=== PATIENT | male | born 1955 | race Caucasian/White ===

== ENCOUNTER 2017-10-29 05:45 | Inpatient (IN) | payer MEDICARE, SELFPAY ==
[2017-10-29] VITALS (52 sets, daily range): BP systolic 95–213; BP diastolic 75–113; PULSE 81–128; RESP 12–30; TEMP 36.7–38.1; O2SAT 83–100; BMI 29.1; BMI 26.7
--- NOTE | 2017-10-29 05:49 | EKG12_ITS ---
Test Reason : SOB Blood Pressure : / mmHG Vent. Rate : 121 BPM Atrial Rate : 121 BPM P-R Int : 124 ms QRS Dur : 078 ms QT Int : 322 ms P-R-T Axes : 078 060 064 degrees QTc Int : 457 ms Sinus tachycardia Nonspecific ST abnormality Abnormal ECG Confirmed by PAUL PERRY MD ([id number]), subeditor IZABEL WALTERS ([id number]) on 10/31/2017 8:46:02 AM Referred By: MERY Confirmed By:PAUL PERRY MD
--- NOTE | 2017-10-29 05:49 | RAD_ITS ---
STUDY: X-RAY CHEST REASON FOR EXAM: Male, 62 years old. Shortness of breath and chest pain times couple of days. History of emphysema. TECHNIQUE: Single AP portable view of the chest. COMPARISON: 11/10/2014. CT chest 11/16/2012. FINDINGS: There are superimposed monitor leads. There is hyperinflation of the lungs consistent with chronic obstructive lung disease (COPD). There is increased of interstitial opacification since previous examination. There is no demonstrated pleural abnormality. Normal size heart. Normal mediastinum and tiara. Normal visualized pulmonary arteries. There is atherosclerotic calcification of the aortic arch with tortuosity. The spine and upper abdominal soft tissues are obscured. There is demineralization of osseous structures. RAD/Chest 1 View (Portable) IMPRESSION: Emphysema. Increase of interstitial opacification bilateral lung parenchyma. This may represent an acute superimposed inflammatory process. Atypical congestive heart failure distribution less likely. Electronically Signed: Jaye Alvarez MD at 6:59 EST , Service support ,
[2017-10-29] MEDS: Albuterol 2.5 MG/3 ML VIAL.NEB. INHALATION ×6 (06:07→22:52)
[2017-10-29] MEDS: MethylPREDNISolone 125 MG/2 ML Vial IV (06:07)
[2017-10-29] MEDS: Ipratropium/Albuterol Sulfate 3 ML AMPUL.NEB INHALATION ×2 (06:07→07:18)
[2017-10-29 06:34] LABS: Anion Gap 8 (5-15); BUN 25 mg/dL (7-18); BUN/Creat Ratio 36.2 RATIO (10-20); Calcium,Total 9.3 mg/dL (8.5-10.1); Chloride 85 mmol/L (98-107); Creatinine, Serum 0.69 mg/dL (0.70-1.30); EST Glomerular Filtration Rate 123 mL/min (>60); Est Glom Filt Rate - Afr Amer 149 mL/min (>60); Estimated Creatinine Clearance 108.77 ml/min; Glucose 132 mg/dL (74-106); Potassium 4.3 mmol/L (3.5-5.1); Sodium Level 131 mmol/L (136-145)
[2017-10-29 06:35] LABS: Absolute Lymphocyte Count 1.16 X10^3/ul (0.83-4.51); Absolute Neutrophil Count 10.1 X10^3/uL (2.0-7.7); Basophil# 0.02 X10^3/uL; Basophil% 0.2 % (0-1); Eosinophil# 0.04 X10^3/uL; Eosinophils% 0.3 % (0-5); Hemoglobin 12.6 g/dl (13.0-16.5); Lymphocyte # 1.16 X10^3/ul (4.0); Lymphocyte % 8.7 % (19-41); Mean Corp Hgb Conc 30.7 g/gl (32-36); Mean Corpuscular Hgb 28.6 pg (27.0-32.0); Mean Platelet Vol. 9.9 fl (6.2-12.0); Monocyte% 14.3 % (0-10); Neutrophil # 10.08 X10^3/uL (2.7-7.7); Platelet Count 238 K/mm3 (150-450); RBC Distribution Width CV 14.2 % (11.6-14.6); RBC Distribution Width SD 48.2 fl (35.1-43.9); Red Blood Count 4.41 M/mm3 (4.6-6.2); White Blood Count 13.3 K/mm3 (4.4-11.0)
[2017-10-29 06:39] LABS: Differential Indicated SCAN CRITERIA MET; POSITIVE COUNT NO; POSITIVE DIFFERENTIAL YES; POSITIVE MORPHOLOGY NO
--- NOTE | 2017-10-29 06:54 | PCM.HP.STD ---
Problem List (1) COPD exacerbation Status: Acute (2) Chest pain Status: Acute (3) HTN (hypertension) Status: Chronic History of Present Illness Date of Admission: 10/29/17 Chief Complaint: Chest pain The patient is a 62 year old male w/ h/o chronic pain syndrome admitted for COPD exacerbation. Pt has been having worsening SOB for the past few days. He has had intermittent episode of cough. Intensity and frequency of cough have worsened in the last few days. Cough is productive. The quantity of sputum has slightly increased. He also has intermittent chest pain x 2 weeks. Pain is sharp and has increased over the past few days. Pain would last for hours and he would have multiple episodes of pain in a day. Pain would come suddenly. Movement would make it worse. Nothing makes it better. Pain is not associated with any other factors. Past Medical History Past Medical History (Chronic Problems): Chronic Problems HTN (hypertension) (Chronic) Allergies No Known Allergies Allergy (Verified 01/31/17 13:19) Home Medications: Ambulatory Orders Medication Instructions Recorded Benzonatate [Benzonatate] 200 mg PO BID 01/31/17 Hydrocodone Bitart/Apap 5-325 1 tablet PO Q6H PRN PRN #12 tablet 01/31/17 [[place] 5/325] Prednisone [Deltasone] 40 mg PO DAILY #8 tablet 01/31/17 Smoking Status: Former smoker Alcohol: None Drugs: None - *Family History Maternal History Items: No pertinent history Review of Systems Constitutional: Denies: Chills, Fever, Weight Change HEENT: Denies: Head Aches, Sinus Congestion, Sinus Drainage Cardiovascular: Reports: Chest Pain. Denies: Palpitations Respiratory: Reports: Cough, Shortness of Breath. Denies: Shortness of breath at rest, Sputum production Gastrointestinal: Denies: Abdominal Pain, Nausea, Vomiting Genitourinary: Denies: Dysuria Musculoskeletal: Denies: Joint Pain, Joint Tenderness Skin: Denies: Rash, Wounds Neurological: Denies: Numbness, Tingling, Focal weakness Psychiatric: Denies: Anxiety, Depression, Homicidal Ideations, Suicidal Ideations Hematologic/ Lymphatic: Denies: Easy Bruising, Easy Bleeding VTE Information - Inpt Only VTE Present on Admission: No VTE Mechan Device Prophylaxis: SCD's VTE Pharm Prophylaxis ordered?: Yes Patient Problems: Active and Suspected Problems COPD exacerbation (Acute) Chest pain (Acute) - Physical Exam General: Alert, Oriented x3, Cooperative HEENT: Atraumatic, PERRLA, EOMI, Normocephalic Neck: Supple, No JVD, Negative Carotid Bruits Lungs: Rhonchi, Short of Breath, Wheezes Cardiovascular: Regular rate, No murmurs Abdomen: Bowel Sounds Present, Soft, Non Tender Extremities: No edema, Capillary Refill Less than 3 Seconds Skin: No rashes, No breakdown Musculoskeletal: No Tenderness to Palpation of Joints or Extremities Neurological: Cranial nerves II-XII grossly intact Psych/Mental Status: Normal Affect, Appropriate Vital Signs Temp Pulse Resp BP Pulse Ox 98.1 F 127 H 24 H 213/113 H 86 10/29/17 05:46 10/29/17 06:46 10/29/17 06:46 10/29/17 06:46 10/29/17 06:46 Oxygen Flow Rate 5 Oxygen Delivery Method Nasal Cannula Weight: 86.9 kg Body Mass Index (BMI) 29.1 Laboratory Tests Past 24 Hrs 10/29/17 10/29/17 05:50 05:50 WBC 13.3 H RBC 4.41 L Hgb 12.6 L Hct 41.0 MCV 93.0 MCH 28.6 MCHC 30.7 L RDW 14.2 RDW Differential 48.2 H Plt Count 238 MPV 9.9 Immature Gran % (Auto) 0.500 Neut % (Auto) 76.0 H Lymph % (Auto) 8.7 L [place] % (Auto) 14.3 H Eos % (Auto) 0.3 Baso % (Auto) 0.2 Absolute Neuts (auto) 10.1 H Absolute Lymphs (auto) 1.16 Total Counted Pending Sodium 131 L Potassium 4.3 Chloride 85 L Carbon Dioxide 38.0 H Anion Gap 8 BUN 25 H Creatinine 0.69 L Estim Creat Clear Calc 108.77 Est GFR (MDRD) Af Amer 149 Est GFR (MDRD) Non-Af 123 BUN/Creatinine Ratio 36.2 H Glucose 132 H Calcium 9.3 Troponin I 0.33 H Assessment/Plan Active and Suspected Problems COPD exacerbation (Acute) Chest pain (Acute) 62 year old male w/ h/o chronic pain syndrome admitted for COPD exacerbation. 1) COPD exacerbation: Diffuse wheezing noted. Chest xray unremarkable. Will start steroid, bronchodilators and ceftriaxone and azithromycin to cover for atypical organism. Cultures pending. Hydration. 2) Chest pain: Elevated trop noted 0.3. EKG disclosed tachy but no e/o ST elevation. Possible type II secondary to COPD exacerbation. However, concerning for ACS. Will get serial trops. Will start heparin gtt. Will get ECHO. Will consult cards. 3) Hyponatremia: Probably hypovolemia hyponatremia. Hydration. Will consider workup if no improvement. Monitor. 3) Prophylaxis: Heparin.
--- NOTE | 2017-10-29 06:55 | NURSING ---
PCU COPD EXAC AND CP SOLO
[2017-10-29] MEDS: Ondansetron 4 MG/2 ML Vial IV (06:56)
--- NOTE | 2017-10-29 08:09 | ED.VISSUMM ---
- ER Visit Summary Date of Service: 10/29/17 Chief Complaint: Shortness of breath and left chest pain History of Present Illness: The patient is a 62 M history of COPD on 4 L of O2 at home. Patient states that for days he has been increasingly more short of breath. He also has dull aching left-sided chest pain. He denies any cardiac history. He denies any history of DVT or PE. He denies any leg pain or swelling. He has had no recent hospitalizations. He states subjectively he thinks he may have had a fever. He denies any hemoptysis, leg pain or swelling. Physical Examination: Older male in respiratory distress. Heart rate 121 respiratory rates greater than 30 and his O2 sat is 84% on 2-4 L. Consistent with hypoxia. Temperature is pending. H EENT exam unremarkable. Neck nontender no JVD no lymphadenopathy. Lungs he has wheezing throughout both lung p[place]co. No rales. No rhonchi. Increased respiratory rate and labored breathing. His left chest wall has reproducible pain there is no ecchymosis. There is no subcu air. There is no bony deformities. This is where his complaint of the chest pain appears to be chest wall pain. Abdomen soft nontender. Normal bowel sounds no peritoneal signs. Extremities he is moving all 4. Calves are nontender without edema or cords. Neurologically is awake alert without focal deficits. Test Results: Chest x-ray shows chronic changes no acute process. No pneumothorax nor infiltrate. Read by myself pending radiology interpretation. EKG sinus tachycardia rate of 121. Unchanged from prior EKG from 2 years ago. White count 13.3. H&H 12 and 41. No bands. Reportedly the person is currently on prednisone. Electrolytes sodium 131. Creatinine 0.6 gap of 8. Troponin is elevated at 0.33. Arterial blood gas shows a pH of 7.22 PCO2 of 121 and PO2 of 177. Emergency Department Course and Treatment: She was treated with aerosols IV Solu-Medrol. He received this by the squad also. He was given aspirin even though his chest pain seemed to be reproducible. I discussed with the patient intubation and he deferred. He does not want that he states. He has not previously filled out a living will. He will be started on BiPAP which he is allowing us to do. Treatment Plan: I very spoken to Dr. Ware the hospitalist has been down to evaluate the patient is going place him on PCU. Disposition: Admission Impression: Acute respiratory failure Acute exacerbation COPD Acute respiratory acidosis with CO2 retention Abnormal troponin may be secondary to hypoxia versus acute coronary event. Patient stated he did not want intubation. He will be started on positive pressure noninvasive ventilation This note was generated with [employer] dictation software. It may contain incorrect words, spelling, and punctuation that were not noted in review of the chart prior to signing ED Disposition - Plan for ED Patient: Disposition: Acute Care Hospital [facility] Chief Complaint: Chest Pain
--- NOTE | 2017-10-29 08:17 | NURSING ---
attempting to obtain admission information, but the patient is a very poor historian, also he is very drowsy, and on the bipap at this time, so communication is very difficult at this time.
--- NOTE | 2017-10-29 08:18 | NURSING ---
pt refuses nutritional supplements
[2017-10-29 08:33] LABS: Blood Gas Specimen Type ART
[2017-10-29 08:34] LABS: Allen Test POS; FI02 100; O2 Delivery Device NRB Mask; SITE L RADIAL
[2017-10-29 08:35] LABS: Time Given 725; pH 7.22 (7.35-7.45)
[2017-10-29 08:36] LABS: Base Excess 22 mmol/L (-2 to +2); Bicarbonate 49.7 mmol/L (22-26); PO2 177 mmHG (75-100); SO2 99 % (95-99); Total Carbon Dioxide > 50 mmol/L; pCO2 121.3 mmHg (35-45)
--- NOTE | 2017-10-29 09:34 | PCM.PN.HOSP ---
Patient Problems: Active and Suspected Problems COPD exacerbation (Acute) Chest pain (Acute) Vitals/I&O's: Vital Signs Temp Pulse Resp BP Pulse Ox 98.0 F 125 H 22 H 162/98 H 88 10/29/17 09:02 10/29/17 09:02 10/29/17 09:02 10/29/17 09:02 10/29/17 09:02 Oxygen Flow Rate 15 Oxygen Delivery Method Bi-pap Weight: 80 kg Body Mass Index (BMI) 26.7 Laboratory Results 10/29/17 07:20: Specimen Type ART, Sample Site L RADIAL, pH 7.22 L, Bicarbonate Actual 49.7 H, POC Total CO2 > 50, Base Excess 22 H, O2 Saturation 99, O2 % 100, ABG pCO2 121.3 H*, ABG pO2 177 H, Pranav Test POS, Respiration Rate TNP, O2 Delivery Device NRB Mask, Liter Flow 15.0, Minute Volume TNP, Vent Mode TNP, Tidal Volume TNP, POC PEEP TNP, POC Pressure Suppt TNP, Pressure High TNP, Pressure Low TNP, Time High TNP, Time Low TNP, EPAP TNP, IPAP TNP, Blood Gas Notified Whom ED MD, Blood Gas Notified Time 725 Current Medications Aspirin (Ecotrin) 81 mg PO DAILY@0800 [facility] Atorvastatin Calcium (Lipitor) 40 mg PO QHS [facility] Carvedilol (Coreg) 6.25 mg PO BID [facility] Heparin Sodium (Porcine) () 0 units IV UD PRN PRN Reason: Protocol Ceftriaxone Sodium (Rocephin) 1 gm in 50 mls @ 100 mls/hr IV Q24 [facility] Heparin Sodium/Dextrose () 25,000 units in 250 mls @ 11 mls/hr IV .[id number] [facility]; As Directed PRN Reason: Protocol Methylprednisolone (Solu-Medrol) 40 mg IV Q8 [facility] Stop: 10/30/17 14:01 Morphine Sulfate (Morphine) 2 - 4 mg IV Q3H PRN PRN PRN Reason: Severe Pain (pain scale 6-10) Morphine Sulfate (Morphine) 2 - 4 mg IV Q3H PRN PRN PRN Reason: Severe Pain (pain scale 6-10) Nitroglycerin (Nitrostat) 0.4 mg SUBLINGUAL Q5M PRN PRN Reason: CHEST PAIN Assessment/Plan Active and Suspected Problems COPD exacerbation (Acute) Chest pain (Acute) Patient is a 62 year old gentleman with past medical history significant on for COPD who was admitted with worsening shortness of breath, productive cough over couple of days prior to patient being admitted. And had also complained of intermittent epigastric chest pain over the past 2 weeks. An assessment of acute hypoxic respiratory failure was made patient placed on noninvasive ventilation and admitted to the progressive care unit. Patient was seen momentarily after patient arrived on the floor he was found to be in significant respiratory distress unable to speak in full sentences using accessory muscles in breathing. ABGs obtained after patient's admission demonstrated significant hypercarbia with PCO2 of 121. Did discuss with the patient regarding his CODE STATUS patient did express the desire to have everything done (conversation was held with a nurse in the room). Call was placed to the intensive care physician electronics system mechanic Dr. Ayon decision was made to transfer patient to the intensive care unit for management. Clinical Impression(s) from Imaging Studies Chest X-Ray 10/29/17 05:49 IMPRESSION: Emphysema. Increase of interstitial opacification bilateral lung parenchyma. This may represent an acute superimposed inflammatory process. Atypical congestive heart failure distribution less likely. Electronically Signed: Jaye Alvarez MD at 6:59 EST , Service support , Laboratory Results - last 24 hr 10/29/17 10/29/17 10/29/17 05:50 05:50 07:20 WBC 13.3 H RBC 4.41 L Hgb 12.6 L Hct 41.0 MCV 93.0 MCH 28.6 MCHC 30.7 L RDW 14.2 RDW Differential 48.2 H Plt Count 238 MPV 9.9 Immature Gran % (Auto) 0.500 Neut % (Auto) 76.0 H Lymph % (Auto) 8.7 L [place] % (Auto) 14.3 H Eos % (Auto) 0.3 Baso % (Auto) 0.2 Absolute Neuts (auto) 10.1 H Absolute Lymphs (auto) 1.16 Total Counted Not Reportable Differential Comment Diff Path Review May foll Specimen Type ART Sample Site L RADIAL pH 7.22 L Bicarbonate Actual 49.7 H POC Total CO2 > 50 Base Excess 22 H O2 Saturation 99 O2 % 100 ABG pCO2 121.3 H* ABG pO2 177 H Pranav Test POS Respiration Rate TNP O2 Delivery Device NRB Mask Liter Flow 15.0 Minute Volume TNP Vent Mode TNP Tidal Volume TNP POC PEEP TNP POC Pressure Suppt TNP Pressure High TNP Pressure Low TNP Time High TNP Time Low TNP EPAP TNP IPAP TNP Blood Gas Notified Whom ED MD Blood Gas Notified Time 725 Sodium 131 L Potassium 4.3 Chloride 85 L Carbon Dioxide 38.0 H Anion Gap 8 BUN 25 H Creatinine 0.69 L Estim Creat Clear Calc 108.77 Est GFR (MDRD) Af Amer 149 Est GFR (MDRD) Non-Af 123 BUN/Creatinine Ratio 36.2 H Glucose 132 H Calcium 9.3 Troponin I 0.33 H Assessment 1. Acute hypoxic and hypercapnic respiratory failure 2. Elevated troponin suspected to be secondary to #1 3. COPD with acute exacerbation 4. Suspected atypical pneumonia 5. Chronic pain syndrome 6. DVT prophylaxis Plan : 1. Continue with treatment as initiated by admitting physician 2. Transfer patient to the intensive care unit with consultation to Dr. John Ayon with intensive care Time spent attending to patient and coordinating care 65 minutes Advanced planning: CODE STATUS discussed with patient regarding his prognosis and various modalities involving the CODE STATUS discussion patient elected to remain full code at this point including intubation if warranted; Time spent on discussion 18 minutes Code Visit Procedures: 29909 Prolonged InPt Service; first hour
--- NOTE | 2017-10-29 09:37 | CON.PCM_ITS ---
Reason for Consult Date of Consultation: 10/29/17 Reason for Consultation: Respiratory failure History of Present Illness: The patient is a 62-year-old male, with a history as outlined below, who presented to the emergency department on October 29 with complaints of shortness of breath and chest pain. The patient reports a history of COPD of unknown severity, as his care was previously being delivered by Dr. Lyman at [facility]. He does endorse a [id number] smoking history, having quit previously. The patient's home inhaler regimen is not known. He denies ever having been evaluated for sleep disordered breathing, and does not currently utilize any form of noninvasive positive pressure ventilation in his home environment. He does report an overall generalized decline in the quality of his life recently. On presentation to the emergency department, the patient was noted to be afebrile, tachycardic and hemodynamically stable. He was tachypneic and initially requiring 5 L/min via nasal cannula to maintain oxygen saturations. His oxygen requirement steadily increased in the emergency department and he was eventually transitioned to BiPAP therapy. Laboratory evaluation revealed elevated white blood cell count to 13,000. Initial arterial blood gas on a nonrebreather, obtain in the emergency department, revealed both hypercarbia and hypoxemia with a pH of 7.22, PCO2 of 121 and PO2 of 177. Chemistry profile revealed a chronically elevated serum bicarbonate at 38. Initial troponin was elevated to 0.33. Initial plain film chest x-ray revealed interstitial airspace disease concerning for atypical infectious process versus edema. The patient was started on breathing treatments, steroids and antibiotics. He was initially transferred to the PCU. However, the patient continued to decompensate clinically and required transfer to the medical intensive care unit for ongoing management. Upon repeating the patient's arterial blood gas on BiPAP, there appeared to be slight interval worsening in the patient's hypercarbia. He did report that he would in fact want to be intubated. Therefore, the decision was made to proceed with intubation due to failure to respond to BiPAP therapy. The patient was placed into appropriate position. He was medicated with 4 mg of Versed and 20 mg of etomidate, after which time he was oxygenated via bag valve mask ventilation. Direct laryngoscopy was performed with a grade 1 view obtained. A #8 endotracheal tube was placed at 22 cm at the lips. Post intubation plain film chest x-ray is currently pending. Past Medical History Past Medical History (Chronic Problems): Chronic Problems HTN (hypertension) (Chronic) Allergies No Known Allergies Allergy (Verified 01/31/17 13:19) Home Medications: Ambulatory Orders Medication Instructions Recorded Benzonatate [Benzonatate] 200 mg PO BID 01/31/17 Hydrocodone Bitart/Apap 5-325 1 tablet PO Q6H PRN PRN #12 tablet 01/31/17 [[place] 5/325] Prednisone [Deltasone] 40 mg PO DAILY #8 tablet 01/31/17 Smoking Status: Former smoker Alcohol: None Drugs: None - *Family History Maternal History Items: No pertinent history Review of Systems Constitutional: Denies: Chills, Fever Eyes: Denies: Blurred vision, Double vision HEENT: Reports: Nasal Congestion, Sinus Congestion Cardiovascular: Reports: Chest Pain, Chest Tightness Respiratory: Reports: Cough, Shortness of Breath Gastrointestinal: Denies: Abdominal Pain, Nausea, Vomiting Genitourinary: Denies: Dysuria Musculoskeletal: Denies: Joint Pain, Joint Tenderness Skin: Denies: Rash, Wounds Neurological: Denies: Numbness, Tingling, Focal weakness Psychiatric: Denies: Anxiety, Depression, Homicidal Ideations, Suicidal Ideations Hematologic/ Lymphatic: Denies: Easy Bruising, Easy Bleeding Patient Problems: Active and Suspected Problems COPD exacerbation (Acute) Chest pain (Acute) Objective: The patient's most recent lab work, culture data and imaging studies have all been personally reviewed. Respiratory viral panel and sputum culture have been ordered. Repeat echocardiogram is pending. Prior surface echocardiogram from April 2013 revealed normal LV size with an ejection fraction of 50%. - Physical Exam General: - - Currently intubated and sedated. HEENT: Atraumatic, PERRLA, Normocephalic Oral: No Gingival or Mucosal Lesions/ Ulcerations, Dry Mucosa Neck: Supple, No Nodes, Trachea Midline Lungs: Short of Breath, Tachypneic, - - Globally diminished air movement bilaterally without appreciable wheezes, rales or rhonchi. Cardiovascular: Normal S1, Normal S2, No murmurs, No rub noted, No Gallop, Tachycardic Abdomen: Bowel Sounds Present, Soft, Non Tender, Obese Extremities: No clubbing, No cyanosis, No edema Skin: No rashes, No breakdown Musculoskeletal: No Muscle Wasting Lymphatic: No Cervical, Supraclavicular, or Inguinal Adenopathy Neurological: - - No focal neurological deficits. Moves all extremities spontaneously. Currently sedated. Vital Signs Temp Pulse Resp BP Pulse Ox 98.0 F 125 H 22 H 162/98 H 88 10/29/17 09:02 10/29/17 09:02 10/29/17 09:02 10/29/17 09:02 10/29/17 09:02 Oxygen Flow Rate 15 Oxygen Delivery Method Bi-pap Weight: 176 lb 5.917 oz Body Mass Index (BMI) 26.7 Laboratory Tests Past 24 Hrs 10/29/17 07:20 Specimen Type ART Sample Site L RADIAL pH 7.22 L Bicarbonate Actual 49.7 H POC Total CO2 > 50 Base Excess 22 H O2 Saturation 99 O2 % 100 ABG pCO2 121.3 H* ABG pO2 177 H Pranav Test POS Respiration Rate TNP O2 Delivery Device NRB Mask Liter Flow 15.0 Minute Volume TNP Vent Mode TNP Tidal Volume TNP POC PEEP TNP POC Pressure Suppt TNP Pressure High TNP Pressure Low TNP Time High TNP Time Low TNP EPAP TNP IPAP TNP Blood Gas Notified Whom ED Blood Gas Notified Time 725 Labs (Last 48 Hours) 10/29/17 10/29/17 10/29/17 05:50 05:50 07:20 WBC 13.3 H RBC 4.41 L Hgb 12.6 L Hct 41.0 MCV 93.0 MCH 28.6 MCHC 30.7 L RDW 14.2 RDW Differential 48.2 H Plt Count 238 MPV 9.9 Immature Gran % (Auto) 0.500 Neut % (Auto) 76.0 H Lymph % (Auto) 8.7 L [place] % (Auto) 14.3 H Eos % (Auto) 0.3 Baso % (Auto) 0.2 Absolute Neuts (auto) 10.1 H Absolute Lymphs (auto) 1.16 Total Counted Not Reportable Differential Comment Diff Path Review May foll Specimen Type ART Sample Site L RADIAL pH 7.22 L Bicarbonate Actual 49.7 H POC Total CO2 > 50 Base Excess 22 H O2 Saturation 99 O2 % 100 ABG pCO2 121.3 H* ABG pO2 177 H Pranav Test POS Respiration Rate TNP O2 Delivery Device NRB Mask Liter Flow 15.0 Minute Volume TNP Vent Mode TNP Tidal Volume TNP POC PEEP TNP POC Pressure Suppt TNP Pressure High TNP Pressure Low TNP Time High TNP Time Low TNP EPAP TNP IPAP TNP Blood Gas Notified Whom ED Blood Gas Notified Time 725 Sodium 131 L Potassium 4.3 Chloride 85 L Carbon Dioxide 38.0 H Anion Gap 8 BUN 25 H Creatinine 0.69 L Estim Creat Clear Calc 108.77 Est GFR (MDRD) Af Amer 149 Est GFR (MDRD) Non-Af 123 BUN/Creatinine Ratio 36.2 H Glucose 132 H Calcium 9.3 Troponin I 0.33 H Clinical Impression(s) from Imaging Studies Chest X-Ray 10/29/17 05:49 IMPRESSION: Emphysema. Increase of interstitial opacification bilateral lung parenchyma. This may represent an acute superimposed inflammatory process. Atypical congestive heart failure distribution less likely. Electronically Signed: Jaye Alvarez MD at 6:59 EST , Service support , Assessment/Plan Active and Suspected Problems COPD exacerbation (Acute) Chest pain (Acute) RECOMMENDATIONS: 1. Obtain plain film chest x-ray to confirm appropriate endotracheal tube placement 2. Broaden antibiotics to include Zosyn. Check MRSA screen and if positive start vancomycin. 3. Check full respiratory viral panel and obtain sputum culture 4. Maintain oxygen saturations 88-92%, to prevent paradoxical CO2 retention 5. Obtain repeat arterial blood gas in 1 hour 6. Continue to trend troponins. Repeat surface echocardiogram is pending. Cardiology consultation is pending. 7. Start Pepcid and Lovenox for prophylaxis IMPRESSIONS: 1. Acute on chronic hypoxemic and hypercarbic respiratory failure Potential etiologies include acute COPD exacerbation due to atypical infectious process versus that of decompensated heart failure and subsequent pulmonary vascular congestion. The patient failed to respond to BiPAP therapy and was subsequently intubated. A full respiratory viral panel and sputum cultures will be obtained. Scheduled aerosol treatments and steroids will be continued. Antibiotics will be transitioned to Zosyn. MRSA screen will be obtained and if positive vancomycin will be added. Will obtain BNP and repeat surface echocardiogram. Maintain oxygen saturations 88-92%. Plan to repeat arterial blood gas 1 hour following intubation. 2. Elevated troponin Likely demand ischemia in the setting of increased metabolic demands. Cardiology has been consulted. Plan to continue to trend troponins. Repeat echocardiogram is pending. 3. Chronic pain syndrome/obesity/tobacco dependence, in remission Complicates care, management, recovery and prognosis. The patient will be sedated with propofol and fentanyl. Tube feeds can be initiated per nutrition recommendations. TIME: 80 minutes of critical care time, inclusive of procedures, was spent addressing the patient's acute on chronic respiratory failure, COPD exacerbation, troponin elevation, review of all data and collaboration with the care team. ([id number]) Code Visit Procedures: 90224 Critial Care Addl 30 Min 9xxxx: [id number] Critical care first hour
--- NOTE | 2017-10-29 10:15 | NURSING ---
Dr Ayon spoke w/pt regarding intubation. Pt at first stated he did not want intubated because he wants to have a good quality of life. When intubation was further explained to pt re: may just need a few days to get over current illness, pt agreed to intubation. Pt states he would not want trach or prolonged intubation. States he is in the process of getting his cousin, Peter Armenta, cousin, to be his POA. States this is his main contact and provided phone number. No children, no .
--- NOTE | 2017-10-29 10:23 | NURSING ---
1027- 4mg versed IV given. Dr zhu at head of bed to intubate 1028- 20mg etomidate IV given. 1030- Dr Zhu intubating. #8 ETT, 22cm lip, (+) color change, B/L breath sounds.
[2017-10-29] MEDS: Propofol 10MG/Ml 1,000 MG/100 ML Bottle 2.4 MG CONT INF ×3 (10:30→20:28)
--- NOTE | 2017-10-29 10:41 | RAD_ITS ---
STUDY: X-RAY CHEST REASON FOR EXAM: Male, 62 years old. ET tube placement TECHNIQUE: Single AP portable view of the chest. COMPARISON: None. FINDINGS: ET tube is noted terminating roughly 4.7 cm from the yoanna. Enteric tube in the stomach. Lungs are adequately inflated with interstitial prominence suggesting vascular congestion throughout. There is no demonstrated pleural abnormality. There is mild cardiac enlargement. Normal mediastinum and tiara. Normal visualized pulmonary arteries. Normal visualized aortic arch and descending thoracic aorta. There are diffuse degenerative changes of the visualized thoracic spine. There is degenerative osteoarthritis of the bilateral shoulders. There is no demonstrated abnormality of the visualized soft tissue structures of the upper abdomen. RAD/Chest 1 View (Portable) IMPRESSION: Interstitial edema throughout the lungs. ET tube and enteric tube Electronically Signed: Alton Randle DO at 11:34 EST Tel , Service support ,
--- NOTE | 2017-10-29 10:45 | RAD_ITS ---
STUDY: X-RAY - ABDOMEN/PELVIS REASON FOR EXAM: Male, 62 years old. NG tube placement TECHNIQUE: Single AP view of the abdomen / pelvis. COMPARISON: 10/29/2017 FINDINGS: NG tube is in place with tip in side port both in the stomach. Would recommend at least advanced in by 8 cm. Nonobstructive bowel gas pattern. There is no demonstrated free abdominal air. The visualized liver, spleen and kidneys are grossly normal in size and morphology. Normal soft tissue structures. There are diffuse degenerative changes of the visualized lumbar spine. RAD/Abdomen Single View (Portable) IMPRESSION: NG tube as above Electronically Signed: Alton Randle DO at 11:33 EST Tel , Service support ,
--- NOTE | 2017-10-29 10:55 | CON.PCM_ITS ---
Reason for Consult Date of Consultation: 10/29/17 Reason for Consultation: AbNormal cardiac enzymes History of Present Illness: The patient is a 62-year-old male, who presented to the emergency department on October 29 with complaints of shortness of breath and chest pain. The patient reports a history of COPD of unknown severity, as his care was previously being delivered by Dr. Lyman at [facility]. He does endorse a 30-pack- year smoking history, having quit previously. He says that the shortness of breath had been coming on for a while. On presentation to the emergency department, the patient was noted to be afebrile, tachycardic and hemodynamically stable. He was tachypneic and initially requiring 5 L/min via nasal cannula to maintain oxygen saturations. His oxygen requirement steadily increased in the emergency department and he was eventually transitioned to BiPAP therapy. Laboratory evaluation revealed elevated white blood cell count to 13,000. Initial arterial blood gas on a nonrebreather, obtain in the emergency department, revealed both hypercarbia and hypoxemia with a pH of 7.22, PCO2 of 121 and PO2 of 177. Chemistry profile revealed a chronically elevated serum bicarbonate at 38. Initial troponin was elevated to 0.33. Initial plain film chest x-ray revealed interstitial airspace disease concerning for atypical infectious process versus edema. The patient was started on breathing treatments, steroids and antibiotics. He was initially admitted to the PCU reasons that are not entirely clear but it appears there was a suggestion that he did not want to be intubated though he says he did not quite understand the implications. However, the patient continued to decompensate clinically shortly afterwards and required transfer to the medical intensive care unit for ongoing management and intubation. Past Medical History Allergies/Adverse Reactions: Allergies No Known Allergies Allergy (Verified 01/31/17 13:19) Home Medications: Ambulatory Orders Medication Instructions Recorded Benzonatate [Benzonatate] 200 mg PO BID 01/31/17 Hydrocodone Bitart/Apap 5-325 1 tablet PO Q6H PRN PRN #12 tablet 01/31/17 [[place] 5/325] Prednisone [Deltasone] 40 mg PO DAILY #8 tablet 01/31/17 Past Medical History (Chronic Problems): Chronic Problems HTN (hypertension) (Chronic) - *Family History Maternal History Items: No pertinent history Smoking Status: Former smoker Alcohol: None Drugs: None Review of Systems - Review of Systems General: Denies: Fever, Night Sweats, Fatigue Cardiovascular: Reports: Shortness of Breath, Shortness of Breath with Exertion. Denies: Chest Discomfort, Orthopnea, PND, Peripheral Edema, Palpitations, Lightheadedness, Dizziness, Near Syncope, Syncope Respiratory: Denies: Cough, Sputum Production, Hemoptysis Gastrointestinal: Denies: Hematemesis, Hematochezia, Melena Genitourinary: Denies: Dysuria, Hematuria Skin: Denies: Rash Subjectve: Middle-aged gentleman in respiratory distress currently being intubated Objective: Vital Signs Temp Pulse Resp BP Pulse Ox 98.0 F 125 H 22 H 162/98 H 88 10/29/17 09:02 10/29/17 09:02 10/29/17 09:02 10/29/17 09:02 10/29/17 09:02 Oxygen Flow Rate 15 Oxygen Delivery Method Bi-pap Weight: 176 lb 5.917 oz Body Mass Index (BMI) 26.7 HEENT: PERRL, EOMI, Sclera Non Icteric Neck: Supple, Good ROM, No Lymph Node Enlargement Lungs: Clear to auscultation Cardiovascular: Regular Rhythm, Normal S1, Normal S2, No Murmurs, No Rubs, No Gallops Vascular: No Carotid Bruits, Normal Femoral Pulses, Normal Radial Pulses, Normal Dorsalis Pedal Pulse, Normal Posterior Tibial Pulses Abdomen: Bowel Sounds Present, Soft, Non Tender, No HSM, No Organomegaly Extremities: No Cyanosis, No Clubbing, No edema Neurological: No Focal Motor or Sensory Deficit 10/29/17 07:20: pH 7.22 L, Bicarbonate Actual 49.7 H, POC Total CO2 > 50, Base Excess 22 H, O2 Saturation 99, ABG pCO2 121.3 H*, ABG pO2 177 H, Pranav Test POS Rhythm: EKG: Sinus tachycardia with a rate of 121 bpm and no acute changes Assessment/Plan 1. Abnormal cardiac enzymes He presents with acute respiratory failure and is noted to have abnormal cardiac enzymes. At this particular time I suspect the diagnosis is secondary to demand ischemia. We will continue to obtain cardiac enzymes and then further recommendations will be made. In the meantime I would suggest anticoagulating him with Lovenox 1 mg/kg twice daily for the first 24 hours and for him to obtain clopidogrel loading. He is on a beta-kathie which will be continued as well as aspirin. An echocardiogram will be performed in a.m. to assess his left ventricular function and then further recommendations will be made. 2. Acute respiratory failure As have a history of obstructive lung disease but with his current acute respiratory failure we will evaluate him and will abide by the recommendations of the pulmonary/critical care team. An echocardiogram is being performed to assess his left ventricular function as well as his pulmonary pressures. 3. Hypertension He likely has a diagnosis of hypertension and will continue his current antihypertensive therapy. Thank you for allowing me to participate in the care of your patient. Please don't hesitate to call if any issues arise
[2017-10-29 11:01] LABS: Lactic Acid 0.7 mmol/L (0.4-2.0)
[2017-10-29 11:06] LABS: BNP,B-Type NATRIURETIC PEPTIDE 217.5 pg/mL (0-100)
[2017-10-29 11:24] LABS: CPK Total, Creatine Kinase 216 U/L (39-308); Triglycerides 218 mg/dL
[2017-10-29 11:46] LABS: Color, Urine Yellow (Yellow); Glucose, Dipstick Normal (Normal); Ketone-Dipstick 50 mg/dl (Negative); Leukocyte Esterase-Dipstick 25 /ul (Negative); Nitrite-Dipstick Negative (Negative); Occult Blood-Urine 50 /ul (Negative); Protein-Dipstick 100 mg/dl (Negative); Specific Gravity, Urine 1.025 (1.002-1.030); Urine Bilirubin Dipstick Negative (Negative); Urine Clarity Sl. Cloudy (Clear); Urine Urobilinogen 1 mg/dl (Normal)
[2017-10-29] MEDS: Enoxaparin 80 MG/0.8 ML Syringe SC ×2 (12:15→20:28)
[2017-10-29] MEDS: Clopidogrel Bisulfate 300 MG Tablet PO (12:15)
[2017-10-29] MEDS: Aspirin E.C. 81 MG Tablet PO (12:15)
[2017-10-29] MEDS: Carvedilol 6.25 MG Tablet PO (12:15)
[2017-10-29] MEDS: 0.9% NaCl Peripheral Flush Adult/Peds IV ×4 (12:16→23:21)
[2017-10-29] MEDS: Piperacil/Tazobactam 3.375 GM/50 ML ML IV ×2 (12:16→21:59)
[2017-10-29 12:36] LABS: Base Excess 24 mmol/L (-2 to +2); Bicarbonate 47.7 mmol/L (22-26); Blood Gas Specimen Type ART; FI02 50; Mode A-C; O2 Delivery Device Vent; PEEP 5; PO2 130 mmHG (75-100); RR 16; SITE L Radial; SO2 99 % (95-99); Time Given 1224; Total Carbon Dioxide 50 mmol/L; Vt 500; pCO2 69.9 mmHg (35-45); pH 7.44 (7.35-7.45)
[2017-10-29 13:07] LABS: M R Staph aureus DNA By PCR Negative (Negative); Probe Check PASS; Specimen Processing Control PASS
[2017-10-29 13:14] LABS: Allen Test POS; Blood Gas Specimen Type ART; SITE L RADIAL
[2017-10-29 13:15] LABS: EPAP 10; FI02 50; IPAP 16; O2 Delivery Device Bi Pap; Time Given 959
[2017-10-29 13:16] LABS: pH 7.19 (7.35-7.45)
[2017-10-29 13:17] LABS: Base Excess 19 mmol/L (-2 to +2); Bicarbonate 47.5 mmol/L (22-26); PO2 93 mmHG (75-100); SO2 93 % (95-99); Total Carbon Dioxide > 50 mmol/L; pCO2 124.7 mmHg (35-45)
[2017-10-29 14:28] LABS: Amphetamine Urine VISTA NEGATIVE (<1000 ng/mL); Barbiturate Urine VISTA NEGATIVE (< 200 ng/mL); Benzodiazepine Urine VISTA POSITIVE (< 200 ng/mL); Cocaine Urine VISTA NEGATIVE (< 300 ng/mL); Ecstacy Urine VISTA NEGATIVE (< 500 ng/mL); Methadone Urine VISTA NEGATIVE (< 300 ng/mL); PCP Urine VISTA NEGATIVE (< 25 ng/mL); THC Urine VISTA NEGATIVE (< 50 ng/mL); Vista UDS pH Range 6
[2017-10-29] MEDS: Vital AF 1.2 Cal Liquid 1,000 ML 60 ML GT (17:42)
[2017-10-29 17:56] LABS: Bedside Glucose 145 mg/dL (70-110)
--- NOTE | 2017-10-29 20:05 | NURSING ---
Pt begins coughing excessively after suctioning ETT, copious amounts being suctioned. Pulse ox decreasing to 77% and maintaining. Ventilator is not alarming and pt is sedated. Pulse ox continues to maintain in 70s after more suctioning. RT is called and asked to come to room.
--- NOTE | 2017-10-29 20:15 | NURSING ---
Pulse ox now decreasing to 68%, Ventilator is disconnected and begin bagging pt. Nidia RT arrives to room and pulse ox now 97% with no resistance in bagging. Ventilator is reconnected and pulse ox remains 95%
[2017-10-29] MEDS: Chlorhexidine 15 ML PO (21:58)
[2017-10-29] MEDS: Carvedilol 6.25 MG Tablet GT (21:59)
[2017-10-29] MEDS: Famotidine 20 MG Tablet GT (21:59)
[2017-10-29] MEDS: Atorvastatin Calcium 40 MG Tablet GT (21:59)
[2017-10-29 23:41] LABS: Bedside Glucose 170 mg/dL (70-110)
[2017-10-30] VITALS (38 sets, daily range): BP systolic 94–152; BP diastolic 61–88; PULSE 68–96; RESP 16–20; TEMP 37.4–37.8; O2SAT 90–99
[2017-10-30] MEDS: Propofol 10MG/Ml 1,000 MG/100 ML Bottle 2.4 MG CONT INF ×4 (00:55→23:26)
[2017-10-30] MEDS: Albuterol 2.5 MG/3 ML VIAL.NEB. INHALATION ×7 (01:10→22:37)
--- NOTE | 2017-10-30 02:30 | NURSING ---
Pt pulse ox decreasing to 78% after ET suctioning. Scant amount of creamy yellow secretions being suctioned from ETT. Pt continues to decrease saturation to 72% and maintaining. Lavaging x2 with no improvement. Ventilator removed and now bagging pt x1 minute, pulse ox increasing to 100% and ventilator reapplied. Pulse ox maintaining 95%. Nidia RT notified and coming to room with breathing tx. Will continue to monitor.
[2017-10-30 04:20] LABS: Hematocrit 34.8 % (40-54); Mean Corp Hgb Conc 31.6 g/gl (32-36); Mean Corpuscular Hgb 28.8 pg (27.0-32.0); Mean Corpuscular Volume 91.1 fL (80-94); Mean Platelet Vol. 9.9 fl (6.2-12.0); Platelet Count 226 K/mm3 (150-450); RBC Distribution Width CV 14.7 % (11.6-14.6); RBC Distribution Width SD 47.8 fl (35.1-43.9); Red Blood Count 3.82 M/mm3 (4.6-6.2); White Blood Count 10.2 K/mm3 (4.4-11.0)
[2017-10-30 04:23] LABS: Scan Indicated on CBC? Y/N NO
[2017-10-30 04:37] LABS: Phosphorus 2.6 mg/dL (2.5-4.9)
--- NOTE | 2017-10-30 04:50 | NURSING ---
Ventilator alarming peak pressure 48 and pulse ox decreasing to 74% ETT suctioned x2 and lavage x1 with scant yellow secretions and no improvement in pulse ox. Pt is bagged x1 with mild resistance to start. Pulse ox increasing to 100% and ventilator reconnected. Pt with eyes open and cooperative pt shaking head to yes and no questions.
[2017-10-30 04:54] LABS: ALB/GLOB Ratio 0.7 RATIO (0.9-2.4); AST(SGOT) 19 U/L (15-37); Alanine Aminotransfer ALT/SGPT 35 U/L (16-61); Albumin, Serum 2.8 g/dL (3.2-5.0); Alkaline Phosphatase 64 U/L (45-117); Anion Gap 8 (5-15); BUN 35 mg/dL (7-18); BUN/Creat Ratio 41.6 RATIO (10-20); Calcium,Total 8.3 mg/dL (8.5-10.1); Chloride 88 mmol/L (98-107); Cholesterol 165 mg/dL (200); Creatinine, Serum 0.84 mg/dL (0.70-1.30); EST Glomerular Filtration Rate 98 mL/min (>60); Est Glom Filt Rate - Afr Amer 119 mL/min (>60); Estimated Creatinine Clearance 92.35 ml/min; Globulin 4.1 g/dL (2.2-4.2); Glucose 186 mg/dL (74-106); High Density Lipoprotein 18 mg/dL; Magnesium 2.7 mg/dL (1.6-2.6); Potassium 4.1 mmol/L (3.5-5.1); Protein, Total 6.9 g/dL (6.4-8.2); Sodium Level 134 mmol/L (136-145); Thyroid Stim Hormone (TSH) 0.41 uIU/mL (0.358-3.74); Triglycerides 322 mg/dL; Very Low Density Lipoprotein 64 mg/dL (5-40)
--- NOTE | 2017-10-30 05:10 | RAD_ITS ---
STUDY: X-RAY CHEST REASON FOR EXAM: Male, 62 years old. Shortness of breath. TECHNIQUE: Single AP portable view of the chest. COMPARISON: Comparison is made with prior examination dated October 29, 2017. FINDINGS: An endotracheal tube is in situ. The tip is at 4.7 cm proximal to the yoanna. A nasogastric tube is seen with the tip below the left hemidiaphragm. EKG electrodes are seen. The vascular congestion has improved. Residual patchy infiltrate seen in the right upper lobe as well as in both lower lobes. Follow-up is recommended. There is no demonstrated pleural abnormality. There is borderline cardiomegaly. Normal mediastinum and tiara. Normal visualized pulmonary arteries. There is atherosclerotic tortuosity of the aortic arch and descending thoracic aorta. There are diffuse degenerative changes of the visualized thoracic spine. Normal visualized ribs, clavicles, and shoulders. There is no demonstrated abnormality of the visualized soft tissue structures of the upper abdomen. RAD/Chest 1 View (Portable) IMPRESSION: There has been improvement of the vascular congestion. Residual patchy infiltrates in the right upper lobe and both lower lobes. Electronically Signed: Kevin Owusu MD at 8:28 EST Tel [phone], Service support ,
--- NOTE | 2017-10-30 05:55 | ECHOD_ITS ---
Version 2 Reason For Study: chest pain Procedure This was a 2D Doppler, Color Flow transthoracic echocardiogram. The study was technically difficult. PT in supine position and on vent. Contrast injection was performed. Exam performed portable in ICU/CCU. Left Ventricle Normal LV size. The estimated ejection fraction is 50 %. Left ventricular systolic function is lower limits of normal. Right Ventricle Normal RV size. Normal systolic function. Atria Normal left atrium. Normal right atrium. Mitral Valve Normal mitral valve. Tricuspid Valve Normal tricuspid valve. Mild (1+) tricuspid valve insufficiency. Pulmonary artery systolic pressure is 25 mmHg. Aortic Valve The aortic valve is not well visualized. Pulmonic Valve The pulmonic valve is not well visualized. Great Vessels Normal aortic root. The pulmonary artery is normal size. Normal inferior vena cava. Pericardium/Pleural No pericardial effusion. Medication Diluted definity 2ml given slow IV push to enhance endocardial definition. MMode/2D Measurements & Calculations LVIDd: 5.0 cm IVSd: 0.94 cm Ao root diam: 2.8 cm LVIDs: 4.0 cm LVPWd: 1.0 cm LA dimension: 2.6 cm RVDd: 2.8 cm FS: 19.8 % LAV(MOD-bp): 43.7 ml LAV(MOD-bp) Indexed: 22.4 ml/m2 LA A4 area: 12.7 cm2 RA A4 area: 12.2 cm2 LAV(MOD-sp2): 44.2 ml LAV(MOD-sp4): 30.6 ml Doppler Measurements & Calculations MV E max bobo: 42.2 cm/sec Lat Peak E' Bobo: 6.0 cm/sec Med Peak E' Bobo: 7.3 cm/sec MV A max bobo: 68.8 cm/sec E/E' lat: 7.0 E/E' med: 5.8 MV E/A: 0.61 Ao V2 max: 126.4 cm/sec LV V1 max: 89.0 cm/sec PA V2 max: 97.3 cm/sec Ao max P.4 mmHg LV V1 max P.2 mmHg TR max bobo: 219.4 cm/sec TR max P.3 mmHg Interpretation Summary Normal LV size. The estimated ejection fraction is 50 %. Left ventricular systolic function is lower limits of normal. Pulmonary artery systolic pressure is 25 mmHg. Contrast injection was performed. Ordering Physician: Jarvis Ware Referring Physician: Chang Kumari Performed By: Alysia Abad RDCS, RVT
[2017-10-30] MEDS: Piperacil/Tazobactam 3.375 GM/50 ML ML IV ×3 (05:58→21:43)
[2017-10-30] MEDS: Enoxaparin 80 MG/0.8 ML Syringe SC ×2 (05:59→17:19)
[2017-10-30] MEDS: 0.9% NaCl Peripheral Flush Adult/Peds IV ×3 (06:00→23:32)
--- NOTE | 2017-10-30 07:25 | PN_ITS ---
Subjective: Patient did okay overnight. Nursing did report for separate episodes of acute hypoxemia and increased airway pressures. Patient did receive some bag mask ventilation with improvement. 2 episodes were noted with copious secretions, but the other 2 with very little output. Patient denies any pain at this time. Patient is tolerating tube feeds. No bleeding complications have been noted. Objective: Chest x-ray shows improved bilateral infiltrates. Endotracheal tube is in good position. General: Alert, Cooperative, No apparent distress, - - Good ventilator synchrony. Appears stated age. RASS 0 HEENT: Atraumatic, PERRLA, EOMI, Normocephalic, - - No scleral icterus or injection noted. Oral: Moist Mucosa, No Gingival or Mucosal Lesions/ Ulcerations Neck: Supple, No JVD, No Nodes, Trachea Midline Lungs: No rhonchi, No rales, Diminished, Wheezes, - - Symmetric expansion. No dullness to percussion. Cardiovascular: Regular rate, Regular Rhythm, Normal S1, Normal S2, No murmurs, No rub noted, No Gallop Abdomen: Bowel Sounds Present, Soft, Non Tender, Non-Distended Extremities: No clubbing, No cyanosis, No edema, Capillary Refill Less than 3 Seconds Skin: No rashes, No breakdown Musculoskeletal: No Tenderness to Palpation of Joints or Extremities Lymphatic: No Cervical, Supraclavicular, or Inguinal Adenopathy Neurological: Cranial nerves II-XII grossly intact, Neuro grossly intact, Motor Exam 5/5 strength throughout Psych/Mental Status: Normal Affect, Appropriate Vital Signs Temp Pulse Resp BP Pulse Ox 37.7 C H 77 16 114/69 95 10/30/17 06:00 10/30/17 07:00 10/30/17 07:00 10/30/17 07:00 10/30/17 07:00 Oxygen Flow Rate 30 Oxygen Delivery Method Mechanical Ventilator Weight: 80.9 kg Body Mass Index (BMI) 26.7 Intake and Output for Last 24 Hours 10/28/17 10/29/17 10/30/17 23:59 23:59 23:59 Intake Total 886.3 / 886.3 775.4 / 775.4 Output Total 550 / 550 300 / 300 Balance 336.3 / 336.3 475.4 / 475.4 Labs (Last 48 Hours) 10/29/17 10/29/17 10/29/17 07:20 09:59 10:20 WBC RBC Hgb Hct MCV MCH MCHC RDW RDW Differential Plt Count MPV Specimen Type ART ART Sample Site L RADIAL L RADIAL pH 7.22 L 7.19 L* Bicarbonate Actual 49.7 H 47.5 H POC Total CO2 > 50 > 50 Base Excess 22 H 19 H O2 Saturation 99 93 L O2 % 100 50 ABG pCO2 121.3 H* 124.7 H* ABG pO2 177 H 93 Pranav Test POS POS Respiration Rate TNP TNP O2 Delivery Device NRB Mask Bi Pap Liter Flow 15.0 TNP Minute Volume TNP TNP Vent Mode TNP TNP Tidal Volume TNP TNP POC PEEP TNP TNP POC Pressure Suppt TNP TNP Pressure High TNP TNP Pressure Low TNP TNP Time High TNP TNP Time Low TNP TNP EPAP TNP 10 IPAP TNP 16 Blood Gas Notified Whom ED MD ICU MD Blood Gas Notified Time [id number] Sodium Potassium Chloride Carbon Dioxide Anion Gap BUN Creatinine Estim Creat Clear Calc Est GFR (MDRD) Af Amer Est GFR (MDRD) Non-Af BUN/Creatinine Ratio Glucose Lactic Acid Calcium Phosphorus Magnesium Total Bilirubin AST ALT Alkaline Phosphatase Total Creatine Kinase Troponin I 0.24 H B-Natriuretic Peptide Total Protein Albumin Globulin Albumin/Globulin Ratio Triglycerides Cholesterol LDL Cholesterol VLDL Cholesterol HDL Cholesterol TSH Urine Color Urine Clarity Urine pH Ur Specific [place] Urine Protein Urine Glucose (UA) Urine Ketones Urine Occult Blood Urine Nitrite Urine Bilirubin Urine Urobilinogen Ur Leukocyte Esterase Urine Opiates Screen Urine Methadone Screen Ur Barbiturates Screen Ur Phencyclidine Scrn Ur Amphetamines Screen U Methamphetamin-MDMA U Benzodiazepines Scrn Urine Cocaine Screen U Cannabinoids Screen Ur Drug Screen Comment MRSA (PCR) POC Glucose 10/29/17 10/29/17 10/29/17 10:20 10:20 10:20 WBC RBC Hgb Hct MCV MCH MCHC RDW RDW Differential Plt Count MPV Specimen Type Sample Site pH Bicarbonate Actual POC Total CO2 Base Excess O2 Saturation O2 % ABG pCO2 ABG pO2 Pranav Test Respiration Rate O2 Delivery Device Liter Flow Minute Volume Vent Mode Tidal Volume POC PEEP POC Pressure Suppt Pressure High Pressure Low Time High Time Low EPAP IPAP Blood Gas Notified Whom Blood Gas Notified Time Sodium Potassium Chloride Carbon Dioxide Anion Gap BUN Creatinine Estim Creat Clear Calc Est GFR (MDRD) Af Amer Est GFR (MDRD) Non-Af BUN/Creatinine Ratio Glucose Lactic Acid 0.7 Calcium Phosphorus Magnesium Total Bilirubin AST ALT Alkaline Phosphatase Total Creatine Kinase 216 Troponin I B-Natriuretic Peptide 217.5 H Total Protein Albumin Globulin Albumin/Globulin Ratio Triglycerides 218 H Cholesterol LDL Cholesterol VLDL Cholesterol HDL Cholesterol TSH Urine Color Urine Clarity Urine pH Ur Specific [place] Urine Protein Urine Glucose (UA) Urine Ketones Urine Occult Blood Urine Nitrite Urine Bilirubin Urine Urobilinogen Ur Leukocyte Esterase Urine Opiates Screen Urine Methadone Screen Ur Barbiturates Screen Ur Phencyclidine Scrn Ur Amphetamines Screen U Methamphetamin-MDMA U Benzodiazepines Scrn Urine Cocaine Screen U Cannabinoids Screen Ur Drug Screen Comment MRSA (PCR) POC Glucose 10/29/17 10/29/17 10/29/17 11:00 11:25 11:25 WBC RBC Hgb Hct MCV MCH MCHC RDW RDW Differential Plt Count MPV Specimen Type Sample Site pH Bicarbonate Actual POC Total CO2 Base Excess O2 Saturation O2 % ABG pCO2 ABG pO2 Pranav Test Respiration Rate O2 Delivery Device Liter Flow Minute Volume Vent Mode Tidal Volume POC PEEP POC Pressure Suppt Pressure High Pressure Low Time High Time Low EPAP IPAP Blood Gas Notified Whom Blood Gas Notified Time Sodium Potassium Chloride Carbon Dioxide Anion Gap BUN Creatinine Estim Creat Clear Calc Est GFR (MDRD) Af Amer Est GFR (MDRD) Non-Af BUN/Creatinine Ratio Glucose Lactic Acid Calcium Phosphorus Magnesium Total Bilirubin AST ALT Alkaline Phosphatase Total Creatine Kinase Troponin I B-Natriuretic Peptide Total Protein Albumin Globulin Albumin/Globulin Ratio Triglycerides Cholesterol LDL Cholesterol VLDL Cholesterol HDL Cholesterol TSH Urine Color Yellow Urine Clarity Sl. Cloudy Urine pH 6.0 Ur Specific [place] 1.025 Urine Protein 100 H Urine Glucose (UA) Normal Urine Ketones 50 H Urine Occult Blood 50 H Urine Nitrite Negative Urine Bilirubin Negative Urine Urobilinogen 1 H Ur Leukocyte Esterase 25 H Urine Opiates Screen POSITIVE H Urine Methadone Screen NEGATIVE Ur Barbiturates Screen NEGATIVE Ur Phencyclidine Scrn NEGATIVE Ur Amphetamines Screen NEGATIVE U Methamphetamin-MDMA NEGATIVE U Benzodiazepines Scrn POSITIVE H Urine Cocaine Screen NEGATIVE U Cannabinoids Screen NEGATIVE Ur Drug Screen Comment MRSA (PCR) Negative POC Glucose 10/29/17 10/29/17 10/29/17 12:25 15:10 17:37 WBC RBC Hgb Hct MCV MCH MCHC RDW RDW Differential Plt Count MPV Specimen Type ART Sample Site L Radial pH 7.44 Bicarbonate Actual 47.7 H POC Total CO2 50 Base Excess 24 H O2 Saturation 99 O2 % 50 ABG pCO2 69.9 H* ABG pO2 130 H Pranav Test Respiration Rate 16 O2 Delivery Device Vent Liter Flow Minute Volume Vent Mode A-C Tidal Volume 500 POC PEEP 5 POC Pressure Suppt Pressure High Pressure Low Time High Time Low EPAP IPAP Blood Gas Notified Whom ICU MD Blood Gas Notified Time 1224 Sodium Potassium Chloride Carbon Dioxide Anion Gap BUN Creatinine Estim Creat Clear Calc Est GFR (MDRD) Af Amer Est GFR (MDRD) Non-Af BUN/Creatinine Ratio Glucose Lactic Acid Calcium Phosphorus Magnesium Total Bilirubin AST ALT Alkaline Phosphatase Total Creatine Kinase Troponin I 0.22 H B-Natriuretic Peptide Total Protein Albumin Globulin Albumin/Globulin Ratio Triglycerides Cholesterol LDL Cholesterol VLDL Cholesterol HDL Cholesterol TSH Urine Color Urine Clarity Urine pH Ur Specific [place] Urine Protein Urine Glucose (UA) Urine Ketones Urine Occult Blood Urine Nitrite Urine Bilirubin Urine Urobilinogen Ur Leukocyte Esterase Urine Opiates Screen Urine Methadone Screen Ur Barbiturates Screen Ur Phencyclidine Scrn Ur Amphetamines Screen U Methamphetamin-MDMA U Benzodiazepines Scrn Urine Cocaine Screen U Cannabinoids Screen Ur Drug Screen Comment MRSA (PCR) POC Glucose 145 H 10/29/17 10/29/17 10/30/17 19:55 23:15 04:00 WBC RBC Hgb Hct MCV MCH MCHC RDW RDW Differential Plt Count MPV Specimen Type Sample Site pH Bicarbonate Actual POC Total CO2 Base Excess O2 Saturation O2 % ABG pCO2 ABG pO2 Pranav Test Respiration Rate O2 Delivery Device Liter Flow Minute Volume Vent Mode Tidal Volume POC PEEP POC Pressure Suppt Pressure High Pressure Low Time High Time Low EPAP IPAP Blood Gas Notified Whom Blood Gas Notified Time Sodium 134 L Potassium 4.1 Chloride 88 L Carbon Dioxide 38.0 H Anion Gap 8 BUN 35 H Creatinine 0.84 Estim Creat Clear Calc 92.35 Est GFR (MDRD) Af Amer 119 Est GFR (MDRD) Non-Af 98 BUN/Creatinine Ratio 41.6 H Glucose 186 H Lactic Acid Calcium 8.3 L Phosphorus Magnesium 2.7 H Total Bilirubin 0.60 AST 19 ALT 35 Alkaline Phosphatase 64 Total Creatine Kinase Troponin I 0.19 H B-Natriuretic Peptide Total Protein 6.9 Albumin 2.8 L Globulin 4.1 Albumin/Globulin Ratio 0.7 L Triglycerides 322 H Cholesterol 165 LDL Cholesterol 83 VLDL Cholesterol 64 H HDL Cholesterol 18 L TSH 0.41 Urine Color Urine Clarity Urine pH Ur Specific [place] Urine Protein Urine Glucose (UA) Urine Ketones Urine Occult Blood Urine Nitrite Urine Bilirubin Urine Urobilinogen Ur Leukocyte Esterase Urine Opiates Screen Urine Methadone Screen Ur Barbiturates Screen Ur Phencyclidine Scrn Ur Amphetamines Screen U Methamphetamin-MDMA U Benzodiazepines Scrn Urine Cocaine Screen U Cannabinoids Screen Ur Drug Screen Comment MRSA (PCR) POC Glucose 170 H 10/30/17 10/30/17 04:00 04:00 WBC 10.2 RBC 3.82 L Hgb 11.0 L Hct 34.8 L MCV 91.1 MCH 28.8 MCHC 31.6 L RDW 14.7 H RDW Differential 47.8 H Plt Count 226 MPV 9.9 Specimen Type Sample Site pH Bicarbonate Actual POC Total CO2 Base Excess O2 Saturation O2 % ABG pCO2 ABG pO2 Pranav Test Respiration Rate O2 Delivery Device Liter Flow Minute Volume Vent Mode Tidal Volume POC PEEP POC Pressure Suppt Pressure High Pressure Low Time High Time Low EPAP IPAP Blood Gas Notified Whom Blood Gas Notified Time Sodium Potassium Chloride Carbon Dioxide Anion Gap BUN Creatinine Estim Creat Clear Calc Est GFR (MDRD) Af Amer Est GFR (MDRD) Non-Af BUN/Creatinine Ratio Glucose Lactic Acid Calcium Phosphorus 2.6 Magnesium Total Bilirubin AST ALT Alkaline Phosphatase Total Creatine Kinase Troponin I B-Natriuretic Peptide Total Protein Albumin Globulin Albumin/Globulin Ratio Triglycerides Cholesterol LDL Cholesterol VLDL Cholesterol HDL Cholesterol TSH Urine Color Urine Clarity Urine pH Ur Specific [place] Urine Protein Urine Glucose (UA) Urine Ketones Urine Occult Blood Urine Nitrite Urine Bilirubin Urine Urobilinogen Ur Leukocyte Esterase Urine Opiates Screen Urine Methadone Screen Ur Barbiturates Screen Ur Phencyclidine Scrn Ur Amphetamines Screen U Methamphetamin-MDMA U Benzodiazepines Scrn Urine Cocaine Screen U Cannabinoids Screen Ur Drug Screen Comment MRSA (PCR) POC Glucose Microbiology 10/29/17 10:48 Mucosa - Nasopharyngeal Respiratory Panel (PCR) - Final 10/29/17 11:25 Urine Catheter - Smith Legionella Antigen - Final 10/29/17 11:25 Urine Catheter - Smith Streptococcus pneumoniae Antigen (M - Final Clinical Impression(s) from Imaging Studies Chest X-Ray 10/29/17 10:41 IMPRESSION: Interstitial edema throughout the lungs. ET tube and enteric tube Electronically Signed: Alton Randle DO at 11:34 EST Tel , Service support , KUB X-Ray 10/29/17 10:45 IMPRESSION: NG tube as above Electronically Signed: Alton Randle DO at 11:33 EST Tel , Service support , Assessment/Plan Active and Suspected Problems COPD exacerbation (Acute) Chest pain (Acute) RECOMMENDATIONS: 1. Continuous awakening and breathing trials per protocol 2. Continue Zosyn therapy 3. Await full respiratory viral panel and sputum culture 4. Maintain oxygen saturations 88-92%, to prevent paradoxical CO2 retention 5. Repeat surface echocardiogram is pending. Cardiology consultation is pending. 6. Start Pepcid and Lovenox for prophylaxis IMPRESSIONS: 1. Acute on chronic hypoxemic and hypercarbic respiratory failure Potential etiologies include acute COPD exacerbation due to atypical infectious process versus that of decompensated heart failure and subsequent pulmonary vascular congestion. The patient failed to respond to BiPAP therapy and was subsequently intubated. She did spike a fever overnight. Patient is on empiric Zosyn therapy. No vancomycin has been initiated secondary to negative MRSA swab. Patient does have an echocardiogram currently pending. Patient has remained hemodynamically stable. No spontaneous breathing trial this morning secondary to mucus plugging with resultant desaturations. Continue aggressive pulmonary toileting. 2. Probable type II non-ST elevation [place] Likely demand ischemia in the setting of increased metabolic demands. Cardiology has been consulted. Troponins are improving. Repeat echocardiogram is pending. 3. Chronic pain syndrome/obesity/tobacco dependence, in remission Complicates care, management, recovery and prognosis. The patient will be sedated with propofol and fentanyl. Tube feeds can be continued per nutrition recommendations. TIME: 35 minutes of critical care time was spent addressing the patient's acute on chronic respiratory failure, COPD exacerbation, troponin elevation, review of all data and collaboration with the care team. (6 AM to 7:20 AM) Code Visit 9xxxx: [id number] Critical care first hour
[2017-10-30] MEDS: Famotidine 20 MG Tablet GT ×2 (08:52→21:43)
[2017-10-30] MEDS: Chlorhexidine 15 ML PO ×2 (08:53→21:42)
[2017-10-30] MEDS: Carvedilol 6.25 MG Tablet GT ×2 (08:54→21:43)
[2017-10-30] MEDS: Aspirin 81 MG TAB.CHEW GT (08:55)
[2017-10-30 11:25] LABS: Bedside Glucose 233 mg/dL (70-110)
[2017-10-30 15:12] LABS: Pathologist Review Reviewed
--- NOTE | 2017-10-30 16:49 | PCM.PN.HOSP ---
Patient Problems: Active and Suspected Problems COPD exacerbation (Acute) Chest pain (Acute) Subjective: CC: Acute respiratory failure Vitals/I&O's: Vital Signs Temp Pulse Resp BP Pulse Ox 99.6 F H 71 16 108/68 96 10/30/17 16:00 10/30/17 16:00 10/30/17 16:00 10/30/17 16:00 10/30/17 15:09 Oxygen Flow Rate 30 Oxygen Delivery Method Mechanical Ventilator Weight: 80.9 kg Body Mass Index (BMI) 26.7 Intake and Output for Last 24 Hours 10/28/17 10/29/17 10/30/17 23:59 23:59 23:59 Intake Total 886.3 / 886.3 1697.4 / 1697.4 Output Total 550 / 550 530 / 530 Balance 336.3 / 336.3 1167.4 / 1167.4 Microbiology Past 72 Hours 10/29/17 12:03 Sputum, Induced/Lukens Gram Stain - Final 10/29/17 12:03 Sputum, Induced/Lukens Respiratory Culture - Preliminary 10/29/17 10:48 Mucosa - Nasopharyngeal Respiratory Panel (PCR) - Final 10/29/17 11:25 Urine Catheter - Smith Legionella Antigen - Final 10/29/17 11:25 Urine Catheter - Smith Streptococcus pneumoniae Antigen (M - Final Laboratory Results 10/29/17 17:37: POC Glucose 145 H 10/29/17 19:55: Troponin I 0.19 H 10/29/17 23:15: POC Glucose 170 H 10/30/17 04:00: Sodium 134 L, Potassium 4.1, Chloride 88 L, Carbon Dioxide 38.0 H, Anion Gap 8, BUN 35 H, Creatinine 0.84, Estim Creat Clear Calc 92.35, Est GFR (MDRD) Af Amer 119, Est GFR (MDRD) Non-Af 98, BUN/Creatinine Ratio 41.6 H, Glucose 186 H, Calcium 8.3 L, Magnesium 2.7 H, Total Bilirubin 0.60, AST 19, ALT 35, Alkaline Phosphatase 64, Total Protein 6.9, Albumin 2.8 L, Globulin 4.1, Albumin/Globulin Ratio 0.7 L, Triglycerides 322 H, Cholesterol 165, LDL Cholesterol 83, VLDL Cholesterol 64 H, HDL Cholesterol 18 L, TSH 0.41 10/30/17 04:00: WBC 10.2, RBC 3.82 L, Hgb 11.0 L, Hct 34.8 L, MCV 91.1, MCH 28.8, MCHC 31.6 L, RDW 14.7 H, RDW Differential 47.8 H, Plt Count 226, MPV 9.9 10/30/17 04:00: Phosphorus 2.6 10/30/17 11:13: POC Glucose 233 H Current Medications Albuterol Sulfate (Ventolin Aerosols) 2.5 mg INHALATION Q2H PRN PRN PRN Reason: SOB &/OR WHEEZING Last Admin: 10/30/17 01:10 Dose: 2.5 mg Albuterol Sulfate (Ventolin Aerosols) 2.5 mg INHALATION Q4H.RT [facility] Last Admin: 10/30/17 15:09 Dose: 2.5 mg Aspirin (Aspirin, Baby) 81 mg GT DAILY@0800 [facility] Last Admin: 10/30/17 08:55 Dose: 81 mg Atorvastatin Calcium (Lipitor) 40 mg GT QHS [facility] Last Admin: 10/29/17 21:59 Dose: 40 mg Carvedilol (Coreg) 6.25 mg GT BID [facility] Last Admin: 10/30/17 08:54 Dose: 6.25 mg Chlorhexidine Gluconate () 15 ml PO BID [facility] Last Admin: 10/30/17 08:53 Dose: 15 ml Dextrose (D50w Syringe) 0 gm IV X1 PRN; Protocol PRN Reason: Hypoglycemia Enoxaparin Sodium (Lovenox) 80 mg 1 mg/kg (80 mg) SC Q12@0600,1800 [facility] Last Admin: 10/30/17 05:59 Dose: 80 mg Famotidine (Pepcid) 20 mg GT BID [facility] Last Admin: 10/30/17 08:52 Dose: 20 mg Glucagon () 1 mg IM .X1 PRN PRN Reason: Hypoglycemia Piperacillin Sod/Tazobactam Sod (Zosyn) 3.375 gm in 50 mls @ 12.5 mls/hr IV Q8 [facility] Last Admin: 10/30/17 13:41 Dose: 12.5 mls/hr Sodium Chloride () 250 mls @ 15 mls/hr IV .[id number] PRN PRN Reason: SALINE FLUSH Sodium Chloride () 250 mls @ 15 mls/hr IV .[id number] PRN PRN Reason: SALINE FLUSH Fentanyl () 100 mls @ 2.5 mls/hr IV .Q40H TOBY PRN Reason: Protocol Last Admin: 10/29/17 23:20 Dose: 2.5 mls/hr Propofol (Diprivan) 1,000 mg in 100 mls @ 2.4 mls/hr CONT INF .Q12H TOBY; 5 MCG/KG/MIN PRN Reason: Protocol Last Admin: 10/30/17 11:06 Dose: Not Given Enteral Nutritional Formula (Vital Af 1.2 Joseph Liquid) 1,000 mls @ 60 mls/hr GT .[id number] TOBY Last Admin: 10/30/17 08:53 Dose: Not Given Insulin Aspart (Novolog Flexpen (Bkc)) 0 units SC Q6 TOBY PRN Reason: Protocol Last Admin: 10/30/17 11:14 Dose: 2 u Methylprednisolone (Solu-Medrol) 40 mg IV Q6 TOBY Last Admin: 10/30/17 11:15 Dose: 40 mg Sodium Chloride () 5 - 30 ml IV UD PRN PRN Reason: SALINE FLUSH Last Admin: 10/30/17 06:00 Dose: 20 ml Assessment/Plan Active and Suspected Problems COPD exacerbation (Acute) Chest pain (Acute) 1. Acute hypoxic and hypercapnic respiratory failure; vent management PCCM. 2. Troponin elevation; likely due type II NSTEMI, cardiology consulted and input noted. 3. COPD with acute exacerbation; IV steroids, dilators and antibiotics. 4. presumptive pneumonia; continue on IV ZOSYN 5. Chronic pain syndrome; he is on Fentanyl and this should prevent withdrawal. 6. DVT prophylaxis with Lovenox and SCDs. Code Visit Inpatient E&M: 28670 Subs Hosp L3
--- NOTE | 2017-10-30 16:54 | PN_ITS ---
Patient Problems: Active and Suspected Problems COPD exacerbation (Acute) Chest pain (Acute) Subjective: CC: Acute respiratory failure Vitals/I&O's: Vital Signs Temp Pulse Resp BP Pulse Ox 99.6 F H 71 16 108/68 96 10/30/17 16:00 10/30/17 16:00 10/30/17 16:00 10/30/17 16:00 10/30/17 15:09 Oxygen Flow Rate 30 Oxygen Delivery Method Mechanical Ventilator Weight: 80.9 kg Body Mass Index (BMI) 26.7 Intake and Output for Last 24 Hours 10/28/17 10/29/17 10/30/17 23:59 23:59 23:59 Intake Total 886.3 / 886.3 1697.4 / 1697.4 Output Total 550 / 550 530 / 530 Balance 336.3 / 336.3 1167.4 / 1167.4 Microbiology Past 72 Hours 10/29/17 12:03 Sputum, Induced/Lukens Gram Stain - Final 10/29/17 12:03 Sputum, Induced/Lukens Respiratory Culture - Preliminary 10/29/17 10:48 Mucosa - Nasopharyngeal Respiratory Panel (PCR) - Final 10/29/17 11:25 Urine Catheter - Smith Legionella Antigen - Final 10/29/17 11:25 Urine Catheter - Smith Streptococcus pneumoniae Antigen (M - Final Laboratory Results 10/29/17 17:37: POC Glucose 145 H 10/29/17 19:55: Troponin I 0.19 H 10/29/17 23:15: POC Glucose 170 H 10/30/17 04:00: Sodium 134 L, Potassium 4.1, Chloride 88 L, Carbon Dioxide 38.0 H, Anion Gap 8, BUN 35 H, Creatinine 0.84, Estim Creat Clear Calc 92.35, Est GFR (MDRD) Af Amer 119, Est GFR (MDRD) Non-Af 98, BUN/Creatinine Ratio 41.6 H, Glucose 186 H, Calcium 8.3 L, Magnesium 2.7 H, Total Bilirubin 0.60, AST 19, ALT 35, Alkaline Phosphatase 64, Total Protein 6.9, Albumin 2.8 L, Globulin 4.1 , Albumin/Globulin Ratio 0.7 L, Triglycerides 322 H, Cholesterol 165, LDL Cholesterol 83, VLDL Cholesterol 64 H, HDL Cholesterol 18 L, TSH 0.41 10/30/17 04:00: WBC 10.2, RBC 3.82 L, Hgb 11.0 L, Hct 34.8 L, MCV 91.1, MCH 28.8 , MCHC 31.6 L, RDW 14.7 H, RDW Differential 47.8 H, Plt Count 226, MPV 9.9 10/30/17 04:00: Phosphorus 2.6 10/30/17 11:13: POC Glucose 233 H Current Medications Albuterol Sulfate (Ventolin Aerosols) 2.5 mg INHALATION Q2H PRN PRN PRN Reason: SOB &/OR WHEEZING Last Admin: 10/30/17 01:10 Dose: 2.5 mg Albuterol Sulfate (Ventolin Aerosols) 2.5 mg INHALATION Q4H.RT [facility] Last Admin: 10/30/17 15:09 Dose: 2.5 mg Aspirin (Aspirin, Baby) 81 mg GT DAILY@0800 [facility] Last Admin: 10/30/17 08:55 Dose: 81 mg Atorvastatin Calcium (Lipitor) 40 mg GT QHS [facility] Last Admin: 10/29/17 21:59 Dose: 40 mg Carvedilol (Coreg) 6.25 mg GT BID [facility] Last Admin: 10/30/17 08:54 Dose: 6.25 mg Chlorhexidine Gluconate () 15 ml PO BID [facility] Last Admin: 10/30/17 08:53 Dose: 15 ml Dextrose (D50w Syringe) 0 gm IV X1 PRN; Protocol PRN Reason: Hypoglycemia Enoxaparin Sodium (Lovenox) 80 mg 1 mg/kg (80 mg) SC Q12@0600,1800 [facility] Last Admin: 10/30/17 05:59 Dose: 80 mg Famotidine (Pepcid) 20 mg GT BID [facility] Last Admin: 10/30/17 08:52 Dose: 20 mg Glucagon () 1 mg IM .X1 PRN PRN Reason: Hypoglycemia Piperacillin Sod/Tazobactam Sod (Zosyn) 3.375 gm in 50 mls @ 12.5 mls/hr IV Q8 [facility] Last Admin: 10/30/17 13:41 Dose: 12.5 mls/hr Sodium Chloride () 250 mls @ 15 mls/hr IV .[id number] PRN PRN Reason: SALINE FLUSH Sodium Chloride () 250 mls @ 15 mls/hr IV .[id number] PRN PRN Reason: SALINE FLUSH Fentanyl () 100 mls @ 2.5 mls/hr IV .Q40H TOBY PRN Reason: Protocol Last Admin: 10/29/17 23:20 Dose: 2.5 mls/hr Propofol (Diprivan) 1,000 mg in 100 mls @ 2.4 mls/hr CONT INF .Q12H TOBY; 5 MCG/ KG/MIN PRN Reason: Protocol Last Admin: 10/30/17 11:06 Dose: Not Given Enteral Nutritional Formula (Vital Af 1.2 Joseph Liquid) 1,000 mls @ 60 mls/hr GT .[id number] TOBY Last Admin: 10/30/17 08:53 Dose: Not Given Insulin Aspart (Novolog Flexpen (Bkc)) 0 units SC Q6 TOBY PRN Reason: Protocol Last Admin: 10/30/17 11:14 Dose: 2 u Methylprednisolone (Solu-Medrol) 40 mg IV Q6 TOBY Last Admin: 10/30/17 11:15 Dose: 40 mg Sodium Chloride () 5 - 30 ml IV UD PRN PRN Reason: SALINE FLUSH Last Admin: 10/30/17 06:00 Dose: 20 ml Assessment/Plan Active and Suspected Problems COPD exacerbation (Acute) Chest pain (Acute) 1. Acute hypoxic and hypercapnic respiratory failure; vent management PCCM. 2. Troponin elevation; likely due type II NSTEMI, cardiology consulted and input noted. 3. COPD with acute exacerbation; IV steroids, dilators and antibiotics. 4. presumptive pneumonia; continue on IV ZOSYN 5. Chronic pain syndrome; he is on Fentanyl and this should prevent withdrawal. 6. DVT prophylaxis with Lovenox and SCDs. Code Visit Inpatient E&M: 10396 Subs Hosp L3
[2017-10-30 17:31] LABS: Bedside Glucose 196 mg/dL (70-110)
[2017-10-30 17:36] LABS: Bedside Glucose 219 mg/dL (70-110)
--- NOTE | 2017-10-30 17:39 | PN.CARD_ITS ---
Subjectve: Patient seen and evaluated and appears to be doing well but was not able to be extubated due to copious secretions Objective: Vital Signs Temp Pulse Resp BP Pulse Ox 99.6 F H 71 16 108/68 96 10/30/17 16:00 10/30/17 16:00 10/30/17 16:00 10/30/17 16:00 10/30/17 15:09 Oxygen Flow Rate 30 Oxygen Delivery Method Mechanical Ventilator Weight: 178 lb 5.663 oz Body Mass Index (BMI) 26.7 Intake and Output for Last 24 Hours 10/28/17 10/29/17 10/30/17 23:59 23:59 23:59 Intake Total 886.3 / 886.3 1697.4 / 1697.4 Output Total 550 / 550 530 / 530 Balance 336.3 / 336.3 1167.4 / 1167.4 General: - - sedated HEENT: PERRL, EOMI, Sclera Non Icteric Neck: Supple, Good ROM, No Lymph Node Enlargement Lungs: Diminished Kristopher Bases Cardiovascular: Regular Rhythm, Normal S1, Normal S2, No Murmurs, No Rubs, No Gallops Vascular: No Carotid Bruits, Normal Femoral Pulses, Normal Radial Pulses, Normal Dorsalis Pedal Pulse, Normal Posterior Tibial Pulses Abdomen: Bowel Sounds Present, Soft, Non Tender, No HSM, No Organomegaly Extremities: No Cyanosis, No Clubbing, No edema Neurological: No Focal Motor or Sensory Deficit 10/29/17 19:55: Troponin I 0.19 H 10/30/17 04:00: Sodium 134 L, Potassium 4.1, Chloride 88 L, Carbon Dioxide 38.0 H, Anion Gap 8, BUN 35 H, Creatinine 0.84, Est GFR (MDRD) Af Amer 119, Est GFR ( MDRD) Non-Af 98, BUN/Creatinine Ratio 41.6 H, Glucose 186 H, Calcium 8.3 L, Magnesium 2.7 H, Total Bilirubin 0.60, Triglycerides 322 H, Cholesterol 165, LDL Cholesterol 83, VLDL Cholesterol 64 H, HDL Cholesterol 18 L 10/30/17 04:00: WBC 10.2, RBC 3.82 L, Hgb 11.0 L, Hct 34.8 L, MCV 91.1, MCH 28.8 , MCHC 31.6 L, RDW 14.7 H, RDW Differential 47.8 H, Plt Count 226, MPV 9.9 10/30/17 04:00: Phosphorus 2.6 Rhythm: EKG: ECHO: Normal left ventricular ejection fraction Assessment/Plan 1. Abnormal cardiac enzymes He presents with acute respiratory failure and is noted to have abnormal cardiac enzymes. At this particular time I suspect the diagnosis is secondary to demand ischemia. His echocardiogram demonstrated ejection fraction of 50% with no wall motion abnormalities noted and minimal elevation in pulmonary pressures. My recommendation at this time will be to continue to treat the underlying respiratory failure and after he is extubated further decisions will be made as to whether we will proceed with stress testing or direct cardiac catheterization. I suspect that the former may be a better approach. 2. Acute respiratory failure As have a history of obstructive lung disease but with his current acute respiratory failure we will evaluate him and will abide by the recommendations of the pulmonary/critical care team. Echocardiogram did not demonstrate significantly elevated right-sided pressures. 3. Hypertension He likely has a diagnosis of hypertension and will continue his current antihypertensive therapy. Thank you for allowing me to participate in the care of your patient. Please don't hesitate to call if any issues arise
[2017-10-30] MEDS: Vital AF 1.2 Cal Liquid 1,000 ML 60 ML GT (18:30)
[2017-10-30] MEDS: Atorvastatin Calcium 40 MG Tablet GT (21:43)
[2017-10-30 23:46] LABS: Bedside Glucose 193 mg/dL (70-110)
[2017-10-31] VITALS (42 sets, daily range): BP systolic 101–175; BP diastolic 60–90; PULSE 63–105; RESP 16–26; TEMP 37.3–37.6; O2SAT 91–99
[2017-10-31] MEDS: Albuterol 2.5 MG/3 ML VIAL.NEB. INHALATION ×6 (03:40→23:13)
[2017-10-31] MEDS: Enoxaparin 80 MG/0.8 ML Syringe SC ×2 (05:00→18:23)
[2017-10-31] MEDS: 0.9% NaCl Peripheral Flush Adult/Peds IV ×3 (05:00→23:38)
[2017-10-31] MEDS: Piperacil/Tazobactam 3.375 GM/50 ML ML IV ×3 (05:00→21:42)
[2017-10-31 05:16] LABS: Hematocrit 36.1 % (40-54); Hemoglobin 11.2 g/dl (13.0-16.5); Mean Corpuscular Hgb 28.1 pg (27.0-32.0); Mean Corpuscular Volume 90.5 fL (80-94); Mean Platelet Vol. 9.8 fl (6.2-12.0); Platelet Count 219 K/mm3 (150-450); RBC Distribution Width CV 14.8 % (11.6-14.6); RBC Distribution Width SD 49.3 fl (35.1-43.9); Red Blood Count 3.99 M/mm3 (4.6-6.2); White Blood Count 12.5 K/mm3 (4.4-11.0)
[2017-10-31 05:25] LABS: Anion Gap 6 (5-15); BUN 44 mg/dL (7-18); BUN/Creat Ratio 51.6 RATIO (10-20); Calcium,Total 8.6 mg/dL (8.5-10.1); Chloride 90 mmol/L (98-107); Creatinine, Serum 0.85 mg/dL (0.70-1.30); EST Glomerular Filtration Rate 97 mL/min (>60); Est Glom Filt Rate - Afr Amer 117 mL/min (>60); Estimated Creatinine Clearance 91.26 ml/min; Glucose 212 mg/dL (74-106); Potassium 4.2 mmol/L (3.5-5.1); Scan Indicated on CBC? Y/N NO; Sodium Level 138 mmol/L (136-145)
[2017-10-31 07:11] LABS: Bedside Glucose 133 mg/dL (70-110)
--- NOTE | 2017-10-31 07:31 | PN.CARD_ITS ---
Subjectve: Seen and evaluated and appears to be stable. He is much more conscious at this time. Objective: Vital Signs Temp Pulse Resp BP Pulse Ox 99.4 F H 84 17 151/80 H 99 10/31/17 07:00 10/31/17 07:00 10/31/17 07:00 10/31/17 07:00 10/31/17 07:00 Oxygen Flow Rate 30 Oxygen Delivery Method Mechanical Ventilator Weight: 177 lb 7.554 oz Body Mass Index (BMI) 26.7 Intake and Output for Last 24 Hours 10/29/17 10/30/17 10/31/17 23:59 23:59 23:59 Intake Total 886.3 / 886.3 3839.4 / 3839.4 627 / 627 Output Total 550 / 550 1080 / 1080 350 / 350 Balance 336.3 / 336.3 2759.4 / 2759.4 277 / 277 General: Awake, Alert, Oriented x 3 HEENT: PERRL, EOMI, Sclera Non Icteric Neck: Supple, Good ROM, No Lymph Node Enlargement Lungs: Clear to auscultation Cardiovascular: Regular Rhythm, Normal S1, Normal S2, No Murmurs, No Rubs, No Gallops Vascular: No Carotid Bruits, Normal Femoral Pulses, Normal Radial Pulses, Normal Dorsalis Pedal Pulse, Normal Posterior Tibial Pulses Abdomen: Bowel Sounds Present, Soft, Non Tender, No HSM, No Organomegaly Extremities: No Cyanosis, No Clubbing, No edema Neurological: No Focal Motor or Sensory Deficit 10/31/17 04:45: WBC 12.5 H, RBC 3.99 L, Hgb 11.2 L, Hct 36.1 L, MCV 90.5, MCH 28.1, MCHC 31.0 L, RDW 14.8 H, RDW Differential 49.3 H, Plt Count 219, MPV 9.8 10/31/17 04:45: PT 13.0, INR 1.0 10/31/17 04:45: Sodium 138, Potassium 4.2, Chloride 90 L, Carbon Dioxide 42.0 H , Anion Gap 6, BUN 44 H, Creatinine 0.85, Est GFR (MDRD) Af Amer 117, Est GFR ( MDRD) Non-Af 97, BUN/Creatinine Ratio 51.6 H, Glucose 212 H, Calcium 8.6 Rhythm normal sinus rhythm: EKG: ECHO: Estimated ejection fraction of 50% Assessment/Plan 1. Abnormal cardiac enzymes He presents with acute respiratory failure and is noted to have abnormal cardiac enzymes. At this particular time I suspect the diagnosis is secondary to demand ischemia. His echocardiogram demonstrated ejection fraction of 50% with no wall motion abnormalities noted and minimal elevation in pulmonary pressures. My recommendation at this time will be to continue to treat the underlying respiratory failure and after he is extubated further decisions will be made as to whether we will proceed with stress testing or direct cardiac catheterization. I suspect that the former may be a better approach. 2. Acute respiratory failure As have a history of obstructive lung disease but with his current acute respiratory failure we will evaluate him and will abide by the recommendations of the pulmonary/critical care team. Echocardiogram did not demonstrate significantly elevated right-sided pressures. 3. Hypertension He likely has a diagnosis of hypertension and will continue his current antihypertensive therapy. Thank you for allowing me to participate in the care of your patient. Please don't hesitate to call if any issues arise Discussed with nurses
--- NOTE | 2017-10-31 07:44 | PN_ITS ---
Subjective: Patient did okay overnight. No acute issues were reported. Nursing did report improved secretions overnight. Patient did have a spontaneous breathing trial this morning was able to tolerate 1 hour. Unfortunately, patient then developed desaturation into the mid 80s that was sustained. Patient was placed back on mechanical ventilation following suctioning, but FiO2 did have to be increased to 40%. Patient did have a bowel movement overnight. Objective: Echocardiogram shows an EF of 50% with slightly elevated pulmonary artery pressures at 25 mmHg. No significant valvular abnormalities were appreciated. General: Alert, Cooperative, No apparent distress, - - Fair vent synchrony. RASS 0 HEENT: Atraumatic, PERRLA, EOMI, Normocephalic, - - Scleral injection without icterus Oral: Moist Mucosa, No Gingival or Mucosal Lesions/ Ulcerations Neck: Supple, No JVD, No Nodes, Trachea Midline Lungs: No wheeze, No rales, Diminished, Rhonchi, - - Symmetric expansion. No dullness to percussion. Cardiovascular: Regular rate, Regular Rhythm, Normal S1, Normal S2, No murmurs, No rub noted, No Gallop Abdomen: Bowel Sounds Present, Soft, Non Tender, Non-Distended Extremities: No clubbing, No cyanosis, No edema, Capillary Refill Less than 3 Seconds Skin: No rashes, No breakdown Musculoskeletal: No Tenderness to Palpation of Joints or Extremities Lymphatic: No Cervical, Supraclavicular, or Inguinal Adenopathy Neurological: Cranial nerves II-XII grossly intact, Neuro grossly intact, Motor Exam 5/5 strength throughout Psych/Mental Status: Appropriate, Anxious Vital Signs Temp Pulse Resp BP Pulse Ox 37.4 C H 84 17 151/80 H 99 10/31/17 07:00 10/31/17 07:00 10/31/17 07:00 10/31/17 07:00 10/31/17 07:00 Oxygen Flow Rate 30 Oxygen Delivery Method Mechanical Ventilator Weight: 80.5 kg Body Mass Index (BMI) 26.7 Intake and Output for Last 24 Hours 10/29/17 10/30/17 10/31/17 23:59 23:59 23:59 Intake Total 886.3 / 886.3 3839.4 / 3839.4 627 / 627 Output Total 550 / 550 1080 / 1080 350 / 350 Balance 336.3 / 336.3 2759.4 / 2759.4 277 / 277 Labs (Last 48 Hours) 10/29/17 10/29/17 10/29/17 07:20 09:59 10:20 WBC RBC Hgb Hct MCV MCH MCHC RDW RDW Differential Plt Count MPV PT INR Specimen Type ART ART Sample Site L RADIAL L RADIAL pH 7.22 L 7.19 L* Bicarbonate Actual 49.7 H 47.5 H POC Total CO2 > 50 > 50 Base Excess 22 H 19 H O2 Saturation 99 93 L O2 % 100 50 ABG pCO2 121.3 H* 124.7 H* ABG pO2 177 H 93 Pranav Test POS POS Respiration Rate TNP TNP O2 Delivery Device NRB Mask Bi Pap Liter Flow 15.0 TNP Minute Volume TNP TNP Vent Mode TNP TNP Tidal Volume TNP TNP POC PEEP TNP TNP POC Pressure Suppt TNP TNP Pressure High TNP TNP Pressure Low TNP TNP Time High TNP TNP Time Low TNP TNP EPAP TNP 10 IPAP TNP 16 Blood Gas Notified Whom ED MD ICU MD Blood Gas Notified Time [id number] Sodium Potassium Chloride Carbon Dioxide Anion Gap BUN Creatinine Estim Creat Clear Calc Est GFR (MDRD) Af Amer Est GFR (MDRD) Non-Af BUN/Creatinine Ratio Glucose Lactic Acid Calcium Phosphorus Magnesium Total Bilirubin AST ALT Alkaline Phosphatase Total Creatine Kinase Troponin I 0.24 H B-Natriuretic Peptide Total Protein Albumin Globulin Albumin/Globulin Ratio Triglycerides Cholesterol LDL Cholesterol VLDL Cholesterol HDL Cholesterol TSH Urine Color Urine Clarity Urine pH Ur Specific [place] Urine Protein Urine Glucose (UA) Urine Ketones Urine Occult Blood Urine Nitrite Urine Bilirubin Urine Urobilinogen Ur Leukocyte Esterase Urine Opiates Screen Urine Methadone Screen Ur Barbiturates Screen Ur Phencyclidine Scrn Ur Amphetamines Screen U Methamphetamin-MDMA U Benzodiazepines Scrn Urine Cocaine Screen U Cannabinoids Screen Ur Drug Screen Comment MRSA (PCR) POC Glucose 10/29/17 10/29/17 10/29/17 10:20 10:20 10:20 WBC RBC Hgb Hct MCV MCH MCHC RDW RDW Differential Plt Count MPV PT INR Specimen Type Sample Site pH Bicarbonate Actual POC Total CO2 Base Excess O2 Saturation O2 % ABG pCO2 ABG pO2 Pranav Test Respiration Rate O2 Delivery Device Liter Flow Minute Volume Vent Mode Tidal Volume POC PEEP POC Pressure Suppt Pressure High Pressure Low Time High Time Low EPAP IPAP Blood Gas Notified Whom Blood Gas Notified Time Sodium Potassium Chloride Carbon Dioxide Anion Gap BUN Creatinine Estim Creat Clear Calc Est GFR (MDRD) Af Amer Est GFR (MDRD) Non-Af BUN/Creatinine Ratio Glucose Lactic Acid 0.7 Calcium Phosphorus Magnesium Total Bilirubin AST ALT Alkaline Phosphatase Total Creatine Kinase 216 Troponin I B-Natriuretic Peptide 217.5 H Total Protein Albumin Globulin Albumin/Globulin Ratio Triglycerides 218 H Cholesterol LDL Cholesterol VLDL Cholesterol HDL Cholesterol TSH Urine Color Urine Clarity Urine pH Ur Specific [place] Urine Protein Urine Glucose (UA) Urine Ketones Urine Occult Blood Urine Nitrite Urine Bilirubin Urine Urobilinogen Ur Leukocyte Esterase Urine Opiates Screen Urine Methadone Screen Ur Barbiturates Screen Ur Phencyclidine Scrn Ur Amphetamines Screen U Methamphetamin-MDMA U Benzodiazepines Scrn Urine Cocaine Screen U Cannabinoids Screen Ur Drug Screen Comment MRSA (PCR) POC Glucose 10/29/17 10/29/17 10/29/17 11:00 11:25 11:25 WBC RBC Hgb Hct MCV MCH MCHC RDW RDW Differential Plt Count MPV PT INR Specimen Type Sample Site pH Bicarbonate Actual POC Total CO2 Base Excess O2 Saturation O2 % ABG pCO2 ABG pO2 Pranav Test Respiration Rate O2 Delivery Device Liter Flow Minute Volume Vent Mode Tidal Volume POC PEEP POC Pressure Suppt Pressure High Pressure Low Time High Time Low EPAP IPAP Blood Gas Notified Whom Blood Gas Notified Time Sodium Potassium Chloride Carbon Dioxide Anion Gap BUN Creatinine Estim Creat Clear Calc Est GFR (MDRD) Af Amer Est GFR (MDRD) Non-Af BUN/Creatinine Ratio Glucose Lactic Acid Calcium Phosphorus Magnesium Total Bilirubin AST ALT Alkaline Phosphatase Total Creatine Kinase Troponin I B-Natriuretic Peptide Total Protein Albumin Globulin Albumin/Globulin Ratio Triglycerides Cholesterol LDL Cholesterol VLDL Cholesterol HDL Cholesterol TSH Urine Color Yellow Urine Clarity Sl. Cloudy Urine pH 6.0 Ur Specific [place] 1.025 Urine Protein 100 H Urine Glucose (UA) Normal Urine Ketones 50 H Urine Occult Blood 50 H Urine Nitrite Negative Urine Bilirubin Negative Urine Urobilinogen 1 H Ur Leukocyte Esterase 25 H Urine Opiates Screen POSITIVE H Urine Methadone Screen NEGATIVE Ur Barbiturates Screen NEGATIVE Ur Phencyclidine Scrn NEGATIVE Ur Amphetamines Screen NEGATIVE U Methamphetamin-MDMA NEGATIVE U Benzodiazepines Scrn POSITIVE H Urine Cocaine Screen NEGATIVE U Cannabinoids Screen NEGATIVE Ur Drug Screen Comment MRSA (PCR) Negative POC Glucose 10/29/17 10/29/17 10/29/17 12:25 15:10 17:37 WBC RBC Hgb Hct MCV MCH MCHC RDW RDW Differential Plt Count MPV PT INR Specimen Type ART Sample Site L Radial pH 7.44 Bicarbonate Actual 47.7 H POC Total CO2 50 Base Excess 24 H O2 Saturation 99 O2 % 50 ABG pCO2 69.9 H* ABG pO2 130 H Pranav Test Respiration Rate 16 O2 Delivery Device Vent Liter Flow Minute Volume Vent Mode A-C Tidal Volume 500 POC PEEP 5 POC Pressure Suppt Pressure High Pressure Low Time High Time Low EPAP IPAP Blood Gas Notified Whom ICU MD Blood Gas Notified Time 1224 Sodium Potassium Chloride Carbon Dioxide Anion Gap BUN Creatinine Estim Creat Clear Calc Est GFR (MDRD) Af Amer Est GFR (MDRD) Non-Af BUN/Creatinine Ratio Glucose Lactic Acid Calcium Phosphorus Magnesium Total Bilirubin AST ALT Alkaline Phosphatase Total Creatine Kinase Troponin I 0.22 H B-Natriuretic Peptide Total Protein Albumin Globulin Albumin/Globulin Ratio Triglycerides Cholesterol LDL Cholesterol VLDL Cholesterol HDL Cholesterol TSH Urine Color Urine Clarity Urine pH Ur Specific [place] Urine Protein Urine Glucose (UA) Urine Ketones Urine Occult Blood Urine Nitrite Urine Bilirubin Urine Urobilinogen Ur Leukocyte Esterase Urine Opiates Screen Urine Methadone Screen Ur Barbiturates Screen Ur Phencyclidine Scrn Ur Amphetamines Screen U Methamphetamin-MDMA U Benzodiazepines Scrn Urine Cocaine Screen U Cannabinoids Screen Ur Drug Screen Comment MRSA (PCR) POC Glucose 145 H 10/29/17 10/29/17 10/30/17 19:55 23:15 04:00 WBC RBC Hgb Hct MCV MCH MCHC RDW RDW Differential Plt Count MPV PT INR Specimen Type Sample Site pH Bicarbonate Actual POC Total CO2 Base Excess O2 Saturation O2 % ABG pCO2 ABG pO2 Pranav Test Respiration Rate O2 Delivery Device Liter Flow Minute Volume Vent Mode Tidal Volume POC PEEP POC Pressure Suppt Pressure High Pressure Low Time High Time Low EPAP IPAP Blood Gas Notified Whom Blood Gas Notified Time Sodium 134 L Potassium 4.1 Chloride 88 L Carbon Dioxide 38.0 H Anion Gap 8 BUN 35 H Creatinine 0.84 Estim Creat Clear Calc 92.35 Est GFR (MDRD) Af Amer 119 Est GFR (MDRD) Non-Af 98 BUN/Creatinine Ratio 41.6 H Glucose 186 H Lactic Acid Calcium 8.3 L Phosphorus Magnesium 2.7 H Total Bilirubin 0.60 AST 19 ALT 35 Alkaline Phosphatase 64 Total Creatine Kinase Troponin I 0.19 H B-Natriuretic Peptide Total Protein 6.9 Albumin 2.8 L Globulin 4.1 Albumin/Globulin Ratio 0.7 L Triglycerides 322 H Cholesterol 165 LDL Cholesterol 83 VLDL Cholesterol 64 H HDL Cholesterol 18 L TSH 0.41 Urine Color Urine Clarity Urine pH Ur Specific [place] Urine Protein Urine Glucose (UA) Urine Ketones Urine Occult Blood Urine Nitrite Urine Bilirubin Urine Urobilinogen Ur Leukocyte Esterase Urine Opiates Screen Urine Methadone Screen Ur Barbiturates Screen Ur Phencyclidine Scrn Ur Amphetamines Screen U Methamphetamin-MDMA U Benzodiazepines Scrn Urine Cocaine Screen U Cannabinoids Screen Ur Drug Screen Comment MRSA (PCR) POC Glucose 170 H 10/30/17 10/30/17 10/30/17 04:00 04:00 05:55 WBC 10.2 RBC 3.82 L Hgb 11.0 L Hct 34.8 L MCV 91.1 MCH 28.8 MCHC 31.6 L RDW 14.7 H RDW Differential 47.8 H Plt Count 226 MPV 9.9 PT INR Specimen Type Sample Site pH Bicarbonate Actual POC Total CO2 Base Excess O2 Saturation O2 % ABG pCO2 ABG pO2 Pranav Test Respiration Rate O2 Delivery Device Liter Flow Minute Volume Vent Mode Tidal Volume POC PEEP POC Pressure Suppt Pressure High Pressure Low Time High Time Low EPAP IPAP Blood Gas Notified Whom Blood Gas Notified Time Sodium Potassium Chloride Carbon Dioxide Anion Gap BUN Creatinine Estim Creat Clear Calc Est GFR (MDRD) Af Amer Est GFR (MDRD) Non-Af BUN/Creatinine Ratio Glucose Lactic Acid Calcium Phosphorus 2.6 Magnesium Total Bilirubin AST ALT Alkaline Phosphatase Total Creatine Kinase Troponin I B-Natriuretic Peptide Total Protein Albumin Globulin Albumin/Globulin Ratio Triglycerides Cholesterol LDL Cholesterol VLDL Cholesterol HDL Cholesterol TSH Urine Color Urine Clarity Urine pH Ur Specific [place] Urine Protein Urine Glucose (UA) Urine Ketones Urine Occult Blood Urine Nitrite Urine Bilirubin Urine Urobilinogen Ur Leukocyte Esterase Urine Opiates Screen Urine Methadone Screen Ur Barbiturates Screen Ur Phencyclidine Scrn Ur Amphetamines Screen U Methamphetamin-MDMA U Benzodiazepines Scrn Urine Cocaine Screen U Cannabinoids Screen Ur Drug Screen Comment MRSA (PCR) POC Glucose 196 H 10/30/17 10/30/17 10/30/17 11:13 17:28 23:27 WBC RBC Hgb Hct MCV MCH MCHC RDW RDW Differential Plt Count MPV PT INR Specimen Type Sample Site pH Bicarbonate Actual POC Total CO2 Base Excess O2 Saturation O2 % ABG pCO2 ABG pO2 Pranav Test Respiration Rate O2 Delivery Device Liter Flow Minute Volume Vent Mode Tidal Volume POC PEEP POC Pressure Suppt Pressure High Pressure Low Time High Time Low EPAP IPAP Blood Gas Notified Whom Blood Gas Notified Time Sodium Potassium Chloride Carbon Dioxide Anion Gap BUN Creatinine Estim Creat Clear Calc Est GFR (MDRD) Af Amer Est GFR (MDRD) Non-Af BUN/Creatinine Ratio Glucose Lactic Acid Calcium Phosphorus Magnesium Total Bilirubin AST ALT Alkaline Phosphatase Total Creatine Kinase Troponin I B-Natriuretic Peptide Total Protein Albumin Globulin Albumin/Globulin Ratio Triglycerides Cholesterol LDL Cholesterol VLDL Cholesterol HDL Cholesterol TSH Urine Color Urine Clarity Urine pH Ur Specific [place] Urine Protein Urine Glucose (UA) Urine Ketones Urine Occult Blood Urine Nitrite Urine Bilirubin Urine Urobilinogen Ur Leukocyte Esterase Urine Opiates Screen Urine Methadone Screen Ur Barbiturates Screen Ur Phencyclidine Scrn Ur Amphetamines Screen U Methamphetamin-MDMA U Benzodiazepines Scrn Urine Cocaine Screen U Cannabinoids Screen Ur Drug Screen Comment MRSA (PCR) POC Glucose 233 H 219 H 193 H 10/31/17 10/31/17 10/31/17 04:45 04:45 04:45 WBC 12.5 H RBC 3.99 L Hgb 11.2 L Hct 36.1 L MCV 90.5 MCH 28.1 MCHC 31.0 L RDW 14.8 H RDW Differential 49.3 H Plt Count 219 MPV 9.8 PT 13.0 INR 1.0 Specimen Type Sample Site pH Bicarbonate Actual POC Total CO2 Base Excess O2 Saturation O2 % ABG pCO2 ABG pO2 Pranav Test Respiration Rate O2 Delivery Device Liter Flow Minute Volume Vent Mode Tidal Volume POC PEEP POC Pressure Suppt Pressure High Pressure Low Time High Time Low EPAP IPAP Blood Gas Notified Whom Blood Gas Notified Time Sodium 138 Potassium 4.2 Chloride 90 L Carbon Dioxide 42.0 H Anion Gap 6 BUN 44 H Creatinine 0.85 Estim Creat Clear Calc 91.26 Est GFR (MDRD) Af Amer 117 Est GFR (MDRD) Non-Af 97 BUN/Creatinine Ratio 51.6 H Glucose 212 H Lactic Acid Calcium 8.6 Phosphorus Magnesium Total Bilirubin AST ALT Alkaline Phosphatase Total Creatine Kinase Troponin I B-Natriuretic Peptide Total Protein Albumin Globulin Albumin/Globulin Ratio Triglycerides Cholesterol LDL Cholesterol VLDL Cholesterol HDL Cholesterol TSH Urine Color Urine Clarity Urine pH Ur Specific [place] Urine Protein Urine Glucose (UA) Urine Ketones Urine Occult Blood Urine Nitrite Urine Bilirubin Urine Urobilinogen Ur Leukocyte Esterase Urine Opiates Screen Urine Methadone Screen Ur Barbiturates Screen Ur Phencyclidine Scrn Ur Amphetamines Screen U Methamphetamin-MDMA U Benzodiazepines Scrn Urine Cocaine Screen U Cannabinoids Screen Ur Drug Screen Comment MRSA (PCR) POC Glucose 10/31/17 07:03 WBC RBC Hgb Hct MCV MCH MCHC RDW RDW Differential Plt Count MPV PT INR Specimen Type Sample Site pH Bicarbonate Actual POC Total CO2 Base Excess O2 Saturation O2 % ABG pCO2 ABG pO2 Pranav Test Respiration Rate O2 Delivery Device Liter Flow Minute Volume Vent Mode Tidal Volume POC PEEP POC Pressure Suppt Pressure High Pressure Low Time High Time Low EPAP IPAP Blood Gas Notified Whom Blood Gas Notified Time Sodium Potassium Chloride Carbon Dioxide Anion Gap BUN Creatinine Estim Creat Clear Calc Est GFR (MDRD) Af Amer Est GFR (MDRD) Non-Af BUN/Creatinine Ratio Glucose Lactic Acid Calcium Phosphorus Magnesium Total Bilirubin AST ALT Alkaline Phosphatase Total Creatine Kinase Troponin I B-Natriuretic Peptide Total Protein Albumin Globulin Albumin/Globulin Ratio Triglycerides Cholesterol LDL Cholesterol VLDL Cholesterol HDL Cholesterol TSH Urine Color Urine Clarity Urine pH Ur Specific [place] Urine Protein Urine Glucose (UA) Urine Ketones Urine Occult Blood Urine Nitrite Urine Bilirubin Urine Urobilinogen Ur Leukocyte Esterase Urine Opiates Screen Urine Methadone Screen Ur Barbiturates Screen Ur Phencyclidine Scrn Ur Amphetamines Screen U Methamphetamin-MDMA U Benzodiazepines Scrn Urine Cocaine Screen U Cannabinoids Screen Ur Drug Screen Comment MRSA (PCR) POC Glucose 133 H Microbiology 10/29/17 11:15 Blood Culture (Wb) #2 - Arm Left Blood Culture - Preliminary No growth in 48 hours. 10/29/17 11:00 Blood Culture (Wb) - Central Line Blood Culture - Preliminary No growth in 48 hours. 10/29/17 12:03 Sputum, Induced/Lukens Gram Stain - Final 10/29/17 12:03 Sputum, Induced/Lukens Respiratory Culture - Preliminary 10/29/17 10:48 Mucosa - Nasopharyngeal Respiratory Panel (PCR) - Final 10/29/17 11:25 Urine Catheter - Smith Legionella Antigen - Final 10/29/17 11:25 Urine Catheter - Smith Streptococcus pneumoniae Antigen (M - Final Clinical Impression(s) from Imaging Studies Chest X-Ray 10/30/17 05:10 IMPRESSION: There has been improvement of the vascular congestion. Residual patchy infiltrates in the right upper lobe and both lower lobes. Electronically Signed: Kevin Owusu MD at 8:28 EST Tel [phone], Service support , Assessment/Plan Active and Suspected Problems COPD exacerbation (Acute) Chest pain (Acute) RECOMMENDATIONS: 1. Continuous awakening and breathing trials per protocol 2. Continue Zosyn therapy until culture data is available 3. Wean oxygen as tolerated 4. Maintain oxygen saturations 88-92%, to prevent paradoxical CO2 retention 5. Possible cardiac workup following extubation. Cardiology consultation is pending. 6. Continue Pepcid and Lovenox for prophylaxis IMPRESSIONS: 1. Acute on chronic hypoxemic and hypercarbic respiratory failure Potential etiologies include acute COPD exacerbation due to atypical infectious process versus that of decompensated heart failure and subsequent pulmonary vascular congestion. The patient failed to respond to BiPAP therapy and was subsequently intubated. Since blood pressure has been stable and fever curve is improving. Cultures are still pending, so we will continue with Zosyn therapy for now. Unfortunately, patient with desaturation at the end of spontaneous breathing trial. Anticipate possible extubation tomorrow if continues to improve 2. Probable type II non-ST elevation TN Likely demand ischemia in the setting of increased metabolic demands. Cardiology has been consulted. Troponins are improving. Repeat echocardiogram shows EF at the lower limit of normal. No recent echocardiogram results for review. Patient did have a normal stress test in 2013 noted an EF of 55% at rest and 65% with stress. 3. Chronic pain syndrome/obesity/tobacco dependence, in remission Complicates care, management, recovery and prognosis. The patient will be sedated with propofol and fentanyl. Tube feeds can be continued per nutrition recommendations. TIME: 40 minutes of critical care time was spent addressing the patient's acute on chronic respiratory failure, COPD exacerbation, troponin elevation, review of all data and collaboration with the care team. (5:30 AM to 6:30 AM) Code Visit [id number]: [id number] Critical care first hour
[2017-10-31] MEDS: Famotidine 20 MG Tablet GT ×2 (10:33→21:38)
[2017-10-31] MEDS: Chlorhexidine 15 ML PO ×2 (10:34→21:38)
[2017-10-31] MEDS: Aspirin 81 MG TAB.CHEW GT (10:34)
[2017-10-31] MEDS: Carvedilol 6.25 MG Tablet GT ×2 (10:34→21:38)
--- NOTE | 2017-10-31 10:52 | CASEMGMT ---
See RN CM Assessment form. DC PLAN: undetermined. Pt is awake and alert, remains on ventilator so limited ability to discuss. Is able to nod yes and no. Anticipate pt will be extubated tomorrow. -PT/OT working with pt. will review evaluations. -pt does not have PCP listed. Will review PCP with pt when extubated. Soniya RANKINN RN AC
[2017-10-31] MEDS: Propofol 10MG/Ml 1,000 MG/100 ML Bottle 2.4 MG CONT INF ×2 (11:37→20:30)
[2017-10-31] MEDS: 0.9% NaCl IVPB Med Flush (250 mL) 15 ML IV (11:37)
[2017-10-31 11:55] LABS: Bedside Glucose 165 mg/dL (70-110)
[2017-10-31] MEDS: Vital AF 1.2 Cal Liquid 1,000 ML 60 ML GT (16:25)
--- NOTE | 2017-10-31 17:10 | NURSING ---
education re chronic illness deferred till pt off sedation.
--- NOTE | 2017-10-31 18:17 | PCM.PN.HOSP ---
Patient Problems: Active and Suspected Problems Chest pain (Acute) COPD exacerbation (Acute) Subjective: CC: Acute respiratory failure He is taken off sedation and obeys commands, he weaned off the ventilator, remains hemodynamically stable and appears comfortable. Vitals/I&O's: Vital Signs Temp Pulse Resp BP Pulse Ox 99.3 F H 66 16 107/73 97 10/31/17 17:00 10/31/17 17:00 10/31/17 17:00 10/31/17 17:00 10/31/17 17:00 Oxygen Flow Rate 30 Oxygen Delivery Method Mechanical Ventilator Weight: 80.5 kg Body Mass Index (BMI) 26.7 Intake and Output for Last 24 Hours 10/29/17 10/30/17 10/31/17 23:59 23:59 23:59 Intake Total 886.3 / 886.3 3839.4 / 3839.4 1880 / 1880 Output Total 550 / 550 1080 / 1080 950 / 950 Balance 336.3 / 336.3 2759.4 / 2759.4 930 / 930 General: Alert, Oriented x3 HEENT: - - ET/NG tubes in place Cardiovascular: Regular rate, Normal S1, Normal S2 Abdomen: Bowel Sounds Present, Soft, Non Tender Extremities: No edema Skin: No rashes Neurological: Cranial nerves II-XII grossly intact, Deep Tendon Reflexes 2+/4 and Symmetrical, Motor Exam 5/5 strength throughout Microbiology Past 72 Hours 10/29/17 12:03 Sputum, Induced/Lukens Gram Stain - Final 10/29/17 12:03 Sputum, Induced/Lukens Respiratory Culture - Final Haemophilus influenzae 10/29/17 11:15 Blood Culture (Wb) #2 - Arm Left Blood Culture - Preliminary No growth in 48 hours. 10/29/17 11:00 Blood Culture (Wb) - Central Line Blood Culture - Preliminary No growth in 48 hours. 10/29/17 10:48 Mucosa - Nasopharyngeal Respiratory Panel (PCR) - Final 10/29/17 11:25 Urine Catheter - Smith Legionella Antigen - Final 10/29/17 11:25 Urine Catheter - Smith Streptococcus pneumoniae Antigen (M - Final Laboratory Results 10/30/17 23:27: POC Glucose 193 H 10/31/17 04:45: WBC 12.5 H, RBC 3.99 L, Hgb 11.2 L, Hct 36.1 L, MCV 90.5, MCH 28.1, MCHC 31.0 L, RDW 14.8 H, RDW Differential 49.3 H, Plt Count 219, MPV 9.8 10/31/17 04:45: PT 13.0, INR 1.0 10/31/17 04:45: Sodium 138, Potassium 4.2, Chloride 90 L, Carbon Dioxide 42.0 H, Anion Gap 6, BUN 44 H, Creatinine 0.85, Estim Creat Clear Calc 91.26, Est GFR (MDRD) Af Amer 117, Est GFR (MDRD) Non-Af 97, BUN/Creatinine Ratio 51.6 H, Glucose 212 H, Calcium 8.6 10/31/17 07:03: POC Glucose 133 H 10/31/17 11:33: POC Glucose 165 H Current Medications Albuterol Sulfate (Ventolin Aerosols) 2.5 mg INHALATION Q2H PRN PRN PRN Reason: SOB &/OR WHEEZING Last Admin: 10/30/17 01:10 Dose: 2.5 mg Albuterol Sulfate (Ventolin Aerosols) 2.5 mg INHALATION Q4H.RT [facility] Last Admin: 10/31/17 14:28 Dose: 2.5 mg Aspirin (Aspirin, Baby) 81 mg GT DAILY@0800 [facility] Last Admin: 10/31/17 10:34 Dose: 81 mg Atorvastatin Calcium (Lipitor) 40 mg GT QHS [facility] Last Admin: 10/30/17 21:43 Dose: 40 mg Carvedilol (Coreg) 6.25 mg GT BID [facility] Last Admin: 10/31/17 10:34 Dose: 6.25 mg Chlorhexidine Gluconate () 15 ml PO BID [facility] Last Admin: 10/31/17 10:34 Dose: 15 ml Dextrose (D50w Syringe) 0 gm IV X1 PRN; Protocol PRN Reason: Hypoglycemia Enoxaparin Sodium (Lovenox) 80 mg 1 mg/kg (80 mg) SC Q12@0600,1800 [facility] Last Admin: 10/31/17 05:00 Dose: 80 mg Famotidine (Pepcid) 20 mg GT BID [facility] Last Admin: 10/31/17 10:33 Dose: 20 mg Glucagon () 1 mg IM .X1 PRN PRN Reason: Hypoglycemia Piperacillin Sod/Tazobactam Sod (Zosyn) 3.375 gm in 50 mls @ 12.5 mls/hr IV Q8 TOBY Last Admin: 10/31/17 14:39 Dose: 12.5 mls/hr Sodium Chloride () 250 mls @ 15 mls/hr IV .[id number] PRN PRN Reason: SALINE FLUSH Last Admin: 10/31/17 11:37 Dose: 15 mls/hr Sodium Chloride () 250 mls @ 15 mls/hr IV .[id number] PRN PRN Reason: SALINE FLUSH Fentanyl () 100 mls @ 2.5 mls/hr IV .Q40H TOBY PRN Reason: Protocol Last Admin: 10/31/17 16:24 Dose: 2.5 mls/hr Propofol (Diprivan) 1,000 mg in 100 mls @ 2.4 mls/hr CONT INF .Q12H TOBY; 5 MCG/KG/MIN PRN Reason: Protocol Last Admin: 10/31/17 11:37 Dose: 2.4 mls/hr Enteral Nutritional Formula (Vital Af 1.2 Joseph Liquid) 1,000 mls @ 60 mls/hr GT .[id number] TOBY Last Admin: 10/31/17 16:25 Dose: 60 mls/hr Insulin Aspart (Novolog Flexpen (Bkc)) 0 units SC Q6 TOBY PRN Reason: Protocol Last Admin: 10/31/17 11:36 Dose: 1 u Methylprednisolone (Solu-Medrol) 40 mg IV Q6 TOBY Last Admin: 10/31/17 11:37 Dose: 40 mg Sodium Chloride () 5 - 30 ml IV UD PRN PRN Reason: SALINE FLUSH Last Admin: 10/31/17 05:02 Dose: 10 ml Assessment/Plan Active and Suspected Problems Chest pain (Acute) COPD exacerbation (Acute) 1. Acute hypoxic and hypercapnic respiratory failure; weaning protocol today. 2. Troponin elevation; likely due type II NSTEMI, cardiology consulted and input noted. 3. COPD with acute exacerbation; IV steroids, bronchodilators and antibiotics. 4. presumptive pneumonia; continue on IV ZOSYN, will change to oral antibiotic after extubation. 5. Chronic pain syndrome; he is on Fentanyl and this should prevent withdrawal. 6. DVT prophylaxis with Lovenox and SCDs. Code Visit Inpatient E&M: 40269 Subs Hosp L3
--- NOTE | 2017-10-31 18:20 | PN_ITS ---
Patient Problems: Active and Suspected Problems Chest pain (Acute) COPD exacerbation (Acute) Subjective: CC: Acute respiratory failure He is taken off sedation and obeys commands, he weaned off the ventilator, remains hemodynamically stable and appears comfortable. Vitals/I&O's: Vital Signs Temp Pulse Resp BP Pulse Ox 99.3 F H 66 16 107/73 97 10/31/17 17:00 10/31/17 17:00 10/31/17 17:00 10/31/17 17:00 10/31/17 17:00 Oxygen Flow Rate 30 Oxygen Delivery Method Mechanical Ventilator Weight: 80.5 kg Body Mass Index (BMI) 26.7 Intake and Output for Last 24 Hours 10/29/17 10/30/17 10/31/17 23:59 23:59 23:59 Intake Total 886.3 / 886.3 3839.4 / 3839.4 1880 / 1880 Output Total 550 / 550 1080 / 1080 950 / 950 Balance 336.3 / 336.3 2759.4 / 2759.4 930 / 930 General: Alert, Oriented x3 HEENT: - - ET/NG tubes in place Cardiovascular: Regular rate, Normal S1, Normal S2 Abdomen: Bowel Sounds Present, Soft, Non Tender Extremities: No edema Skin: No rashes Neurological: Cranial nerves II-XII grossly intact, Deep Tendon Reflexes 2+/4 and Symmetrical, Motor Exam 5/5 strength throughout Microbiology Past 72 Hours 10/29/17 12:03 Sputum, Induced/Lukens Gram Stain - Final 10/29/17 12:03 Sputum, Induced/Lukens Respiratory Culture - Final Haemophilus influenzae 10/29/17 11:15 Blood Culture (Wb) #2 - Arm Left Blood Culture - Preliminary No growth in 48 hours. 10/29/17 11:00 Blood Culture (Wb) - Central Line Blood Culture - Preliminary No growth in 48 hours. 10/29/17 10:48 Mucosa - Nasopharyngeal Respiratory Panel (PCR) - Final 10/29/17 11:25 Urine Catheter - Smith Legionella Antigen - Final 10/29/17 11:25 Urine Catheter - Smith Streptococcus pneumoniae Antigen (M - Final Laboratory Results 10/30/17 23:27: POC Glucose 193 H 10/31/17 04:45: WBC 12.5 H, RBC 3.99 L, Hgb 11.2 L, Hct 36.1 L, MCV 90.5, MCH 28.1, MCHC 31.0 L, RDW 14.8 H, RDW Differential 49.3 H, Plt Count 219, MPV 9.8 10/31/17 04:45: PT 13.0, INR 1.0 10/31/17 04:45: Sodium 138, Potassium 4.2, Chloride 90 L, Carbon Dioxide 42.0 H , Anion Gap 6, BUN 44 H, Creatinine 0.85, Estim Creat Clear Calc 91.26, Est GFR (MDRD) Af Amer 117, Est GFR (MDRD) Non-Af 97, BUN/Creatinine Ratio 51.6 H, Glucose 212 H, Calcium 8.6 10/31/17 07:03: POC Glucose 133 H 10/31/17 11:33: POC Glucose 165 H Current Medications Albuterol Sulfate (Ventolin Aerosols) 2.5 mg INHALATION Q2H PRN PRN PRN Reason: SOB &/OR WHEEZING Last Admin: 10/30/17 01:10 Dose: 2.5 mg Albuterol Sulfate (Ventolin Aerosols) 2.5 mg INHALATION Q4H.RT [facility] Last Admin: 10/31/17 14:28 Dose: 2.5 mg Aspirin (Aspirin, Baby) 81 mg GT DAILY@0800 [facility] Last Admin: 10/31/17 10:34 Dose: 81 mg Atorvastatin Calcium (Lipitor) 40 mg GT QHS [facility] Last Admin: 10/30/17 21:43 Dose: 40 mg Carvedilol (Coreg) 6.25 mg GT BID [facility] Last Admin: 10/31/17 10:34 Dose: 6.25 mg Chlorhexidine Gluconate () 15 ml PO BID [facility] Last Admin: 10/31/17 10:34 Dose: 15 ml Dextrose (D50w Syringe) 0 gm IV X1 PRN; Protocol PRN Reason: Hypoglycemia Enoxaparin Sodium (Lovenox) 80 mg 1 mg/kg (80 mg) SC Q12@0600,1800 [facility] Last Admin: 10/31/17 05:00 Dose: 80 mg Famotidine (Pepcid) 20 mg GT BID [facility] Last Admin: 10/31/17 10:33 Dose: 20 mg Glucagon () 1 mg IM .X1 PRN PRN Reason: Hypoglycemia Piperacillin Sod/Tazobactam Sod (Zosyn) 3.375 gm in 50 mls @ 12.5 mls/hr IV Q8 TOBY Last Admin: 10/31/17 14:39 Dose: 12.5 mls/hr Sodium Chloride () 250 mls @ 15 mls/hr IV .[id number] PRN PRN Reason: SALINE FLUSH Last Admin: 10/31/17 11:37 Dose: 15 mls/hr Sodium Chloride () 250 mls @ 15 mls/hr IV .[id number] PRN PRN Reason: SALINE FLUSH Fentanyl () 100 mls @ 2.5 mls/hr IV .Q40H TOBY PRN Reason: Protocol Last Admin: 10/31/17 16:24 Dose: 2.5 mls/hr Propofol (Diprivan) 1,000 mg in 100 mls @ 2.4 mls/hr CONT INF .Q12H TOBY; 5 MCG/ KG/MIN PRN Reason: Protocol Last Admin: 10/31/17 11:37 Dose: 2.4 mls/hr Enteral Nutritional Formula (Vital Af 1.2 Joseph Liquid) 1,000 mls @ 60 mls/hr GT .[id number] TOBY Last Admin: 10/31/17 16:25 Dose: 60 mls/hr Insulin Aspart (Novolog Flexpen (Bkc)) 0 units SC Q6 TOBY PRN Reason: Protocol Last Admin: 10/31/17 11:36 Dose: 1 u Methylprednisolone (Solu-Medrol) 40 mg IV Q6 TOBY Last Admin: 10/31/17 11:37 Dose: 40 mg Sodium Chloride () 5 - 30 ml IV UD PRN PRN Reason: SALINE FLUSH Last Admin: 10/31/17 05:02 Dose: 10 ml Assessment/Plan Active and Suspected Problems Chest pain (Acute) COPD exacerbation (Acute) 1. Acute hypoxic and hypercapnic respiratory failure; weaning protocol today. 2. Troponin elevation; likely due type II NSTEMI, cardiology consulted and input noted. 3. COPD with acute exacerbation; IV steroids, bronchodilators and antibiotics. 4. presumptive pneumonia; continue on IV ZOSYN, will change to oral antibiotic after extubation. 5. Chronic pain syndrome; he is on Fentanyl and this should prevent withdrawal. 6. DVT prophylaxis with Lovenox and SCDs. Code Visit Inpatient E&M: 66366 Subs Hosp L3
[2017-10-31 18:36] LABS: Bedside Glucose 198 mg/dL (70-110)
[2017-10-31] MEDS: Atorvastatin Calcium 40 MG Tablet GT (21:38)
[2017-10-31 23:45] LABS: Bedside Glucose 182 mg/dL (70-110)
[2017-11-01] VITALS (33 sets, daily range): BP systolic 107–176; BP diastolic 59–106; PULSE 64–92; RESP 14–32; TEMP 36.7–37.6; O2SAT 92–100
[2017-11-01] MEDS: Albuterol 2.5 MG/3 ML VIAL.NEB. INHALATION ×6 (03:42→23:19)
[2017-11-01 04:11] LABS: Hematocrit 36.3 % (40-54); Hemoglobin 11.2 g/dl (13.0-16.5); Mean Corp Hgb Conc 30.9 g/gl (32-36); Mean Corpuscular Hgb 28.2 pg (27.0-32.0); Mean Corpuscular Volume 91.4 fL (80-94); Mean Platelet Vol. 9.7 fl (6.2-12.0); Platelet Count 232 K/mm3 (150-450); RBC Distribution Width CV 14.9 % (11.6-14.6); RBC Distribution Width SD 49.9 fl (35.1-43.9); Red Blood Count 3.97 M/mm3 (4.6-6.2); White Blood Count 12.7 K/mm3 (4.4-11.0)
[2017-11-01 04:12] LABS: Absolute Nucleated RBC Count 0.05 10^3/uL (0-5); Differential Indicated MANUAL DIFF; NRBC Flagged by Analyzer 0.4 % (0-5); POSITIVE COUNT YES; POSITIVE DIFFERENTIAL NO; POSITIVE MORPHOLOGY YES
[2017-11-01 05:10] LABS: Anion Gap 6 (5-15); BUN 38 mg/dL (7-18); BUN/Creat Ratio 47.3 RATIO (10-20); Calcium,Total 8.6 mg/dL (8.5-10.1); Chloride 91 mmol/L (98-107); EST Glomerular Filtration Rate 104 mL/min (>60); Est Glom Filt Rate - Afr Amer 126 mL/min (>60); Estimated Creatinine Clearance 96.97 ml/min; Glucose 201 mg/dL (74-106); Potassium 4.4 mmol/L (3.5-5.1); Sodium Level 135 mmol/L (136-145)
[2017-11-01] MEDS: Enoxaparin 80 MG/0.8 ML Syringe SC ×2 (05:48→17:47)
[2017-11-01] MEDS: Piperacil/Tazobactam 3.375 GM/50 ML ML IV (05:48)
[2017-11-01] MEDS: 0.9% NaCl Peripheral Flush Adult/Peds IV ×2 (05:48→21:35)
[2017-11-01 06:05] LABS: Lymphocyte 20 % (19-41); Monocyte 5 % (0-10); Neutrophil-Band 3 % (0-5); Neutrophil-Segmented 72 % (47-70); Total Cells Counted 100 (MANUAL DIFF)
[2017-11-01 06:06] LABS: Bedside Glucose 143 mg/dL (70-110)
[2017-11-01 06:06] LABS: Nucleated Red Bld Cells,Manual 1 % (0-5); Platelet Estimate ADEQUATE (ADEQ); Red Cell Morphology NORM C+C NORMAL (NORM C&C)
[2017-11-01 06:07] LABS: Absolute Lymphocyte Count 2.54 X10^3/ul (0.83-4.51); Absolute Neutrophil Count 9.5 X10^3/uL (2.0-7.7); Atypical Lymphocyte RARE %; Lymphocyte # 2.54 X10^3/ul (4.0); Neutrophil # 9.52 X10^3/uL (2.7-7.7)
[2017-11-01 06:57] LABS: Allen Test POS; Blood Gas Specimen Type ART; Mode CPAP; SITE R RADIAL
[2017-11-01 06:58] LABS: FI02 30; O2 Delivery Device Vent; PEEP 5; PS 5; Time Given 552; pH 7.46 (7.35-7.45)
[2017-11-01 06:59] LABS: Base Excess 29 mmol/L (-2 to +2); Bicarbonate 53.3 mmol/L (22-26); PO2 51 mmHG (75-100); Total Carbon Dioxide > 50 mmol/L; pCO2 75.6 mmHg (35-45)
[2017-11-01 07:00] LABS: SO2 85 % (95-99)
--- NOTE | 2017-11-01 07:03 | NURSING ---
Pt extubated with this RN and RT at bedside. ETT and OG discontinued and intact. Large amount of oral secretions suctioned at time of extubation. Pt able to clear secretions without difficulty. Gag and vocal chords intact. Placed on 5L NC and tolerating well.
--- NOTE | 2017-11-01 07:03 | PCM.PN.INT ---
Subjective: Patient did well overnight. No acute issues were reported. Patient did not have any plugging episodes requiring bag mask ventilation. Patient was able to pass a spontaneous breathing trial this morning and was successfully extubated under my direct supervision. Patient did have hoarseness after extubation, but overall was doing well. General: Alert, Cooperative, No apparent distress, - - Appears stated age. Speaking in full sentences. HEENT: Atraumatic, PERRLA, EOMI, Normocephalic, - - No scleral icterus or injection noted. Oral: Moist Mucosa, No Gingival or Mucosal Lesions/ Ulcerations Neck: Supple, No JVD, No Nodes, Trachea Midline Lungs: No rhonchi, No rales, Diminished, Wheezes - At end exhalation, - - Symmetric expansion. No dullness to percussion. Cardiovascular: Regular rate, Regular Rhythm, Normal S1, Normal S2, No murmurs, No rub noted, No Gallop Abdomen: Bowel Sounds Present, Soft, Non Tender, Non-Distended Extremities: No clubbing, No cyanosis, No edema, Capillary Refill Less than 3 Seconds Skin: No rashes, No breakdown Musculoskeletal: No Tenderness to Palpation of Joints or Extremities Lymphatic: No Cervical, Supraclavicular, or Inguinal Adenopathy Neurological: Cranial nerves II-XII grossly intact, Neuro grossly intact, Motor Exam 5/5 strength throughout Psych/Mental Status: Alert and oriented to time, place, person, mood and affect Vital Signs Temp Pulse Resp BP Pulse Ox 37.4 C H 75 19 H 165/73 H 98 11/01/17 06:00 11/01/17 07:00 11/01/17 07:00 11/01/17 07:00 11/01/17 07:00 Oxygen Flow Rate 5 Oxygen Delivery Method Nasal Cannula Weight: 80.4 kg Body Mass Index (BMI) 26.7 Intake and Output for Last 24 Hours 10/30/17 10/31/17 11/01/17 23:59 23:59 23:59 Intake Total 3839.4 / 3839.4 2717 / 2717 630 / 630 Output Total 1080 / 1080 1350 / 1350 400 / 400 Balance 2759.4 / 2759.4 1367 / 1367 230 / 230 Labs (Last 48 Hours) 10/30/17 10/30/17 10/30/17 05:55 11:13 17:28 WBC RBC Hgb Hct MCV MCH MCHC RDW RDW Differential Plt Count MPV Neut % (Auto) Absolute Neuts (auto) Absolute Lymphs (auto) Total Counted Neutrophils % (Manual) Band Neutrophils % Lymphocytes % (Manual) Monocytes % (Manual) Nucleated RBC % Nucleated RBCs/100 WBC Diff Path Review Atypical Lymphocytes Platelet Estimate RBC Morphology Absolute Retic PT INR Specimen Type Sample Site pH Bicarbonate Actual POC Total CO2 Base Excess O2 Saturation O2 % ABG pCO2 ABG pO2 Pranav Test Respiration Rate O2 Delivery Device Liter Flow Minute Volume Vent Mode Tidal Volume POC PEEP POC Pressure Suppt Pressure High Pressure Low Time High Time Low EPAP IPAP Blood Gas Notified Whom Blood Gas Notified Time Sodium Potassium Chloride Carbon Dioxide Anion Gap BUN Creatinine Estim Creat Clear Calc Est GFR (MDRD) Af Amer Est GFR (MDRD) Non-Af BUN/Creatinine Ratio Glucose Calcium POC Glucose 196 H 233 H 219 H 10/30/17 10/31/17 10/31/17 23:27 04:45 04:45 WBC 12.5 H RBC 3.99 L Hgb 11.2 L Hct 36.1 L MCV 90.5 MCH 28.1 MCHC 31.0 L RDW 14.8 H RDW Differential 49.3 H Plt Count 219 MPV 9.8 Neut % (Auto) Absolute Neuts (auto) Absolute Lymphs (auto) Total Counted Neutrophils % (Manual) Band Neutrophils % Lymphocytes % (Manual) Monocytes % (Manual) Nucleated RBC % Nucleated RBCs/100 WBC Diff Path Review Atypical Lymphocytes Platelet Estimate RBC Morphology Absolute Retic PT 13.0 INR 1.0 Specimen Type Sample Site pH Bicarbonate Actual POC Total CO2 Base Excess O2 Saturation O2 % ABG pCO2 ABG pO2 Pranav Test Respiration Rate O2 Delivery Device Liter Flow Minute Volume Vent Mode Tidal Volume POC PEEP POC Pressure Suppt Pressure High Pressure Low Time High Time Low EPAP IPAP Blood Gas Notified Whom Blood Gas Notified Time Sodium Potassium Chloride Carbon Dioxide Anion Gap BUN Creatinine Estim Creat Clear Calc Est GFR (MDRD) Af Amer Est GFR (MDRD) Non-Af BUN/Creatinine Ratio Glucose Calcium POC Glucose 193 H 10/31/17 10/31/17 10/31/17 04:45 05:52 07:03 WBC RBC Hgb Hct MCV MCH MCHC RDW RDW Differential Plt Count MPV Neut % (Auto) Absolute Neuts (auto) Absolute Lymphs (auto) Total Counted Neutrophils % (Manual) Band Neutrophils % Lymphocytes % (Manual) Monocytes % (Manual) Nucleated RBC % Nucleated RBCs/100 WBC Diff Path Review Atypical Lymphocytes Platelet Estimate RBC Morphology Absolute Retic PT INR Specimen Type ART Sample Site R RADIAL pH 7.46 H Bicarbonate Actual 53.3 H POC Total CO2 > 50 Base Excess 29 H O2 Saturation 85 L O2 % 30 ABG pCO2 75.6 H* ABG pO2 51 L Pranav Test POS Respiration Rate TNP O2 Delivery Device Vent Liter Flow TNP Minute Volume TNP Vent Mode CPAP Tidal Volume TNP POC PEEP 5 POC Pressure Suppt 5 Pressure High TNP Pressure Low TNP Time High TNP Time Low TNP EPAP TNP IPAP TNP Blood Gas Notified Whom ICU MD Blood Gas Notified Time 552 Sodium 138 Potassium 4.2 Chloride 90 L Carbon Dioxide 42.0 H Anion Gap 6 BUN 44 H Creatinine 0.85 Estim Creat Clear Calc 91.26 Est GFR (MDRD) Af Amer 117 Est GFR (MDRD) Non-Af 97 BUN/Creatinine Ratio 51.6 H Glucose 212 H Calcium 8.6 POC Glucose 133 H 10/31/17 10/31/17 10/31/17 11:33 18:21 23:34 WBC RBC Hgb Hct MCV MCH MCHC RDW RDW Differential Plt Count MPV Neut % (Auto) Absolute Neuts (auto) Absolute Lymphs (auto) Total Counted Neutrophils % (Manual) Band Neutrophils % Lymphocytes % (Manual) Monocytes % (Manual) Nucleated RBC % Nucleated RBCs/100 WBC Diff Path Review Atypical Lymphocytes Platelet Estimate RBC Morphology Absolute Retic PT INR Specimen Type Sample Site pH Bicarbonate Actual POC Total CO2 Base Excess O2 Saturation O2 % ABG pCO2 ABG pO2 Pranav Test Respiration Rate O2 Delivery Device Liter Flow Minute Volume Vent Mode Tidal Volume POC PEEP POC Pressure Suppt Pressure High Pressure Low Time High Time Low EPAP IPAP Blood Gas Notified Whom Blood Gas Notified Time Sodium Potassium Chloride Carbon Dioxide Anion Gap BUN Creatinine Estim Creat Clear Calc Est GFR (MDRD) Af Amer Est GFR (MDRD) Non-Af BUN/Creatinine Ratio Glucose Calcium POC Glucose 165 H 198 H 182 H 11/01/17 11/01/17 11/01/17 04:00 04:00 05:46 WBC 12.7 H RBC 3.97 L Hgb 11.2 L Hct 36.3 L MCV 91.4 MCH 28.2 MCHC 30.9 L RDW 14.9 H RDW Differential 49.9 H Plt Count 232 MPV 9.7 Neut % (Auto) Not Reportable Absolute Neuts (auto) 9.5 H Absolute Lymphs (auto) 2.54 Total Counted 100 Neutrophils % (Manual) 72 H Band Neutrophils % 3 Lymphocytes % (Manual) 20 Monocytes % (Manual) 5 Nucleated RBC % 0.4 Nucleated RBCs/100 WBC 1 Diff Path Review May foll Atypical Lymphocytes RARE Platelet Estimate ADEQUATE RBC Morphology NORM C+C Absolute Retic 0.05 PT INR Specimen Type Sample Site pH Bicarbonate Actual POC Total CO2 Base Excess O2 Saturation O2 % ABG pCO2 ABG pO2 Pranav Test Respiration Rate O2 Delivery Device Liter Flow Minute Volume Vent Mode Tidal Volume POC PEEP POC Pressure Suppt Pressure High Pressure Low Time High Time Low EPAP IPAP Blood Gas Notified Whom Blood Gas Notified Time Sodium 135 L Potassium 4.4 Chloride 91 L Carbon Dioxide 38.0 H Anion Gap 6 BUN 38 H Creatinine 0.80 Estim Creat Clear Calc 96.97 Est GFR (MDRD) Af Amer 126 Est GFR (MDRD) Non-Af 104 BUN/Creatinine Ratio 47.3 H Glucose 201 H Calcium 8.6 POC Glucose 143 H Microbiology 10/29/17 12:03 Sputum, Induced/Lukens Gram Stain - Final 10/29/17 12:03 Sputum, Induced/Lukens Respiratory Culture - Final Haemophilus influenzae 10/29/17 11:15 Blood Culture (Wb) #2 - Arm Left Blood Culture - Preliminary No growth in 48 hours. 10/29/17 11:00 Blood Culture (Wb) - Central Line Blood Culture - Preliminary No growth in 48 hours. Clinical Impression(s) from Imaging Studies Chest X-Ray 10/29/17 05:49 IMPRESSION: Emphysema. Increase of interstitial opacification bilateral lung parenchyma. This may represent an acute superimposed inflammatory process. Atypical congestive heart failure distribution less likely. Electronically Signed: Jaye Alvarez MD at 6:59 EST , Service support , Chest X-Ray 10/29/17 10:41 IMPRESSION: Interstitial edema throughout the lungs. ET tube and enteric tube Electronically Signed: Alton Randle DO at 11:34 EST Tel , Service support , KUB X-Ray 10/29/17 10:45 IMPRESSION: NG tube as above Electronically Signed: Alton Randle DO at 11:33 EST Tel , Service support , Chest X-Ray 10/30/17 05:10 IMPRESSION: There has been improvement of the vascular congestion. Residual patchy infiltrates in the right upper lobe and both lower lobes. Electronically Signed: Kevin Owusu MD at 8:28 EST Tel [phone], Service support , Assessment/Plan Active and Suspected Problems Chest pain (Acute) COPD exacerbation (Acute) RECOMMENDATIONS: 1. Aggressive pulmonary toileting 2. Transition to Levaquin therapy and complete 7 days 3. Wean oxygen as tolerated 4. Maintain oxygen saturations 88-92%, to prevent paradoxical CO2 retention 5. Swallow evaluation with initiation of p.o. diet if appropriate 6. Await cardiology recommendations IMPRESSIONS: 1. Acute on chronic hypoxemic and hypercarbic respiratory failure secondary to H influenza pneumonia Patient is now growing H influenza pneumonia. Antibiotics will be changed. Patient successfully extubated. Wean oxygen as tolerated. Aggressive pulmonary toileting. Likely okay to initiate p.o. diet if patient is able to tolerate bedside swallow evaluation. 2. Elevated cardiac enzymes/demand ischemia Likely demand ischemia in the setting of increased metabolic demands. Cardiology has been consulted. Troponins were improving. Repeat echocardiogram shows EF at the lower limit of normal. No recent echocardiogram results for review. Patient did have a normal stress test in 2013 noted an EF of 55% at rest and 65% with stress. 3. Chronic pain syndrome/obesity/tobacco dependence, in remission Complicates care, management, recovery and prognosis. The patient will be sedated with propofol and fentanyl. Tube feeds can be continued per nutrition recommendations. TIME: 45 minutes of critical care time was spent addressing the patient's acute on chronic respiratory failure, COPD exacerbation, troponin elevation, review of all data and collaboration with the care team. (5:30 AM to 6:45 AM) Code Visit 9xxxx: [id number] Critical care first hour
--- NOTE | 2017-11-01 07:19 | PN_ITS ---
Subjective: Patient did well overnight. No acute issues were reported. Patient did not have any plugging episodes requiring bag mask ventilation. Patient was able to pass a spontaneous breathing trial this morning and was successfully extubated under my direct supervision. Patient did have hoarseness after extubation, but overall was doing well. General: Alert, Cooperative, No apparent distress, - - Appears stated age. Speaking in full sentences. HEENT: Atraumatic, PERRLA, EOMI, Normocephalic, - - No scleral icterus or injection noted. Oral: Moist Mucosa, No Gingival or Mucosal Lesions/ Ulcerations Neck: Supple, No JVD, No Nodes, Trachea Midline Lungs: No rhonchi, No rales, Diminished, Wheezes - At end exhalation, - - Symmetric expansion. No dullness to percussion. Cardiovascular: Regular rate, Regular Rhythm, Normal S1, Normal S2, No murmurs, No rub noted, No Gallop Abdomen: Bowel Sounds Present, Soft, Non Tender, Non-Distended Extremities: No clubbing, No cyanosis, No edema, Capillary Refill Less than 3 Seconds Skin: No rashes, No breakdown Musculoskeletal: No Tenderness to Palpation of Joints or Extremities Lymphatic: No Cervical, Supraclavicular, or Inguinal Adenopathy Neurological: Cranial nerves II-XII grossly intact, Neuro grossly intact, Motor Exam 5/5 strength throughout Psych/Mental Status: Alert and oriented to time, place, person, mood and affect Vital Signs Temp Pulse Resp BP Pulse Ox 37.4 C H 75 19 H 165/73 H 98 11/01/17 06:00 11/01/17 07:00 11/01/17 07:00 11/01/17 07:00 11/01/17 07:00 Oxygen Flow Rate 5 Oxygen Delivery Method Nasal Cannula Weight: 80.4 kg Body Mass Index (BMI) 26.7 Intake and Output for Last 24 Hours 10/30/17 10/31/17 11/01/17 23:59 23:59 23:59 Intake Total 3839.4 / 3839.4 2717 / 2717 630 / 630 Output Total 1080 / 1080 1350 / 1350 400 / 400 Balance 2759.4 / 2759.4 1367 / 1367 230 / 230 Labs (Last 48 Hours) 10/30/17 10/30/17 10/30/17 05:55 11:13 17:28 WBC RBC Hgb Hct MCV MCH MCHC RDW RDW Differential Plt Count MPV Neut % (Auto) Absolute Neuts (auto) Absolute Lymphs (auto) Total Counted Neutrophils % (Manual) Band Neutrophils % Lymphocytes % (Manual) Monocytes % (Manual) Nucleated RBC % Nucleated RBCs/100 WBC Diff Path Review Atypical Lymphocytes Platelet Estimate RBC Morphology Absolute Retic PT INR Specimen Type Sample Site pH Bicarbonate Actual POC Total CO2 Base Excess O2 Saturation O2 % ABG pCO2 ABG pO2 Pranav Test Respiration Rate O2 Delivery Device Liter Flow Minute Volume Vent Mode Tidal Volume POC PEEP POC Pressure Suppt Pressure High Pressure Low Time High Time Low EPAP IPAP Blood Gas Notified Whom Blood Gas Notified Time Sodium Potassium Chloride Carbon Dioxide Anion Gap BUN Creatinine Estim Creat Clear Calc Est GFR (MDRD) Af Amer Est GFR (MDRD) Non-Af BUN/Creatinine Ratio Glucose Calcium POC Glucose 196 H 233 H 219 H 10/30/17 10/31/17 10/31/17 23:27 04:45 04:45 WBC 12.5 H RBC 3.99 L Hgb 11.2 L Hct 36.1 L MCV 90.5 MCH 28.1 MCHC 31.0 L RDW 14.8 H RDW Differential 49.3 H Plt Count 219 MPV 9.8 Neut % (Auto) Absolute Neuts (auto) Absolute Lymphs (auto) Total Counted Neutrophils % (Manual) Band Neutrophils % Lymphocytes % (Manual) Monocytes % (Manual) Nucleated RBC % Nucleated RBCs/100 WBC Diff Path Review Atypical Lymphocytes Platelet Estimate RBC Morphology Absolute Retic PT 13.0 INR 1.0 Specimen Type Sample Site pH Bicarbonate Actual POC Total CO2 Base Excess O2 Saturation O2 % ABG pCO2 ABG pO2 Pranav Test Respiration Rate O2 Delivery Device Liter Flow Minute Volume Vent Mode Tidal Volume POC PEEP POC Pressure Suppt Pressure High Pressure Low Time High Time Low EPAP IPAP Blood Gas Notified Whom Blood Gas Notified Time Sodium Potassium Chloride Carbon Dioxide Anion Gap BUN Creatinine Estim Creat Clear Calc Est GFR (MDRD) Af Amer Est GFR (MDRD) Non-Af BUN/Creatinine Ratio Glucose Calcium POC Glucose 193 H 10/31/17 10/31/17 10/31/17 04:45 05:52 07:03 WBC RBC Hgb Hct MCV MCH MCHC RDW RDW Differential Plt Count MPV Neut % (Auto) Absolute Neuts (auto) Absolute Lymphs (auto) Total Counted Neutrophils % (Manual) Band Neutrophils % Lymphocytes % (Manual) Monocytes % (Manual) Nucleated RBC % Nucleated RBCs/100 WBC Diff Path Review Atypical Lymphocytes Platelet Estimate RBC Morphology Absolute Retic PT INR Specimen Type ART Sample Site R RADIAL pH 7.46 H Bicarbonate Actual 53.3 H POC Total CO2 > 50 Base Excess 29 H O2 Saturation 85 L O2 % 30 ABG pCO2 75.6 H* ABG pO2 51 L Pranav Test POS Respiration Rate TNP O2 Delivery Device Vent Liter Flow TNP Minute Volume TNP Vent Mode CPAP Tidal Volume TNP POC PEEP 5 POC Pressure Suppt 5 Pressure High TNP Pressure Low TNP Time High TNP Time Low TNP EPAP TNP IPAP TNP Blood Gas Notified Whom ICU MD Blood Gas Notified Time 552 Sodium 138 Potassium 4.2 Chloride 90 L Carbon Dioxide 42.0 H Anion Gap 6 BUN 44 H Creatinine 0.85 Estim Creat Clear Calc 91.26 Est GFR (MDRD) Af Amer 117 Est GFR (MDRD) Non-Af 97 BUN/Creatinine Ratio 51.6 H Glucose 212 H Calcium 8.6 POC Glucose 133 H 10/31/17 10/31/17 10/31/17 11:33 18:21 23:34 WBC RBC Hgb Hct MCV MCH MCHC RDW RDW Differential Plt Count MPV Neut % (Auto) Absolute Neuts (auto) Absolute Lymphs (auto) Total Counted Neutrophils % (Manual) Band Neutrophils % Lymphocytes % (Manual) Monocytes % (Manual) Nucleated RBC % Nucleated RBCs/100 WBC Diff Path Review Atypical Lymphocytes Platelet Estimate RBC Morphology Absolute Retic PT INR Specimen Type Sample Site pH Bicarbonate Actual POC Total CO2 Base Excess O2 Saturation O2 % ABG pCO2 ABG pO2 Pranav Test Respiration Rate O2 Delivery Device Liter Flow Minute Volume Vent Mode Tidal Volume POC PEEP POC Pressure Suppt Pressure High Pressure Low Time High Time Low EPAP IPAP Blood Gas Notified Whom Blood Gas Notified Time Sodium Potassium Chloride Carbon Dioxide Anion Gap BUN Creatinine Estim Creat Clear Calc Est GFR (MDRD) Af Amer Est GFR (MDRD) Non-Af BUN/Creatinine Ratio Glucose Calcium POC Glucose 165 H 198 H 182 H 11/01/17 11/01/17 11/01/17 04:00 04:00 05:46 WBC 12.7 H RBC 3.97 L Hgb 11.2 L Hct 36.3 L MCV 91.4 MCH 28.2 MCHC 30.9 L RDW 14.9 H RDW Differential 49.9 H Plt Count 232 MPV 9.7 Neut % (Auto) Not Reportable Absolute Neuts (auto) 9.5 H Absolute Lymphs (auto) 2.54 Total Counted 100 Neutrophils % (Manual) 72 H Band Neutrophils % 3 Lymphocytes % (Manual) 20 Monocytes % (Manual) 5 Nucleated RBC % 0.4 Nucleated RBCs/100 WBC 1 Diff Path Review May foll Atypical Lymphocytes RARE Platelet Estimate ADEQUATE RBC Morphology NORM C+C Absolute Retic 0.05 PT INR Specimen Type Sample Site pH Bicarbonate Actual POC Total CO2 Base Excess O2 Saturation O2 % ABG pCO2 ABG pO2 Pranav Test Respiration Rate O2 Delivery Device Liter Flow Minute Volume Vent Mode Tidal Volume POC PEEP POC Pressure Suppt Pressure High Pressure Low Time High Time Low EPAP IPAP Blood Gas Notified Whom Blood Gas Notified Time Sodium 135 L Potassium 4.4 Chloride 91 L Carbon Dioxide 38.0 H Anion Gap 6 BUN 38 H Creatinine 0.80 Estim Creat Clear Calc 96.97 Est GFR (MDRD) Af Amer 126 Est GFR (MDRD) Non-Af 104 BUN/Creatinine Ratio 47.3 H Glucose 201 H Calcium 8.6 POC Glucose 143 H Microbiology 10/29/17 12:03 Sputum, Induced/Lukens Gram Stain - Final 10/29/17 12:03 Sputum, Induced/Lukens Respiratory Culture - Final Haemophilus influenzae 10/29/17 11:15 Blood Culture (Wb) #2 - Arm Left Blood Culture - Preliminary No growth in 48 hours. 10/29/17 11:00 Blood Culture (Wb) - Central Line Blood Culture - Preliminary No growth in 48 hours. Clinical Impression(s) from Imaging Studies Chest X-Ray 10/29/17 05:49 IMPRESSION: Emphysema. Increase of interstitial opacification bilateral lung parenchyma. This may represent an acute superimposed inflammatory process. Atypical congestive heart failure distribution less likely. Electronically Signed: Jaye Alvarez MD at 6:59 EST , Service support , Chest X-Ray 10/29/17 10:41 IMPRESSION: Interstitial edema throughout the lungs. ET tube and enteric tube Electronically Signed: Alton Randle DO at 11:34 EST Tel , Service support , KUB X-Ray 10/29/17 10:45 IMPRESSION: NG tube as above Electronically Signed: Alton Randle DO at 11:33 EST Tel , Service support , Chest X-Ray 10/30/17 05:10 IMPRESSION: There has been improvement of the vascular congestion. Residual patchy infiltrates in the right upper lobe and both lower lobes. Electronically Signed: Kevin Owusu MD at 8:28 EST Tel [phone], Service support , Assessment/Plan Active and Suspected Problems Chest pain (Acute) COPD exacerbation (Acute) RECOMMENDATIONS: 1. Aggressive pulmonary toileting 2. Transition to Levaquin therapy and complete 7 days 3. Wean oxygen as tolerated 4. Maintain oxygen saturations 88-92%, to prevent paradoxical CO2 retention 5. Swallow evaluation with initiation of p.o. diet if appropriate 6. Await cardiology recommendations IMPRESSIONS: 1. Acute on chronic hypoxemic and hypercarbic respiratory failure secondary to H influenza pneumonia Patient is now growing H influenza pneumonia. Antibiotics will be changed. Patient successfully extubated. Wean oxygen as tolerated. Aggressive pulmonary toileting. Likely okay to initiate p.o. diet if patient is able to tolerate bedside swallow evaluation. 2. Elevated cardiac enzymes/demand ischemia Likely demand ischemia in the setting of increased metabolic demands. Cardiology has been consulted. Troponins were improving. Repeat echocardiogram shows EF at the lower limit of normal. No recent echocardiogram results for review. Patient did have a normal stress test in 2013 noted an EF of 55% at rest and 65% with stress. 3. Chronic pain syndrome/obesity/tobacco dependence, in remission Complicates care, management, recovery and prognosis. The patient will be sedated with propofol and fentanyl. Tube feeds can be continued per nutrition recommendations. TIME: 45 minutes of critical care time was spent addressing the patient's acute on chronic respiratory failure, COPD exacerbation, troponin elevation, review of all data and collaboration with the care team. (5:30 AM to 6:45 AM) Code Visit 9xxxx: [id number] Critical care first hour
[2017-11-01] MEDS: Aspirin 81 MG TAB.CHEW PO (10:45)
[2017-11-01] MEDS: Carvedilol 6.25 MG Tablet PO ×2 (10:45→21:34)
--- NOTE | 2017-11-01 11:06 | CASEMGMT ---
SW participated in interdisciplinary rounds, spoke w/pt after rounds to inquire about POA. Pt agreeable to complete POA forms, put his cousin Isauro Armenta as POA. SW gave pt original and copies, and copy placed on the chart. Pt declined to fill out living will. ALPESH Prabhakar, [employer] DEVELOPER
[2017-11-01] MEDS: levoFLOXacin 750 MG Tablet PO (12:02)
[2017-11-01 12:06] LABS: Pathologist Review Reviewed
--- NOTE | 2017-11-01 14:30 | NURSING ---
amb in [place] on 3lnc w/no change in VS. However, pt indicated significant increase in work of breathing and developed some spastic mvts of all joints and c/o nausea and lightheadedness. all s/s resolved w/in 15min of rest.
--- NOTE | 2017-11-01 16:03 | PCM.PN.HOSP ---
Patient Problems: Active and Suspected Problems Chest pain (Acute) COPD exacerbation (Acute) Subjective: CC: Follow-up on respiratory failure The patient has now been extubated, he is doing well, he is alert and oriented to time place and person. Vitals/I&O's: Vital Signs Temp Pulse Resp BP Pulse Ox 99.2 F H 77 16 175/106 H 98 11/01/17 11:00 11/01/17 15:00 11/01/17 13:08 11/01/17 11:00 11/01/17 13:08 Oxygen Flow Rate 3 Oxygen Delivery Method Nasal Cannula Weight: 80.4 kg Body Mass Index (BMI) 26.7 Intake and Output for Last 24 Hours 10/30/17 10/31/17 11/01/17 23:59 23:59 23:59 Intake Total 3839.4 / 3839.4 2717 / 2717 814 / 814 Output Total 1080 / 1080 1350 / 1350 1100 / 1100 Balance 2759.4 / 2759.4 1367 / 1367 -286 / -286 General: Alert, Oriented x3 Neck: Supple, No JVD Lungs: Wheezes Cardiovascular: Regular rate, Regular Rhythm, Normal S1, Normal S2 Abdomen: Bowel Sounds Present, Soft, Non Tender Extremities: No cyanosis Skin: No rashes Neurological: Cranial nerves II-XII grossly intact, Motor Exam 5/5 strength throughout Microbiology Past 72 Hours 10/29/17 12:03 Sputum, Induced/Lukens Gram Stain - Final 10/29/17 12:03 Sputum, Induced/Lukens Respiratory Culture - Final Haemophilus influenzae 10/29/17 11:15 Blood Culture (Wb) #2 - Arm Left Blood Culture - Preliminary No growth in 48 hours. 10/29/17 11:00 Blood Culture (Wb) - Central Line Blood Culture - Preliminary No growth in 48 hours. 10/29/17 10:48 Mucosa - Nasopharyngeal Respiratory Panel (PCR) - Final 10/29/17 11:25 Urine Catheter - Smith Legionella Antigen - Final 10/29/17 11:25 Urine Catheter - Smith Streptococcus pneumoniae Antigen (M - Final Laboratory Results 10/31/17 05:52: Specimen Type ART, Sample Site R RADIAL, pH 7.46 H, Bicarbonate Actual 53.3 H, POC Total CO2 > 50, Base Excess 29 H, O2 Saturation 85 L, O2 % 30, ABG pCO2 75.6 H*, ABG pO2 51 L, Pranav Test POS, Respiration Rate TNP, O2 Delivery Device Vent, Liter Flow TNP, Minute Volume TNP, Vent Mode CPAP, Tidal Volume TNP, POC PEEP 5, POC Pressure Suppt 5, Pressure High TNP, Pressure Low TNP, Time High TNP, Time Low TNP, EPAP TNP, IPAP TNP, Blood Gas Notified Whom ICU MD, Blood Gas Notified Time 552 10/31/17 18:21: POC Glucose 198 H 10/31/17 23:34: POC Glucose 182 H 11/01/17 04:00: WBC 12.7 H, RBC 3.97 L, Hgb 11.2 L, Hct 36.3 L, MCV 91.4, MCH 28.2, MCHC 30.9 L, RDW 14.9 H, RDW Differential 49.9 H, Plt Count 232, MPV 9.7, Neut % (Auto) Not Reportable, Absolute Neuts (auto) 9.5 H, Absolute Lymphs (auto) 2.54, Total Counted 100, Neutrophils % (Manual) 72 H, Band Neutrophils % 3, Lymphocytes % (Manual) 20, Monocytes % (Manual) 5, Nucleated RBC % 0.4, Nucleated RBCs/100 WBC 1, Diff Path Review Reviewed, Atypical Lymphocytes RARE, Platelet Estimate ADEQUATE, RBC Morphology NORM C+C, Absolute Retic 0.05 11/01/17 04:00: Sodium 135 L, Potassium 4.4, Chloride 91 L, Carbon Dioxide 38.0 H, Anion Gap 6, BUN 38 H, Creatinine 0.80, Estim Creat Clear Calc 96.97, Est GFR (MDRD) Af Amer 126, Est GFR (MDRD) Non-Af 104, BUN/Creatinine Ratio 47.3 H, Glucose 201 H, Calcium 8.6 11/01/17 05:46: POC Glucose 143 H Current Medications Albuterol Sulfate (Ventolin Aerosols) 2.5 mg INHALATION Q2H PRN PRN PRN Reason: SOB &/OR WHEEZING Last Admin: 10/30/17 01:10 Dose: 2.5 mg Albuterol Sulfate (Ventolin Aerosols) 2.5 mg INHALATION Q6HWA.RT TOBY Last Admin: 11/01/17 13:07 Dose: 2.5 mg Aspirin (Aspirin, Baby) 81 mg PO DAILY@0800 [facility] Last Admin: 11/01/17 10:45 Dose: 81 mg Atorvastatin Calcium (Lipitor) 40 mg PO QHS [facility] Carvedilol (Coreg) 6.25 mg PO BID [facility] Last Admin: 11/01/17 10:45 Dose: 6.25 mg Enoxaparin Sodium (Lovenox) 80 mg 1 mg/kg (80 mg) SC Q12@0600,1800 [facility] Last Admin: 11/01/17 05:48 Dose: 80 mg Sodium Chloride () 250 mls @ 15 mls/hr IV .[id number] PRN PRN Reason: SALINE FLUSH Last Admin: 10/31/17 11:37 Dose: 15 mls/hr Sodium Chloride () 250 mls @ 15 mls/hr IV .[id number] PRN PRN Reason: SALINE FLUSH Levofloxacin (Levaquin) 750 mg PO DAILY@0600 [facility] Stop: 11/04/17 06:01 Last Admin: 11/01/17 12:02 Dose: 750 mg Methylprednisolone (Solu-Medrol) 40 mg IV Q12 [facility] Sodium Chloride () 5 - 30 ml IV UD PRN PRN Reason: SALINE FLUSH Last Admin: 11/01/17 05:48 Dose: 10 ml Assessment/Plan Active and Suspected Problems Chest pain (Acute) COPD exacerbation (Acute) 1. Acute hypoxic and hypercapnic respiratory failure; he is now extubated , he is on oxygen per nasal cannula, would wean as tolerated. 2. Troponin elevation; likely due type II NSTEMI, cardiology consulted and input noted. 3. COPD with acute exacerbation; IV steroids, bronchodilators and antibiotics. 4. Pneumonia; changed to Levaquin for H Flu. 5. 6. DVT prophylaxis with Lovenox and SCDs. Code Visit Inpatient E&M: 89356 Subs Hosp L2
--- NOTE | 2017-11-01 16:08 | PN_ITS ---
Patient Problems: Active and Suspected Problems Chest pain (Acute) COPD exacerbation (Acute) Subjective: CC: Follow-up on respiratory failure The patient has now been extubated, he is doing well, he is alert and oriented to time place and person. Vitals/I&O's: Vital Signs Temp Pulse Resp BP Pulse Ox 99.2 F H 77 16 175/106 H 98 11/01/17 11:00 11/01/17 15:00 11/01/17 13:08 11/01/17 11:00 11/01/17 13:08 Oxygen Flow Rate 3 Oxygen Delivery Method Nasal Cannula Weight: 80.4 kg Body Mass Index (BMI) 26.7 Intake and Output for Last 24 Hours 10/30/17 10/31/17 11/01/17 23:59 23:59 23:59 Intake Total 3839.4 / 3839.4 2717 / 2717 814 / 814 Output Total 1080 / 1080 1350 / 1350 1100 / 1100 Balance 2759.4 / 2759.4 1367 / 1367 -286 / -286 General: Alert, Oriented x3 Neck: Supple, No JVD Lungs: Wheezes Cardiovascular: Regular rate, Regular Rhythm, Normal S1, Normal S2 Abdomen: Bowel Sounds Present, Soft, Non Tender Extremities: No cyanosis Skin: No rashes Neurological: Cranial nerves II-XII grossly intact, Motor Exam 5/5 strength throughout Microbiology Past 72 Hours 10/29/17 12:03 Sputum, Induced/Lukens Gram Stain - Final 10/29/17 12:03 Sputum, Induced/Lukens Respiratory Culture - Final Haemophilus influenzae 10/29/17 11:15 Blood Culture (Wb) #2 - Arm Left Blood Culture - Preliminary No growth in 48 hours. 10/29/17 11:00 Blood Culture (Wb) - Central Line Blood Culture - Preliminary No growth in 48 hours. 10/29/17 10:48 Mucosa - Nasopharyngeal Respiratory Panel (PCR) - Final 10/29/17 11:25 Urine Catheter - Smith Legionella Antigen - Final 10/29/17 11:25 Urine Catheter - Smith Streptococcus pneumoniae Antigen (M - Final Laboratory Results 10/31/17 05:52: Specimen Type ART, Sample Site R RADIAL, pH 7.46 H, Bicarbonate Actual 53.3 H, POC Total CO2 > 50, Base Excess 29 H, O2 Saturation 85 L, O2 % 30 , ABG pCO2 75.6 H*, ABG pO2 51 L, Pranav Test POS, Respiration Rate TNP, O2 Delivery Device Vent, Liter Flow TNP, Minute Volume TNP, Vent Mode CPAP, Tidal Volume TNP, POC PEEP 5, POC Pressure Suppt 5, Pressure High TNP, Pressure Low TNP, Time High TNP, Time Low TNP, EPAP TNP, IPAP TNP, Blood Gas Notified Whom ICU MD, Blood Gas Notified Time 552 10/31/17 18:21: POC Glucose 198 H 10/31/17 23:34: POC Glucose 182 H 11/01/17 04:00: WBC 12.7 H, RBC 3.97 L, Hgb 11.2 L, Hct 36.3 L, MCV 91.4, MCH 28.2, MCHC 30.9 L, RDW 14.9 H, RDW Differential 49.9 H, Plt Count 232, MPV 9.7, Neut % (Auto) Not Reportable, Absolute Neuts (auto) 9.5 H, Absolute Lymphs (auto ) 2.54, Total Counted 100, Neutrophils % (Manual) 72 H, Band Neutrophils % 3, Lymphocytes % (Manual) 20, Monocytes % (Manual) 5, Nucleated RBC % 0.4, Nucleated RBCs/100 WBC 1, Diff Path Review Reviewed, Atypical Lymphocytes RARE, Platelet Estimate ADEQUATE, RBC Morphology NORM C+C, Absolute Retic 0.05 11/01/17 04:00: Sodium 135 L, Potassium 4.4, Chloride 91 L, Carbon Dioxide 38.0 H, Anion Gap 6, BUN 38 H, Creatinine 0.80, Estim Creat Clear Calc 96.97, Est GFR (MDRD) Af Amer 126, Est GFR (MDRD) Non-Af 104, BUN/Creatinine Ratio 47.3 H, Glucose 201 H, Calcium 8.6 11/01/17 05:46: POC Glucose 143 H Current Medications Albuterol Sulfate (Ventolin Aerosols) 2.5 mg INHALATION Q2H PRN PRN PRN Reason: SOB &/OR WHEEZING Last Admin: 10/30/17 01:10 Dose: 2.5 mg Albuterol Sulfate (Ventolin Aerosols) 2.5 mg INHALATION Q6HWA.RT TOBY Last Admin: 11/01/17 13:07 Dose: 2.5 mg Aspirin (Aspirin, Baby) 81 mg PO DAILY@0800 [facility] Last Admin: 11/01/17 10:45 Dose: 81 mg Atorvastatin Calcium (Lipitor) 40 mg PO QHS [facility] Carvedilol (Coreg) 6.25 mg PO BID [facility] Last Admin: 11/01/17 10:45 Dose: 6.25 mg Enoxaparin Sodium (Lovenox) 80 mg 1 mg/kg (80 mg) SC Q12@0600,1800 [facility] Last Admin: 11/01/17 05:48 Dose: 80 mg Sodium Chloride () 250 mls @ 15 mls/hr IV .[id number] PRN PRN Reason: SALINE FLUSH Last Admin: 10/31/17 11:37 Dose: 15 mls/hr Sodium Chloride () 250 mls @ 15 mls/hr IV .[id number] PRN PRN Reason: SALINE FLUSH Levofloxacin (Levaquin) 750 mg PO DAILY@0600 [facility] Stop: 11/04/17 06:01 Last Admin: 11/01/17 12:02 Dose: 750 mg Methylprednisolone (Solu-Medrol) 40 mg IV Q12 [facility] Sodium Chloride () 5 - 30 ml IV UD PRN PRN Reason: SALINE FLUSH Last Admin: 11/01/17 05:48 Dose: 10 ml Assessment/Plan Active and Suspected Problems Chest pain (Acute) COPD exacerbation (Acute) 1. Acute hypoxic and hypercapnic respiratory failure; he is now extubated , he is on oxygen per nasal cannula, would wean as tolerated. 2. Troponin elevation; likely due type II NSTEMI, cardiology consulted and input noted. 3. COPD with acute exacerbation; IV steroids, bronchodilators and antibiotics. 4. Pneumonia; changed to Levaquin for H Flu. 5. 6. DVT prophylaxis with Lovenox and SCDs. Code Visit Inpatient E&M: 89846 Subs Hosp L2
[2017-11-01] MEDS: Atorvastatin Calcium 40 MG Tablet PO (21:34)
[2017-11-02] VITALS (25 sets, daily range): BP systolic 112–171; BP diastolic 67–90; PULSE 70–99; RESP 17–23; TEMP 36.7–37.2; O2SAT 91–98
[2017-11-02] MEDS: Albuterol 2.5 MG/3 ML VIAL.NEB. INHALATION ×7 (02:52→23:35)
--- NOTE | 2017-11-02 03:24 | EKG12_ITS ---
Test Reason : AM EKG Blood Pressure : / mmHG Vent. Rate : 075 BPM Atrial Rate : 075 BPM P-R Int : 132 ms QRS Dur : 084 ms QT Int : 398 ms P-R-T Axes : 076 059 079 degrees QTc Int : 444 ms Normal sinus rhythm Normal ECG When compared with ECG of 29-OCT-2017 05:52, Vent. rate has decreased BY [address] no longer depressed in Lateral leads Confirmed by VICKY ALEJANDRO, PAUL ([id number]), fan mail editor IZABEL WALTERS ([id number]) on 11/09/2017 1:09:58 PM Referred By: CHRISTIANO Confirmed By:PAUL PERRY MD
[2017-11-02] MEDS: Aspirin 81 MG TAB.CHEW PO (05:02)
[2017-11-02] MEDS: levoFLOXacin 750 MG Tablet PO (05:02)
[2017-11-02] MEDS: 0.9% NaCl Peripheral Flush Adult/Peds IV (05:06)
[2017-11-02 05:46] LABS: International Normalized Ratio 1.1; Prothrombin Time (Protime)PT. 13.8 SECONDS (11.7-14.9)
[2017-11-02 05:47] LABS: Partial Thromboplast Time 24.7 Seconds (24.1-36.2)
[2017-11-02 05:48] LABS: Differential Indicated MANUAL DIFF; Hematocrit 40.2 % (40-54); Hemoglobin 12.5 g/dl (13.0-16.5); Mean Corp Hgb Conc 31.1 g/gl (32-36); Mean Corpuscular Hgb 28.2 pg (27.0-32.0); Mean Corpuscular Volume 90.5 fL (80-94); Mean Platelet Vol. 9.4 fl (6.2-12.0); POSITIVE COUNT YES; POSITIVE DIFFERENTIAL NO; POSITIVE MORPHOLOGY YES; Platelet Count 279 K/mm3 (150-450); RBC Distribution Width CV 14.5 % (11.6-14.6); RBC Distribution Width SD 47.5 fl (35.1-43.9); Red Blood Count 4.44 M/mm3 (4.6-6.2); White Blood Count 14.9 K/mm3 (4.4-11.0)
[2017-11-02 05:54] LABS: Anion Gap 4 (5-15); BUN 25 mg/dL (7-18); BUN/Creat Ratio 42.9 RATIO (10-20); Calcium,Total 8.8 mg/dL (8.5-10.1); Chloride 93 mmol/L (98-107); Creatinine, Serum 0.58 mg/dL (0.70-1.30); EST Glomerular Filtration Rate 150 mL/min (>60); Est Glom Filt Rate - Afr Amer 182 mL/min (>60); Estimated Creatinine Clearance 133.75 ml/min; Glucose 122 mg/dL (74-106); Magnesium 2.7 mg/dL (1.6-2.6); Phosphorus 4.4 mg/dL (2.5-4.9); Potassium 4.1 mmol/L (3.5-5.1); Sodium Level 136 mmol/L (136-145)
[2017-11-02 06:10] LABS: Atypical Lymphocyte RARE %; Eosinophil 1 % (0-5); Lymphocyte 19 % (19-41); Metamyelocyte 3 % (0-1); Monocyte 3 % (0-10); Neutrophil-Segmented 74 % (47-70); Total Cells Counted 100 (MANUAL DIFF)
[2017-11-02 06:11] LABS: Absolute Lymphocyte Count 2.83 X10^3/ul (0.83-4.51); Absolute Nucleated RBC Count 0.04 10^3/uL (0-5); Lymphocyte # 2.83 X10^3/ul (4.0); NRBC Flagged by Analyzer 0.3 % (0-5); Neutrophil # 11.02 X10^3/uL (2.7-7.7); Platelet Estimate ADEQUATE (ADEQ); Red Cell Morphology NORM C+C NORMAL (NORM C&C)
--- NOTE | 2017-11-02 06:45 | PN_ITS ---
Subjective: Patient did well overnight. No hemodynamic instability was reported. Patient did have some mild hypoxemia with sleep overnight. Patient has been complaining of significant abdominal gas, which he believes is limiting his breathing. Patient continues to have a productive cough, but feels this is improved compared to previous. Patient does get tachypneic with minimal exertion. Objective: Patient to have a stress test this morning General: Alert, Oriented x3, Cooperative, No apparent distress, - - Appears stated age. Speaking in full sentences. HEENT: Atraumatic, PERRLA, EOMI, Normocephalic, - - No scleral icterus or injection noted. Oral: Moist Mucosa, No Gingival or Mucosal Lesions/ Ulcerations Neck: Supple, No JVD, No Nodes, Trachea Midline Lungs: No rhonchi, No rales, Diminished, Wheezes, - - Symmetric expansion. No dullness to percussion. Cardiovascular: Regular rate, Regular Rhythm, Normal S1, Normal S2, No murmurs, No rub noted, No Gallop Abdomen: Bowel Sounds Present, Soft, Non Tender, Non-Distended Extremities: No clubbing, No cyanosis, No edema, Capillary Refill Less than 3 Seconds Skin: No rashes, No breakdown Musculoskeletal: No Tenderness to Palpation of Joints or Extremities Lymphatic: No Cervical, Supraclavicular, or Inguinal Adenopathy Neurological: Cranial nerves II-XII grossly intact, Neuro grossly intact, Motor Exam 5/5 strength throughout, Sensory exam intact to light touch and pain Psych/Mental Status: Alert and oriented to time, place, person, mood and affect Vital Signs Temp Pulse Resp BP Pulse Ox 37.2 C 80 22 H 169/90 H 98 11/02/17 04:00 11/02/17 05:00 11/02/17 05:00 11/02/17 05:00 11/02/17 05:00 Oxygen Flow Rate 2 Oxygen Delivery Method Nasal Cannula Weight: 76 kg Body Mass Index (BMI) 26.7 Intake and Output for Last 24 Hours 10/31/17 11/01/17 11/02/17 23:59 23:59 23:59 Intake Total 2717 / 2717 1164 / 1164 450 / 450 Output Total 1350 / 1350 1500 / 1500 1335 / 1335 Balance 1367 / 1367 -336 / -336 -885 / -885 Labs (Last 48 Hours) 10/31/17 10/31/17 10/31/17 05:52 07:03 11:33 WBC RBC Hgb Hct MCV MCH MCHC RDW RDW Differential Plt Count MPV Neut % (Auto) Absolute Neuts (auto) Absolute Lymphs (auto) Total Counted Neutrophils % (Manual) Band Neutrophils % Lymphocytes % (Manual) Monocytes % (Manual) Eosinophils % (Manual) Metamyelocytes % Nucleated RBC % Nucleated RBCs/100 WBC Diff Path Review Atypical Lymphocytes Platelet Estimate RBC Morphology Absolute Retic PT INR APTT Specimen Type ART Sample Site R RADIAL pH 7.46 H Bicarbonate Actual 53.3 H POC Total CO2 > 50 Base Excess 29 H O2 Saturation 85 L O2 % 30 ABG pCO2 75.6 H* ABG pO2 51 L Pranav Test POS Respiration Rate TNP O2 Delivery Device Vent Liter Flow TNP Minute Volume TNP Vent Mode CPAP Tidal Volume TNP POC PEEP 5 POC Pressure Suppt 5 Pressure High TNP Pressure Low TNP Time High TNP Time Low TNP EPAP TNP IPAP TNP Blood Gas Notified Whom ICU Blood Gas Notified Time 552 Sodium Potassium Chloride Carbon Dioxide Anion Gap BUN Creatinine Estim Creat Clear Calc Est GFR (MDRD) Af Amer Est GFR (MDRD) Non-Af BUN/Creatinine Ratio Glucose Calcium Phosphorus Magnesium Vitamin B12 POC Glucose 133 H 165 H 10/31/17 10/31/17 11/01/17 18:21 23:34 04:00 WBC 12.7 H RBC 3.97 L Hgb 11.2 L Hct 36.3 L MCV 91.4 MCH 28.2 MCHC 30.9 L RDW 14.9 H RDW Differential 49.9 H Plt Count 232 MPV 9.7 Neut % (Auto) Not Reportable Absolute Neuts (auto) 9.5 H Absolute Lymphs (auto) 2.54 Total Counted 100 Neutrophils % (Manual) 72 H Band Neutrophils % 3 Lymphocytes % (Manual) 20 Monocytes % (Manual) 5 Eosinophils % (Manual) Metamyelocytes % Nucleated RBC % 0.4 Nucleated RBCs/100 WBC 1 Diff Path Review Reviewed Atypical Lymphocytes RARE Platelet Estimate ADEQUATE RBC Morphology NORM C+C Absolute Retic 0.05 PT INR APTT Specimen Type Sample Site pH Bicarbonate Actual POC Total CO2 Base Excess O2 Saturation O2 % ABG pCO2 ABG pO2 Pranav Test Respiration Rate O2 Delivery Device Liter Flow Minute Volume Vent Mode Tidal Volume POC PEEP POC Pressure Suppt Pressure High Pressure Low Time High Time Low EPAP IPAP Blood Gas Notified Whom Blood Gas Notified Time Sodium Potassium Chloride Carbon Dioxide Anion Gap BUN Creatinine Estim Creat Clear Calc Est GFR (MDRD) Af Amer Est GFR (MDRD) Non-Af BUN/Creatinine Ratio Glucose Calcium Phosphorus Magnesium Vitamin B12 POC Glucose 198 H 182 H 11/01/17 11/01/17 11/02/17 04:00 05:46 05:20 WBC RBC Hgb Hct MCV MCH MCHC RDW RDW Differential Plt Count MPV Neut % (Auto) Absolute Neuts (auto) Absolute Lymphs (auto) Total Counted Neutrophils % (Manual) Band Neutrophils % Lymphocytes % (Manual) Monocytes % (Manual) Eosinophils % (Manual) Metamyelocytes % Nucleated RBC % Nucleated RBCs/100 WBC Diff Path Review Atypical Lymphocytes Platelet Estimate RBC Morphology Absolute Retic PT INR APTT Specimen Type Sample Site pH Bicarbonate Actual POC Total CO2 Base Excess O2 Saturation O2 % ABG pCO2 ABG pO2 Pranav Test Respiration Rate O2 Delivery Device Liter Flow Minute Volume Vent Mode Tidal Volume POC PEEP POC Pressure Suppt Pressure High Pressure Low Time High Time Low EPAP IPAP Blood Gas Notified Whom Blood Gas Notified Time Sodium 135 L Potassium 4.4 Chloride 91 L Carbon Dioxide 38.0 H Anion Gap 6 BUN 38 H Creatinine 0.80 Estim Creat Clear Calc 96.97 Est GFR (MDRD) Af Amer 126 Est GFR (MDRD) Non-Af 104 BUN/Creatinine Ratio 47.3 H Glucose 201 H Calcium 8.6 Phosphorus Magnesium Vitamin B12 Pending POC Glucose 143 H 11/02/17 11/02/17 11/02/17 05:20 05:20 05:20 WBC 14.9 H RBC 4.44 L Hgb 12.5 L Hct 40.2 MCV 90.5 MCH 28.2 MCHC 31.1 L RDW 14.5 RDW Differential 47.5 H Plt Count 279 MPV 9.4 Neut % (Auto) Not Reportable Absolute Neuts (auto) 11.0 H Absolute Lymphs (auto) 2.83 Total Counted 100 Neutrophils % (Manual) 74 H Band Neutrophils % Lymphocytes % (Manual) 19 Monocytes % (Manual) 3 Eosinophils % (Manual) 1 Metamyelocytes % 3 H Nucleated RBC % 0.3 Nucleated RBCs/100 WBC Diff Path Review May foll Atypical Lymphocytes RARE Platelet Estimate ADEQUATE RBC Morphology NORM C+C Absolute Retic 0.04 PT 13.8 INR 1.1 APTT 24.7 Specimen Type Sample Site pH Bicarbonate Actual POC Total CO2 Base Excess O2 Saturation O2 % ABG pCO2 ABG pO2 Pranav Test Respiration Rate O2 Delivery Device Liter Flow Minute Volume Vent Mode Tidal Volume POC PEEP POC Pressure Suppt Pressure High Pressure Low Time High Time Low EPAP IPAP Blood Gas Notified Whom Blood Gas Notified Time Sodium 136 Potassium 4.1 Chloride 93 L Carbon Dioxide 39.0 H Anion Gap 4 L BUN 25 H Creatinine 0.58 L Estim Creat Clear Calc 133.75 Est GFR (MDRD) Af Amer 182 Est GFR (MDRD) Non-Af 150 BUN/Creatinine Ratio 42.9 H Glucose 122 H Calcium 8.8 Phosphorus 4.4 Magnesium 2.7 H Vitamin B12 POC Glucose Microbiology 10/29/17 12:03 Sputum, Induced/Lukens Gram Stain - Final 10/29/17 12:03 Sputum, Induced/Lukens Respiratory Culture - Final Haemophilus influenzae 10/29/17 11:15 Blood Culture (Wb) #2 - Arm Left Blood Culture - Preliminary No growth in 48 hours. 10/29/17 11:00 Blood Culture (Wb) - Central Line Blood Culture - Preliminary No growth in 48 hours. Assessment/Plan Active and Suspected Problems Chest pain (Acute) COPD exacerbation (Acute) RECOMMENDATIONS: 1. Aggressive pulmonary toileting 2. Continue Levaquin therapy to complete 7 days of antibiotics 3. Wean oxygen as tolerated 4. Maintain oxygen saturations 88-92%, to prevent paradoxical CO2 retention 5. Walking oximetry prior to discharge 6. Await results of stress test 7. Okay to leave the intensive care unit from my perspective IMPRESSIONS: 1. Acute on chronic hypoxemic and hypercarbic respiratory failure secondary to H influenza pneumonia Patient is now growing H influenza pneumonia. Antibiotics have been changed. Patient successfully extubated. Patient actually on lower than reported baseline need for oxygen. Aggressive pulmonary toileting. Anticipate relatively advanced COPD. Patient should have outpatient pulmonary function test for quantification and clarification. Patient likely can be transferred from the intensive care unit later today. 2. Elevated cardiac enzymes/demand ischemia Likely demand ischemia in the setting of increased metabolic demands. Cardiology has been consulted. Repeat echocardiogram shows EF at the lower limit of normal. No recent echocardiogram results for review. Patient did have a normal stress test in 2012 noted an EF of 55% at rest and 65% with stress. Patient is to have a stress test today. 3. Chronic pain syndrome/obesity/tobacco dependence, in remission/ hypertension Complicates care, management, recovery and prognosis. Tolerating p.o. diet. Patient has had increasing blood pressures noted while in the intensive care unit. Patient does not give a history of hypertension in the past. Patient is on steroid therapy. Code Visit Inpatient E&M: 46039 Subs Hosp L3
--- NOTE | 2017-11-02 07:24 | STEWCON_ITS ---
Reason For Study: CAD Stress Results Protocol: Dobutamine Stress Echo Maximum Predicted HR: 159 bpm Target HR: 135 bpm% Maximum Pre dicted HR: 91 % DurationHeart Rate Stage (mm:ss) (bpm) BPCom ment Baseline 88 152/78 Definity 6 ML Diluted In NS DSE 10 MCG 3:59 76 198/93 DSE 20 MCG 3:00 96 189/86 DSE 30 MCG 3:00 11 4 172/85 DSE 40 MCG 2:46 14 4 147/86Atropine 0.25 MG IVP Recovery 100 140/8 3 Stress Duration: 12:45 mm:ss Maximum Stress HR: 144 bpmME TS: 1 Baseline Echocardiogram Findings Stress Echo Wall motion Data Resting WMIntermediate WMStress WM Resting Wall Motion Wall Motion Stress No regional wall motion No regional wall motion abnormalities noted. abnormalities noted. Ejection Fraction 45 %. Ejection Fraction 50 %. EKG Data Baseline ECG demonstrates normal sinus rhythm with a rate of 95 beats per minute. Normal intervals are noted. The resting blood pressure was 152/78. The patient was titrated from 10 mcg to a maximum of 40 mcg of dobutamine during the stress. The maximum heart rate attained was 146 beats per minute. This was 91% of maximum predicted heart rate. During dobutamine infusion, there were no ST or T wave changes noted to suggest ischemia. At peak infusion, upsloping ST changes only were noted, which did not meet the criteria for ischemia. The peak blood pressure was 198/93. No arrhythmias noted. No clinical angina was noted. Interpretation Summary Normal resting LV systolic function. Nonstenotic valves. With stress, the LV size decreased and all segments augmented normally. The LVEF increased from 45% to 50%. Negative for ischemia at 91% of MPHR and at 1 METS. Terminated due attainment of target HR Required Atropine 0.25mg Normal dobutamine stress echo Ordering Physician: Shantanu Hoskins Referring Physician: Shantanu Hoskins MD Performed By: Janelle Ferraro, RDCS, RVT
--- NOTE | 2017-11-02 07:57 | NURSING ---
pt off floor at this time to stress test
[2017-11-02] MEDS: Carvedilol 12.5 MG Tablet PO ×2 (09:24→20:57)
[2017-11-02 09:48] LABS: Pathologist Review Reviewed
--- NOTE | 2017-11-02 10:10 | CASEMGMT ---
Addendum entered by Fausto Baker 11/02/17 12:26: PCP referral made to [facility] physicians. Information faxed for physician review. If they are able to accept, they will make f/u appt and call CM. Original Note: DC PLANNING REVIEW. Plan is for home on dc. Intro role of CM to patient again. Pt states he is independent at home, but used cane prior past two weeks due to illness. Pt lives with his cousin who can drive to appointments, get prescriptions, groceries if needed. Pt has home O2 through [facility] with portability. Soniya BSN RN ACM
--- NOTE | 2017-11-02 10:19 | PN.CARD_ITS ---
Subjectve: patient seen and underwent stress echocardiogram this morning Objective: Vital Signs Temp Pulse Resp BP Pulse Ox 98.6 F 97 22 H 147/68 H 92 11/02/17 09:00 11/02/17 09:00 11/02/17 09:00 11/02/17 09:00 11/02/17 09:00 Oxygen Flow Rate 2 Oxygen Delivery Method Nasal Cannula Weight: 167 lb 8.821 oz Body Mass Index (BMI) 26.7 Intake and Output for Last 24 Hours 10/31/17 11/01/17 11/02/17 23:59 23:59 23:59 Intake Total 2717 / 2717 1164 / 1164 450 / 450 Output Total 1350 / 1350 1500 / 1500 1335 / 1335 Balance 1367 / 1367 -336 / -336 -885 / -885 General: Awake, Alert, Oriented x 3 HEENT: PERRL, EOMI, Sclera Non Icteric Neck: Supple, Good ROM, No Lymph Node Enlargement Lungs: Diminished Kristopher Bases Cardiovascular: Regular Rhythm, Normal S1, Normal S2, No Murmurs, No Rubs, No Gallops Vascular: No Carotid Bruits, Normal Femoral Pulses, Normal Radial Pulses, Normal Dorsalis Pedal Pulse, Normal Posterior Tibial Pulses Abdomen: Bowel Sounds Present, Soft, Non Tender, No HSM, No Organomegaly Extremities: No Cyanosis, No Clubbing, No edema Neurological: No Focal Motor or Sensory Deficit 11/02/17 05:20: WBC 14.9 H, RBC 4.44 L, Hgb 12.5 L, Hct 40.2, MCV 90.5, MCH 28.2 , MCHC 31.1 L, RDW 14.5, RDW Differential 47.5 H, Plt Count 279, MPV 9.4, Neut % (Auto) Not Reportable, Absolute Neuts (auto) 11.0 H, Total Counted 100, Neutrophils % (Manual) 74 H, Lymphocytes % (Manual) 19, Monocytes % (Manual) 3, Eosinophils % (Manual) 1, Metamyelocytes % 3 H, Nucleated RBC % 0.3 11/02/17 05:20: Sodium 136, Potassium 4.1, Chloride 93 L, Carbon Dioxide 39.0 H , Anion Gap 4 L, BUN 25 H, Creatinine 0.58 L, Est GFR (MDRD) Af Amer 182, Est GFR (MDRD) Non-Af 150, BUN/Creatinine Ratio 42.9 H, Glucose 122 H, Calcium 8.8, Phosphorus 4.4, Magnesium 2.7 H 11/02/17 05:20: PT 13.8, INR 1.1, APTT 24.7 Rhythm: EKG: ECHO: Stress Test: Cardiac Cath: PCI: CT Surgery: Holter monitor: EPS: PPM: CXR: Chest CT Scan: Assessment/Plan 1. Abnormal cardiac enzymes He presents with acute respiratory failure and is noted to have abnormal cardiac enzymes. At this particular time I suspect the diagnosis is secondary to demand ischemia. His echocardiogram demonstrated ejection fraction of 50% with no wall motion abnormalities noted and minimal elevation in pulmonary pressures. Ketamine echocardiogram today demonstrated adequate augmentation of baseline ejection fraction with no new wall motion abnormalities developing. The above is suggestive of a mild underlying cardiomyopathy. No significant ischemia is noted. Patient will be to start low-dose beta-kathie and/or an CAN inhibitor. No invasive approach would be pursued at this particular time. 2. Acute respiratory failure As have a history of obstructive lung disease but with his current acute respiratory failure we will evaluate him and will abide by the recommendations of the pulmonary/critical care team. Echocardiogram did not demonstrate significantly elevated right-sided pressures. 3. Hypertension He likely has a diagnosis of hypertension and will continue his current antihypertensive therapy. Thank you for allowing me to participate in the care of your patient. From my standpoint for discharge from the intensive care unit
[2017-11-02] MEDS: Enoxaparin 40 MG/0.4 ML Syringe SC (13:10)
--- NOTE | 2017-11-02 16:45 | PN_ITS ---
Patient Problems: Active and Suspected Problems Chest pain (Acute) COPD exacerbation (Acute) Subjective: CC: Acute respiratory failure He is doing well now that he is extubated, he denies any chest pain shortness of breath or palpitations No acute events reported overnight. Vitals/I&O's: Vital Signs Temp Pulse Resp BP Pulse Ox 98.3 F 88 20 H 145/72 H 91 11/02/17 14:52 11/02/17 15:37 11/02/17 15:37 11/02/17 14:52 11/02/17 14:52 Oxygen Flow Rate 2 Oxygen Delivery Method Nasal Cannula Weight: 76 kg Body Mass Index (BMI) 26.7 Intake and Output for Last 24 Hours 10/31/17 11/01/17 11/02/17 23:59 23:59 23:59 Intake Total 2717 / 2717 1164 / 1164 770 / 770 Output Total 1350 / 1350 1500 / 1500 1935 / 1935 Balance 1367 / 1367 -336 / -336 -1165 / -1165 Microbiology Past 72 Hours 10/29/17 12:03 Sputum, Induced/Lukens Gram Stain - Final 10/29/17 12:03 Sputum, Induced/Lukens Respiratory Culture - Final Haemophilus influenzae 10/29/17 11:15 Blood Culture (Wb) #2 - Arm Left Blood Culture - Preliminary No growth in 48 hours. 10/29/17 11:00 Blood Culture (Wb) - Central Line Blood Culture - Preliminary No growth in 48 hours. Laboratory Results 11/02/17 05:00: Serum Copper Pending, Zinc Pending 11/02/17 05:20: Vitamin B12 Pending 11/02/17 05:20: WBC 14.9 H, RBC 4.44 L, Hgb 12.5 L, Hct 40.2, MCV 90.5, MCH 28.2 , MCHC 31.1 L, RDW 14.5, RDW Differential 47.5 H, Plt Count 279, MPV 9.4, Neut % (Auto) Not Reportable, Absolute Neuts (auto) 11.0 H, Absolute Lymphs (auto) 2.83, Total Counted 100, Neutrophils % (Manual) 74 H, Lymphocytes % (Manual) 19 , Monocytes % (Manual) 3, Eosinophils % (Manual) 1, Metamyelocytes % 3 H, Nucleated RBC % 0.3, Diff Path Review Reviewed, Atypical Lymphocytes RARE, Platelet Estimate ADEQUATE, RBC Morphology NORM C+C, Absolute Retic 0.04 11/02/17 05:20: Sodium 136, Potassium 4.1, Chloride 93 L, Carbon Dioxide 39.0 H , Anion Gap 4 L, BUN 25 H, Creatinine 0.58 L, Estim Creat Clear Calc 133.75, Est GFR (MDRD) Af Amer 182, Est GFR (MDRD) Non-Af 150, BUN/Creatinine Ratio 42.9 H, Glucose 122 H, Calcium 8.8, Phosphorus 4.4, Magnesium 2.7 H 11/02/17 05:20: PT 13.8, INR 1.1, APTT 24.7 Current Medications Albuterol Sulfate (Ventolin Aerosols) 2.5 mg INHALATION Q2H PRN PRN PRN Reason: SOB &/OR WHEEZING Last Admin: 11/01/17 16:49 Dose: 2.5 mg Albuterol Sulfate (Ventolin Aerosols) 2.5 mg INHALATION Q4HWA.RT [facility] Last Admin: 11/02/17 15:36 Dose: 2.5 mg Aspirin (Aspirin, Baby) 81 mg PO DAILY@0800 [facility] Last Admin: 11/02/17 05:02 Dose: 81 mg Atorvastatin Calcium (Lipitor) 40 mg PO QHS [facility] Last Admin: 11/01/17 21:34 Dose: 40 mg Carvedilol (Coreg) 12.5 mg PO BID [facility] Last Admin: 11/02/17 09:24 Dose: 12.5 mg Enoxaparin Sodium (Lovenox) 40 mg SC DAILY@0600 [facility] Last Admin: 11/02/17 13:10 Dose: 40 mg Sodium Chloride () 250 mls @ 15 mls/hr IV .[id number] PRN PRN Reason: SALINE FLUSH Last Admin: 10/31/17 11:37 Dose: 15 mls/hr Sodium Chloride () 250 mls @ 15 mls/hr IV .[id number] PRN PRN Reason: SALINE FLUSH Levofloxacin (Levaquin) 750 mg PO DAILY@0600 [facility] Stop: 11/04/17 06:01 Last Admin: 11/02/17 05:02 Dose: 750 mg Nutritional Formula (Lactose Free) (Ensure Enlive) 120 ml PO 4X/DAY [facility] Last Admin: 11/02/17 16:37 Dose: Not Given Polyethylene Glycol (Miralax) 17 gm PO DAILY [facility] Prednisone (Prednisone) 40 mg PO DAILY@0800 [facility] Last Admin: 11/02/17 09:22 Dose: 40 mg Sodium Chloride () 5 - 30 ml IV UD PRN PRN Reason: SALINE FLUSH Last Admin: 11/02/17 05:06 Dose: 10 ml Assessment/Plan Active and Suspected Problems Chest pain (Acute) COPD exacerbation (Acute) 1. Acute hypoxic and hypercapnic respiratory failure; he is now extubated , he is on oxygen per nasal cannula, would wean as tolerated. 2. Troponin elevation; likely due type II NSTEMI, cardiology consulted and input noted. 3. COPD with acute exacerbation; IV steroids, bronchodilators and antibiotics. 4. Pneumonia; he is on Levaquin for H Flu. 5. DVT prophylaxis with Lovenox and SCDs. 6. We will transfer to [facility], he will likely be discharged from the hospital in the next 24-48 hours. Code Visit Inpatient E&M: 15608 Subs Hosp L2
[2017-11-02] MEDS: Atorvastatin Calcium 40 MG Tablet PO (20:58)
[2017-11-03 02:00] VITALS: BP 154/76; PULSE 80; RESP 20; TEMP 37; O2SAT 95
[2017-11-03 03:13] VITALS: PULSE 79; RESP 18
[2017-11-03] MEDS: Albuterol 2.5 MG/3 ML VIAL.NEB. INHALATION ×3 (03:13→11:02)
[2017-11-03] MEDS: levoFLOXacin 750 MG Tablet PO (05:51)
[2017-11-03] MEDS: Enoxaparin 40 MG/0.4 ML Syringe SC (05:52)
[2017-11-03 07:13] VITALS: PULSE 81; RESP 16; O2SAT 93
[2017-11-03 07:45] VITALS: BP 125/89; PULSE 80; RESP 20; TEMP 37; O2SAT 94
--- NOTE | 2017-11-03 07:52 | PCM.PN.CARD ---
Subjectve: patient seen and evaluated Objective: Vital Signs Temp Pulse Resp BP Pulse Ox 98.6 F 80 20 H 125/89 H 94 11/03/17 07:45 11/03/17 07:45 11/03/17 07:45 11/03/17 07:45 11/03/17 07:45 Oxygen Flow Rate 2 Oxygen Delivery Method Nasal Cannula Weight: 165 lb 4.8 oz Body Mass Index (BMI) 26.7 Intake and Output for Last 24 Hours 11/01/17 11/02/17 11/03/17 23:59 23:59 23:59 Intake Total 1164 / 1164 770 / 770 350 / 350 Output Total 1500 / 1500 1935 / 1935 Balance -336 / -336 -1165 / -1165 350 / 350 General: Awake, Alert, Oriented x 3 HEENT: PERRL, EOMI, Sclera Non Icteric Neck: Supple, Good ROM, No Lymph Node Enlargement Lungs: Clear to auscultation Cardiovascular: Regular Rhythm, Normal S1, Normal S2, No Murmurs, No Rubs, No Gallops Vascular: No Carotid Bruits, Normal Femoral Pulses, Normal Radial Pulses, Normal Dorsalis Pedal Pulse, Normal Posterior Tibial Pulses Abdomen: Bowel Sounds Present, Soft, Non Tender, No HSM, No Organomegaly Extremities: No Cyanosis, No Clubbing, No edema Neurological: No Focal Motor or Sensory Deficit Rhythm: EKG: ECHO: Stress Test: Cardiac Cath: PCI: CT Surgery: Holter monitor: EPS: PPM: CXR: Chest CT Scan: Assessment/Plan 1. Abnormal cardiac enzymes He presents with acute respiratory failure and is noted to have abnormal cardiac enzymes. At this particular time I suspect the diagnosis is secondary to demand ischemia. His echocardiogram demonstrated ejection fraction of 50% with no wall motion abnormalities noted and minimal elevation in pulmonary pressures. Dobutamine echocardiogram demonstrated adequate augmentation of baseline ejection fraction with no new wall motion abnormalities developing. The above is suggestive of a mild underlying cardiomyopathy. No significant ischemia is noted. Patient will be to start low-dose beta-kathie and/or an CAN inhibitor. No invasive approach would be pursued at this particular time. 2. Acute respiratory failure As have a history of obstructive lung disease but with his current acute respiratory failure we will evaluate him and will abide by the recommendations of the pulmonary/critical care team. Echocardiogram did not demonstrate significantly elevated right-sided pressures. 3. Hypertension He likely has a diagnosis of hypertension and will continue his current antihypertensive therapy. Thank you for allowing me to participate in the care of your patient. From my standpoint for discharge
[2017-11-03] MEDS: Polyethylene Glycol 3350 17 GM PACKET PO (08:04)
[2017-11-03] MEDS: Aspirin 81 MG TAB.CHEW PO (08:06)
[2017-11-03] MEDS: Carvedilol 12.5 MG Tablet PO (08:06)
[2017-11-03 11:02] VITALS: PULSE 67; RESP 16
--- NOTE | 2017-11-03 11:26 | PCM.DC.SUM ---
Discharge Date and Diagnosis Date of Admission: 10/29/17 Date of Discharge: 11/03/17 - Primary Discharge Diagnosis Active and Suspected Problems Chest pain (Acute) COPD exacerbation (Acute) - Secondary Discharge Diagnosis Chronic Problems HTN (hypertension) (Chronic) Hospital Course and Treatment Summary of Care Provided: This is a 62 year old gentleman with past medical history significant on for COPD who was admitted with worsening shortness of breath, productive cough over couple of days prior to patient being admitted. He was found to have acute hypoxic respiratory failure was made patient placed on noninvasive ventilation and admitted to the progressive care unit.He was later noted to have significant respiratory distress unable to speak in full sentences using accessory muscles in breathing. He was then transferred to the ICU where he was intubated and submitted to mechanical ventilation. He did well and was ultimately extubated and transferred back to the regular medical floor. He continued to improve and was then discharged home in a stable condition. 1. Acute hypoxic and hypercapnic respiratory failure; he is now extubated , he is on oxygen per nasal cannula. 2. Troponin elevation; likely due type II NSTEMI, cardiology consulted and input noted. The patient recommended at this time but the patient was placed on beta-blockers aspirin and a statin. 3. COPD with acute exacerbation; will continue on bronchodilators, prednisone and Levaquin to complete 8 days of antibiotic therapy. 4. Pneumonia; he is on Levaquin for H Flu. Discharge Diet: No Restrictions Home Medications: Medications to take at Discharge Prednisone 10 mg PO DAILY 10/29/17 Albuterol Aerosols [Ventolin Aerosols] 2.5 mg INHALATION Q4H PRN PRN #30 vial 11/03/17 Aspirin [Aspirin, Baby] 81 mg PO DAILY@0800 tab.chew 11/03/17 Atorvastatin Calcium [Lipitor] 40 mg PO QHS #30 tab 11/03/17 Carvedilol [Coreg (Beta Sonja)] 12.5 mg PO BID #60 tab 11/03/17 Levofloxacin [Levaquin] 750 mg PO DAILY@0600 #3 tab 11/03/17 Following Prescrptions Were Given to Patient: Albuterol Aerosols [Ventolin Aerosols] 2.5 mg INHALATION Q4H PRN PRN #30 vial PRN Reason: Sob &/Or Wheezing Atorvastatin Calcium [Lipitor] 40 mg PO QHS #30 tab Levofloxacin [Levaquin] 750 mg PO DAILY@0600 #3 tab Carvedilol [Coreg (Beta Sonja)] 12.5 mg PO BID #60 tab Primary Care Physician: Care Physician,No Primary [NON-STAFF] - In 1 Week Please Follow Up With: Dr. Chinmay [facility] When: Patient Instructions: ED Chest Pain NonCardiac Disposition: Home Patient Condition:: Good Meaningful Use Info Meaningful Use Diagnoses (Choose all that apply): None applicable Code Visit Inpatient E&M: 69835 Disch Hosp
--- NOTE | 2017-11-03 11:27 | PCM.DC ---
- Discharge Diagnoses Current Active Problems: Current Active and Chronic Problems HTN (hypertension) (Chronic) Chest pain (Acute) COPD exacerbation (Acute) You will use the following diet at home:: Regular Instructions: ED Chest Pain NonCardiac Allergies/Adverse Reactions: Allergies No Known Allergies Allergy (Verified 01/31/17 13:19) Medications to take at Discharge Prednisone 10 mg PO DAILY 10/29/17 Aspirin [Aspirin, Baby] 81 mg PO DAILY@0800 tab.chew 11/03/17 Atorvastatin Calcium [Lipitor] 40 mg PO QHS #30 tab 11/03/17 Carvedilol [Coreg (Beta Sonja)] 12.5 mg PO BID #60 tab 11/03/17 Levofloxacin [Levaquin] 750 mg PO DAILY@0600 #3 tab 11/03/17 The following prescriptions were given: Atorvastatin Calcium [Lipitor] 40 mg PO QHS #30 tab Levofloxacin [Levaquin] 750 mg PO DAILY@0600 #3 tab Carvedilol [Coreg (Beta Sonja)] 12.5 mg PO BID #60 tab Primary Care Physician: Care Physician,No Primary [NON-STAFF] - In 1 Week Please Follow Up With: Dr. Chin[facility] When:
[2017-11-03 11:39] LABS: Vitamin B12 > 2000 pg/mL (211-911)
[2017-11-03 11:54] VITALS: BP 129/63; PULSE 72; RESP 20; TEMP 36.8; O2SAT 92
--- NOTE | 2017-11-03 13:01 | PCM.PROGNOTE ---
Subjective: Patient was seen and examined, sitting up in chair getting ready for discharge. Reports significant improvement and is anxious to go home. Objective: Recent lab work reviewed. Leukocytosis remains, however is mild and patient has been on steroids. Sputum culture from 10/29 remarkable for H influenza. Blood cultures showed no growth. - Physical Exam General: Alert, Oriented x3, Cooperative, No apparent distress, Well developed, Well nourished, - - No conversational dyspnea HEENT: Atraumatic, Normocephalic Oral: Moist Mucosa, No Gingival or Mucosal Lesions/ Ulcerations Neck: Supple, No Nodes, Trachea Midline Lungs: No rhonchi, No rales, Diminished, - - Faint expiratory wheeze scattered. no dullness to percussion Cardiovascular: Regular rate, Regular Rhythm, Normal S1, Normal S2, No murmurs, No rub noted, No Gallop Abdomen: Bowel Sounds Present, Soft, Non Tender, Non-Distended Extremities: No clubbing, No cyanosis, No edema Skin: No rashes, No breakdown Musculoskeletal: No Tenderness to Palpation of Joints or Extremities Lymphatic: No Cervical, Supraclavicular, or Inguinal Adenopathy Neurological: Neuro grossly intact, Motor Exam 5/5 strength throughout Psych/Mental Status: Alert and oriented to time, place, person, mood and affect Vital Signs Temp Pulse Resp BP Pulse Ox 98.2 F 72 20 H 129/63 H 92 11/03/17 11:54 11/03/17 11:54 11/03/17 11:54 11/03/17 11:54 11/03/17 11:54 Oxygen Flow Rate 2 Oxygen Delivery Method Nasal Cannula Weight: 165 lb 4.8 oz Body Mass Index (BMI) 26.7 Intake and Output for Last 24 Hours 11/01/17 11/02/17 11/03/17 23:59 23:59 23:59 Intake Total 1164 / 1164 770 / 770 350 / 350 Output Total 1500 / 1500 1935 / 1935 Balance -336 / -336 -1165 / -1165 350 / 350 Microbiology Past 72 Hours 10/29/17 11:00 Blood Culture - Final Blood Culture (Wb) - Central Line No growth in 5 days. 10/29/17 12:03 Gram Stain - Final Sputum, Induced/Lukens Respiratory Culture - Final Haemophilus influenzae Laboratory Tests Past 24 Hrs 11/02/17 11/02/17 05:00 05:20 Vitamin B12 > 2000 H Serum Copper Pending Zinc Pending Assessment/Plan RECOMMENDATIONS: 1. Aggressive pulmonary toileting 2. Continue Levaquin therapy to complete 7 days of antibiotics 3. Wean oxygen as tolerated 4. Maintain oxygen saturations 88-92%, to prevent paradoxical CO2 retention 5. Walking oximetry prior to discharge 6. Patient can be offered an appointment in the pulmonary clinic if he wishes to follow-up with us. Recommend at minimum obtaining baseline pulmonary function tests for quantification and clarification of his lung disease. 7. Okay to discharge from pulmonary perspective IMPRESSIONS: 1. Acute on chronic hypoxemic and hypercarbic respiratory failure secondary to H influenza pneumonia Patient is now growing H influenza pneumonia. Antibiotics have been changed. Patient successfully extubated. Patient actually on lower than reported baseline need for oxygen. Aggressive pulmonary toileting. Anticipate relatively advanced COPD. Patient should have outpatient pulmonary function test for quantification and clarification. Patient should have a walking oximetry prior to discharge. Okay to discharge today from a pulmonary standpoint. Offered patient a follow-up appointment with us in the pulmonary clinic, however he declines at this time and wishes to follow-up with his primary care physician. He should be followed closely. He was given a prescription for albuterol nebulizers, he is almost out at home. He should have a steroid taper at discharge. He will require 3 more days of Levaquin to complete 7 day course. 2. Elevated cardiac enzymes/demand ischemia Likely demand ischemia in the setting of increased metabolic demands. Cardiology has been consulted. Repeat echocardiogram shows EF at the lower limit of normal. No recent echocardiogram results for review. Patient did have a normal stress test in 2012 noted an EF of 55% at rest and 65% with stress. Repeat stress echo yesterday was normal. 3. Chronic pain syndrome/obesity/tobacco dependence, in remission/hypertension Complicates care, management, recovery and prognosis. Tolerating p.o. diet. Patient has had increasing blood pressures noted while in the intensive care unit. Patient does not give a history of hypertension in the past. Patient is on steroid therapy. This note was generated with [employer] software. It may contain incorrect words, spelling, and punctuation that were not noted in checking the note before signing.
[2017-11-07 14:47] LABS: Copper, Serum or Plasma 119 ug/dL (72-166); Zinc, Plasma or Serum 74 ug/dL (56-134)
== END 2017-11-03 12:14 | disposition home or self-care (01) | DRG 208 ==
LOC: ED 06:51 → PCU 07:34 → ICU 09:43 → PCU 10-31 10:38 → ICU 11-03 10:48 → MS3 11-03 10:48
PROVIDERS: Internal Medicine; Internal Medicine Cardiovascular Disease; Internal Medicine Critical Care Medicine; Admitting Provider Internal Medicine; Emergency Provider Emergency Medicine; Family Provider Family Medicine; PCP Family Medicine; Visit Provider Internal Medicine
DX: J96.21 Acute and chronic respiratory failure with hypoxia (principal); I21.A1 Myocardial infarction type 2; J14 Pneumonia due to Hemophilus influenzae; J44.1 Chronic obstructive pulmonary disease with (acute) exacerbation; E87.1 Hypo-osmolality and hyponatremia; J44.0 Chronic obstructive pulmonary disease with (acute) lower respiratory infection; Z99.81 Dependence on supplemental oxygen; J96.22 Acute and chronic respiratory failure with hypercapnia; I10 Essential (primary) hypertension; G89.4 Chronic pain syndrome; F17.211 Nicotine dependence, cigarettes, in remission
CPT/HCPCS: 31500; 31720; 36600; 71045; 74018; 80048; 80053; 80061; 80307; 81002; 82525; 82550; 82607; 82803; 82962; 83605; 83735; 83880; 84100; 84443; 84478; 84484; 84630; 85025; 85027; 85610; 85730; 87040; 87070; 87077; 87205; 87449; 87633; 87641; 93005; 93017; 93306; 93350; 94002; 94003; 94640; 94660; 94667; 94668; 94799; 95831; 97116; 97162; 97166; 97530; 97802; 97803; 99251; 99285; J7030; J7050; Q9957; A4216; C8928; C8929; G0463; J2405; J2785

== ENCOUNTER 2018-01-05 14:46 | Inpatient (IN) | payer MEDICARE, SELFPAY ==
[2018-01-05] VITALS (22 sets, daily range): BP systolic 114–165; BP diastolic 58–101; PULSE 90–107; RESP 12–28; TEMP 36.3–37.1; O2SAT 87–99; BMI 27.2; BMI 27.3; BMI 26.5
--- NOTE | 2018-01-05 15:10 | RAD_ITS ---
STUDY: X-RAY CHEST REASON FOR EXAM: Male, 62 years old. Hypoxia and shortness of breath. History of COPD. TECHNIQUE: Single AP portable view of the chest. COMPARISON: Comparison is made with prior study dated October 30, 2017. FINDINGS: EKG electrodes are seen. Improved aeration of both lungs. Residual increased interstitial markings in both lungs worse in the lower lobe suggestive of scarring. There is no demonstrated pleural abnormality. There is borderline cardiomegaly. Normal mediastinum and tiara. Normal visualized pulmonary arteries. Normal visualized aortic arch and descending thoracic aorta. There are degenerative changes of the visualized thoracic spine. Normal visualized ribs, clavicles, and shoulders. There is no demonstrated abnormality of the visualized soft tissue structures of the upper abdomen. RAD/Chest 1 View (Portable) IMPRESSION: Improved aeration of both lungs. Residual changes seen in both lungs suggestive of scarring. Electronically Signed: Kevin Owusu MD at 15:31 EDT Tel [phone], Service support ,
--- NOTE | 2018-01-05 15:10 | EKG12_ITS ---
Test Reason : CP Blood Pressure : / mmHG Vent. Rate : 095 BPM Atrial Rate : 095 BPM P-R Int : 134 ms QRS Dur : 070 ms QT Int : 356 ms P-R-T Axes : 073 046 068 degrees QTc Int : 447 ms Normal sinus rhythm Normal ECG Confirmed by VICKY ALEJANDRO, PAUL ([id number]), editor publications IZABEL WALTERS ([id number]) on 01/09/2018 1:55:59 PM Referred By: TAMICA Confirmed By:PAUL PERRY MD
--- NOTE | 2018-01-05 15:16 | ED.VISSUMM ---
- ER Visit Summary Date of Service: 01/05/18 Chief Complaint: Shortness of breath History of Present Illness: The patient is a 62 M presenting with shortness of breath. Patient states this has been worsening over the last several days. He states he has been short of breath since leaving the hospital in early October. He was admitted in October for COPD, pneumonia. Patient was in the ICU and intubated during that hospital stay. He was sent home on antibiotics and steroids. He has finished his medications and continues to be short of breath. He states it has worsened over the last couple days. He went to [facility] today and they sent him to the ED for low O2 sat. he states his symptoms are worsened with ambulation. He has continuous chest pain. He has productive cough. Denies fever. Physical Examination: Vitals are stable. Patient is afebrile. Alert no acute distress. HEENT exam is unremarkable. Neck is supple. Lungs are diminished bilaterally. Heart is regular rate and rhythm. Abdomen is soft nontender nondistended. Extremities are unremarkable. Skin is warm and dry. No focal neurologic deficit. Remainder of exam is unremarkable. Emergency Department Course and Treatment: Patient is given Solu-Medrol, albuterol, Atrovent. Chest x-ray shows scarring. EKG is sinus rate of 95. CBC is normal except for hemoglobin 10.5. Chemistry normal except for CO2 42, glucose 124. Troponin is negative. Lactic acid is normal. D-dimer is elevated. Due to elevated d-dimer, CTA chest was obtained shows no evidence of PE. ABG shows pH 7.433, PCO2 72.3, PO2 44. Patient was started on BiPAP. Discussed with the hospitalist for admission. Disposition: Admission Impression: Acute hypoxic hypercapnic respiratory failure; COPD exacerbation This note was generated with [employer] dictation software. It may contain incorrect words, spelling, and punctuation that were not noted in review of the chart prior to signing ED Disposition - Plan for ED Patient: Chief Complaint: Shortness of Breath Referrals: Chang Kumari MD [Primary Care Provider] -
[2018-01-05] MEDS: Ipratropium/Albuterol Sulfate 3 ML AMPUL.NEB INHALATION ×2 (15:24→23:05)
[2018-01-05] MEDS: Albuterol 2.5 MG/3 ML VIAL.NEB. INHALATION ×3 (15:25→21:50)
[2018-01-05] MEDS: MethylPREDNISolone 125 MG/2 ML Vial IV (15:29)
[2018-01-05 15:46] LABS: Absolute Lymphocyte Count 1.09 X10^3/ul (0.83-4.51); Absolute Neutrophil Count 8.3 X10^3/uL (2.0-7.7); Basophil# 0.04 X10^3/uL; Basophil% 0.4 % (0-1); Eosinophil# 0.27 X10^3/uL; Eosinophils% 2.6 % (0-5); Hematocrit 35.4 % (40-54); Hemoglobin 10.5 g/dl (13.0-16.5); Lymphocyte # 1.09 X10^3/ul (4.0); Lymphocyte % 10.5 % (19-41); Mean Corp Hgb Conc 29.7 g/gl (32-36); Mean Corpuscular Volume 94.4 fL (80-94); Mean Platelet Vol. 8.8 fl (6.2-12.0); Monocyte# 0.66 X10^3/uL; Monocyte% 6.4 % (0-10); Neutrophil # 8.26 X10^3/uL (2.7-7.7); Neutrophil % 79.5 % (47-70); Platelet Count 317 K/mm3 (150-450); RBC Distribution Width CV 14.6 % (11.6-14.6); Red Blood Count 3.75 M/mm3 (4.6-6.2); White Blood Count 10.4 K/mm3 (4.4-11.0)
[2018-01-05 15:49] LABS: POSITIVE COUNT NO; POSITIVE DIFFERENTIAL NO; POSITIVE MORPHOLOGY NO
[2018-01-05 16:07] LABS: ALB/GLOB Ratio 0.7 RATIO (0.9-2.4); AST(SGOT) 19 U/L (15-37); Alanine Aminotransfer ALT/SGPT 26 U/L (16-61); Alkaline Phosphatase 68 U/L (45-117); Anion Gap 4 (5-15); BUN 9 mg/dL (7-18); BUN/Creat Ratio 13.1 RATIO (10-20); Calcium,Total 8.6 mg/dL (8.5-10.1); Chloride 94 mmol/L (98-107); Creatinine, Serum 0.69 mg/dL (0.70-1.30); EST Glomerular Filtration Rate 124 mL/min (>60); Est Glom Filt Rate - Afr Amer 150 mL/min (>60); Estimated Creatinine Clearance 108.77 ml/min; Globulin 4.3 g/dL (2.2-4.2); Glucose 124 mg/dL (74-106); Lactic Acid 0.8 mmol/L (0.4-2.0); Potassium 3.7 mmol/L (3.5-5.1); Protein, Total 7.3 g/dL (6.4-8.2); Sodium Level 140 mmol/L (136-145)
[2018-01-05 16:44] LABS: D-Dimer Quantitative (DVT/PE) 1.03 FEU/ug/m (0.27-0.49)
--- NOTE | 2018-01-05 16:51 | CT_ITS ---
STUDY: CTA CHEST REASON FOR EXAM: Male, 62 years old. Hypoxia. Elevated d-dimer. RADIATION DOSAGE (If Supplied By Facility): CTDIvol = ( 15.93 ) mGy, DLP = ( 709.48 ) mGycm TECHNIQUE: The examination was performed with the intravenous administration of 100 ml of Isovue 370 contrast material. Post-processing of the angiographic images was performed, with multiplanar reformation and 3D reconstruction. Individualized dose optimization techniques were used for this CT. COMPARISON: None. FINDINGS: Normal enhancement of the main pulmonary artery and right and left pulmonary arteries. Normal enhancement of the bilateral peripheral pulmonary arteries. There is no demonstrated pulmonary embolism. Normal thoracic aorta and visualized great vessels. There is no demonstrated aortic dissection. Normal heart and pericardium. Normal mediastinum. Normal hilar regions. There is peribronchial thickening. The lungs are hyper expanded, with flattening of the hemidiaphragms. There is COPD with interstitial fibrosis. There is a 1.4 cm poorly defined nodular density in the medial right lower lobe on image 144. There are other scattered areas of opacity in both lung bases which could be areas of scarring or mild inflammatory disease. No effusions. Normal chest wall structures. Normal osseous structures. Normal visualized upper abdomen. CT/CTA Chest W/WO Contrast IMPRESSION: No definite pulmonary embolus. Severe fibrotic COPD. Cannot exclude scattered areas of active inflammatory disease in the lung bases. Focal 1.4 cm nodular density of the right lower lobe, recommend follow-up in 3-4 months. Electronically Signed: Hunter Doan MD at 18:18 EDT , Service support ,
[2018-01-05 17:21] LABS: Base Excess 23 mmol/L (-2 to +2); Bicarbonate 47.5 mmol/L (22-26); Blood Gas Specimen Type ART; O2 Delivery Device Nasal Can; PO2 44 mmHG (75-100); SITE R Radial; SO2 77 % (95-99); Time Given 1715; Total Carbon Dioxide 50 mmol/L; pCO2 73.1 mmHg (35-45); pH 7.42 (7.35-7.45)
[2018-01-05 17:49] LABS: Bacteria 0 SEEN /hpf (None Seen); Mucous, Urine 0 SEEN /hpf (<or=2+); Red Blood Cells-Urine 0 SEEN /hpf (0-5)
[2018-01-05 17:53] LABS: Color, Urine Yellow (Yellow); Glucose, Dipstick Normal (Normal); Ketone-Dipstick 15 mg/dl (Negative); Leukocyte Esterase-Dipstick Negative /ul (Negative); Nitrite-Dipstick Negative (Negative); Occult Blood-Urine Negative /ul (Negative); Protein-Dipstick Negative (Negative); Specific Gravity, Urine 1.005 (1.002-1.030); Urine Bilirubin Dipstick Negative (Negative); Urine Clarity Clear (Clear); Urine Urobilinogen Normal (Normal)
[2018-01-05 18:20] LABS: White Blood Cells 0-5 SEEN /hpf (0-5)
[2018-01-05 18:21] LABS: Squamous Epithelial Cells - UA 0-5 SEEN /hpf (0-5)
--- NOTE | 2018-01-05 19:22 | PCM.HP.STD ---
Problem List (1) Former tobacco use Status: Chronic (2) HTN (hypertension) Status: Chronic Qualifiers: Hypertension type: essential hypertension Qualified Code(s): I10 - Essential (primary) hypertension (3) COPD exacerbation Status: Acute (4) chronic anemia Status: Acute (5) Chronic anemia Status: Chronic History of Present Illness Date of Admission: 01/05/18 Chief Complaint: Dyspnea, wheezing, cough The patient is a 62 y/o M w/ PMHx: Chronic normocytic anemia (Baseline 11-12), Chronic COPD w/ Chronic Hypoxic Respiratory Failure (2-4L NC), Former Tobacco use, HTN who presents to the [facility] on 01/05/18 with history of recent evaluation per PCP at with history of 1-2 weeks progressively worsening dyspnea, productive cough, congestion, wheezing w/ oxygenation testing 81% on RA-->90% on 2L, prompting immediate referral to the ED. He notes since discharge 11/03/17 he has not felt as though he returned to his pre-hospitalization baseline. During prior admission he was intubated secondary to the severity of his COPD exacerbation w/ H. influenzae on respiratory culture. In the ED work-up included T 97.4, HR 96, BP 160/80, RR 23, 97% on 4L, CBC w/ WBC 10.4, Hgb 10.5, Plts 317 with L shift, D-dimer 1.03, ABG pH 7.42, O2 saturation 77%, pCO2 73.1, pO2 44, CMP Chl 94, CO2 42, BUN/Cr 9/0.69, glucose 124, UA unremarkable, CTPA without evidence of PE, severe fibrotic COPD changes, focal 1.4 cm nodular density RLL. In the ED patient was placed on BIPAP secondary to notable ABG findings and fatigued appearance with increased RR, accessory muscle usage and conversational dyspnea with improvement. In the ED patient administered solumedrol, ativan, duoneb, albuterol. Past Medical History Past Medical History (Chronic Problems): Chronic Problems Former tobacco use (Chronic) Chronic anemia (Chronic) HTN (hypertension) (Chronic) Allergies No Known Allergies Allergy (Verified 01/31/17 13:19) Home Medications: Ambulatory Orders Medication Instructions Recorded Albuterol Aerosols [Ventolin 2.5 mg INHALATION Q4H PRN PRN #30 11/03/17 Aerosols] vial Carvedilol [Coreg (Beta Sonja)] 12.5 mg PO BID #60 tab 11/03/17 Aspirin [Aspirin, Baby] 81 mg PO DAILY 01/05/18 Surgical History: no surgical history Psychiatric History: No pertinent psych hx Lives: Alone Smoking Status: Former smoker - 30 pack year history. Tobacco Use: Non-smoker Alcohol: None Drugs: None - *Family History Maternal History Items: No pertinent history Paternal History Items: No pertinent history Review of Systems Constitutional: Reports: Anorexia, Malaise, Weakness, Fatigue. Denies: Chills, Fever, Weight Change HEENT: Denies: Head Aches, Sinus Congestion, Sinus Drainage Cardiovascular: Denies: Chest Pain, Palpitations Respiratory: Reports: Cough, Pleuritic Pain, Shortness of Breath, Shortness of breath at rest, Shortness of breath upon exertion, Sputum production, Wheezing Gastrointestinal: Denies: Abdominal Pain, Nausea, Vomiting Genitourinary: Denies: Dysuria Musculoskeletal: Denies: Joint Pain, Joint Tenderness Skin: Denies: Rash, Wounds Neurological: Denies: Numbness, Tingling, Focal weakness Psychiatric: Denies: Anxiety, Depression, Homicidal Ideations, Suicidal Ideations Hematologic/ Lymphatic: Reports: Anemia. Denies: Easy Bruising, Easy Bleeding VTE Information - Inpt Only VTE Present on Admission: No VTE Mechan Device Prophylaxis: SCD's VTE Pharm Prophylaxis ordered?: Yes Patient Problems: Active and Suspected Problems chronic anemia (Acute) Subjective: Seated upright in the ED bed, improved, less SOB, BIPAP in place, decreased accessory muscle usage, decreased RR, able to speak in more full sentences now. Objective: Physical Examination: General: awake, alert, oriented x 3 and cooperative, seated upright in bed, improved, less SOB, BIPAP in place, decreased accessory muscle usage, decreased RR, able to speak in more full sentences now. Skin: normal color, turgor, no icterus, cyanosis. HEENT: AT/NC, EOMI, PERRLA, dry MM, no carotid bruits or JVD noted. Lungs: Diminished diffusely, > bases, BIPAP in place, decreased accessory muscle usage, decreased RR, able to speak in more full sentences now, mild end expiratory wheeze bases primarily. Heart: Mildly tachycardic with regular rhythm; no gallop, rub audible. Abdomen: soft, overweight, NTTP, ND, normal BS, no HSM. Extremities: no cyanosis, clubbing, or edema. Neurological: patient awake, alert, oriented x 3; cognitive function intact; pupils equally reactive to light and accomodation; cranial nerves II-XII grossly normal, moving all 4 extremities, no focal deficits, strength severely globally decreased secondary to acute presentation. Psychiatric: affect appears fatigued, no acute evidence of depressive or anxiety feelings. - Physical Exam Vital Signs Temp Pulse Resp BP Pulse Ox 97.4 F L 93 23 H 145/101 H 99 01/05/18 14:48 01/05/18 19:10 01/05/18 19:10 01/05/18 19:10 01/05/18 19:10 Oxygen Flow Rate (L/min) 2 Oxygen Delivery Method Bi-pap Weight: 179 lb 3.773 oz Body Mass Index (BMI) 27.2 Laboratory Tests Past 24 Hrs 01/05/18 01/05/18 01/05/18 15:29 15:29 15:29 WBC 10.4 RBC 3.75 L Hgb 10.5 L Hct 35.4 L MCV 94.4 H MCH 28.0 MCHC 29.7 L RDW 14.6 RDW Differential 48.0 H Plt Count 317 MPV 8.8 Immature Gran % (Auto) 0.600 Neut % (Auto) 79.5 H Lymph % (Auto) 10.5 L Mckinley % (Auto) 6.4 Eos % (Auto) 2.6 Baso % (Auto) 0.4 Absolute Neuts (auto) 8.3 H Absolute Lymphs (auto) 1.09 Total Counted Not Reportable D-Dimer Quant (PE/DVT) 1.03 H* Specimen Type Sample Site pH Bicarbonate Actual POC Total CO2 Base Excess O2 Saturation ABG pCO2 ABG pO2 O2 Delivery Device Liter Flow Blood Gas Notified Whom Blood Gas Notified Time Sodium 140 Potassium 3.7 Chloride 94 L Carbon Dioxide 42.0 H Anion Gap 4 L BUN 9 Creatinine 0.69 L Estim Creat Clear Calc 108.77 Est GFR (MDRD) Af Amer 150 Est GFR (MDRD) Non-Af 124 BUN/Creatinine Ratio 13.1 Glucose 124 H Lactic Acid Calcium 8.6 Total Bilirubin 0.30 AST 19 ALT 26 Alkaline Phosphatase 68 Troponin I 0.03 Total Protein 7.3 Albumin 3.0 L Globulin 4.3 H Albumin/Globulin Ratio 0.7 L Urine Color Urine Clarity Urine pH Ur Specific [place] Urine Protein Urine Glucose (UA) Urine Ketones Urine Occult Blood Urine Nitrite Urine Bilirubin Urine Urobilinogen Ur Leukocyte Esterase Urine RBC Urine WBC Ur Squamous Epith Cells Urine Bacteria Urine Mucus 01/05/18 01/05/18 01/05/18 15:29 17:15 17:39 WBC RBC Hgb Hct MCV MCH MCHC RDW RDW Differential Plt Count MPV Immature Gran % (Auto) Neut % (Auto) Lymph % (Auto) Mckinley % (Auto) Eos % (Auto) Baso % (Auto) Absolute Neuts (auto) Absolute Lymphs (auto) Total Counted D-Dimer Quant (PE/DVT) Specimen Type ART Sample Site R Radial pH 7.42 Bicarbonate Actual 47.5 H POC Total CO2 50 Base Excess 23 H O2 Saturation 77 L ABG pCO2 73.1 H* ABG pO2 44 L O2 Delivery Device Nasal Can Liter Flow 4.0 Blood Gas Notified Whom ED MD Blood Gas Notified Time 1715 Sodium Potassium Chloride Carbon Dioxide Anion Gap BUN Creatinine Estim Creat Clear Calc Est GFR (MDRD) Af Amer Est GFR (MDRD) Non-Af BUN/Creatinine Ratio Glucose Lactic Acid 0.8 Calcium Total Bilirubin AST ALT Alkaline Phosphatase Troponin I Total Protein Albumin Globulin Albumin/Globulin Ratio Urine Color Yellow Urine Clarity Clear Urine pH 7.0 Ur Specific [place] 1.005 Urine Protein Negative Urine Glucose (UA) Normal Urine Ketones 15 H Urine Occult Blood Negative Urine Nitrite Negative Urine Bilirubin Negative Urine Urobilinogen Normal Ur Leukocyte Esterase Negative Urine RBC 0 SEEN Urine WBC 0-5 SEEN Ur Squamous Epith Cells 0-5 SEEN Urine Bacteria 0 SEEN Urine Mucus 0 SEEN Assessment/Plan Active and Suspected Problems chronic anemia (Acute) The patient is a 62 y/o M w/ PMHx: Chronic normocytic anemia (Baseline 11-12), Chronic COPD w/ Chronic Hypoxic Respiratory Failure (2-4L NC), Former Tobacco use, HTN who presents to the [facility] on 01/05/18 with history of recent evaluation per PCP at with history of 1-2 weeks progressively worsening dyspnea, productive cough, congestion, wheezing w/ oxygenation testing 81% on RA-->90% on 2L, prompting immediate referral to the ED. (1) Acute Hypoxic and Hypercarbic Respiratory Failure on Chronic Hypoxic Respiratory Failure secondary to Acute on chronic COPD exacerbation : CTPA without evidence of PE, severe fibrotic COPD changes, focal 1.4 cm nodular density RLL, CBC on admission w/ WBC 10.4 without marked shift, afebrile. Will admit to ICU given respiratory failure, transition to NC once appropriate from BIPAP and maintain on oxygen with wean as tolerated to home oxygen supplementation, continue ATC duonebs, PRN albuterol, IV methylprednisolone, HOB, IS parameters, defer abx given no WBC elevation, afebrile, no shift pending sputum Cx and respiratory viral panel, procal. (2) Hypertension: Continue home regimen including coreg although odd choice given severity of COPD, consider transitioning to ACEI instead, PRN hydralazine. (3) Chronic normocytic anemia: Admission Hgb 10.5, baseline hgb 10-12, stable, pending Fe panel, folic acid, vitamin B12. (4) Former Tobacco use: Encouraged continued tobacco cessation. (5) Incidental RLL Nodule: CTPA without evidence of PE, severe fibrotic COPD changes, focal 1.4 cm nodular density RLL, will need follow-up with [facility] to trend. (6) DVT Prophylaxis: SCDs, lovenox. Critical Care Time: 62 minutes, time from 6:40-7:42, were spent addressing patients acute respiratory failure, COPD exacerbation w/ usage of BIPAP and admission to the ICU, review of all data in collaboration with care team in addition to discussion with patient. Code Visit Procedures: [id number] [facility] Care 1st Hr - Billing CODE: [id number] and [id number]
[2018-01-05] MEDS: LORazepam 0.5 MG Tablet PO (20:18)
[2018-01-05 21:04] LABS: Magnesium 2.6 mg/dL (1.6-2.6)
[2018-01-05] MEDS: 0.9% Normal Saline 1,000 ML 125 ML IV (21:09)
[2018-01-05 21:14] LABS: Hemoglobin A1c 5.6 % (4.2-6.3)
--- NOTE | 2018-01-05 21:20 | NURSING ---
Patient's black watch and wedding ring in denture cup in patient belonging bags, along with wallet. This RN offered to lock in medication drawer or in hospital safe and patient declined.
[2018-01-05] MEDS: 0.9% NaCl Peripheral Flush Adult/Peds IV (21:37)
[2018-01-05] MEDS: Famotidine 20 MG Tablet PO (21:37)
[2018-01-05] MEDS: guaiFENesin 1,200 MG Tablet 1200 MG PO (21:37)
[2018-01-05] MEDS: Carvedilol 12.5 MG Tablet PO (21:37)
[2018-01-05 22:30] LABS: M R Staph aureus DNA By PCR Negative (Negative); Probe Check PASS; Specimen Processing Control PASS
--- NOTE | 2018-01-05 23:00 | CPS ---
changed EPAP to 6 to give pt more Pressure support
[2018-01-06] VITALS (36 sets, daily range): BP systolic 108–158; BP diastolic 56–96; PULSE 75–108; RESP 12–28; TEMP 36.6–37.1; O2SAT 88–99
[2018-01-06 02:38] LABS: Ferritin 362 ng/mL (26-388); Iron 39 ug/dL (65-175); Iron Binding Capacity,Total 254 ug/dL (250-450); PERCENT IRON SATURATION 15.4 % (15.0-55.0)
[2018-01-06] MEDS: Ipratropium/Albuterol Sulfate 3 ML AMPUL.NEB INHALATION ×6 (03:25→23:05)
[2018-01-06 04:35] LABS: Anion Gap 2 (5-15); BUN 11 mg/dL (7-18); BUN/Creat Ratio 21.5 RATIO (10-20); Calcium,Total 8.4 mg/dL (8.5-10.1); Chloride 96 mmol/L (98-107); Creatinine, Serum 0.51 mg/dL (0.70-1.30); EST Glomerular Filtration Rate 174 mL/min (>60); Est Glom Filt Rate - Afr Amer 211 mL/min (>60); Estimated Creatinine Clearance 147.16 ml/min; Glucose 136 mg/dL (74-106); Potassium 4.5 mmol/L (3.5-5.1); Sodium Level 142 mmol/L (136-145)
[2018-01-06 04:44] LABS: Hematocrit 34.5 % (40-54); Hemoglobin 10.2 g/dl (13.0-16.5); Mean Corp Hgb Conc 29.6 g/gl (32-36); Mean Corpuscular Volume 94.8 fL (80-94); Mean Platelet Vol. 8.9 fl (6.2-12.0); Platelet Count 334 K/mm3 (150-450); RBC Distribution Width CV 14.6 % (11.6-14.6); RBC Distribution Width SD 48.1 fl (35.1-43.9); Red Blood Count 3.64 M/mm3 (4.6-6.2); White Blood Count 9.6 K/mm3 (4.4-11.0)
[2018-01-06 04:51] LABS: Scan Indicated on CBC? Y/N NO
--- NOTE | 2018-01-06 04:58 | CPS ---
DECREASED FIO2 TO 35%
[2018-01-06] MEDS: 0.9% NaCl Peripheral Flush Adult/Peds IV (05:22)
--- NOTE | 2018-01-06 07:05 | CON.PCM_ITS ---
Reason for Consult Date of Consultation: 01/06/18 Reason for Consultation: Acute on chronic respiratory failure History of Present Illness: The patient is a 62-year-old male, with a history as outlined below, who presented to the emergency department on January 05 with complaints of shortness of breath, cough and chest congestion. He states that he has had a difficult time with his breathing quality since being discharged from the hospital in October. He does report having recently established with a new primary care provider. The patient was started on some form of an inhaler from his PCP, but stated that he was unable to afford the medication. He also states that he was given an antibiotic, but never filled the prescription. The patient states that he was scheduled follow-up with Dr. Lyman's nurse practitioner through [facility] yesterday. However, he claims that the office nursing staff directed him directly to the emergency department for evaluation of his shortness of breath. The patient does have a 30+ pack year smoking history, having quit completely 8 years ago. He has never been evaluated for sleep disordered breathing, and does not currently utilize any form of a noninvasive positive pressure ventilation in his home environment. He states that he utilizes between 2 and 4 L/min of supplemental oxygen in his home environment. At the present time, the patient is not prescribed any inhalers in his home environment. The patient was recently admitted to the intensive care unit in October with shortness of breath and presumptive COPD of unknown severity. The patient went on to develop respiratory failure, which was refractory to the use of noninvasive positive pressure ventilation. He was subsequently intubated and treated for a COPD exacerbation due to Haemophilus influenza pneumonia. Upon discharge, the patient was instructed to follow-up in the pulmonary medicine clinic. However, he failed to do so. On presentation to the emergency department, the patient was noted to be afebrile, hypertensive and tachypneic. He was maintaining appropriate oxygen saturations on 4 L/min by nasal cannula. Laboratory evaluation revealed no evidence of a leukocytosis. D-dimer was mildly elevated to 1.03. Arterial blood gas revealed a compensated respiratory acidosis with a PCO2 of 73 and a pH of 7.42. Chemistry profile revealed a chronically elevated serum bicarbonate. Serum lactate was within normal limits. Troponin was negative. CTA chest revealed no evidence for pulmonary embolism. There is evidence of a mild degree of interstitial fibrosis along with a airspace density in the right lower lobe along with scattered areas of opacity in both lung bases. For reasons that are not entirely clear to me, the patient was placed on BiPAP therapy. The patient was started on IV steroids and aerosol treatments. He was subsequently admitted to the medical intensive care unit for ongoing management. Past Medical History Past Medical History (Chronic Problems): Chronic Problems Former tobacco use (Chronic) Chronic anemia (Chronic) HTN (hypertension) (Chronic) Allergies No Known Allergies Allergy (Verified 01/31/17 13:19) Home Medications: Ambulatory Orders Medication Instructions Recorded Albuterol Aerosols [Ventolin 2.5 mg INHALATION Q4H PRN PRN #30 11/03/17 Aerosols] vial Aspirin [Aspirin, Baby] 81 mg PO DAILY 01/05/18 Carvedilol [Coreg (Beta Sonja)] 12.5 mg PO DAILY 01/05/18 Surgical History: no surgical history Psychiatric History: No pertinent psych hx Lives: Alone Smoking Status: Former smoker Tobacco Use: Non-smoker Alcohol: None Drugs: None - *Family History Maternal History Items: No pertinent history Paternal History Items: No pertinent history Review of Systems Constitutional: Denies: Chills, Fever, Night Sweats Eyes: Denies: Blurred vision, Double vision HEENT: Denies: Head Aches, Sinus Congestion, Sinus Drainage Cardiovascular: Denies: Chest Pain, Palpitations Respiratory: Reports: Cough, Shortness of Breath, Sputum production, Wheezing Gastrointestinal: Denies: Abdominal Pain, Nausea, Vomiting Genitourinary: Denies: Dysuria Musculoskeletal: Denies: Joint Pain, Joint Tenderness Skin: Denies: Rash, Wounds Neurological: Denies: Numbness, Tingling, Focal weakness Psychiatric: Denies: Anxiety, Depression, Homicidal Ideations, Suicidal Ideations Hematologic/ Lymphatic: Reports: Anemia Patient Problems: Active and Suspected Problems chronic anemia (Acute) Objective: The patient's most recent lab work, culture data and imaging studies have all been personally reviewed. Surface echocardiogram from October 2017 revealed normal LV size and function with an ejection fraction of 50%. Pulmonary artery systolic pressure was estimated to be 25 mmHg. Sputum culture and respiratory viral panel are pending. - Physical Exam General: Alert, Oriented x3, Cooperative, No apparent distress HEENT: Atraumatic, PERRLA, Normocephalic Oral: Dry Mucosa Neck: Supple, No Nodes, Trachea Midline Lungs: - - Globally diminished air movement bilaterally without appreciable wheezes, rales or rhonchi. Cardiovascular: Normal S1, Normal S2, No murmurs, Tachycardic Abdomen: Bowel Sounds Present, Soft, Non Tender, Non-Distended Extremities: No clubbing, No cyanosis, No edema Skin: No rashes, No breakdown Musculoskeletal: No Muscle Wasting Lymphatic: No Cervical, Supraclavicular, or Inguinal Adenopathy Neurological: Neuro grossly intact Psych/Mental Status: Normal Affect, Appropriate Vital Signs Temp Pulse Resp BP Pulse Ox 98.3 F 100 15 118/66 96 01/06/18 00:00 01/06/18 06:00 01/06/18 06:00 01/06/18 06:00 01/06/18 06:00 Oxygen Flow Rate (L/min) 6 Oxygen Delivery Method Bi-pap Weight: 174 lb 2.643 oz Body Mass Index (BMI) 26.5 Intake and Output for Last 24 Hours 01/04/18 01/05/18 01/06/18 23:59 23:59 23:59 Intake Total 433 / 433 691 / 691 Output Total 750 / 750 200 / 200 Balance -317 / -317 491 / 491 Laboratory Tests Past 24 Hrs 01/05/18 01/05/18 01/05/18 20:30 20:30 20:30 WBC RBC Hgb Hct MCV MCH MCHC RDW RDW Differential Plt Count MPV Sodium Potassium Chloride Carbon Dioxide Anion Gap BUN Creatinine Estim Creat Clear Calc Est GFR (MDRD) Af Amer Est GFR (MDRD) Non-Af BUN/Creatinine Ratio Glucose Hemoglobin A1c 5.6 Calcium Magnesium 2.6 Iron TIBC Iron Saturation Ferritin Vitamin B12 Folate MRSA (PCR) Negative 01/05/18 01/05/18 01/06/18 20:30 20:30 04:15 WBC 9.6 RBC 3.64 L Hgb 10.2 L Hct 34.5 L MCV 94.8 H MCH 28.0 MCHC 29.6 L RDW 14.6 RDW Differential 48.1 H Plt Count 334 MPV 8.9 Sodium Potassium Chloride Carbon Dioxide Anion Gap BUN Creatinine Estim Creat Clear Calc Est GFR (MDRD) Af Amer Est GFR (MDRD) Non-Af BUN/Creatinine Ratio Glucose Hemoglobin A1c Calcium Magnesium Iron 39 L TIBC 254 Iron Saturation 15.4 Ferritin 362 Vitamin B12 Pending Folate 42.20 MRSA (PCR) 01/06/18 04:15 WBC RBC Hgb Hct MCV MCH MCHC RDW RDW Differential Plt Count MPV Sodium 142 Potassium 4.5 Chloride 96 L Carbon Dioxide 44.0 H Anion Gap 2 L BUN 11 Creatinine 0.51 L Estim Creat Clear Calc 147.16 Est GFR (MDRD) Af Amer 211 Est GFR (MDRD) Non-Af 174 BUN/Creatinine Ratio 21.5 H Glucose 136 H Hemoglobin A1c Calcium 8.4 L Magnesium Iron TIBC Iron Saturation Ferritin Vitamin B12 Folate MRSA (PCR) Clinical Impression(s) from Imaging Studies Chest X-Ray 01/05/18 15:10 IMPRESSION: Improved aeration of both lungs. Residual changes seen in both lungs suggestive of scarring. Electronically Signed: Kevin Owusu MD at 15:31 EDT Tel [phone], Service support , Chest CTA 01/05/18 16:51 IMPRESSION: No definite pulmonary embolus. Severe fibrotic COPD. Cannot exclude scattered areas of active inflammatory disease in the lung bases. Focal 1.4 cm nodular density of the right lower lobe, recommend follow-up in 3-4 months. Electronically Signed: Hunter Doan MD at 18:18 EDT , Service support , Assessment/Plan Active and Suspected Problems chronic anemia (Acute) RECOMMENDATIONS: 1. Start patient on p.o. Levaquin to complete a 7 day treatment course for possible community-acquired pneumonia 2. Transition from IV steroids to prednisone 40 mg daily by mouth. 3. Continue scheduled aerosol treatments as ordered. 4. Sputum culture is currently pending. Obtain full respiratory viral panel. 5. The patient can be discontinued on BiPAP. Continue supplemental oxygen with a goal to maintain saturations 88-92%, to prevent paradoxical CO2 retention. 6. Encourage incentive spirometer use and PEP therapy. 7. Recommend outpatient follow-up CT chest in 6-8 weeks to document resolution of the noted airspace density. IMPRESSIONS: 1. Acute on chronic hypoxemic and hypercarbic respiratory failure Likely secondary to baseline COPD with exacerbation due to a lack of outpatient treatment secondary to noncompliance by the patient with pulmonary medicine follow-up. In addition, the patient has what appears to be a community- acquired pneumonia on chest imaging. He will be maintained on antibiotics ?7 days in treatment for the aforementioned. Continue scheduled aerosol treatments. Continue steroids as ordered. Given that the patient has baseline CO2 retention, recommend maintaining oxygen saturations 88-92%, to prevent paradoxical CO2 retention. Would recommend repeating chest CT in 6-8 weeks as an outpatient to document resolution of the airspace opacities noted. Continue empiric BiPAP utilization with naps and nightly. 2. Abnormal chest imaging A greater than 1 cm nodular density and airspace opacities were noted on CTA chest on admission. He will be treated for community-acquired pneumonia with a 7 day treatment course of antibiotics. Upon follow-up in the pulmonary medicine clinic, recommend repeat CT chest in 6-8 weeks to document resolution of the aforementioned. 3. Chronic pain syndrome/obesity/tobacco dependence, in remission/hypertension Complicates care, management, recovery and prognosis. Continue home medications as indicated. Recommend physical therapy evaluation. This note was generated with ithinksport dictation software. It may contain incorrect words, spelling, and punctuation that were not noted in checking the note before signing. Code Visit Inpatient E&M: 83554 Init Hosp L3
[2018-01-06] MEDS: Aspirin 81 MG TAB.CHEW PO (08:43)
[2018-01-06] MEDS: levoFLOXacin 750 MG Tablet PO (08:47)
[2018-01-06] MEDS: predniSONE 20 MG Tablet 40 MG PO (08:47)
--- NOTE | 2018-01-06 08:57 | CASEMGMT ---
CHART REVIEW: VANNESSA Strata 3 ADM Dx: COPD LAST ADM: 10/29-11/03/17 [place]: Patient presented to [facility] ED, 01/05/18, with c/o SOB, cough and chest congestion. Patient states that he has had a difficult time with his breathing quality since being discharged from the hospital in October. He does report having recently established with a new primary care provider, Dr. Kumari. Per physician documentation, the patient was started on some form of an inhaler from his PCP, but stated that he was unable to afford the medication. He also states that he was given an antibiotic, but never filled the prescription. The patient states that he was scheduled follow-up with Dr. Lyman's nurse practitioner through [facility] yesterday, 01/04/18. However, he claims that the office nursing staff directed him directly to the emergency department for evaluation of his shortness of breath. The patient does have a 30+ pack year smoking history, having quit completely 8 years ago. He has never been evaluated for sleep disordered breathing, and does not currently utilize any form of a noninvasive positive pressure ventilation in his home environment. He states that he utilizes between 2 and 4 L/min of supplemental oxygen in his home environment,supplied by [facility]. At the present time, the patient is not prescribed any inhalers in his home environment. Transition Planning/Care Coordination: PRUDENCIO WELCH notes patient did not fill abx script and claims to be unable to afford inhaler. Patient was to establish with Dr. Lyman and will need an appnt scheduled at discharge to establish, since he was not able to be seen on the day he was to have his appnt due to his breathing difficulties. PRUDENCIO WELCH will follow PT/OT recommendations for possible further skilled therapy needs. The patient already has home oxygen. Will follow pulmonary recommendations and will assist with any care coordination needs or RR DME needs the patient may have. SW consult for limited financial support. PRUDENCIO WELCH will provide written handoff to weekday CM to follow hospital course for transition planning and care coordination interventions. Mark Carrasco, BSN, RN-BC, CCM
--- NOTE | 2018-01-06 09:15 | CASEMGMT ---
CHART REVIEW: VANNESSA Strata: 3 ADM Dx: GI Bleed Last Admission: 01/2017 [place]: Patient presented to ED, 01/05/18, after being told by her PCP to report due to anemia, HGB 7.1. Patient was transfused 2 Unit PRBC, and Dr. Berry and Dr. Smith have been consulted. Transition Planning/Care Coordination: The patient's PCP is Shana Roas and patient follows with Dr. Berry and Jayne Michelle for anemia. The patient lives with her spouse. Patient normally independent, up SBA in the room; SOB and tachycardic with exertion. Patient will transition to home when medically ready. No home-going needs identified at this time. RN CM will continue to follow hospital course for anticipated transition planning and/or care coordination needs. CHUCHO WoodsN, RN-BC, CCM
--- NOTE | 2018-01-06 10:23 | PCM.PROGNOTE ---
Patient Problems: Active and Suspected Problems chronic anemia (Acute) Subjective: He is c/o shortness of breath. Currently on 4 liter NC, maintaining saturation of 90%. He is oriented x 3, but appears mildly confused. - Physical Exam General: Cooperative, Confused HEENT: Atraumatic, PERRLA, Normocephalic Oral: Moist Mucosa, No Gingival or Mucosal Lesions/ Ulcerations Neck: Supple, No JVD Lungs: No rhonchi, No wheeze, No rales, Diminished Cardiovascular: Regular rate, Regular Rhythm, Normal S1, Normal S2, No murmurs, No Ectopic Activity Abdomen: Bowel Sounds Present, Soft, Non Tender, Non-Distended, No Hepato-splenomegaly Extremities: No clubbing, No cyanosis, No edema Skin: No rashes, No breakdown Musculoskeletal: No Tenderness to Palpation of Joints or Extremities, No Muscle Wasting Lymphatic: No Cervical, Supraclavicular, or Inguinal Adenopathy Neurological: Cranial nerves II-XII grossly intact, Neuro grossly intact Psych/Mental Status: Anxious Vital Signs Temp Pulse Resp BP Pulse Ox 98.3 F 91 19 H 148/86 H 94 01/06/18 00:00 01/06/18 09:00 01/06/18 09:00 01/06/18 09:00 01/06/18 09:00 Oxygen Flow Rate (L/min) 4 Oxygen Delivery Method Nasal Cannula Weight: 174 lb 2.643 oz Body Mass Index (BMI) 26.5 Intake and Output for Last 24 Hours 01/04/18 01/05/18 01/06/18 23:59 23:59 23:59 Intake Total 433 / 433 691 / 691 Output Total 750 / 750 200 / 200 Balance -317 / -317 491 / 491 Laboratory Tests Past 24 Hrs 01/05/18 01/05/18 01/05/18 20:30 20:30 20:30 WBC RBC Hgb Hct MCV MCH MCHC RDW RDW Differential Plt Count MPV Sodium Potassium Chloride Carbon Dioxide Anion Gap BUN Creatinine Estim Creat Clear Calc Est GFR (MDRD) Af Amer Est GFR (MDRD) Non-Af BUN/Creatinine Ratio Glucose Hemoglobin A1c 5.6 Calcium Magnesium 2.6 Iron TIBC Iron Saturation Ferritin Vitamin B12 Folate MRSA (PCR) Negative 01/05/18 01/05/18 01/06/18 20:30 20:30 04:15 WBC 9.6 RBC 3.64 L Hgb 10.2 L Hct 34.5 L MCV 94.8 H MCH 28.0 MCHC 29.6 L RDW 14.6 RDW Differential 48.1 H Plt Count 334 MPV 8.9 Sodium Potassium Chloride Carbon Dioxide Anion Gap BUN Creatinine Estim Creat Clear Calc Est GFR (MDRD) Af Amer Est GFR (MDRD) Non-Af BUN/Creatinine Ratio Glucose Hemoglobin A1c Calcium Magnesium Iron 39 L TIBC 254 Iron Saturation 15.4 Ferritin 362 Vitamin B12 Pending Folate 42.20 MRSA (PCR) 01/06/18 04:15 WBC RBC Hgb Hct MCV MCH MCHC RDW RDW Differential Plt Count MPV Sodium 142 Potassium 4.5 Chloride 96 L Carbon Dioxide 44.0 H Anion Gap 2 L BUN 11 Creatinine 0.51 L Estim Creat Clear Calc 147.16 Est GFR (MDRD) Af Amer 211 Est GFR (MDRD) Non-Af 174 BUN/Creatinine Ratio 21.5 H Glucose 136 H Hemoglobin A1c Calcium 8.4 L Magnesium Iron TIBC Iron Saturation Ferritin Vitamin B12 Folate MRSA (PCR) Diagnostic Data Chest X-Ray 01/05/18 15:10 IMPRESSION: Improved aeration of both lungs. Residual changes seen in both lungs suggestive of scarring. Electronically Signed: Kevin Owusu MD at 15:31 EDT Tel [phone], Service support , Chest CTA 01/05/18 16:51 IMPRESSION: No definite pulmonary embolus. Severe fibrotic COPD. Cannot exclude scattered areas of active inflammatory disease in the lung bases. Focal 1.4 cm nodular density of the right lower lobe, recommend follow-up in 3-4 months. Electronically Signed: Hunter Doan MD at 18:18 EDT , Service support , Medical Necessity - Tobacco Use Smoking Status: Former smoker Tobacco Use: Non-smoker Assessment/Plan Active and Suspected Problems chronic anemia (Acute) Patient is a 62 years old male with COPD, admitted on 01/05/18 for acute respiratory failure with hypoxia and hypercapnia. He presented initially to outpatient office of PCP for progressive shortness of breath for 1 to 2 weeks, found to be hypoxic with Oxygen saturation 81% on room air. He was referred to ED. In ED, ABG showed pH 7.42, PCO2 73, pO2 44. HCO3 was 47.5, showing compensation. He was tachypnic, with use of accessory muscles, BiPAP was applied and admitted to ICU. #1 Acute on chronic respiratory failure with hypoxia and hypercapnea. Started on bronchodilator treatment with DuoNeb, oxygen supplement, and Solu-Medrol. Appreciate pulmonary consult. He is off BiPAP, maintaining Oxygen saturation >90%, although he is complaining of shortness of breath and appears mildly confused. PCO2 73 on admission, but his previous PCO2 were ranging from 69 to 112. Consider to check ABG at his baseline. #2 COPD with exacerbation. CTA of chest showed severe fibrosis with COPD changes. See above. #3 Essential hypertension. Blood pressure is adequate. Continue current medications. #4 Chronic Normocytic anemia. Hgb 10.5 on admission. Baseline Hgb 10-12. Iron panel pending. #5 Pulmonary nodule, RLL. CTA of chest showed 1.4 cm nodular density on RLL. Plan to follow up as outpatient at [facility]. VTE prophylaxis: Lovenox. SCD. GI prophylaxis: H2 kathie po. Patient is full code. Disposition: home in 1 to 2 days. Code Visit Inpatient E&M: 54568 Subs Hosp L3
[2018-01-06] MEDS: Famotidine 20 MG Tablet PO ×2 (10:37→20:59)
[2018-01-06] MEDS: Carvedilol 12.5 MG Tablet PO ×2 (10:37→20:59)
[2018-01-06] MEDS: guaiFENesin 1,200 MG Tablet 1200 MG PO ×2 (10:37→20:59)
--- NOTE | 2018-01-06 10:42 | PN_ITS ---
Patient Problems: Active and Suspected Problems chronic anemia (Acute) Subjective: He is c/o shortness of breath. Currently on 4 liter NC, maintaining saturation of 90%. He is oriented x 3, but appears mildly confused. - Physical Exam General: Cooperative, Confused HEENT: Atraumatic, PERRLA, Normocephalic Oral: Moist Mucosa, No Gingival or Mucosal Lesions/ Ulcerations Neck: Supple, No JVD Lungs: No rhonchi, No wheeze, No rales, Diminished Cardiovascular: Regular rate, Regular Rhythm, Normal S1, Normal S2, No murmurs, No Ectopic Activity Abdomen: Bowel Sounds Present, Soft, Non Tender, Non-Distended, No Hepato- splenomegaly Extremities: No clubbing, No cyanosis, No edema Skin: No rashes, No breakdown Musculoskeletal: No Tenderness to Palpation of Joints or Extremities, No Muscle Wasting Lymphatic: No Cervical, Supraclavicular, or Inguinal Adenopathy Neurological: Cranial nerves II-XII grossly intact, Neuro grossly intact Psych/Mental Status: Anxious Vital Signs Temp Pulse Resp BP Pulse Ox 98.3 F 91 19 H 148/86 H 94 01/06/18 00:00 01/06/18 09:00 01/06/18 09:00 01/06/18 09:00 01/06/18 09:00 Oxygen Flow Rate (L/min) 4 Oxygen Delivery Method Nasal Cannula Weight: 174 lb 2.643 oz Body Mass Index (BMI) 26.5 Intake and Output for Last 24 Hours 01/04/18 01/05/18 01/06/18 23:59 23:59 23:59 Intake Total 433 / 433 691 / 691 Output Total 750 / 750 200 / 200 Balance -317 / -317 491 / 491 Laboratory Tests Past 24 Hrs 01/05/18 01/05/18 01/05/18 20:30 20:30 20:30 WBC RBC Hgb Hct MCV MCH MCHC RDW RDW Differential Plt Count MPV Sodium Potassium Chloride Carbon Dioxide Anion Gap BUN Creatinine Estim Creat Clear Calc Est GFR (MDRD) Af Amer Est GFR (MDRD) Non-Af BUN/Creatinine Ratio Glucose Hemoglobin A1c 5.6 Calcium Magnesium 2.6 Iron TIBC Iron Saturation Ferritin Vitamin B12 Folate MRSA (PCR) Negative 01/05/18 01/05/18 01/06/18 20:30 20:30 04:15 WBC 9.6 RBC 3.64 L Hgb 10.2 L Hct 34.5 L MCV 94.8 H MCH 28.0 MCHC 29.6 L RDW 14.6 RDW Differential 48.1 H Plt Count 334 MPV 8.9 Sodium Potassium Chloride Carbon Dioxide Anion Gap BUN Creatinine Estim Creat Clear Calc Est GFR (MDRD) Af Amer Est GFR (MDRD) Non-Af BUN/Creatinine Ratio Glucose Hemoglobin A1c Calcium Magnesium Iron 39 L TIBC 254 Iron Saturation 15.4 Ferritin 362 Vitamin B12 Pending Folate 42.20 MRSA (PCR) 01/06/18 04:15 WBC RBC Hgb Hct MCV MCH MCHC RDW RDW Differential Plt Count MPV Sodium 142 Potassium 4.5 Chloride 96 L Carbon Dioxide 44.0 H Anion Gap 2 L BUN 11 Creatinine 0.51 L Estim Creat Clear Calc 147.16 Est GFR (MDRD) Af Amer 211 Est GFR (MDRD) Non-Af 174 BUN/Creatinine Ratio 21.5 H Glucose 136 H Hemoglobin A1c Calcium 8.4 L Magnesium Iron TIBC Iron Saturation Ferritin Vitamin B12 Folate MRSA (PCR) Diagnostic Data Chest X-Ray 01/05/18 15:10 IMPRESSION: Improved aeration of both lungs. Residual changes seen in both lungs suggestive of scarring. Electronically Signed: Kevin Owusu MD at 15:31 EDT Tel [phone], Service support , Chest CTA 01/05/18 16:51 IMPRESSION: No definite pulmonary embolus. Severe fibrotic COPD. Cannot exclude scattered areas of active inflammatory disease in the lung bases. Focal 1.4 cm nodular density of the right lower lobe, recommend follow-up in 3-4 months. Electronically Signed: Hunter Doan MD at 18:18 EDT , Service support , Medical Necessity - Tobacco Use Smoking Status: Former smoker Tobacco Use: Non-smoker Assessment/Plan Active and Suspected Problems chronic anemia (Acute) Patient is a 62 years old male with COPD, admitted on 01/05/18 for acute respiratory failure with hypoxia and hypercapnia. He presented initially to outpatient office of PCP for progressive shortness of breath for 1 to 2 weeks , found to be hypoxic with Oxygen saturation 81% on room air. He was referred to ED. In ED, ABG showed pH 7.42, PCO2 73, pO2 44. HCO3 was 47.5, showing compensation. He was tachypnic, with use of accessory muscles, BiPAP was applied and admitted to ICU. #1 Acute on chronic respiratory failure with hypoxia and hypercapnea. Started on bronchodilator treatment with DuoNeb, oxygen supplement, and Solu- Medrol. Appreciate pulmonary consult. He is off BiPAP, maintaining Oxygen saturation >90%, although he is complaining of shortness of breath and appears mildly confused. PCO2 73 on admission, but his previous PCO2 were ranging from 69 to 112. Consider to check ABG at his baseline. #2 COPD with exacerbation. CTA of chest showed severe fibrosis with COPD changes. See above. #3 Essential hypertension. Blood pressure is adequate. Continue current medications. #4 Chronic Normocytic anemia. Hgb 10.5 on admission. Baseline Hgb 10-12. Iron panel pending. #5 Pulmonary nodule, RLL. CTA of chest showed 1.4 cm nodular density on RLL. Plan to follow up as outpatient at [facility]. VTE prophylaxis: Lovenox. SCD. GI prophylaxis: H2 kathie po. Patient is full code. Disposition: home in 1 to 2 days. Code Visit Inpatient E&M: 20165 Subs Hosp L3
--- NOTE | 2018-01-06 14:43 | CPS ---
Per Dr Ayon pt spo2 to be between 88% & 92%. Pt refuses to be on less than 4L NC. Tried to wean pt O2 and pt stated it caused him to have increased SOB. Also, explained to patient when I took off bipap this morning that Dr Ayon wants him to wear it at night, pt stated he does not like wearing PAP and he won't wear it tonight if he does not want to because it is his right to decide.
[2018-01-06] MEDS: Acetaminophen 325 MG Tablet 650 MG PO (23:26)
[2018-01-07] VITALS (33 sets, daily range): BP systolic 112–173; BP diastolic 60–108; PULSE 70–98; RESP 12–27; TEMP 36.4–36.8; O2SAT 89–95
[2018-01-07] MEDS: levoFLOXacin 750 MG Tablet PO (05:29)
--- NOTE | 2018-01-07 06:50 | PCM.PN.INT ---
Subjective: The patient was seen and examined at the bedside this morning. Events from the last 24 hours have been reviewed. The patient is currently afebrile, hemodynamically stable and maintaining appropriate oxygen saturations on his baseline oxygen requirement. The patient was tolerant of BiPAP utilization overnight. Yesterday, nursing was instructed to decrease his supplemental oxygen flow rate, as 4 L/min was not necessary. His oxygen was decreased to 2 L/min and is resting oxygen saturations remained in the mid to high 90s. Nevertheless, the patient immediately began to complain that his breathing quality is worsened by a decrease in his supplemental oxygen flow rate. He was adamant that his flow rate be increased back to 4 L/min. Objective: The patient's most recent lab work, culture data and imaging studies have all been personally reviewed. Respiratory viral panel was negative. Expectorated sputum culture Gram stain revealed 4+ gram-positive cocci and 4+ gram-positive rods. General: Alert, Cooperative, No apparent distress, - - Currently with BiPAP mask in place. HEENT: Atraumatic, PERRLA, Normocephalic Oral: Dry Mucosa Neck: Supple, No Nodes, Trachea Midline Lungs: - - Diminished air movement bilaterally. No wheezes, rales or rhonchi. No conversational dyspnea. Cardiovascular: Regular rate, Regular Rhythm, Normal S1, Normal S2, No murmurs Abdomen: Bowel Sounds Present, Soft, Non Tender Extremities: No clubbing, No cyanosis, No edema Skin: No rashes, No breakdown Musculoskeletal: No Tenderness to Palpation of Joints or Extremities, No Muscle Wasting Lymphatic: No Cervical, Supraclavicular, or Inguinal Adenopathy Neurological: Neuro grossly intact Psych/Mental Status: Alert and oriented to time, place, person, mood and affect Vital Signs Temp Pulse Resp BP Pulse Ox 98.0 F 76 21 H 146/71 H 93 01/07/18 04:00 01/07/18 06:00 01/07/18 06:00 01/07/18 06:00 01/07/18 06:00 Oxygen Flow Rate (L/min) 3.5 Oxygen Delivery Method Bi-pap Weight: 173 lb 1.006 oz Body Mass Index (BMI) 26.5 Intake and Output for Last 24 Hours 01/05/18 01/06/18 01/07/18 23:59 23:59 23:59 Intake Total 433 / 433 1561 / 1561 150 / 150 Output Total 750 / 750 1725 / 1725 400 / 400 Balance -317 / -317 -164 / -164 -250 / -250 Labs (Last 48 Hours) 01/05/18 01/05/18 01/05/18 20:30 20:30 20:30 WBC RBC Hgb Hct MCV MCH MCHC RDW RDW Differential Plt Count MPV Sodium Potassium Chloride Carbon Dioxide Anion Gap BUN Creatinine Estim Creat Clear Calc Est GFR (MDRD) Af Amer Est GFR (MDRD) Non-Af BUN/Creatinine Ratio Glucose Hemoglobin A1c 5.6 Calcium Magnesium 2.6 Iron TIBC Iron Saturation Ferritin Vitamin B12 Folate MRSA (PCR) Negative 01/05/18 01/05/18 01/06/18 20:30 20:30 04:15 WBC 9.6 RBC 3.64 L Hgb 10.2 L Hct 34.5 L MCV 94.8 H MCH 28.0 MCHC 29.6 L RDW 14.6 RDW Differential 48.1 H Plt Count 334 MPV 8.9 Sodium Potassium Chloride Carbon Dioxide Anion Gap BUN Creatinine Estim Creat Clear Calc Est GFR (MDRD) Af Amer Est GFR (MDRD) Non-Af BUN/Creatinine Ratio Glucose Hemoglobin A1c Calcium Magnesium Iron 39 L TIBC 254 Iron Saturation 15.4 Ferritin 362 Vitamin B12 Pending Folate 42.20 MRSA (PCR) 01/06/18 04:15 WBC RBC Hgb Hct MCV MCH MCHC RDW RDW Differential Plt Count MPV Sodium 142 Potassium 4.5 Chloride 96 L Carbon Dioxide 44.0 H Anion Gap 2 L BUN 11 Creatinine 0.51 L Estim Creat Clear Calc 147.16 Est GFR (MDRD) Af Amer 211 Est GFR (MDRD) Non-Af 174 BUN/Creatinine Ratio 21.5 H Glucose 136 H Hemoglobin A1c Calcium 8.4 L Magnesium Iron TIBC Iron Saturation Ferritin Vitamin B12 Folate MRSA (PCR) Microbiology 01/05/18 20:45 Sputum, Expectorated/Coughed Gram Stain - Final 01/06/18 09:20 Mucosa - Nasopharyngeal Respiratory Panel (PCR) - Final Clinical Impression(s) from Imaging Studies Chest X-Ray 01/05/18 15:10 IMPRESSION: Improved aeration of both lungs. Residual changes seen in both lungs suggestive of scarring. Electronically Signed: Kevin Owusu MD at 15:31 EDT Tel [phone], Service support , Chest CTA 01/05/18 16:51 IMPRESSION: No definite pulmonary embolus. Severe fibrotic COPD. Cannot exclude scattered areas of active inflammatory disease in the lung bases. Focal 1.4 cm nodular density of the right lower lobe, recommend follow-up in 3-4 months. Electronically Signed: Hunter Doan MD at 18:18 EDT , Service support , Medical Necessity - Tobacco Use Smoking Status: Former smoker Tobacco Use: Non-smoker Assessment/Plan Active and Suspected Problems chronic anemia (Acute) RECOMMENDATIONS: 1. Continue patient on p.o. Levaquin to complete a 7 day treatment course for possible community-acquired pneumonia 2. Continue prednisone 40 mg daily by mouth. 3. Continue scheduled aerosol treatments as ordered. 4. BiPAP therapy can be utilized with naps and nightly. 5. Continue supplemental oxygen with a goal to maintain saturations 88-92%, to prevent paradoxical CO2 retention. 6. Encourage incentive spirometer use and PEP therapy. 7. Recommend outpatient follow-up CT chest in 6-8 weeks to document resolution of the noted airspace density. 8. At discharge, recommend that the patient be given prescriptions for a combination LABA/LAMA and rescue inhaler. He will need to be seen in the pulmonary medicine clinic within 2 weeks of his discharge. Baseline PFTs will need to be obtained as an outpatient. IMPRESSIONS: 1. Acute on chronic hypoxemic and hypercarbic respiratory failure Likely secondary to baseline COPD with exacerbation due to a lack of outpatient treatment secondary to noncompliance by the patient with pulmonary medicine follow-up. In addition, the patient has what appears to be a community-acquired pneumonia on chest imaging. He will be maintained on antibiotics ?7 days in treatment for the aforementioned. Continue scheduled aerosol treatments. Continue steroids as ordered. Given that the patient has baseline CO2 retention, recommend maintaining oxygen saturations 88-92%, to prevent paradoxical CO2 retention. Would recommend repeating chest CT in 6-8 weeks as an outpatient to document resolution of the airspace opacities noted. Continue empiric BiPAP utilization with naps and nightly. 2. Abnormal chest imaging A greater than 1 cm nodular density and airspace opacities were noted on CTA chest on admission. He will be treated for community-acquired pneumonia with a 7 day treatment course of antibiotics. Upon follow-up in the pulmonary medicine clinic, recommend repeat CT chest in 6-8 weeks to document resolution of the aforementioned. 3. Chronic pain syndrome/obesity/tobacco dependence, in remission/hypertension Complicates care, management, recovery and prognosis. Continue home medications as indicated. Recommend physical therapy evaluation. This note was generated with [employer] dictation software. It may contain incorrect words, spelling, and punctuation that were not noted in checking the note before signing. DISPOSITION: The patient is medically stable for transfer out of the intensive care unit. Code Visit Inpatient E&M: 14450 Subs Hosp L2
--- NOTE | 2018-01-07 06:53 | PN_ITS ---
Subjective: The patient was seen and examined at the bedside this morning. Events from the last 24 hours have been reviewed. The patient is currently afebrile, hemodynamically stable and maintaining appropriate oxygen saturations on his baseline oxygen requirement. The patient was tolerant of BiPAP utilization overnight. Yesterday, nursing was instructed to decrease his supplemental oxygen flow rate, as 4 L/min was not necessary. His oxygen was decreased to 2 L /min and is resting oxygen saturations remained in the mid to high 90s. Nevertheless, the patient immediately began to complain that his breathing quality is worsened by a decrease in his supplemental oxygen flow rate. He was adamant that his flow rate be increased back to 4 L/min. Objective: The patient's most recent lab work, culture data and imaging studies have all been personally reviewed. Respiratory viral panel was negative. Expectorated sputum culture Gram stain revealed 4+ gram-positive cocci and 4+ gram-positive rods. General: Alert, Cooperative, No apparent distress, - - Currently with BiPAP mask in place. HEENT: Atraumatic, PERRLA, Normocephalic Oral: Dry Mucosa Neck: Supple, No Nodes, Trachea Midline Lungs: - - Diminished air movement bilaterally. No wheezes, rales or rhonchi. No conversational dyspnea. Cardiovascular: Regular rate, Regular Rhythm, Normal S1, Normal S2, No murmurs Abdomen: Bowel Sounds Present, Soft, Non Tender Extremities: No clubbing, No cyanosis, No edema Skin: No rashes, No breakdown Musculoskeletal: No Tenderness to Palpation of Joints or Extremities, No Muscle Wasting Lymphatic: No Cervical, Supraclavicular, or Inguinal Adenopathy Neurological: Neuro grossly intact Psych/Mental Status: Alert and oriented to time, place, person, mood and affect Vital Signs Temp Pulse Resp BP Pulse Ox 98.0 F 76 21 H 146/71 H 93 01/07/18 04:00 01/07/18 06:00 01/07/18 06:00 01/07/18 06:00 01/07/18 06:00 Oxygen Flow Rate (L/min) 3.5 Oxygen Delivery Method Bi-pap Weight: 173 lb 1.006 oz Body Mass Index (BMI) 26.5 Intake and Output for Last 24 Hours 01/05/18 01/06/18 01/07/18 23:59 23:59 23:59 Intake Total 433 / 433 1561 / 1561 150 / 150 Output Total 750 / 750 1725 / 1725 400 / 400 Balance -317 / -317 -164 / -164 -250 / -250 Labs (Last 48 Hours) 01/05/18 01/05/18 01/05/18 20:30 20:30 20:30 WBC RBC Hgb Hct MCV MCH MCHC RDW RDW Differential Plt Count MPV Sodium Potassium Chloride Carbon Dioxide Anion Gap BUN Creatinine Estim Creat Clear Calc Est GFR (MDRD) Af Amer Est GFR (MDRD) Non-Af BUN/Creatinine Ratio Glucose Hemoglobin A1c 5.6 Calcium Magnesium 2.6 Iron TIBC Iron Saturation Ferritin Vitamin B12 Folate MRSA (PCR) Negative 01/05/18 01/05/18 01/06/18 20:30 20:30 04:15 WBC 9.6 RBC 3.64 L Hgb 10.2 L Hct 34.5 L MCV 94.8 H MCH 28.0 MCHC 29.6 L RDW 14.6 RDW Differential 48.1 H Plt Count 334 MPV 8.9 Sodium Potassium Chloride Carbon Dioxide Anion Gap BUN Creatinine Estim Creat Clear Calc Est GFR (MDRD) Af Amer Est GFR (MDRD) Non-Af BUN/Creatinine Ratio Glucose Hemoglobin A1c Calcium Magnesium Iron 39 L TIBC 254 Iron Saturation 15.4 Ferritin 362 Vitamin B12 Pending Folate 42.20 MRSA (PCR) 01/06/18 04:15 WBC RBC Hgb Hct MCV MCH MCHC RDW RDW Differential Plt Count MPV Sodium 142 Potassium 4.5 Chloride 96 L Carbon Dioxide 44.0 H Anion Gap 2 L BUN 11 Creatinine 0.51 L Estim Creat Clear Calc 147.16 Est GFR (MDRD) Af Amer 211 Est GFR (MDRD) Non-Af 174 BUN/Creatinine Ratio 21.5 H Glucose 136 H Hemoglobin A1c Calcium 8.4 L Magnesium Iron TIBC Iron Saturation Ferritin Vitamin B12 Folate MRSA (PCR) Microbiology 01/05/18 20:45 Sputum, Expectorated/Coughed Gram Stain - Final 01/06/18 09:20 Mucosa - Nasopharyngeal Respiratory Panel (PCR) - Final Clinical Impression(s) from Imaging Studies Chest X-Ray 01/05/18 15:10 IMPRESSION: Improved aeration of both lungs. Residual changes seen in both lungs suggestive of scarring. Electronically Signed: Kevin Owusu MD at 15:31 EDT Tel [phone], Service support , Chest CTA 01/05/18 16:51 IMPRESSION: No definite pulmonary embolus. Severe fibrotic COPD. Cannot exclude scattered areas of active inflammatory disease in the lung bases. Focal 1.4 cm nodular density of the right lower lobe, recommend follow-up in 3-4 months. Electronically Signed: Hunter Doan MD at 18:18 EDT , Service support , Medical Necessity - Tobacco Use Smoking Status: Former smoker Tobacco Use: Non-smoker Assessment/Plan Active and Suspected Problems chronic anemia (Acute) RECOMMENDATIONS: 1. Continue patient on p.o. Levaquin to complete a 7 day treatment course for possible community-acquired pneumonia 2. Continue prednisone 40 mg daily by mouth. 3. Continue scheduled aerosol treatments as ordered. 4. BiPAP therapy can be utilized with naps and nightly. 5. Continue supplemental oxygen with a goal to maintain saturations 88-92%, to prevent paradoxical CO2 retention. 6. Encourage incentive spirometer use and PEP therapy. 7. Recommend outpatient follow-up CT chest in 6-8 weeks to document resolution of the noted airspace density. 8. At discharge, recommend that the patient be given prescriptions for a combination LABA/LAMA and rescue inhaler. He will need to be seen in the pulmonary medicine clinic within 2 weeks of his discharge. Baseline PFTs will need to be obtained as an outpatient. IMPRESSIONS: 1. Acute on chronic hypoxemic and hypercarbic respiratory failure Likely secondary to baseline COPD with exacerbation due to a lack of outpatient treatment secondary to noncompliance by the patient with pulmonary medicine follow-up. In addition, the patient has what appears to be a community- acquired pneumonia on chest imaging. He will be maintained on antibiotics ?7 days in treatment for the aforementioned. Continue scheduled aerosol treatments. Continue steroids as ordered. Given that the patient has baseline CO2 retention, recommend maintaining oxygen saturations 88-92%, to prevent paradoxical CO2 retention. Would recommend repeating chest CT in 6-8 weeks as an outpatient to document resolution of the airspace opacities noted. Continue empiric BiPAP utilization with naps and nightly. 2. Abnormal chest imaging A greater than 1 cm nodular density and airspace opacities were noted on CTA chest on admission. He will be treated for community-acquired pneumonia with a 7 day treatment course of antibiotics. Upon follow-up in the pulmonary medicine clinic, recommend repeat CT chest in 6-8 weeks to document resolution of the aforementioned. 3. Chronic pain syndrome/obesity/tobacco dependence, in remission/hypertension Complicates care, management, recovery and prognosis. Continue home medications as indicated. Recommend physical therapy evaluation. This note was generated with [employer] dictation software. It may contain incorrect words, spelling, and punctuation that were not noted in checking the note before signing. DISPOSITION: The patient is medically stable for transfer out of the intensive care unit. Code Visit Inpatient E&M: 74149 Subs Hosp L2
[2018-01-07] MEDS: Ipratropium/Albuterol Sulfate 3 ML AMPUL.NEB INHALATION ×4 (06:55→19:25)
[2018-01-07] MEDS: predniSONE 20 MG Tablet 40 MG PO (08:21)
[2018-01-07] MEDS: Aspirin 81 MG TAB.CHEW PO (08:21)
[2018-01-07] MEDS: Famotidine 20 MG Tablet PO ×2 (10:22→21:54)
[2018-01-07] MEDS: Carvedilol 12.5 MG Tablet PO ×2 (10:22→21:54)
[2018-01-07 11:46] LABS: Allen Test POS; Blood Gas Specimen Type ART; SITE R RADIAL
[2018-01-07 11:47] LABS: FI02 30; O2 Delivery Device BIPAP; RR 14
[2018-01-07 11:48] LABS: Base Excess 26 mmol/L (-2 to +2); Bicarbonate 50.5 mmol/L (22-26); EPAP 6; IPAP 12; PO2 56 mmHG (75-100); Time Given 1130; pCO2 76.3 mmHg (35-45); pH 7.43 (7.35-7.45)
[2018-01-07 11:49] LABS: SO2 87 % (95-99); Total Carbon Dioxide > 50 mmol/L
--- NOTE | 2018-01-07 15:43 | NURSING ---
SpO2 to 78% while ambulating in [place] on 2lnc w/ PT. Recovers to 88% in 3 min after returning to room and sitting in chair.
--- NOTE | 2018-01-07 19:38 | PN_ITS ---
Patient Problems: Active and Suspected Problems chronic anemia (Acute) Subjective: He is doing better. He is ambulating with PT. - Physical Exam General: Cooperative, Confused HEENT: Atraumatic, PERRLA, Normocephalic Oral: Moist Mucosa, No Gingival or Mucosal Lesions/ Ulcerations Neck: Supple, No JVD Lungs: No rhonchi, No wheeze, No rales, Diminished Cardiovascular: Regular rate, Regular Rhythm, Normal S1, Normal S2, No murmurs, No Ectopic Activity Abdomen: Bowel Sounds Present, Soft, Non Tender, Non-Distended, No Hepato- splenomegaly Extremities: No clubbing, No cyanosis, No edema Skin: No rashes, No breakdown Musculoskeletal: No Tenderness to Palpation of Joints or Extremities, No Muscle Wasting Lymphatic: No Cervical, Supraclavicular, or Inguinal Adenopathy Neurological: Cranial nerves II-XII grossly intact, Neuro grossly intact Psych/Mental Status: Anxious - Physical Exam Vital Signs Temp Pulse Resp BP Pulse Ox 98.2 F 93 20 H 133/74 H 91 01/07/18 17:30 01/07/18 19:20 01/07/18 17:30 01/07/18 17:30 01/07/18 17:30 Oxygen Flow Rate (L/min) 2 Oxygen Delivery Method Nasal Cannula Weight: 173 lb 1.006 oz Body Mass Index (BMI) 26.5 Intake and Output for Last 24 Hours 01/05/18 01/06/18 01/07/18 23:59 23:59 23:59 Intake Total 433 / 433 1561 / 1561 930 / 930 Output Total 750 / 750 1725 / 1725 1875 / 1875 Balance -317 / -317 -164 / -164 -945 / -945 Microbiology Past 72 Hours 01/05/18 20:45 Gram Stain - Final Sputum, Expectorated/Coughed Respiratory Culture - Preliminary Appears to be normal respiratory fredy. Further studies to follow. 01/06/18 09:20 Respiratory Panel (PCR) - Final Mucosa - Nasopharyngeal Laboratory Tests Past 24 Hrs 01/07/18 11:30 Specimen Type ART Sample Site R RADIAL pH 7.43 Bicarbonate Actual 50.5 H POC Total CO2 > 50 Base Excess 26 H O2 Saturation 87 L O2 % 30 ABG pCO2 76.3 H* ABG pO2 56 L Pranav Test POS Respiration Rate 14 O2 Delivery Device BIPAP EPAP 6 IPAP 12 Blood Gas Notified Whom ICU MD Blood Gas Notified Time 1130 Diagnostic Data Chest X-Ray 01/05/18 15:10 IMPRESSION: Improved aeration of both lungs. Residual changes seen in both lungs suggestive of scarring. Electronically Signed: Kevin Owusu MD at 15:31 EDT Tel [phone], Service support , Chest CTA 01/05/18 16:51 IMPRESSION: No definite pulmonary embolus. Severe fibrotic COPD. Cannot exclude scattered areas of active inflammatory disease in the lung bases. Focal 1.4 cm nodular density of the right lower lobe, recommend follow-up in 3-4 months. Electronically Signed: Hunter Doan MD at 18:18 EDT , Service support , Medical Necessity - Tobacco Use Smoking Status: Former smoker Tobacco Use: Non-smoker Assessment/Plan Active and Suspected Problems chronic anemia (Acute) Patient is a 62 years old male with COPD, admitted on 01/05/18 for acute respiratory failure with hypoxia and hypercapnia. He presented initially to outpatient office of PCP for progressive shortness of breath for 1 to 2 weeks , found to be hypoxic with Oxygen saturation 81% on room air. He was referred to ED. In ED, ABG showed pH 7.42, PCO2 73, pO2 44. HCO3 was 47.5, showing compensation. He was tachypneic, with use of accessory muscles, BiPAP was applied and admitted to ICU. #1 Acute on chronic respiratory failure with hypoxia and hypercapnea. Started on bronchodilator treatment with DuoNeb, oxygen supplement, and Solu- Medrol. Appreciate pulmonary consult. He is off BiPAP, maintaining Oxygen saturation >90%, although he is complaining of shortness of breath and appears mildly confused. PCO2 73 on admission, but his previous PCO2 were ranging from 69 to 112. Consider to check ABG at his baseline. Out of ICU status, 01/07. #2 COPD with exacerbation. CTA of chest showed severe fibrosis with COPD changes. See above. #3 Essential hypertension. Blood pressure is adequate. Continue current medications. #4 Chronic Normocytic anemia. Hgb 10.5 on admission. Baseline Hgb 10-12. Iron panel pending. #5 Pulmonary nodule, RLL. CTA of chest showed 1.4 cm nodular density on RLL. Plan to follow up as outpatient at [facility]. VTE prophylaxis: Lovenox. SCD. GI prophylaxis: H2 kathie po. Patient is full code. Disposition: home in 1 to 2 days. Code Visit Inpatient E&M: 75304 Subs Hosp L2
[2018-01-07] MEDS: Albuterol 2.5 MG/3 ML VIAL.NEB. INHALATION (23:47)
[2018-01-08] VITALS (20 sets, daily range): BP systolic 122–157; BP diastolic 61–82; PULSE 70–99; RESP 14–25; TEMP 36.4–36.8; O2SAT 89–93
[2018-01-08] MEDS: levoFLOXacin 750 MG Tablet PO (05:15)
--- NOTE | 2018-01-08 06:25 | PN_ITS ---
Subjective: Patient did okay overnight. Patient was slated for a PCU bed, but no bed became available, so he stayed in the intensive care unit. Patient continues to report difficulty in mobilizing secretions. Patient used BiPAP for only 3 hours overnight. Patient denies any chest pain at this time. General: Alert, Oriented x3, Cooperative, No apparent distress, - - Appears older than stated age. Speaking in full sentences. HEENT: Atraumatic, PERRLA, EOMI, Normocephalic, - - Pleural injection without icterus Oral: Moist Mucosa, No Gingival or Mucosal Lesions/ Ulcerations Neck: Supple, No JVD, No Nodes, Trachea Midline Lungs: No rales, Diminished, Rhonchi, Wheezes, - - Increased AP diameter. Symmetric expansion. No dullness to percussion. Cardiovascular: Regular rate, Regular Rhythm, Normal S1, Normal S2, Murmur - Grade 2 out of 6 systolic ejection murmur at the right sternal border, No rub noted, No Gallop Abdomen: Bowel Sounds Present, Soft, Non Tender, Non-Distended Extremities: No cyanosis, No edema, Capillary Refill Less than 3 Seconds, Clubbing Skin: No rashes, No breakdown Musculoskeletal: No Tenderness to Palpation of Joints or Extremities Lymphatic: No Cervical, Supraclavicular, or Inguinal Adenopathy Neurological: Cranial nerves II-XII grossly intact, Neuro grossly intact, Motor Exam 5/5 strength throughout Psych/Mental Status: Alert and oriented to time, place, person, mood and affect Vital Signs Temp Pulse Resp BP Pulse Ox 36.7 C 89 20 H 157/79 H 92 01/08/18 05:00 01/08/18 05:00 01/08/18 05:00 01/08/18 05:00 01/08/18 05:00 Oxygen Flow Rate (L/min) 2 Oxygen Delivery Method Nasal Cannula Weight: 78.5 kg Body Mass Index (BMI) 26.5 Intake and Output for Last 24 Hours 01/06/18 01/07/18 01/08/18 23:59 23:59 23:59 Intake Total 1561 / 1561 1430 / 1430 100 / 100 Output Total 1725 / 1725 2425 / 2425 225 / 225 Balance -164 / -164 -995 / -995 -125 / -125 Labs (Last 48 Hours) 01/07/18 11:30 Specimen Type ART Sample Site R RADIAL pH 7.43 Bicarbonate Actual 50.5 H POC Total CO2 > 50 Base Excess 26 H O2 Saturation 87 L O2 % 30 ABG pCO2 76.3 H* ABG pO2 56 L Pranav Test POS Respiration Rate 14 O2 Delivery Device BIPAP EPAP 6 IPAP 12 Blood Gas Notified Whom ICU Blood Gas Notified Time 1130 Microbiology 01/05/18 20:45 Sputum, Expectorated/Coughed Gram Stain - Final 01/05/18 20:45 Sputum, Expectorated/Coughed Respiratory Culture - Preliminary Appears to be normal respiratory fredy. Further studies to follow. 01/06/18 09:20 Mucosa - Nasopharyngeal Respiratory Panel (PCR) - Final Medical Necessity - Tobacco Use Smoking Status: Former smoker Tobacco Use: Non-smoker Assessment/Plan Active and Suspected Problems chronic anemia (Acute) RECOMMENDATIONS: 1. Continue patient on p.o. Levaquin to complete a 7 day treatment course for possible community-acquired pneumonia 2. Continue prednisone 40 mg daily by mouth. 3. Continue scheduled aerosol treatments as ordered. 4. BiPAP therapy should be utilized with naps and nightly. 5. Continue supplemental oxygen with a goal to maintain saturations 88-92%, to prevent paradoxical CO2 retention. 6. Attempt trial of vest therapy, continue IS and Acapella 7. Recommend outpatient follow-up CT chest in 6-8 weeks to document resolution of the noted airspace density. 8. At discharge, recommend that the patient be given prescriptions for a combination LABA/LAMA and rescue inhaler. He will need to be seen in the pulmonary medicine clinic within 2 weeks of his discharge. Baseline PFTs will need to be obtained as an outpatient. IMPRESSIONS: 1. Acute on chronic hypoxemic and hypercarbic respiratory failure Patient appears to be improved compared to previous. Patient is on Levaquin therapy and appears to be tolerating this well. On prednisone therapy. Patient is demanding higher FiO2 despite discussions about paradoxical CO2 retention. Patient will need a repeat CT scan as an outpatient in 6-8 weeks to document resolution given extensive smoking history and concern for cancer. Did stress to the patient that BiPAP overnight with decrease his chances of relapse. Patient voiced understanding, but states that it drives by mouth about 2 much. 2. Abnormal chest imaging A greater than 1 cm nodular density and airspace opacities were noted on CTA chest on admission. He will be treated for community-acquired pneumonia with a 7 day treatment course of antibiotics. Upon follow-up in the pulmonary medicine clinic, recommend repeat CT chest in 6-8 weeks to document resolution of the aforementioned. 3. Chronic pain syndrome/obesity/tobacco dependence, in remission/ hypertension Complicates care, management, recovery and prognosis. Continue home medications as indicated. Recommend physical therapy evaluation. This note was generated with [employer] dictation software. It may contain incorrect words, spelling, and punctuation that were not noted in checking the note before signing. Code Visit Inpatient E&M: 13978 Subs Hosp L2
[2018-01-08] MEDS: Ipratropium/Albuterol Sulfate 3 ML AMPUL.NEB INHALATION ×5 (06:45→23:09)
[2018-01-08] MEDS: predniSONE 20 MG Tablet 40 MG PO (08:31)
[2018-01-08] MEDS: Aspirin 81 MG TAB.CHEW PO (08:31)
--- NOTE | 2018-01-08 08:32 | PCM.PROGNOTE ---
Subjective: Chief complaint: Follow-up after admission for acute on chronic hypoxic and hypercapnic respiratory failure due to acute COPD exacerbation. Patient seen and examined. No acute events overnight. He mentioned that his breathing is a little bit better. Still complaining of cough and sputum that is difficult to expectorate. Denies fever chills. Overall, is feeling a little bit better. His pulse ox is maintained on 2 L of oxygen. At home, he has been on 2 L as well. Other vital signs are stable. - Physical Exam General: Alert, Oriented x3, Cooperative, - - Mildly short of breath. HEENT: Atraumatic, PERRLA, EOMI Oral: Moist Mucosa, No Gingival or Mucosal Lesions/ Ulcerations Neck: Supple, No JVD, Negative Carotid Bruits, Trachea Midline, Thyroid Normal Size and Texture Lungs: No wheeze, No rales, Diminished, Rhonchi, Short of Breath, - - Markedly decreased sounds bilateral, otherwise clear. Cardiovascular: Regular rate, Regular Rhythm, Normal S1, Normal S2, PMI Normal Abdomen: Bowel Sounds Present, Soft, Non Tender, Non-Distended, No Hepato-splenomegaly Extremities: No clubbing, No cyanosis, No edema Skin: No rashes, No breakdown Lymphatic: No Cervical, Supraclavicular, or Inguinal Adenopathy Neurological: Cranial nerves II-XII grossly intact, Motor Exam 5/5 strength throughout Psych/Mental Status: Normal Affect, Appropriate, Alert and oriented to time, place, person, mood and affect Vital Signs Temp Pulse Resp BP Pulse Ox 98.0 F 85 25 H 155/82 H 89 01/08/18 08:21 01/08/18 08:21 01/08/18 08:21 01/08/18 08:21 01/08/18 08:21 Oxygen Flow Rate (L/min) 3 Oxygen Delivery Method Nasal Cannula Weight: 173 lb 1.006 oz Body Mass Index (BMI) 26.5 Intake and Output for Last 24 Hours 01/06/18 01/07/18 01/08/18 23:59 23:59 23:59 Intake Total 1561 / 1561 1430 / 1430 100 / 100 Output Total 1725 / 1725 2425 / 2425 225 / 225 Balance -164 / -164 -995 / -995 -125 / -125 Microbiology Past 72 Hours 01/05/18 20:45 Gram Stain - Final Sputum, Expectorated/Coughed Respiratory Culture - Preliminary Appears to be normal respiratory fredy. Further studies to follow. 01/06/18 09:20 Respiratory Panel (PCR) - Final Mucosa - Nasopharyngeal Laboratory Tests Past 24 Hrs 01/07/18 11:30 Specimen Type ART Sample Site R RADIAL pH 7.43 Bicarbonate Actual 50.5 H POC Total CO2 > 50 Base Excess 26 H O2 Saturation 87 L O2 % 30 ABG pCO2 76.3 H* ABG pO2 56 L Pranav Test POS Respiration Rate 14 O2 Delivery Device BIPAP EPAP 6 IPAP 12 Blood Gas Notified Whom ICU Blood Gas Notified Time 1130 Medical Necessity - Tobacco Use Smoking Status: Former smoker Tobacco Use: Non-smoker Assessment/Plan This is a 62 years old male patient admitted because of shortness of breath, wheezing and cough he was found to have acute COPD exacerbation complicated by acute on chronic hypoxic and hypercapnic respiratory failure. #1 acute COPD exacerbation: He is on oral Levaquin, prednisone and bronchodilators. He did report some improvement of his shortness of breath. He has been maintaining his pulse ox at 2 L. At home, he has been on 2 L as well. Respiratory panel for viruses were negative. Sputum culture revealed normal respiratory fredy. Plan: Continue same treatment. #2 acute on chronic hypoxic and hypercapnic respiratory failure: This patient is a chronic CO2 retainer. ABG from yesterday reviewed, revealed pH of 7.43, PCO2 of 76 and PO2 of 56. Today, pulse ox is around 90s on 2 L. At home, has been on 2 L as well. Plan as above. #3 hypertension: Continue Coreg and IV hydralazine as needed. #4 chronic anemia: Hemoglobin and hematocrit are stable, at baseline, no evidence of active bleeding. #5 lung nodules: CTA chest done for elevated d-dimer and revealed no evidence of PE or dissection. It did show 1.4 cm right lower lobe nodule, plan for follow-up CT scan chest in 6-8 weeks according to pulmonology. #6 DVT prophylaxis: Subcu Lovenox. This note was generated with [employer] software. It may contain incorrect words, spelling, and punctuation that were not noted in checking the note before signing. Code Visit Inpatient E&M: 54887 Subs Hosp L2
[2018-01-08 09:41] LABS: Vitamin B12 > 2000 pg/mL (211-911)
[2018-01-08 09:51] LABS: Allen Test POS; Base Excess 25 mmol/L (-2 to +2); Bicarbonate 49.9 mmol/L (22-26); Blood Gas Specimen Type ART; O2 Delivery Device Nasal Can; PO2 65 mmHG (75-100); SITE L Radial; SO2 90 % (95-99); Time Given 2148; Total Carbon Dioxide > 50 mmol/L; pCO2 83.9 mmHg (35-45); pH 7.38 (7.35-7.45)
[2018-01-08] MEDS: Enoxaparin 40 MG/0.4 ML Syringe SC (10:19)
[2018-01-08] MEDS: Carvedilol 12.5 MG Tablet PO ×2 (10:19→21:58)
[2018-01-08] MEDS: Famotidine 20 MG Tablet PO ×2 (10:19→21:58)
--- NOTE | 2018-01-08 15:10 | CASEMGMT ---
See PRUDENCIO WELCH Assessment. DC PLAN: Home with [facility]. --Prior to admission, Dr. Lyman, guidance consultant in [place] w/[facility] prescripbed Spiriva Respimat to be filled @ [facility]. Pt could not afford medication which was over $350. PRUDENCIO WELCH discussed cost of medication with Dr. Villalba. Alternative would be TRELEGY ELLIPTA. This is covered under [employer]. PRUDENCIO WELCH called to verify insurance- covered @ $8.35. Dr. Villalba updated. Pt is aware and can pay for this medication if ordered on dc. -Pt very open in communicating he is having a difficult time with cost of prescriptions, physician visits and difficulty @ home with cleaning, chores, transportation (pt drives, but car has not been working). PRUDENCIO WELCH discussed if pt has considered [employer] application. He states his income is $1300/month through disability. He is willing to consider applying for SAMANTHA and discussing assistance he could receive at home. BENOIT Peralta updated. [facility] transportation brochure given, explained that services are available for [facility] affiliated services. -Discussed Home Health- pt is agreeable for RN and refuge worker to follow @ home. Order placed, call to Mariposa Segura w/[facility], message left with referral information. Soniya KIRK RN AC
--- NOTE | 2018-01-08 22:06 | CPS ---
VEST NOT DONE DUE TO INCREASED WORKLOAD
[2018-01-09] VITALS (9 sets, daily range): BP systolic 119–143; BP diastolic 49–85; PULSE 71–88; RESP 14–22; TEMP 36.6–36.7; O2SAT 91–96
[2018-01-09] MEDS: Ipratropium/Albuterol Sulfate 3 ML AMPUL.NEB INHALATION ×2 (03:53→11:16)
[2018-01-09] MEDS: levoFLOXacin 750 MG Tablet PO (06:05)
[2018-01-09] MEDS: Aspirin 81 MG TAB.CHEW PO (09:30)
[2018-01-09] MEDS: Famotidine 20 MG Tablet PO (09:30)
[2018-01-09] MEDS: Carvedilol 12.5 MG Tablet PO (09:30)
[2018-01-09] MEDS: predniSONE 20 MG Tablet 40 MG PO (09:31)
--- NOTE | 2018-01-09 10:44 | PCM.DC ---
- Discharge Diagnoses Current Active Problems: Current Active and Chronic Problems Former tobacco use (Chronic) Chronic anemia (Chronic) You will use the following diet at home:: Regular Your food should be the consistency of: Regular Discharge Activity: Return to Normal Activity Weight Bearing Status: Weight bearing as tolerated Call your doctor if you observe: Fever of 101 or Higher, Shortness of breath, Dizziness, Fainting spells, Chest pain, Increased palpitations (irregular heartbeat), Uncontrolled pain Instructions: Discharge Instructions: COPD, Discharge Instructions: Using a Metered-Dose Inhaler Allergies/Adverse Reactions: Allergies No Known Allergies Allergy (Verified 01/31/17 13:19) Medications to take at Discharge Albuterol Aerosols [Ventolin Aerosols] 2.5 mg INHALATION Q4H PRN PRN #30 vial 11/03/17 Aspirin [Aspirin, Baby] 81 mg PO DAILY 01/05/18 Carvedilol [Coreg (Beta Sonja)] 12.5 mg PO DAILY 01/05/18 Fluticasone/Umeclidin/Vilanter [Trelegy Ellipta 100-62.5-25] 1 puff IH DAILY #3 blst.w.dev 01/09/18 Prednisone 10 mg PO DAILY #30 tab 01/09/18 levoFLOXacin tablet [Levaquin tablet] 750 mg PO DAILY@0600 #4 tab 01/09/18 The following prescriptions were given: Fluticasone/Umeclidin/Vilanter [Trelegy Ellipta 100-62.5-25] 1 puff IH DAILY #3 blst.w.dev levoFLOXacin tablet [Levaquin tablet] 750 mg PO DAILY@0600 #4 tab Prednisone 10 mg PO DAILY #30 tab Primary Care Physician: Chang Kumari MD [Primary Care Provider] - Please follow up with your Primary Care Physician in: 3-4 weeks. Please Follow Up With: Mitch Villalba MD When: 2 weeks.
--- NOTE | 2018-01-09 10:46 | PCM.PROGNOTE ---
Subjective: Patient was seen and examined. He is sitting up in the chair wearing BiPAP, just ambulated to the bathroom and was short of breath. Nursing staff reports he worries about 15 minutes after ambulation and then switches to nasal cannula. He is requesting higher oxygen flow when on nasal cannula, despite pulse ox reading 92%. - Physical Exam General: Alert, Oriented x3, Cooperative, Well developed, Well nourished, - - wearing BiPAP HEENT: Atraumatic, Normocephalic Oral: - - bipap in place Neck: Supple, Trachea Midline Lungs: No rhonchi, No wheeze, No rales, Diminished Cardiovascular: Regular rate, Regular Rhythm, Normal S1, Normal S2, Murmur, No rub noted, No Gallop Abdomen: Bowel Sounds Present, Soft, Non Tender, Non-Distended Extremities: No cyanosis, No edema, Clubbing Skin: No rashes, No breakdown Musculoskeletal: No Tenderness to Palpation of Joints or Extremities Lymphatic: No Cervical, Supraclavicular, or Inguinal Adenopathy Neurological: Neuro grossly intact Psych/Mental Status: Alert and oriented to time, place, person, mood and affect Vital Signs Temp Pulse Resp BP Pulse Ox 98.1 F 85 20 H 138/85 H 91 01/09/18 09:40 01/09/18 09:40 01/09/18 09:40 01/09/18 09:40 01/09/18 09:40 Oxygen Flow Rate (L/min) 3 Oxygen Delivery Method Bi-pap Weight: 173 lb 1.006 oz Body Mass Index (BMI) 26.5 Intake and Output for Last 24 Hours 01/07/18 01/08/18 01/09/18 23:59 23:59 23:59 Intake Total 1430 / 1430 920 / 920 240 / 240 Output Total 2425 / 2425 1150 / 1150 300 / 300 Balance -995 / -995 -230 / -230 -60 / -60 Microbiology Past 72 Hours 01/05/18 20:45 Gram Stain - Final Sputum, Expectorated/Coughed Respiratory Culture - Final Moraxella(Kim.)Catarrhalis 01/06/18 09:20 Respiratory Panel (PCR) - Final Mucosa - Nasopharyngeal Medical Necessity - Tobacco Use Smoking Status: Former smoker Tobacco Use: Non-smoker Assessment/Plan RECOMMENDATIONS: 1. Continue patient on p.o. Levaquin to complete a 7 day treatment course for possible community-acquired pneumonia 2. Continue prednisone 40 mg daily by mouth. 3. Continue scheduled aerosol treatments as ordered. 4. BiPAP therapy should be utilized with naps and nightly. 5. Continue supplemental oxygen with a goal to maintain saturations 88-92%, to prevent paradoxical CO2 retention. 6. Continue IS and Acapella, vest therapy would be beneficial but patient refusing 7. Recommend outpatient follow-up CT chest in 6-8 weeks to document resolution of the noted airspace density. 8. At discharge, recommend that the patient be given prescriptions for a combination LABA/LAMA and rescue inhaler. He will need to be seen in the pulmonary medicine clinic within 2 weeks of his discharge. Baseline PFTs will need to be obtained as an outpatient. IMPRESSIONS: 1. Acute on chronic hypoxemic and hypercarbic respiratory failure Patient appears to be improved compared to previous. Patient is on Levaquin therapy and appears to be tolerating this well. On prednisone therapy. Patient is demanding higher FiO2 despite discussions about paradoxical CO2 retention. Patient will need a repeat CT scan as an outpatient in 6-8 weeks to document resolution given extensive smoking history and concern for cancer. Did stress to the patient that BiPAP overnight will decrease his chances of relapse. Patient voiced understanding, but states that it dries my mouth out too much. Per nursing staff, he has been wearing it infrequently, usually on for about 15 minutes after he ambulates. Concern for follow-up as patient noncompliant. Reinforced importance of follow up. Ambulatory pulse ox shows 4L oxygen requirement with ambulation, patient should continue at home until seen in office. 2. Abnormal chest imaging A greater than 1 cm nodular density and airspace opacities were noted on CTA chest on admission. He will be treated for community-acquired pneumonia with a 7 day treatment course of antibiotics. Upon follow-up in the pulmonary medicine clinic, recommend repeat CT chest in 6-8 weeks to document resolution of the aforementioned. 3. Chronic pain syndrome/obesity/tobacco dependence, in remission/hypertension Complicates care, management, recovery and prognosis. Continue home medications as indicated. Continue physical therapy. This note was generated with [employer] software. It may contain incorrect words, spelling, and punctuation that were not noted in checking the note before signing.
--- NOTE | 2018-01-09 11:20 | NURSING ---
PATIENT AMBULATED IN HALLWAY ON 4LNC 88%, TRIED 3LNC 86-87%. ON 2LNC AT REST PATIENT IS 91-92%
--- NOTE | 2018-01-09 11:41 | CASEMGMT ---
BENOIT met with patient, introduced self as well as role at [facility]. BENOIT told patient about help with Medicare expenses as well as help with medicare D. BENOIT also gave him an application for help with MCR expenses. He has access to a computer and knows he has to apply online for help with Medicare D. BENOIT told him it does not look like he will qualify for Medicaid as the financial guideline is $755 and he receives $1300. BENOIT did also talk with him about [facility] care consultation and he was in agreement with this. He thanked BENOIT for all of the information. BENOIT will also pass along to the [facility] HH SW to check in with patient on these things. Jelena VARELA MSW
--- NOTE | 2018-01-09 16:15 | PCM.DC.SUM ---
Discharge Date and Diagnosis Date of Admission: 01/05/18 Date of Discharge: 01/09/18 - Primary Discharge Diagnosis #1 acute COPD exacerbation. #2 acute on chronic hypoxic and hypercapnic respiratory failure. #3 lung nodules, right lower lobe. - Secondary Discharge Diagnosis Chronic Problems Former tobacco use (Chronic) Chronic anemia (Chronic) HTN (hypertension) (Chronic) Hospital Course and Treatment Imaging Results: Clinical Impression(s) from Imaging Studies Chest X-Ray 01/05/18 15:10 IMPRESSION: Improved aeration of both lungs. Residual changes seen in both lungs suggestive of scarring. Electronically Signed: Kevin Owusu MD at 15:31 EDT Tel [phone], Service support , Chest CTA 01/05/18 16:51 IMPRESSION: No definite pulmonary embolus. Severe fibrotic COPD. Cannot exclude scattered areas of active inflammatory disease in the lung bases. Focal 1.4 cm nodular density of the right lower lobe, recommend follow-up in 3-4 months. Electronically Signed: Hunter Doan MD at 18:18 EDT , Service support , Dr. Villalba, critical care. Operations: None Procedures: EKG Summary of Care Provided: Patient seen and examined on the day of discharge and appeared to be stable to be discharged home. He reported continued slow improvement of his shortness of breath and he remained on oxygen during daytime and tolerated BiPAP overnight. His other vital signs are stable. - Physical Exam General: Alert, Oriented x3, Cooperative, - - Mildly short of breath. HEENT: Atraumatic, PERRLA, EOMI Oral: Moist Mucosa, No Gingival or Mucosal Lesions/ Ulcerations Neck: Supple, No JVD, Negative Carotid Bruits, Trachea Midline, Thyroid Normal Size and Texture Lungs: No wheeze, No rales, Diminished, no rhonchi, - Markedly decreased sounds bilateral, otherwise clear. Cardiovascular: Regular rate, Regular Rhythm, Normal S1, Normal S2, PMI Normal Abdomen: Bowel Sounds Present, Soft, Non Tender, Non-Distended, No Hepato-splenomegaly Extremities: No clubbing, No cyanosis, No edema Skin: No rashes, No breakdown Lymphatic: No Cervical, Supraclavicular, or Inguinal Adenopathy Neurological: Cranial nerves II-XII grossly intact, Motor Exam 5/5 strength throughout Psych/Mental Status: Normal Affect, Appropriate, Alert and oriented to time, place, person, mood and affect Vital Signs are stable. Hospital course: This is a 62 years old male patient admitted because of shortness of breath, wheezing and cough and he was found to have acute COPD exacerbation complicated by acute on chronic hypoxic and hypercapnic respiratory failure. His chest x-ray showed no acute findings, pneumonia ruled out. Initially, patient was admitted to the intensive care unit, treated with IV steroids, IV antibiotics and BiPAP. His ABG revealed pH 7.43, PCO2 of 76 and PO2 of 56. He does have CO2 retention. CTA chest done for elevated d-dimer and showed no evidence of PE or dissection. But did show 1.4 cm right lower lobe nodule. Pulmonology consulted and recommended repeat CT scan chest in 6-8 weeks. With above-mentioned treatment, patient symptoms improved slowly and was able to maintain his pulse ox on oxygen at 2 L which is his baseline at home. His routine blood work was remarkable for chronic anemia, otherwise normal. Respiratory panel for viruses came back negative. Sputum culture revealed Moraxella catarrhalis. Patient discharged home in a stable medical condition, discharged on Levaquin 750 mg p.o. daily to complete 7 days of treatment, discharged on trilogy Trelegy Ellipta inhaler, discharged on tapering dose of prednisone, continued on albuterol nebulizer as needed, aspirin and Coreg, plan to follow-up with pulmonology in 2 weeks and follow-up with PCP in 3-4 weeks. Discharge Activity: Return to Normal Activity Weight Bearing Status: Weight bearing as tolerated Call your doctor if you observe: Fever of 101 or Higher, Shortness of breath, Dizziness, Fainting spells, Chest pain, Increased palpitations (irregular heartbeat), Uncontrolled pain Home Medications: Medications to take at Discharge Albuterol Aerosols [Ventolin Aerosols] 2.5 mg INHALATION Q4H PRN PRN #30 vial 11/03/17 Aspirin [Aspirin, Baby] 81 mg PO DAILY 01/05/18 Carvedilol [Coreg (Beta Sonja)] 12.5 mg PO DAILY 01/05/18 Fluticasone/Umeclidin/Vilanter [Trelegy Ellipta 100-62.5-25] 1 puff IH DAILY #3 blst.w.dev 01/09/18 Prednisone 10 mg PO DAILY #30 tab 01/09/18 levoFLOXacin tablet [Levaquin tablet] 750 mg PO DAILY@0600 #4 tab 01/09/18 Following Prescrptions Were Given to Patient: Fluticasone/Umeclidin/Vilanter [Trelegy Ellipta 100-62.5-25] 1 puff IH DAILY #3 blst.w.dev levoFLOXacin tablet [Levaquin tablet] 750 mg PO DAILY@0600 #4 tab Prednisone 10 mg PO DAILY #30 tab Primary Care Physician: Chang Kumari MD [Primary Care Provider] - Please follow up with your Primary Care Physician in: 3-4 weeks. Please Follow Up With: Mitch Villalba MD When: 2 weeks. Please Follow Up With: Chang Kumari MD Patient Instructions: Levofloxacin Oral tablet, Prednisone Oral tablet, Discharge Instructions: COPD, Discharge Instructions: Using a Metered-Dose Inhaler Disposition: Home Minutes spent on discharge:: 32 Patient Condition:: Stable Medical Necessity - Tobacco Use Smoking Status: Former smoker Tobacco Use: Non-smoker Meaningful Use Info Meaningful Use Diagnoses (Choose all that apply): None applicable Code Visit Inpatient E&M: 05740 Disch Hosp
--- NOTE | 2018-01-12 14:00 | CASEMGMT ---
RN YURI received call from pt that he did not feel he needed home health. No further concerns noted. Soniya RANKINN RN ACM
== END 2018-01-09 12:35 | disposition home or self-care (01) | DRG 189 ==
LOC: ED 15:49 → ICU 19:56 → PCU 01-08 17:16
PROVIDERS: Hospitalist; Admitting Provider Family Medicine; Emergency Provider Emergency Medicine; Family Provider Family Medicine; PCP Family Medicine; Visit Provider Hospitalist
DX: J96.21 Acute and chronic respiratory failure with hypoxia (principal); J44.1 Chronic obstructive pulmonary disease with (acute) exacerbation; Z99.81 Dependence on supplemental oxygen; Z87.891 Personal history of nicotine dependence; J96.22 Acute and chronic respiratory failure with hypercapnia; I10 Essential (primary) hypertension; D64.9 Anemia, unspecified; Z79.82 Long term (current) use of aspirin; Z79.51 Long term (current) use of inhaled steroids; Z79.899 Other long term (current) drug therapy; R91.1 Solitary pulmonary nodule; E66.9 Obesity, unspecified; Z68.27 Body mass index [BMI] 27.0-27.9, adult; G89.4 Chronic pain syndrome; Z91.19 Patient's noncompliance with other medical treatment and regimen
CPT/HCPCS: 36600; 71045; 71275; 80048; 80053; 81001; 82607; 82728; 82746; 82803; 83036; 83540; 83550; 83605; 83735; 84484; 85025; 85027; 85379; 87070; 87077; 87205; 87633; 87641; 93005; 94002; 94003; 94640; 94667; 94668; 97110; 97116; 97162; 97166; 97802; 99251; 99284; J7030; Q9967; A4216; G0463

== ENCOUNTER → 2018-02-16 15:28 | Outpatient (CLI) | payer MEDICARE, SELFPAY ==
[2018-02-16 15:36] LABS: Bacteria 0 SEEN /hpf (None Seen); Squamous Epithelial Cells - UA 0 SEEN /hpf (0-5)
[2018-02-16 17:07] LABS: Absolute Lymphocyte Count 1.39 X10^3/ul (0.83-4.51); Absolute Neutrophil Count 4.7 X10^3/uL (2.0-7.7); Basophil# 0.04 X10^3/uL; Basophil% 0.5 % (0-1); Eosinophil# 0.64 X10^3/uL; Eosinophils% 8.8 % (0-5); Hematocrit 40.6 % (40-54); Hemoglobin 12.7 g/dl (13.0-16.5); Lymphocyte # 1.39 X10^3/ul (4.0); Mean Corp Hgb Conc 31.3 g/gl (32-36); Mean Corpuscular Hgb 28.2 pg (27.0-32.0); Mean Corpuscular Volume 90.2 fL (80-94); Mean Platelet Vol. 9.9 fl (6.2-12.0); Monocyte# 0.51 X10^3/uL; Neutrophil # 4.71 X10^3/uL (2.7-7.7); Neutrophil % 64.6 % (47-70); Platelet Count 294 K/mm3 (150-450); RBC Distribution Width CV 13.2 % (11.6-14.6); RBC Distribution Width SD 43.1 fl (35.1-43.9); White Blood Count 7.3 K/mm3 (4.4-11.0)
[2018-02-16 17:11] LABS: Color, Urine Yellow (Yellow); Glucose, Dipstick Normal (Normal); Ketone-Dipstick Negative (Negative); Leukocyte Esterase-Dipstick Negative /ul (Negative); Nitrite-Dipstick Negative (Negative); Occult Blood-Urine 10 /ul (Negative); Protein-Dipstick Negative (Negative); Urine Bilirubin Dipstick Negative (Negative); Urine Clarity Clear (Clear); Urine Urobilinogen Normal (Normal)
[2018-02-16 17:14] LABS: POSITIVE COUNT NO; POSITIVE DIFFERENTIAL NO; POSITIVE MORPHOLOGY NO
[2018-02-16 17:24] LABS: Hyaline Cast 0-5 SEEN /lpf (0-5); Mucous, Urine 1+ /hpf (<or=2+)
[2018-02-16 17:26] LABS: Red Blood Cells-Urine 0-5 SEEN /hpf (0-5); White Blood Cells 0-5 SEEN /hpf (0-5)
[2018-02-16 17:47] LABS: AST(SGOT) 19 U/L (15-37); Alanine Aminotransfer ALT/SGPT 24 U/L (16-61); Albumin, Serum 3.9 g/dL (3.2-5.0); Alkaline Phosphatase 76 U/L (45-117); Anion Gap 7 (5-15); BUN 15 mg/dL (7-18); BUN/Creat Ratio 22.3 RATIO (10-20); Calcium,Total 8.8 mg/dL (8.5-10.1); Chloride 98 mmol/L (98-107); Cholesterol 189 mg/dL (200); Creatinine, Serum 0.67 mg/dL (0.70-1.30); EST Glomerular Filtration Rate 127 mL/min (>60); Est Glom Filt Rate - Afr Amer 154 mL/min (>60); Globulin 3.8 g/dL (2.2-4.2); Glucose 91 mg/dL (74-106); High Density Lipoprotein 51 mg/dL; Potassium 4.2 mmol/L (3.5-5.1); Protein, Total 7.7 g/dL (6.4-8.2); Sodium Level 142 mmol/L (136-145); Thyroid Stim Hormone (TSH) 1.95 uIU/mL (0.358-3.74); Triglycerides 203 mg/dL; Very Low Density Lipoprotein 41 mg/dL (5-40)
== END ==
PROVIDERS: Family Provider Family Medicine; PCP Family Medicine; Visit Provider Family Medicine
DX: I10 Essential (primary) hypertension (principal); J44.9 Chronic obstructive pulmonary disease, unspecified
CPT/HCPCS: 36415; 80053; 80061; 81001; 84443; 85025

== ENCOUNTER → 2019-04-08 | Outpatient (CLI) | payer MEDICARE, SELFPAY ==
[2019-04-08 15:58] VITALS: BMI 26.7
[2019-04-08 18:10] LABS: AST(SGOT) 11 U/L (15-37); Alanine Aminotransfer ALT/SGPT 23 U/L (16-61); Albumin, Serum 3.9 g/dL (3.2-5.0); Alkaline Phosphatase 66 U/L (45-117); Anion Gap 2 (5-15); BUN 18 mg/dL (7-18); BUN/Creat Ratio 21.9 RATIO (10-20); Calcium,Total 9.3 mg/dL (8.5-10.1); Chloride 101 mmol/L (98-107); Cholesterol 159 mg/dL (200); Creatinine, Serum 0.82 mg/dL (0.70-1.30); EST Glomerular Filtration Rate 101 mL/min (>60); Est Glom Filt Rate - Afr Amer 122 mL/min (>60); Globulin 3.8 g/dL (2.2-4.2); Glucose 93 mg/dL (74-106); High Density Lipoprotein 66 mg/dL; Potassium 4.4 mmol/L (3.5-5.1); Protein, Total 7.7 g/dL (6.4-8.2); Sodium Level 139 mmol/L (136-145); Triglycerides 64 mg/dL; Very Low Density Lipoprotein 13 mg/dL (5-40)
[2019-04-08 18:16] LABS: Absolute Neutrophil Count 4.6 X10^3/uL (2.0-7.7); Basophil# 0.04 X10^3/uL; Basophil% 0.6 % (0-1); Eosinophil# 0.44 X10^3/uL; Eosinophils% 6.5 % (0-5); Hematocrit 41.9 % (40-54); Hemoglobin 13.4 g/dl (13.0-16.5); Lymphocyte % 17.7 % (19-41); Mean Corpuscular Hgb 28.3 pg (27.0-32.0); Mean Corpuscular Volume 88.4 fL (80-94); Mean Platelet Vol. 9.9 fl (6.2-12.0); Monocyte# 0.55 X10^3/uL; Monocyte% 8.1 % (0-10); Neutrophil # 4.55 X10^3/uL (2.7-7.7); Platelet Count 220 K/mm3 (150-450); RBC Distribution Width CV 13.7 % (11.6-14.6); RBC Distribution Width SD 43.9 fl (35.1-43.9); Red Blood Count 4.74 M/mm3 (4.6-6.2); White Blood Count 6.8 K/mm3 (4.4-11.0)
[2019-04-08 18:29] LABS: POSITIVE COUNT NO; POSITIVE DIFFERENTIAL NO; POSITIVE MORPHOLOGY NO
== END | disposition home or self-care (01) ==
LOC: MFPLAB 16:01
PROVIDERS: Family Provider Family Medicine; PCP Family Medicine; Visit Provider Family Medicine
DX: I10 Essential (primary) hypertension (principal); E78.00 Pure hypercholesterolemia, unspecified
CPT/HCPCS: 36415; 80053; 80061; 85025

== ENCOUNTER 2022-09-22 14:25 | Emergency (ER) | payer MEDICARE, SELFPAY ==
[2022-09-22] VITALS (8 sets, daily range): BP systolic 125–160; BP diastolic 70–97; PULSE 75–87; RESP 19–34; TEMP 36.1–36.6; O2SAT 78–100; BMI 18.8
--- NOTE | 2022-09-22 15:08 | EKG12_ITS ---
Test Reason : breathing difficulty, htn Blood Pressure : / mmHG Vent. Rate : 067 BPM Atrial Rate : 067 BPM P-R Int : 146 ms QRS Dur : 078 ms QT Int : 376 ms P-R-T Axes : 085 065 072 degrees QTc Int : 397 ms Normal sinus rhythm Normal ECG Confirmed by DAMI ALEJANDRO, SRIKANTH ([id number]), editor trade journal BRIONNA RESENDIZ ([id number]) on 09/27/2022 12:30:19 PM Referred By: Kevin Confirmed By:SRIKANTH LOMAX MD
--- NOTE | 2022-09-22 15:09 | EDS_ITS ---
HPI History of Present Illness Chief Complaint: Shortness of Breath Informant: patient Narrative Narrative: Patient presents with apnea. He is actually been having some symptoms off and on for about a month. He states he used to use his albuterol MDI about twice a day but he has been using it about 5 times a day for the last month. He also has ipratropium bromide in a nebulizer that he uses a few times a day regularly. He notices the wheezing is really increased in the last week and 1/2 to 2 weeks. He had a prescription for Trelegy which he wanted to get refilled but his primary doc said he had to get in for an appointment to get that refilled so he has been out of it for about 10 days. He has had some chills but he does not think his fevers been that high. He has had occasional soreness in his chest but he states he gets pains in different areas of his body is all the time and this is not different than normal. He has been coughing up some yellowish sputum. No blood. No pleuritic pain. No leg swelling. No travel surgery personal or family history of DVT or PE. He does have a history of smoking. He quit about 3 years ago but then COVID started and he has been smoking about 5 cigarettes a day since. He stopped completely 10 days ago because it made his breathing so much worse. He denies any known heart disease. He denies diabetes. He does have a history of blood pressure. Last steroid use was probably over a year ago. [facility] Medical History COPD (chronic obstructive pulmonary disease) Home Medications albuterol sulfate 2.5 mg/3 mL (0.083 %) solution for nebulization 2.5 mg (3 mL) inhalation Q4H PRN PRN Sob &/Or Wheezing #30 vials 11/03/17 [Rx Last Taken 01/05/18] fluticasone fur. 200 mcg-umeclid 62.5 mcg-vilant 25 mcg inhalat.powder (Trelegy Ellipta) 1 inh inhalation DAILY #60 ea 09/22/22 [Rx Last Taken Unknown] nebivolol 2.5 mg tablet 2.5 mg PO DAILY 09/22/22 [History Last Taken Unknown] prednisone 20 mg tablet 60 mg PO DAILY #15 tabs 09/22/22 [Rx Last Taken Unknown] Allergy/AdvReac Type Severity Reaction Status Date / Time No Known Allergies Allergy Verified 09/22/22 14:34 Social History Smoking Status: Former smoker ROS ROS ED Constitutional Constitutional ED: Reports chills Eyes Eyes: Denies change in vision ENT ENT ED: Denies rhinorrhea or sore throat Cardiovascular Cardiovascular: Reports chest pain; Denies palpitations or racing heartbeat Respiratory/Chest Respiratory/Chest: Reports cough, dyspnea and sputum Gastrointestinal Gastrointestinal: Denies abdominal pain, nausea or vomiting Genitourinary Genitourinary ED: Denies dysuria Musculoskeletal Musculoskeletal: Reports other Details: Chronic aches and pains but no different than normal. ; Denies arthralgias or myalgias Integumentary Denies rash Psychiatric Psychiatric: Denies anxiety Endocrine Endocrinology: Denies polydipsia or polyuria Hematologic/Lymphatic Hematologic/Lymphatic: Denies easy bleeding or easy bruising Allergic/Immunologic Allergic/Immunologic ED: Denies urticaria EXAM Physical Exam Const Vital Signs: 09/22/22 14:30 09/22/22 14:34 09/22/22 14:41 Temperature 97.8 F Temperature Source Temporal Pulse Rate 84 Respiratory Rate 34 H 20 H Respiratory Effort Short of Breath Labored Respiratory Depth Shallow Respiratory Pattern Tachypnea Blood Pressure 160/82 H Blood Pressure Mean 108 Pulse Ox 78 100 Oxygen Delivery Method Nasal Cannula Non-Rebreather Oxygen Flow Rate (L/min) 5 15 09/22/22 14:52 09/22/22 15:22 09/22/22 15:53 Temperature 97.1 F L Temperature Source Temporal Pulse Rate 75 76 77 Respiratory Rate 19 H 19 H 19 H Respiratory Effort Respiratory Depth Respiratory Pattern Irregular Blood Pressure 137/97 H 144/84 H Blood Pressure Mean 110 104 Pulse Ox 100 100 Oxygen Delivery Method Non-Rebreather Nasal Cannula Oxygen Flow Rate (L/min) 15 5 09/22/22 15:53 09/22/22 15:53 09/22/22 16:00 Temperature Temperature Source Pulse Rate 87 Respiratory Rate 20 H 19 H Respiratory Effort Non-Labored Respiratory Depth Normal Respiratory Pattern Irregular Blood Pressure 125/70 H Blood Pressure Mean 88 Pulse Ox 99 99 99 Oxygen Delivery Method Nasal Cannula Nasal Cannula Nasal Cannula Oxygen Flow Rate (L/min) 5 5 5 09/22/22 16:00 09/22/22 16:33 Temperature 97 F L Temperature Source Temporal Pulse Rate 87 Respiratory Rate 19 H Respiratory Effort Respiratory Depth Respiratory Pattern Blood Pressure 125/70 H Blood Pressure Mean 88 Pulse Ox 98 Oxygen Delivery Method Nasal Cannula Nasal Cannula Oxygen Flow Rate (L/min) 5 5 Positive well nourished and well developed Constitutional Narrative: When I see the patient is on a nonrebreather. He is awake alert appropriate and carries on normal conversation. General Appearance ED: well developed and NAD; Negative for pallor HEENT Reports moist mucous membranes Eyes General Eye ED: Negative for pale conjunctiva or scleral icterus Neck no lymphadenopathy Resp normal respiratory effort Resp Narrative: Breathing effort is normal now but he states the oxygen helped a lot. But I really hear very little air motion. I hear some very subtle end expiratory wheezing. I do not hear rhonchi. I do not hear rales. No discomfort with deep breaths. Auscultation: wheezes and diminished lung sounds; Negative for rales or rhonchi Cardio regular rate, regular rhythm and no murmurs GI non-tender and non-distended Back/Spine no CVA tenderness Extremity normal to inspection General Extremety ED: Negative for edema or tenderness General Extremity: Negative for edema Neuro oriented x3 Sensorium / Orientation: Negative for lethargic or stuporous Psych mental status grossly normal Skin no wounds General Skin Exam: Negative for jaundice or pallor MDM MDM MDM Narrative Medical decision making narrative: Patient's x-ray is not showing any acute issues. Shows COPD but he has chronic significant COPD. Normally low which is nonspecific. Platelets are normal. Electrolytes are not showing any marked abnormalities. There is mild elevation of his carbon dioxide but he is awake alert and appropriate. Troponin is negative. BNP is negative. COVID was positive. Patient states he cannot believe this. He states he sees almost nobody at home. He has groceries delivered but other than that he sees nobody nobody has been sick. He has not had contact with anyone. He could not say when this started because he has been having symptoms for at least a week and a half worse but they have been going on a month slowly worsening. He really is not a candidate for meds because we do not know the time of onset. It is certainly possible that this is a false positive. Patient is on 5 L of oxygen routinely. He states he likely walks 20 yards total in a day. He has his house set up so he can walk from chair to chair and has a resting spot. He does not want to come in the hospital. He is now 98% on his 5 L. He states his breathing is a lot better. We will start him on prednisone. I will write for his Trelegy which he is out of and he feels that helps him a lot. He is awake alert appropriate. He has capacity make his own decisions. I agree with him that coming in the hospital would expose him to influenza which with his significant lung disease could be significantly dangerous. His cousin is going to come pick him up. The patient brought in an oxygen tank just to be safe. We did discuss reasons to return. Lab Data Attestation: I reviewed the patient's lab results. Labs: Laboratory Results - last 24 hr 09/22/22 09/22/22 09/22/22 14:47 14:47 14:47 WBC 8.7 RBC 4.08 L Hgb 11.5 L Hct 37.3 L MCV 91.4 MCH 28.2 MCHC 30.8 L RDW Std Deviation 43.5 RDW Coeff of Anurag 13.0 Plt Count 223 MPV 9.5 Immature Gran % (Auto) 0.200 Neut % (Auto) 69.7 Lymph % (Auto) 16.6 L [place] % (Auto) 6.6 Eos % (Auto) 6.3 H Baso % (Auto) 0.6 Absolute Neuts (auto) 6.1 Absolute Lymphs (auto) 1.44 Nucleated RBC % 0 Sodium 132 L Potassium 4.3 Chloride 88 L Carbon Dioxide 44.0 H Anion Gap 0 L BUN 10 Creatinine 0.50 L Estim Creat Clear Calc 56.01 Est GFR (MDRD) Af Amer 213 Est GFR (MDRD) Non-Af 176 BUN/Creatinine Ratio 19.9 Glucose 121 H Calcium 9.3 Troponin I High Sens 8 B-Natriuretic Peptide 22.2 Radiography Diagnostic Testing: Clinical Impression(s) from Imaging Studies Chest X-Ray 09/22/22 15:25 IMPRESSION: No radiographic evidence of acute cardiopulmonary disease. Stable changes of COPD. Electronically Signed: Oneil Kirkland MD at 15:55 EST , Single view chest x-ray looked at by me and read by radiology shows chronic changes of COPD. I was suspicious that there may be some multiple areas of infiltrate more on the left than the right but these may be associated with the tip of ribs. EKG Initial EKG: Comments: EKG done for dyspnea and possible intermittent chest pain which is chronic. EKG read by me shows a normal sinus rhythm with a rate of 67. No ectopy. No acute ST elevation or depression. CT interval, QRS duration and QTc are all normal. Discharge Plan Triage Chief Complaint: Shortness of Breath ED Provider: Lawrence Brown Dx/Rx/DC Orders Clinical Impression: COPD exacerbation, COVID Instructions: Coronavirus Disease 2019 (COVID-19): Caring for Yourself or Others, ED COPD Flare Prescriptions: New prednisone 20 mg tablet 60 mg PO DAILY Qty: 15 0RF Trelegy Ellipta 200-62.5-25 mcg blister with device 1 inh inhalation DAILY Qty: 60 0RF No Action albuterol sulfate 2.5 MG/3 ML solution for nebulization 2.5 mg INHALATION Q4H PRN PRN (Reason: Sob &/Or Wheezing) Qty: 30 0RF nebivolol 2.5 mg tablet 2.5 mg PO DAILY Primary Care Provider: Del Crowder Referrals: Del Crowder MD [Primary Care Provider] - 3-5 Days if not improving Disposition Disposition: Home, Self Care
[2022-09-22 15:19] LABS: Absolute Lymphocyte Count 1.44 X10^3/uL (0.83-4.51); Absolute Neutrophil Count 6.1 X10^3/uL (2.0-7.7); Basophil# 0.05 X10^3/uL; Basophil% 0.6 % (0-1); Eosinophil# 0.55 X10^3/uL; Eosinophils% 6.3 % (0-5); Hematocrit 37.3 % (40-54); Hemoglobin 11.5 g/dL (13.0-16.5); Lymphocyte # 1.44 X10^3/ul (0.83-4.51); Lymphocyte % 16.6 % (19-41); Mean Corp Hgb Conc 30.8 g/dL (32-36); Mean Corpuscular Hgb 28.2 pg (27.0-32.0); Mean Corpuscular Volume 91.4 fL (80-94); Mean Platelet Vol. 9.5 fl (6.2-12.0); Monocyte# 0.57 X10^3/uL; Monocyte% 6.6 % (0-10); NRBC Flagged by Analyzer 0 % (0-5); Neutrophil # 6.06 X10^3/uL (2.7-7.7); Neutrophil % 69.7 % (47-70); Platelet Count 223 K/mm3 (150-450); RBC Distribution Width SD 43.5 fl (35.1-43.9); Red Blood Count 4.08 M/mm3 (4.6-6.2); White Blood Count 8.7 K/mm3 (4.4-11.0)
[2022-09-22] MEDS: MethylPREDNISolone 125 MG/2 ML Vial IV (15:19)
--- NOTE | 2022-09-22 15:25 | RAD_ITS ---
INDICATION: cough, sob, copd EXAMINATION/TECHNIQUE: X-RAY - portable upright AP chest x-ray COMPARISON: 01/05/2018 FINDINGS: LINES/DEVICES: None. LUNGS: Stable hyperinflation with chronic blunting of the right costophrenic angle. Stable coarsening of the interstitial markings. No consolidations or pleural effusions. MEDIASTINUM AND CARDIOVASCULAR STRUCTURES: Cardiac silhouette stable within normal limits. Stable prominence of the central pulmonary arteries. BONES AND SOFT TISSUES: No acute changes. RAD/Chest 1 View (Portable) IMPRESSION: No radiographic evidence of acute cardiopulmonary disease. Stable changes of COPD. Electronically Signed: Oneil Kirkland MD at 15:55 EST ,
[2022-09-22 15:41] LABS: Anion Gap 0 (5-15); BUN 10 mg/dL (7-18); BUN/Creat Ratio 19.9 RATIO (10-20); Calcium,Total 9.3 mg/dL (8.5-10.1); Chloride 88 mmol/L (98-107); EST Glomerular Filtration Rate 176 mL/min (>60); Est Glom Filt Rate - Afr Amer 213 mL/min (>60); Estimated Creatinine Clearance 56.01 ml/min; Glucose 121 mg/dL (74-106); Potassium 4.3 mmol/L (3.5-5.1); Sodium Level 132 mmol/L (136-145); Troponin-I HS 8 pg/mL (3.0-78.0)
[2022-09-22] MEDS: Ipratropium/Albuterol Sulfate 3 ML AMPUL.NEB INHALATION (15:53)
[2022-09-22] MEDS: Albuterol 2.5 MG/3 ML VIAL.NEB. INHALATION (15:53)
[2022-09-22 16:27] LABS: BNP,B-Type NATRIURETIC PEPTIDE 22.2 pg/mL (0-100)
== END 2022-09-22 17:21 | disposition home or self-care (01) ==
PROVIDERS: Emergency Provider Emergency Medicine; PCP Family Medicine; Visit Provider Emergency Medicine
DX: U07.1 COVID-19 (principal); J44.1 Chronic obstructive pulmonary disease with (acute) exacerbation; R06.02 Shortness of breath; R07.9 Chest pain, unspecified; Z79.52 Long term (current) use of systemic steroids; Z87.891 Personal history of nicotine dependence
CPT/HCPCS: 71045; 80048; 83880; 84484; 85025; 87428; 93005; 94640; 96374; 99251; 99252; 99283; A4216; G0463

== ENCOUNTER 2023-10-06 20:02 | Inpatient (IN) | payer MEDICARE, SELFPAY ==
[2023-10-06] VITALS (12 sets, daily range): BP systolic 116–144; BP diastolic 65–121; PULSE 88–116; RESP 21–28; TEMP 36.3; O2SAT 83–97; BMI 18.6
--- NOTE | 2023-10-06 20:35 | EKG12_ITS ---
Test Reason : DYSRHYTHMIA Blood Pressure : / mmHG Vent. Rate : 110 BPM Atrial Rate : 110 BPM P-R Int : 134 ms QRS Dur : 072 ms QT Int : 320 ms P-R-T Axes : 085 057 077 degrees QTc Int : 433 ms Sinus tachycardia with occasional Premature ventricular complexes Otherwise normal ECG Confirmed by VICKY ALEJANDRO, PAUL ([id number]), film editor GIO THORNE ([id number]) on 10/09/2023 6:39:55 AM Referred By: JOSELYN Confirmed By:PAUL PERRY MD
--- NOTE | 2023-10-06 20:37 | EDS_ITS ---
HPI History of Present Illness Chief Complaint: Chest Pain Informant: patient Narrative Narrative: Presents with dyspnea and chest pain. Patient states he started feeling bad about a week ago. He started with problems breathing. It is typical of his COPD. He was coughing. He is bringing up a little bit more sputum but no blood. No fevers chills or muscle aches. He started to get pain in his left anterior lower chest. Its mostly there with coughing. He states he has had this before when his COPD acts up but it is always in different positions. He denies history of PEs. No leg pain or swelling. No recent travel. He thinks his last steroids were about a year ago. He is on oxygen at home normally 2 to 3 L but he has been bumping it up. [facility] Medical History COPD (chronic obstructive pulmonary disease) Home Medications albuterol sulfate 2.5 mg/3 mL (0.083 %) solution for nebulization 2.5 mg (3 mL) inhalation Q4H PRN PRN Sob &/Or Wheezing #30 vials 11/03/17 [Rx Last Taken 01/05/18] fluticasone fur. 200 mcg-umeclid 62.5 mcg-vilant 25 mcg inhalat.powder (Trelegy Ellipta) 1 inh inhalation DAILY #60 ea 09/22/22 [Rx Last Taken Unknown] nebivolol 2.5 mg tablet 2.5 mg PO DAILY 09/22/22 [History Last Taken Unknown] albuterol sulfate 90 mcg/actuation aerosol inhaler 2 puff inhalation Q4H PRN shortness of breath or wheezing 10/06/23 [History Last Taken Unknown] Allergy/AdvReac Type Severity Reaction Status Date / Time No Known Allergies Allergy Verified 09/22/22 14:34 Social History Smoking Status: Former smoker ROS ROS ED ROS Narrative A complete review of systems was performed and is negative except as documented in the history of present illness. Some specific details below. Constitutional: No recent fevers or chills. EYE: No discharge, visual complaints, or pain. ENT: No difficulty swallowing. No swelling. No pain. No reflux symptoms. CV: See history of present illness. Respiratory: See history of present illness. GI: No abdominal pain. No nausea vomiting diarrhea. No blood in stool. : No frequency dysuria or hematuria. Musculoskeletal: No recent trauma. No pains. No swelling. Skin: No rash. Nondiaphoretic. Neuro: No weakness or numbness. Endocrine: No polyuria or polydipsia. EXAM Physical Exam Narrative Exam Narrative: CONSTITUTIONAL: Patient is nontoxic in appearance. The patient looks comfortable. Work of breathing looks normal. HEENT: No notable trauma. Mucous membranes moist. No sinus tenderness. No indication of pain with swallowing. EYES: No conjunctival injection. No proptosis. NECK:No JVD. No stridor. CARDIOVASCULAR: Mildly tachycardic rate. Regular rhythm. No notable murmur. No JVD. RESPIRATORY: Patient is in some mild respiratory distress. He is totally awake and alert. But he passed a pause and speak in short sentences. He has extremely tight inspiratory and expiratory wheezing and this is after he is ending his first DuoNeb. Respiratory therapist states he is sounding a little bit better and moving more air. But he is still quite tight. He has a little bit of left anterior chest wall tenderness. It is sore when he coughs. But there is no indication that this is pleuritic. GASTROINTESTINAL: Not distended. Bowel sounds are normal. No tenderness. No guarding. No rebound. No palpable mass. No bruit is heard. GENITOURINARY: No tenderness over the bladder. No CVA tenderness. MUSCULOSKELETAL: Atraumatic. No peripheral edema. No cord. No tenderness along the deep venous system. No asymmetry. No distended veins. NEUROLOGICAL: Patient is alert and appropriate. No focal deficit noted. He is not sleepy or lethargic. No clinical indication of CO2 retention. SKIN: No noted rashes. No diaphoresis. PSYCHIATRIC: Patient is calm. Mood is appropriate. Const Vital Signs: 10/06/23 20:03 10/06/23 20:08 10/06/23 20:08 Temperature 97.4 F L 97.4 F L Temperature Source Temporal Temporal Pulse Rate 116 H 114 H Respiratory Rate 21 H 26 H Respiratory Effort Respiratory Depth Respiratory Pattern Blood Pressure 140/85 H 140/85 H Blood Pressure Mean 103 103 Pulse Ox 86 87 87 Oxygen Delivery Method Nasal Cannula Nasal Cannula Nasal Cannula Oxygen Flow Rate (L/min) 6 6 6 10/06/23 20:08 10/06/23 20:13 10/06/23 20:51 Temperature Temperature Source Pulse Rate Respiratory Rate Respiratory Effort Short of Breath Labored Accessory Muscle Use Short of Breath Respiratory Depth Shallow Respiratory Pattern Tachypnea Blood Pressure Blood Pressure Mean Pulse Ox 93 Oxygen Delivery Method Non-Rebreather High Flow Oxygen Flow Rate (L/min) 10/06/23 21:02 10/06/23 20:48 10/06/23 22:00 Temperature Temperature Source Pulse Rate 112 H 113 H 111 H Respiratory Rate 25 H 22 H 28 H Respiratory Effort Respiratory Depth Respiratory Pattern Tachypnea Blood Pressure 116/65 133/82 H Blood Pressure Mean 82 99 Pulse Ox 97 89 Oxygen Delivery Method High Flow High Flow Oxygen Flow Rate (L/min) 10 10 10/06/23 22:35 10/06/23 23:00 Temperature Temperature Source Pulse Rate 110 H 107 H Respiratory Rate 24 H 22 H Respiratory Effort Respiratory Depth Respiratory Pattern Blood Pressure 144/113 H 139/121 H Blood Pressure Mean 123 127 Pulse Ox 91 96 Oxygen Delivery Method High Flow Nasal Cannula Oxygen Flow Rate (L/min) 12 10 MDM MDM MDM Narrative Medical decision making narrative: My independent interpretation of the patient's single view AP chest x-ray shows significant COPD and hyperexpansion with increased infiltrate markings on the left. I compared this with the film from 22 September 2022 and it does look different. 5 reading is a emphysema with high focal left-sided pneumonia. CBC shows elevated white count and mild anemia. Electrolytes show no marked abnormalities. His carbon dioxide is elevated. Glucose is slightly up. Lactate is normal. Troponin is normal. Patient's D-dimer is elevated 2.84 and a CTA was admitted with his dyspnea chest pain hypoxia and that elevated D-dimer. Patient's ABG showed a pH of about 7.389 with pCO2 of 71 showing chronic compensated CO2 retention. My independent interpretation of the patient's CTA of his chest shows diffuse infiltrative processes on the left. I do not see any definitive pulmonary embolus but I am pending final read. Final read does show no Angel embolus. Shows near emphysema with left upper lobe pneumonia and all pleural effusion. I checked the patient. He is on 10 L high flow but he saturating at 93-94% now. He is eating some ice chips and drinking water. He looks better. He does state that he feels better. He has shown signs of improvement. But he needs to be admitted with his significant hypoxia, white count, anemia and severe COPD. Lab Data Attestation: I reviewed the patient's lab results. Labs: Laboratory Results - last 24 hr 10/06/23 20:43 WBC 14.1 H RBC 3.75 L Hgb 10.2 L Hct 33.7 L MCV 89.9 MCH 27.2 MCHC 30.3 L RDW Std Deviation 46.9 H RDW Coeff of Anurag 14.2 Plt Count 324 MPV 9.0 Immature Gran % (Auto) 0.700 Neut % (Auto) 88.8 H Lymph % (Auto) 4.0 L [place] % (Auto) 6.0 Eos % (Auto) 0.2 Baso % (Auto) 0.3 Absolute Neuts (auto) 12.5 H Absolute Lymphs (auto) 0.56 L Nucleated RBC % 0 Differential Comment SCANNED D-Dimer Quant (PE/DVT) 2.84 H* Sodium 137 Potassium 4.4 Chloride 92 L Carbon Dioxide 43.0 H Anion Gap 2 L BUN 16 Creatinine 0.44 L Estim Creat Clear Calc 68.31 Est GFR (MDRD) Af Amer 247 Est GFR (MDRD) Non-Af 205 BUN/Creatinine Ratio 36.4 H Glucose 147 H Lactic Acid 1.2 Calcium 9.8 Troponin I High Sens 21 ABG Data ABG results: ABG 10/06/23 20:39 Specimen Type ART Sample Site L Radial pH 7.39 Bicarbonate Actual 42.9 H Total CO2 45 Base Excess 18 H O2 Saturation 96 O2 % 12.0 ABG pCO2 71.1 H* ABG pO2 86 Pranav Test Positive O2 Delivery Device HFNC Vent Mode Not entered Crit Call To/Read Back Yes Blood Gas Notified Whom [facility] Blood Gas Notified Time 20:40:56 Radiography Diagnostic Testing: Clinical Impression(s) from Imaging Studies Chest X-Ray 10/06/23 20:56 IMPRESSION: Emphysema with multifocal left-sided pneumonia. Electronically Signed: Grey Peters MD at 21:33 EST , Chest CTA 10/06/23 22:01 IMPRESSION: 1. No CT evidence of pulmonary embolism. 2. Severe emphysema with left upper lobe pneumonia and a small left pleural effusion. Electronically Signed: Grey Peters MD at 23:04 EST , EKG Initial EKG: Comments: My independent interpretation of the patient's EKG shows sinus rhythm with a tachycardic rate at 110. There is an occasional PVC. No acute ST elevation. DC interval, QRS duration and QTc are normal. Management Discussion w/another healthcare provider: Hospitalist Discharge Plan Dx/Rx/DC Orders Clinical Impression: Hypoxia, COPD exacerbation, Pneumonia, Leukocytosis Disposition Disposition: Acute Care Hospital [facility]
[2023-10-06 20:43] LABS: Allen Test Positive; Base Excess 18 mmol/L (-2 to +2); Bicarbonate 42.9 mmol/L (22-26); Blood Gas Specimen Type ART; Mode Not entered; O2 Delivery Device HFNC; PO2 86 mmHG (75-100); SITE L Radial; SO2 96 % (95-99); Time Given 20:40:56; Total Carbon Dioxide 45 mmol/L; pCO2 71.1 mmHg (35-45); pH 7.39 (7.35-7.45)
[2023-10-06] MEDS: Ipratropium/Albuterol Sulfate 3 ML AMPUL.NEB INHALATION (20:48)
[2023-10-06] MEDS: Albuterol 2.5 MG/3 ML VIAL.NEB. INHALATION (20:48)
--- OUTSIDE RECORDS SUMMARY | 2023-10-06 20:53 | XMS RPT_ITS | CCD ---
Author Name Unknown Address [address] [place] [address] Organization [facility] Care Team Providers Care Project Builder Name Role Phone Del Crowder Primary Care Provider Medications Completed/Discontinued Medications Medication Drug Class(es) Dates Sig (Normalized) Sig (Original) [id number] 200 actuat albuterol 0.09 mg/actuat metered dose inhaler (2 sources) beta2-Adrenergic Agonist Start: 01-16-2018 take 2 puff(s) by inhalation every four hours as needed for wheezing albuterol HFA (VENTOLIN HFA) 90 mcg/actuation inhaler Indications: COPD, very severe (HCC) Inhale 2 Puffs as instructed every 4 hours as needed for Wheezing/Shortnes s of Breath. 1 Inhaler 3 01/16/2018 Active Problems Problem Classification Problem Date Documented Date Episodic/Chronic Chronic obstructive pulmonary disease and bronchiectasis (1 source) Emphysematous bronchitis; Translations: [Chronic obstructive pulmonary disease, unspecified] Onset: 05-10-2016 09-21-2021 Chronic Other nutritional; endocrine; and metabolic disorders (1 source) Body mass index 25-29 - overweight; Translations: [Overweight] 06-22-2017 Episodic Respiratory failure; insufficiency; arrest (adult) (1 source) Chronic hypoxemic respiratory failure; Translations: [Chronic respiratory failure with hypoxia] Onset: 05-10-2016 09-21-2021 Chronic Substance-related disorders (1 source) History of drug abuse; Translations: [Other psychoactive substance abuse, in remission] 06-22-2017 Chronic Results Test Name Value Interpretation Reference Range Facil ity Encounters Encounter Date Encounter Type Care Provider Facility Start: 07-26-2022 Refill Sadia Álvarez PAPatricia Work Phone: Pulmonary Medicine Plan of Treatment Date Care Activity Detail Author Start: 05-26-2022 Influenza vaccination INFLUENZA (#1) [facility] Start: 09-25-2021 ADVANCE DIRECTIVE DISCUSSION ADVANCE DIRECTIVE DISCUSSION [facility] Start: 09-25-2021 DEPRESSION ASSESSMENT DEPRESSION ASS ESSMENT [facility] Start: 10-30-2020 PNEUMOCOCCAL: 65+ (2 - PPSV23 if available, else PCV20) PNEUMOCOCCAL: 65+ (2 - PPSV23 if available, else PCV20) [facility] Start: 01-16-2019 ANNUAL PCP TEAM CURBER LIANG DISEASE VISIT ANNUAL PCP TEAM CHRONIC DISEASE VISIT [facility] Start: 06-27-2018 COLORECTAL CANCER SCREENING COLORECTAL CANCER SCREENING [facility] Start: 06-27-2018 FECAL OCCULT BLOOD FECAL OCCULT BLOO D [facility] Start: 02-25-2011 PROSTATE CANCER SCRE ENING DISCUSSION PROSTATE CANCER SCREENING DISCUSSION [facility] Start: 02-25-2006 SHINGRIX VACCINE (1 of 2) SHINGRIX V ACCINE (1 of 2) [facility] Start: 02-25-2001 COLOGUARD (FIT-DNA) COLOGUARD (FIT-D NA) [facility] Start: 02-25-2001 Colonoscopy COLONOSCOPY [facility] Start: 02-25-[address] COLONOGRAPHY [facility] Start: 02-25-2001 DIABETES SCREEN DIABETES SCREEN [facility] Start: 02-25-2001 SIGMOIDOSCOPY SIGMOIDOSCOPY [facility] Start: 02-25-1991 LIPID SCREEN LIPID SCREEN [facility] Start: 02-25-1975 Urine microalbumin profile DTAP,TDAP ,TD (1 - Tdap) [facility] Start: 02-25-1974 HEPATITIS C SCREENING HEPATITIS C SC REEKYLIE [facility] Start: 1955 COVID-19 VACCINE (#1) COVID-19 VACCI NE (#1) [facility] Start: 1955 ABDOMINAL AORTIC ANE URYSM SCREENING ABDOMINAL AORTIC ANEURYSM SCREENING [facility] Immunizations Immunization Date Immunization Notes Care Provider Saeed jacob 10-30-2019 pneumococcal conjuga te vaccine, 13 valent Sadia Alvarez PA-C Work Phone: [facility] Work Phone: 06-25-2019 influenza, seasonal, injectable Sadia Alvarez PA-C Work Phone: [facility] Work Phone: 06-05-2017 influenza, injectabl e, quadrivalent, contains preservative Sadia Alvarez PA-C Work Phone: [facility] 12-22-2016 pneumococcal conjuga te vaccine, 13 valent Sadia Alvarez PA-C Work Phone: [facility] Payers Date Payer Category Payer Medicare MEDICARE MEDICAR E A AND B [id number] 2014-Present [phone] [place] [address] Medicare [id number] Social History Date Type Detail Facility Start: 07-01-2014 Tobacco smoking stat us MIIS Ex-smoker [facility] Work Phone: Start: 07-01-1978 End: 06-25-2013 History of tobacco use Current smoker [facility] Work Phone: Start: 07-01-1978 End: 06-25-2013 History of tobacco use Cigarette Smoker [facility] Work Phone: Start: 07-01-2014 Cigarettes smoked current (pack per day) - Reported 1.5 [facility] Start: 07-01-2014 Tobacco use and exposure Smokeless tobacco non-user [facility] Work Phone: Start: 11-26-2019 Alcohol intake Current non-dr roll reclaimer of alcohol (finding) [facility] Start: 1955 Sex Assigned At Not on file [facility] Note 07-27-2022 Addendum Note - Eugenio Shoemaker MD - 07/27/2022 3:37 PM EDTTelephone Encounter - Eugenio Shoemaker MD - 07/27/2022 3:35 PM EDTTelephone Encounter - Kathy Duenas APRN.CNP - 07/27/2022 2:27 PM EDT Note Date & Type Note Facility 07-27-2022 Miscellaneous Notes Addended by: EUGENIO SHOEMAKER on: 07/27/2022 03:37 PM Modules accepted: Orders No inhalers or other breathing treatments on file. Provided short term supply. Agree patient needs appointment. Eugenio Shoemaker MD Pulmonary / CC Staff PAGER: [phone] DATE of SERVICE:07/27/2022 TIME of SERVICE: 3:35 PM Refill declined, has not seen seen in more than a year. Can we pleas offer patient a follow-up appointment for refill. documented in this encounter [facility] Summary Purpose Family History No Family History Records Found Advance Directives No Advanced Directives Records Found Reason for Referral Specialty Diagnoses / Procedures Referred By Contac t Referred To Contact Eugenio Shoemaker MD [address] [phone] Referral ID Status Reason Start Date Expiration Date V isits Requested Visits Authorized [id number] Pending Review 1 1 Additional Source Comments (unrecognized sect ion and content) No Status Records Found INFORMATION SOURCE (unrecogn ized section and content) Source Comments (unrecognize d section and content) In the event this informatio n is protected by the Federal Confidentiality of Alcohol and Drug Abuse Patient Records regulations: The Federal rules restrict any use of the information to criminally investigate or prosecute any alcohol or drug abuse patient.[facility] Reason for Visit (unrecogniz ed section and content) Care Teams (unrecognized sec tion and content) FOR RECORDS PERTAINING TO PATIENTS WHO ARE OR HAVE BEEN ENROLLED IN A CHEMICAL DEPENDENCY/SUBSTANCEABUSE PROGRAM, SOME INFORMATION MAY BE OMITTED. This clinical summary was aggregated from multiple sources. Caution should be exercised in using it in the provision of clinical care. This summary normalizes information from multiple sources, and as a consequence, information in this document may materially change the coding, format and clinical context of patient data. In addition, data may be omitted in some cases. CLINICAL DECISIONS SHOULD BE BASED ON THE PRIMARY CLINICAL RECORDS. [facility] [employer] [facility]. provides no warranty or guarantee of the accuracy or completeness of information in this document.
--- NOTE | 2023-10-06 20:56 | RAD_ITS ---
STUDY: X-RAY CHEST REASON FOR EXAM: Male, 68 years old. cough, SOB TECHNIQUE: Single AP portable view of the chest. COMPARISON: 09/22/2022 FINDINGS: There is hyperinflation of the lungs consistent with chronic obstructive lung disease (COPD). Patchy alveolar opacities in left lung consistent with pneumonia. There is no demonstrated pleural abnormality. Normal size heart. Normal mediastinum and tiara. Normal visualized pulmonary arteries. Normal visualized aortic arch and descending thoracic aorta. Normal visualized thoracic spine. Normal visualized ribs, clavicles, and shoulders. There is no demonstrated abnormality of the visualized soft tissue structures of the upper abdomen. RAD/Chest 1 View (Portable) IMPRESSION: Emphysema with multifocal left-sided pneumonia. Electronically Signed: Grey Peters MD at 21:33 EST ,
[2023-10-06 21:00] LABS: Absolute Lymphocyte Count 0.56 X10^3/uL (0.83-4.51); Absolute Neutrophil Count 12.5 X10^3/uL (2.0-7.7); Basophil# 0.04 X10^3/uL; Basophil% 0.3 % (0-1); Eosinophil# 0.03 X10^3/uL; Eosinophils% 0.2 % (0-5); Hematocrit 33.7 % (40-54); Hemoglobin 10.2 g/dL (13.0-16.5); Lymphocyte # 0.56 X10^3/ul (0.83-4.51); Mean Corp Hgb Conc 30.3 g/dL (32-36); Mean Corpuscular Hgb 27.2 pg (27.0-32.0); Mean Corpuscular Volume 89.9 fL (80-94); Monocyte# 0.84 X10^3/uL; NRBC Flagged by Analyzer 0 % (0-5); Neutrophil # 12.52 X10^3/uL (2.7-7.7); Neutrophil % 88.8 % (47-70); POSITIVE DIFFERENTIAL YES; Platelet Count 324 K/mm3 (150-450); RBC Distribution Width CV 14.2 % (11.6-14.6); RBC Distribution Width SD 46.9 fl (35.1-43.9); Red Blood Count 3.75 M/mm3 (4.6-6.2); White Blood Count 14.1 K/mm3 (4.4-11.0)
[2023-10-06] MEDS: MethylPREDNISolone 125 MG/2 ML Vial IV (21:12)
[2023-10-06 21:31] LABS: Differential Indicated SCAN CRITERIA MET
[2023-10-06 21:35] LABS: Anion Gap 2 (5-15); BUN 16 mg/dL (7-18); BUN/Creat Ratio 36.4 RATIO (10-20); Calcium,Total 9.8 mg/dL (8.5-10.1); Chloride 92 mmol/L (98-107); Creatinine, Serum 0.44 mg/dL (0.70-1.30); EST Glomerular Filtration Rate 205 mL/min (>60); Est Glom Filt Rate - Afr Amer 247 mL/min (>60); Estimated Creatinine Clearance 68.31 ml/min; Glucose 147 mg/dL (74-106); Potassium 4.4 mmol/L (3.5-5.1); Sodium Level 137 mmol/L (136-145); Troponin-I HS 21 pg/mL (3.0-78.0)
[2023-10-06 21:42] LABS: Lactic Acid 1.2 mmol/L (0.4-1.9)
[2023-10-06 21:55] LABS: Differential Comment SCANNED
[2023-10-06 21:59] LABS: D-Dimer Quantitative (DVT/PE) 2.84 FEU/ug/m (0.27-0.49)
--- NOTE | 2023-10-06 22:01 | CT_ITS ---
STUDY: CTA CHEST REASON FOR EXAM: Male, 68 years old. pe RADIATION DOSAGE (If Supplied By Facility): CTDIvol = ( 5.38 ) mGy, DLP = ( 174.46 ) mGycm TECHNIQUE: The examination was performed with the intravenous administration of IV 100mL Isovue-370. Post-processing of the angiographic images was performed, with multiplanar reformation and 3D reconstruction. Individualized dose optimization techniques were used for this CT. COMPARISON: 01/05/2018, chest x-ray earlier today FINDINGS: Normal enhancement of the main pulmonary artery and right and left pulmonary arteries. Normal enhancement of the bilateral peripheral pulmonary arteries. There is no demonstrated pulmonary embolism. Normal thoracic aorta and visualized great vessels. There is no demonstrated aortic dissection. Normal heart and pericardium. Normal mediastinum. Normal hilar regions. Normal visualized trachea and bronchi. The lungs are well expanded. Mild bilateral apical scarring. Severe emphysema. Alveolar and groundglass density in the posterior left upper lobe consistent with pneumonia. Small left pleural effusion with left lower lobe atelectasis. Normal chest wall structures. Normal osseous structures. Normal visualized upper abdomen. CT/CTA Chest W/WO Contrast IMPRESSION: 1. No CT evidence of pulmonary embolism. 2. Severe emphysema with left upper lobe pneumonia and a small left pleural effusion. Electronically Signed: Grey Peters MD at 23:04 EST ,
[2023-10-06] MEDS: Ceftriaxone 1 GM/50 ML BAG IV (22:28)
[2023-10-06] MEDS: Azithromycin 500 MG in Dextrose 5%-Water (250mL Bag) 250 ML 250 MG IV (23:04)
--- NOTE | 2023-10-06 23:04 | HP.PCM_ITS ---
HPI - General General Date of Admission: 10/06/23 Date of Service: 10/06/23 Chief Complaint: shortness of breath, cough HPI Narrative SHLOMO GUIDO, is a 68 M with a PMH as outlined who presents via the ED On 10/06/2023 with a complaint of shortness of breath and chest pain. Symptoms started about a week prior to admission, with shortness of breath gradually worsening. He had associated cough productive of sputum. He denied any fever, chills or muscle aches. He admitted to wheezing He usually wears 2-3L of oxygen at home but had been gradually increasing it. He denies any nausea, vomiting or any other symptoms. Vitals at time of review were BP of 139/121, KS of 107, RR of 22 and he was saturating at 96% on 10L of oxygen. CBC showed wbc of 14.1, hb of 10.2, platelets of 324 and D dimer ws 2.84. Chemistry showed sodium of 137, bicarb of 43, Cr of 0.44. Initial troponin was 21 and lactic acid was 1.2. ABG showed pCO2 of 71.1. Respiratory panel was negative for covid, influenza and RSV. CTA chest was negative for PE and showed severe emphysema with left upper lobe pneumonia and small left pleural effusion. He is being admitted to be managed for acute on chronic exacerbation of COPD with left upper lobe pneumonia. [facility] Medical History COPD (chronic obstructive pulmonary disease) Home Medications albuterol sulfate 2.5 mg/3 mL (0.083 %) solution for nebulization 2.5 mg (3 mL) inhalation Q4H PRN PRN Sob &/Or Wheezing #30 vials 11/03/17 [Rx Last Taken 01/05/18] fluticasone fur. 200 mcg-umeclid 62.5 mcg-vilant 25 mcg inhalat.powder (Trelegy Ellipta) 1 inh inhalation DAILY #60 ea 09/22/22 [Rx Last Taken Unknown] nebivolol 2.5 mg tablet 2.5 mg PO DAILY 09/22/22 [History Last Taken Unknown] albuterol sulfate 90 mcg/actuation aerosol inhaler 2 puff inhalation Q4H PRN shortness of breath or wheezing 10/06/23 [History Last Taken Unknown] Allergy/AdvReac Type Severity Reaction Status Date / Time No Known Allergies Allergy Verified 09/22/22 14:34 Social History Smoking Status: Former smoker ROS Review of Systems ROS Unobtainable: Denies due to encephalopathy Constitutional Constitutional: Reports fatigue, fever(s), malaise and weakness; Denies anorexia, change in weight or chills Eyes Eyes: Denies change in vision ENT HEENT: Denies dysphagia or sore throat Cardiovascular Cardiovascular: Reports chest pain; Denies edema, orthopnea, palpitations, paroxysmal nocturnal dyspnea or syncope Respiratory/Chest Respiratory/Chest: Reports cough, shortness of breath at rest, shortness of breath with exertion and wheezing Gastrointestinal Gastrointestinal: Denies abdominal pain, constipation, diarrhea, melena, nausea or vomiting Musculoskeletal Musculoskeletal: Denies extremity pain Neurologic Neurologic: Denies confusion, dizziness, focal weakness, headache(s), lack of coordination, numbness or weakness Psychiatric Psychiatric: Denies anxiety or depression Endocrine Endocrinology: Denies change in body appearance Hematologic/Lymphatic Hematologic/Lymphatic: Denies anemia Vital Signs Vital Signs Vital Signs: 10/06/23 20:03 10/06/23 20:08 10/06/23 20:08 Temperature 97.4 F L 97.4 F L Temperature Source Temporal Temporal Pulse Rate 116 H 114 H Respiratory Rate 21 H 26 H Respiratory Effort Respiratory Depth Respiratory Pattern Blood Pressure 140/85 H 140/85 H Blood Pressure Mean 103 103 Pulse Ox 86 87 87 Oxygen Delivery Method Nasal Cannula Nasal Cannula Nasal Cannula Oxygen Flow Rate (L/min) 6 6 6 10/06/23 20:08 10/06/23 20:13 10/06/23 20:51 Temperature Temperature Source Pulse Rate Respiratory Rate Respiratory Effort Short of Breath Labored Accessory Muscle Use Short of Breath Respiratory Depth Shallow Respiratory Pattern Tachypnea Blood Pressure Blood Pressure Mean Pulse Ox 93 Oxygen Delivery Method Non-Rebreather High Flow Oxygen Flow Rate (L/min) 10/06/23 21:02 10/06/23 20:48 10/06/23 22:00 Temperature Temperature Source Pulse Rate 112 H 113 H 111 H Respiratory Rate 25 H 22 H 28 H Respiratory Effort Respiratory Depth Respiratory Pattern Tachypnea Blood Pressure 116/65 133/82 H Blood Pressure Mean 82 99 Pulse Ox 97 89 Oxygen Delivery Method High Flow High Flow Oxygen Flow Rate (L/min) 10 10 10/06/23 22:35 Temperature Temperature Source Pulse Rate 110 H Respiratory Rate 24 H Respiratory Effort Respiratory Depth Respiratory Pattern Blood Pressure 144/113 H Blood Pressure Mean 123 Pulse Ox 91 Oxygen Delivery Method High Flow Oxygen Flow Rate (L/min) 12 Weight Weight: 118 lb 13.266 oz Body Mass Index (BMI) 18.6 Physical Exam Const alert and oriented x3 Constitutional Narrative: frail, looks chronically ill and older than stated age. General Appearance: cooperative HEENT normocephalic, head/scalp atraumatic and moist oral mucous membranes Eyes PERRL and EOMs intact bilaterally Neck no lymphadenopathy and supple Lymph Lymphatic: no lymphadenopathy noted and no lymphedema noted Resp Resp Narrative: diminished breath sounds bilaterally, moderate wheezing, no crackles. On 10L of oxygen. Effort and Inspection: tachypneic, respiratory distress, labored and uses accessory muscles Cardio regular rate, regular rhythm, S1 normal heart sound and S2 normal heart sound GI normal to inspection, nondistended, normoactive bowel sounds, soft to palpation and non-tender Extremity normal capillary refill, no clubbing, cyanosis or edema and no calf tenderness General Extremity: no tenderness to palpation of joints or extremities Skin General Skin Exam: no breakdown and turgor normal Neuro CN's II-XII intact bilaterally, no focal motor deficits and no sensory deficits noted Coordination / Balance: [id number] test normal Motor Exam: strength 5/5 throughout and general weakness Psych thought process normal, cooperative and affect normal Appearance: appropriate Results Lab / Micro Data 10/06/23 20:43 10/06/23 20:43 Labs: Laboratory Results - last 24 hr 10/06/23 20:43: WBC 14.1 H, RBC 3.75 L, Hgb 10.2 L, Hct 33.7 L, MCV 89.9, MCH 27.2, MCHC 30.3 L, RDW Std Deviation 46.9 H, RDW Coeff of Anurag 14.2, Plt Count 324, MPV 9.0, Immature Gran % (Auto) 0.700, Neut % (Auto) 88.8 H, Lymph % (Auto) 4.0 L, [place] % (Auto) 6.0, Eos % (Auto) 0.2, Baso % (Auto) 0.3, Absolute Neuts (auto) 12.5 H, Absolute Lymphs (auto) 0.56 L, Nucleated RBC % 0, Differential Comment SCANNED, D-Dimer Quant (PE/DVT) 2.84 H*, Sodium 137, Potassium 4.4, Chloride 92 L, Carbon Dioxide 43.0 H, Anion Gap 2 L, BUN 16, Creatinine 0.44 L, Estim Creat Clear Calc 68.31, Est GFR (MDRD) Af Amer 247, Est GFR (MDRD) Non-Af 205, BUN/Creatinine Ratio 36.4 H, Glucose 147 H, Lactic Acid 1.2, Calcium 9.8, Troponin I High Sens 21 Micro: Microbiology 10/06/23 20:53 Mucosa - Nose SARS-CoV-2, Influenza & RSV (PCR) - Final ABG Data ABG results: ABG 10/06/23 20:39 Specimen Type ART Sample Site L Radial pH 7.39 Bicarbonate Actual 42.9 H Total CO2 45 Base Excess 18 H O2 Saturation 96 O2 % 12.0 ABG pCO2 71.1 H* ABG pO2 86 Pranav Test Positive O2 Delivery Device HFNC Vent Mode Not entered Crit Call To/Read Back Yes Blood Gas Notified Whom [facility] Blood Gas Notified Time 20:40:56 Imagaing Radiology Impression Chest X-Ray 10/06/23 20:56 IMPRESSION: Emphysema with multifocal left-sided pneumonia. Electronically Signed: Grey Peters MD at 21:33 EST , Assessment & Plan Assessment/Plan (1) Leukocytosis: (2) Pneumonia: (3) COPD exacerbation: PLAN: Plan #Acute on chronic hypoxic and hypercapnic respiratory failure due to COPD exacerbation and community acquired pneumonia * admit to PCU * on 10L of oxygen; usually wears 2-3L at home * also has wheezing and pleuritic chest pain with coughing * ABG showed pH of 71. * CTA chest was negative for PE but showed sevre emphysema with left upper lobe pneumonia and a small left pleural effusion * start on IV solumedrol 40mg 18 * IV ceftriaxone and azithromycin * urine for strep and legionella; sputum cultures. * consult pulmonology * titrate oxygen to maintain sats>90% * breathing treatment with bronchodilators. * # COPD exacerbation: as above #COmmunity acquired pneumonia: as above #DVT prophylaxis: lovenox Code status: full code * Patient counseled extensively about different types of CODE STATUS including full code, DNR CCA and DNR CCA. Patient elects to be full code. * Total [id number]-[id number] time 17 minutes. Charges/Coding Visit Charges Inpatient E&M: 31018 Init Hosp L3 Procedures Hospitalists Procedures: 83743 Advncd Care Plan 30 Min
--- OUTSIDE RECORDS SUMMARY | 2023-10-06 23:45 | XMS RPT_ITS | CCD ---
Author Name Unknown Address [address] [place] [address] Organization [facility] Care Team Providers Care Vacuum Metalizer Operator Name Role Phone Del Crowder Primary Care Provider [phone] Medications Completed/Discontinued Medications Medication Drug Class(es) Dates Sig (Normalized) Sig (Original) [id number] 200 actuat albuterol 0.09 mg/actuat metered dose [...] Author Start: 05-26-2022 Influenza vaccination INFLUENZA (#1) [facility] Start: 09-25-2021 ADVANCE DIRECTIVE DISCUSSION ADVANCE DIRECTIVE DISCUSSION [facility] Start: 09-25-2021 DEPRESSION ASSESSMENT DEPRESSION ASS ESSMENT [facility] Start: 10-30-2020 PNEUMOCOCCAL: 65+ (2 - PPSV23 if available, else PCV20) PNEUMOCOCCAL: 65+ (2 - PPSV23 if available, else PCV20) [facility] Start: 01-16-2019 ANNUAL PCP TEAM BLOOD BANK CALENDAR CONTROL CLERK LIANG DISEASE VISIT ANNUAL PCP TEAM CHRONIC DISEASE VISIT [facility] Start: 06-27-2018 COLORECTAL CANCER SCREENING COLORECTAL CANCER SCREENING [facility] Start: 06-27-2018 FECAL OCCULT BLOOD FECAL OCCULT BLOO D [facility] Start: 02-25-2011 PROSTATE CANCER SCRE ENING DISCUSSION PROSTATE CANCER SCREENING DISCUSSION [facility] Start: 02-25-2006 SHINGRIX VACCINE (1 of 2) SHINGRIX V ACCINE (1 of 2) [facility] Start: 02-25-2001 COLOGUARD (FIT-DNA) COLOGUARD (FIT-D NA) [facility] Start: 02-25-2001 Colonoscopy COLONOSCOPY [facility] Start: 02-25-[address] COLONOGRAPHY [facility] Start: 02-25-2001 DIABETES SCREEN DIABETES SCREEN [facility] Start: 02-25-[address] [facility] Start: 02-25-1991 LIPID SCREEN LIPID SCREEN [facility] Start: 02-25-1975 Urine microalbumin profile DTAP,TDAP ,TD (1 - Tdap) [facility] Start: 02-25-1974 HEPATITIS C SCREENING HEPATITIS C SC REEKYLIE [facility] Start: 1955 COVID-19 VACCINE (#1) COVID-19 VACCI NE (#1) [facility] Start: 1955 ABDOMINAL AORTIC ANE URYSM SCREENING ABDOMINAL AORTIC ANEURYSM SCREENING [facility] Immunizations Immunization Date Immunization Notes Care Provider Saeed jacob 10-30-2019 pneumococcal conjuga te vaccine, 13 valent Sadia Alvarez PA-C Work Phone: [facility] Work Phone: 06-25-2019 influenza, seasonal, injectable Sadia Alvarez PA-C Work Phone: [facility] Work Phone: 06-05-2017 influenza, injectabl e, quadrivalent, contains preservative Sadia lAvarez PA-C Work Phone: [facility] 12-22-2016 pneumococcal conjuga te vaccine, 13 valent Sadia Alvarez PA-C Work Phone: [facility] Payers Date Payer Category Payer Medicare MEDICARE MEDICAR E A AND B [id number] 2014-Present [phone] [place] [address] Medicare [id number] Social History Date Type Detail Facility Start: 07-01-2014 Tobacco smoking stat us PRIS Ex-smoker [facility] Work Phone: Start: 07-01-1978 End: 06-25-2013 History of tobacco use Current smoker [facility] Work Phone: Start: 07-01-1978 End: 06-25-2013 History of tobacco use Cigarette Smoker [facility] Work Phone: Start: 07-01-2014 Cigarettes smoked current (pack per day) - Reported 1.5 [facility] Start: 07-01-2014 Tobacco use and exposure Smokeless tobacco non-user [facility] Work Phone: Start: 11-26-2019 Alcohol intake Current non-dr tombstone polisher of alcohol (finding) [facility] Start: 1955 Sex Assigned At Not on [...] Shoemaker MD Pulmonary / CC Staff PAGER: [phone] DATE of SERVICE:07/27/2022 TIME of SERVICE: 3:35 PM Refill declined, has not seen seen in more than a year. Can we pleas offer patient a follow-up appointment for refill. documented in this encounter [facility] Summary Purpose Family History No Family History Records Found Advance Directives No Advanced Directives Records Found Reason for Referral Specialty Diagnoses / Procedures Referred By Contac t Referred To Contact Eugenio Shoemaker MD [address] [phone] Referral ID Status Reason Start Date Expiration Date V isits Requested Visits Authorized [id number] Pending Review 1 1 Additional Source Comments [...] or prosecute any alcohol or drug abuse patient.[facility] Reason for Visit (unrecogniz ed section and [...] BE BASED ON THE PRIMARY CLINICAL RECORDS. [facility]. provides no warranty or guarantee of the accuracy or completeness of information in this document.
[2023-10-07] VITALS (14 sets, daily range): BP systolic 133–150; BP diastolic 68–87; PULSE 78–101; RESP 16–22; TEMP 36.4–37.2; O2SAT 83–98; BMI 16.8
[2023-10-07] MEDS: 0.9% Normal Saline (1000mL) 1,000 ML 125 ML IV (05:39)
[2023-10-07 06:39] LABS: Absolute Lymphocyte Count 0.46 X10^3/uL (0.83-4.51); Absolute Neutrophil Count 11.2 X10^3/uL (2.0-7.7); Basophil# 0.02 X10^3/uL; Basophil% 0.2 % (0-1); Hematocrit 31.9 % (40-54); Hemoglobin 9.8 g/dL (13.0-16.5); Lymphocyte # 0.46 X10^3/ul (0.83-4.51); Lymphocyte % 3.9 % (19-41); Mean Corp Hgb Conc 30.7 g/dL (32-36); Mean Corpuscular Hgb 27.8 pg (27.0-32.0); Mean Corpuscular Volume 90.4 fL (80-94); Monocyte# 0.15 X10^3/uL; Monocyte% 1.3 % (0-10); NRBC Flagged by Analyzer 0 % (0-5); Neutrophil # 11.22 X10^3/uL (2.7-7.7); Neutrophil % 94.1 % (47-70); POSITIVE DIFFERENTIAL YES; Platelet Count 338 K/mm3 (150-450); RBC Distribution Width CV 14.4 % (11.6-14.6); RBC Distribution Width SD 47.5 fl (35.1-43.9); Red Blood Count 3.53 M/mm3 (4.6-6.2); White Blood Count 11.9 K/mm3 (4.4-11.0)
[2023-10-07 06:45] LABS: Differential Indicated SCAN CRITERIA MET
--- NOTE | 2023-10-07 06:52 | CON.PCM.CC_ITS ---
Assessment & Plan Assessment/Plan (1) Acute and chronic respiratory failure: PLAN: Plan RECOMMENDATIONS: 1. Wean supplemental oxygen to maintain saturations 90 to 93%. 2. Continue scheduled bronchodilators and steroids. 3. Continue antimicrobials. 4. Continue appropriate DVT prophylaxis. 5. Encourage incentive spirometer use and mobilize patient as tolerated. 6. Empiric PAP therapy can be utilized with naps and nightly. IMPRESSIONS: 1. Acute on chronic combined respiratory failure Most likely secondary to COPD exacerbation in the setting of left upper lobe pneumonia. The patient has a baseline oxygen requirement of 3 L/min. He has presumptive advanced age COPD and is maintained on a triple therapy inhaler regimen on an outpatient basis. For now, I agree with continuing antibiotics, steroids and bronchodilators. Recommend weaning supplemental oxygen to maintain saturations at 90 to 93%. Encourage incentive spirometer use and mobilize patient as tolerated. BiPAP therapy can be utilized with naps and nightly. 2. Generalized weakness/tobacco dependency in remission Complicates care, management, recovery and prognosis. Recommend physical therapy to work with the patient. This note was generated with [employer]leep dictation software. It may contain incorrect words, spelling, and punctuation that were not noted in checking the note before signing. HPI Consult Data Date of Consult: 10/07/23 HPI Narrative Reason for Consultation: Acute on chronic respiratory failure HPI Narrative: The patient is a 68-year-old male, with a history as outlined below, who presented to the emergency department on October 06 with worsening shortness of breath. The patient has a known history of COPD and chronic hypoxemic r espiratory failure, with a baseline oxygen requirement of 3 L/min. The patient was previously under the care of Dr. Lyman at [facility], but stated that he has been multiple years since he has been seen by a purchasing administrative assistant. His PCP is apparently caring for his underlying respiratory disease. The patient is a former smoker. At his baseline, the patient utilizes Trelegy Ellipta and as needed albuterol. On presentation to the emergency department, the patient was noted to be afebrile and hemodynamically stable. The patient was saturating in the high 80s on 6 L/min via nasal cannula. Initial laboratory evaluation revealed a white blood cell count of 14,000. Arterial blood gas demonstrated a pH of 7.39 with a pCO2 of 71 and pO2 of 86. Chemistry profile was notable for a bicarbonate of 43 and normal creatinine. COVID, influenza and RSV screens were negative. CTA chest showed no evidence of pulmonary embolism. Severe bilateral office evidence changes were noted along with a groundglass density in the left upper lobe. The patient was subsequently placed on antimicrobials, bronchodilators and steroids. He was admitted to the progressive care unit for further management. [facility] Medical History COPD (chronic obstructive pulmonary disease) Home Medications albuterol sulfate 2.5 mg/3 mL (0.083 %) solution for nebulization 2.5 mg (3 mL) inhalation Q4H PRN PRN Sob &/Or Wheezing #30 vials 11/03/17 [Rx Last Taken 01/05/18] fluticasone fur. 200 mcg-umeclid 62.5 mcg-vilant 25 mcg inhalat.powder (Trelegy Ellipta) 1 inh inhalation DAILY #60 ea 09/22/22 [Rx Last Taken Unknown] nebivolol 2.5 mg tablet 2.5 mg PO DAILY 09/22/22 [History Last Taken Unknown] albuterol sulfate 90 mcg/actuation aerosol inhaler 2 puff inhalation Q4H PRN shortness of breath or wheezing 10/06/23 [History Last Taken Unknown] Allergy/AdvReac Type Severity Reaction Status Date / Time No Known Allergies Allergy Verified 09/22/22 14:34 Social History Smoking Status: Former smoker ROS ROS Narrative 10 systems were personally reviewed with pertinent positives as noted in the HPI above. Physical Exam Const alert and no apparent distress General Appearance: cooperative and frail HEENT normocephalic, head/scalp atraumatic and moist oral mucous membranes Teeth and Gingiva: poor dentition Eyes PERRL, EOMs intact bilaterally and conjunctivae normal Neck supple General: trachea midline Chest Chest Narrative: Increased AP diameter Resp normal respiratory effort Effort and Inspection: prolonged expiratory phase Auscultation: wheezes and diminished lung sounds Cardio regular rate and regular rhythm GI normal to inspection, nondistended, normoactive bowel sounds Extremity no clubbing, cyanosis or edema Skin no rashes or lesions noted Neuro oriented x3, CN's II-XII intact bilaterally and moves all extremities Psych cooperative and affect normal Lab / Micro Data 10/07/23 06:15 10/06/23 20:43 Labs: Laboratory Results - last 24 hr 10/06/23 20:43: WBC 14.1 H, RBC 3.75 L, Hgb 10.2 L, Hct 33.7 L, MCV 89.9, MCH 27.2, MCHC 30.3 L, RDW Std Deviation 46.9 H, RDW Coeff of Anurag 14.2, Plt Count 324, MPV 9.0, Immature Gran % (Auto) 0.700, Neut % (Auto) 88.8 H, Lymph % (Auto) 4.0 L, [place] % (Auto) 6.0, Eos % (Auto) 0.2, Baso % (Auto) 0.3, Absolute Neuts (auto) 12.5 H, Absolute Lymphs (auto) 0.56 L, Nucleated RBC % 0, Differential Comment SCANNED, D-Dimer Quant (PE/DVT) 2.84 H*, Sodium 137, Potassium 4.4, Chloride 92 L, Carbon Dioxide 43.0 H, Anion Gap 2 L, BUN 16, Creatinine 0.44 L, Estim Creat Clear Calc 68.31, Est GFR (MDRD) Af Amer 247, Est GFR (MDRD) Non-Af 205, BUN/Creatinine Ratio 36.4 H, Glucose 147 H, Lactic Acid 1.2, Calcium 9.8, Troponin I High Sens 21 10/07/23 06:15: WBC 11.9 H, RBC 3.53 L, Hgb 9.8 L, Hct 31.9 L, MCV 90.4, MCH 27.8, MCHC 30.7 L, RDW Std Deviation 47.5 H, RDW Coeff of Anurag 14.4, Plt Count 338, MPV 9.0, Immature Gran % (Auto) 0.500, Neut % (Auto) 94.1 H, Lymph % (Auto) 3.9 L, [place] % (Auto) 1.3, Eos % (Auto) 0.0, Baso % (Auto) 0.2, Absolute Neuts (auto) 11.2 H, Absolute Lymphs (auto) 0.46 L, Nucleated RBC % 0 Micro: Microbiology 10/07/23 03:15 Urine, Clean Catch Legionella Antigen - Final 10/07/23 03:15 Urine, Clean Catch Streptococcus pneumoniae Antigen (M - Final 10/06/23 20:53 Mucosa - Nose SARS-CoV-2, Influenza & RSV (PCR) - Final ABG Data ABG results: ABG 10/06/23 20:39 Specimen Type ART Sample Site L Radial pH 7.39 Bicarbonate Actual 42.9 H Total CO2 45 Base Excess 18 H O2 Saturation 96 O2 % 12.0 ABG pCO2 71.1 H* ABG pO2 86 Pranav Test Positive O2 Delivery Device HFNC Vent Mode Not entered Crit Call To/Read Back Yes Blood Gas Notified Whom [facility] Blood Gas Notified Time 20:40:56 Imagaing Radiology Impression Chest X-Ray 10/06/23 20:56 IMPRESSION: Emphysema with multifocal left-sided pneumonia. Electronically Signed: Grey Peters MD at 21:33 EST Reading Location ID and State: [id number] / [employer] Tel , Service support , Chest CTA 10/06/23 22:[address]: 1[address] No CT evidence of pulmonary embolism. 2. Severe emphysema with left upper lobe pneumonia and a small left pleural effusion. Electronically Signed: Grey Peters MD at 23:04 EST Reading Location ID and State: [id number] / [employer] Tel , Service support , Charges/Coding Visit Charges Inpatient E&M: 24600 Init Hosp L3
[2023-10-07 07:00] LABS: Differential Comment SCANNED
[2023-10-07] MEDS: Ipratropium/Albuterol Sulfate 3 ML AMPUL.NEB INHALATION ×3 (07:25→19:21)
--- NOTE | 2023-10-07 07:46 | PN.HOSP_ITS ---
Reason for Visit Reason for Visit: Diagnoses Elevated white blood cell count, unspecified (10/06/23) Pneumonia, unspecified organism (10/06/23) Chronic obstructive pulmonary disease with (acute) exacerbation (10/06/23) Acute and chronic respiratory failure, unspecified whether with hypoxia or hypercapnia (10/06/23) Objective Data Objective Data Vital Signs: Vital Signs Temp Pulse Resp BP Pulse Ox O2 Del Method O2 Flow Rate 97.9 F 99 18 133/87 H 92 High Flow 9 10/07/23 00:39 10/07/23 00:39 10/07/23 01:40 10/07/23 00:39 10/07/23 01:45 10/07/23 01:45 10/07/23 01:45 Oxygen Flow Rate (L/min) 9 Oxygen Delivery Method High Flow Weight: 107 lb 9.369 oz Body Mass Index (BMI) 16.8 Intake & Output: Intake and Output for Last 24 Hours 10/05/23 10/06/23 10/07/23 23:59 23:59 23:59 Intake Total 50 / 50 495 / 495 Output Total 400 / 400 Balance 50 / 50 95 / 95 Lab / Micro Data 10/07/23 06:15 10/07/23 06:15 Labs: Laboratory Results - last 24 hr 10/06/23 20:43: WBC 14.1 H, RBC 3.75 L, Hgb 10.2 L, Hct 33.7 L, MCV 89.9, MCH 27 .2, MCHC 30.3 L, RDW Std Deviation 46.9 H, RDW Coeff of Anurag 14.2, Plt Count 324, MPV 9.0, Immature Gran % (Auto) 0.700, Neut % (Auto) 88.8 H, Lymph % (Auto) 4.0 L, [place] % (Auto) 6.0, Eos % (Auto) 0.2, Baso % (Auto) 0.3, Absolute Neuts (auto) 12.5 H, Absolute Lymphs (auto) 0.56 L, Nucleated RBC % 0, Differential Comment SCANNED, D-Dimer Quant (PE/DVT) 2.84 H*, Sodium 137, Potassium 4.4, Chloride 92 L, Carbon Dioxide 43.0 H, Anion Gap 2 L, BUN 16, Creatinine 0.44 L, Estim Creat Clear Calc 68.31, Est GFR (MDRD) Af Amer 247, Est GFR (MDRD) Non-Af 205, BUN/Creatinine Ratio 36.4 H, Glucose 147 H, Lactic Acid 1.2, Calcium 9.8, Troponin I High Sens 21 10/07/23 06:15: WBC 11.9 H, RBC 3.53 L, Hgb 9.8 L, Hct 31.9 L, MCV 90.4, MCH 27.8, MCHC 30.7 L, RDW Std Deviation 47.5 H, RDW Coeff of Anurag 14.4, Plt Count 338, MPV 9.0, Immature Gran % (Auto) 0.500, Neut % (Auto) 94.1 H, Lymph % (Auto) 3.9 L, [place] % (Auto) 1.3, Eos % (Auto) 0.0, Baso % (Auto) 0.2, Absolute Neuts (auto) 11.2 H, Absolute Lymphs (auto) 0.46 L, Nucleated RBC % 0, Differential Comment SCANNED Micro: Microbiology 10/07/23 03:15 Urine, Clean Catch Legionella Antigen - Final 10/07/23 03:15 Urine, Clean Catch Streptococcus pneumoniae Antigen (M - Final 10/06/23 20:53 Mucosa - Nose SARS-CoV-2, Influenza & RSV (PCR) - Final ABG Data ABG results: ABG 10/06/23 20:39 Specimen Type ART Sample Site L Radial pH 7.39 Bicarbonate Actual 42.9 H Total CO2 45 Base Excess 18 H O2 Saturation 96 O2 % 12.0 ABG pCO2 71.1 H* ABG pO2 86 Pranav Test Positive O2 Delivery Device HFNC Vent Mode Not entered Crit Call To/Read Back Yes Blood Gas Notified Whom [facility] Blood Gas Notified Time 20:40:56 Radiography Diagnostic Testing: Radiology Impression Chest X-Ray 10/06/23 20:56 IMPRESSION: Emphysema with multifocal left-sided pneumonia. Electronically Signed: Grey Peters MD at 21:33 EST , Chest CTA 10/06/23 22:01 IMPRESSION: 1. No CT evidence of pulmonary embolism. 2. Severe emphysema with left upper lobe pneumonia and a small left pleural effusion. Electronically Signed: Grey Peters MD at 23:04 EST , Physical Exam Narrative Seen and examined. Patient is short of breath and has history of COPD. Has cough and chest congestion. Physical exam General: Alert, Oriented x3, Cooperative HEENT: Atraumatic, PERRLA, EOMI, Normocephalic Oral: Oral mucosa dry. No Gingival or Mucosal Lesions/ Ulcerations Neck: Supple, No JVD, Negative Carotid Bruits Lungs: Air entry diminished in bilateral lung bases. Bilateral coarse crepitation and wheezing. On 9 L of high flow oxygen. Tachypnea. Cardiovascular: Regular rate, Regular Rhythm, Normal S1, Normal S2, No murmurs Abdomen: Bowel Sounds Present, Soft, Non Tender, Non-Distended : No renal angle tenderness. No suprapubic tenderness. Extremities: No edema, Capillary Refill Less than 3 Seconds Skin: No rashes, No breakdown Musculoskeletal: No Tenderness to Palpation of Joints or Extremities Neurological: Cranial nerves II-XII grossly intact, DTR 2+/4. No acute focal neurological deficit. Psych/Mental Status: Normal Affect, Appropriate. Assessment & Plan Assessment/Plan (1) Leukocytosis: (2) Pneumonia: (3) COPD exacerbation: PLAN: Plan 68-year-old gentleman who was admitted for gradual worsening of shortness of breath and chest pain, symptoms started a week prior to admission. Associated symptoms are cough productive in nature and wheezing. On 2 to 3 L of home oxygen but patient was gradually increasing it. Denies fever chills or muscle aches. #Acute on chronic hypoxic and hypercapnic respiratory failure due to COPD exacerbation and community acquired pneumonia * admit to PCU * Was on 10 L of oxygen on admission but currently improving. usually wears 2- 3L at home * also has wheezing and pleuritic chest pain with coughing * ABG showed pH of 7.1. * CTA chest was negative for PE but showed severe emphysema with left upper lobe pneumonia and a small left pleural effusion * start on IV solumedrol 40mg every 8 hourly. * IV ceftriaxone and azithromycin * urine for strep and legionella; sputum cultures are negative * Patient was eval by lead enterprise architect and advised to continue antimicrobial bronchodilator and steroid. Empiric PAP during naps at night. * titrate oxygen to maintain sats>90% # COPD exacerbation: as above #COmmunity acquired pneumonia multifocal left-sided: as above #DVT prophylaxis: lovenox Code status: full code * Patient counseled extensively about different types of CODE STATUS including full code, DNR CCA and DNR CCA. Patient elects to be full code. Microbiology Past 72 Hours 10/07/23 03:15 Urine, Clean Catch Legionella Antigen - Final 10/07/23 03:15 Urine, Clean Catch Streptococcus pneumoniae Antigen (M - Final 10/06/23 20:53 Mucosa - Nose SARS-CoV-2, Influenza & RSV (PCR) - Final Laboratory Results 10/06/23 20:39: Specimen Type ART, Sample Site L Radial, pH 7.39, Bicarbonate Actual 42.9 H, Total CO2 45, Base Excess 18 H, O2 Saturation 96, O2 % 12.0, ABG pCO2 71.1 H*, ABG pO2 86, Pranav Test Positive, O2 Delivery Device HFNC, Vent Mode Not entered, Crit Call To/Read Back Yes, Blood Gas Notified Whom [facility] Blood Gas Notified Time 20:40:56 10/06/23 20:43: WBC 14.1 H, RBC 3.75 L, Hgb 10.2 L, Hct 33.7 L, MCV 89.9, MCH 27.2, MCHC 30.3 L, RDW Std Deviation 46.9 H, RDW Coeff of Anurag 14.2, Plt Count 324, MPV 9.0, Immature Gran % (Auto) 0.700, Neut % (Auto) 88.8 H, Lymph % (Auto) 4.0 L, [place] % (Auto) 6.0, Eos % (Auto) 0.2, Baso % (Auto) 0.3, Absolute Neuts (auto) 12.5 H, Absolute Lymphs (auto) 0.56 L, Nucleated RBC % 0, Differential Comment SCANNED, D-Dimer Quant (PE/DVT) 2.84 H*, Sodium 137, Potassium 4.4, Chloride 92 L, Carbon Dioxide 43.0 H, Anion Gap 2 L, BUN 16, Creatinine 0.44 L, Estim Creat Clear Calc 68.31, Est GFR (MDRD) Af Amer 247, Est GFR (MDRD) Non-Af 205, BUN/Creatinine Ratio 36.4 H, Glucose 147 H, Lactic Acid 1.2, Calcium 9.8, Troponin I High Sens 21 10/07/23 06:15: WBC 11.9 H, RBC 3.53 L, Hgb 9.8 L, Hct 31.9 L, MCV 90.4, MCH 27.8, MCHC 30.7 L, RDW Std Deviation 47.5 H, RDW Coeff of Anurag 14.4, Plt Count 338, MPV 9.0, Immature Gran % (Auto) 0.500, Neut % (Auto) 94.1 H, Lymph % (Auto) 3.9 L, [place] % (Auto) 1.3, Eos % (Auto) 0.0, Baso % (Auto) 0.2, Absolute Neuts (auto) 11.2 H, Absolute Lymphs (auto) 0.46 L, Nucleated RBC % 0, Differential Comment SCANNED, Sodium Pending, Potassium Pending, Chloride Pending, Carbon Dioxide Pending, Anion Gap Pending, BUN Pending, Creatinine Pending, Est GFR (MDRD) Af Amer Pending, Est GFR (MDRD) Non-Af Pending, BUN/Creatinine Ratio Pending, Glucose Pending, Calcium Pending Charges/Coding Visit Charges Inpatient E&M: 14691 Subs Hosp L2
[2023-10-07 08:35] LABS: Anion Gap 3 (5-15); BUN 15 mg/dL (7-18); BUN/Creat Ratio 38.5 RATIO (10-20); Calcium,Total 9.7 mg/dL (8.5-10.1); Chloride 94 mmol/L (98-107); Creatinine, Serum 0.39 mg/dL (0.70-1.30); EST Glomerular Filtration Rate 234 mL/min (>60); Est Glom Filt Rate - Afr Amer 284 mL/min (>60); Estimated Creatinine Clearance 61.85 ml/min; Glucose 150 mg/dL (74-106); Potassium 5.6 mmol/L (3.5-5.1); Sodium Level 137 mmol/L (136-145)
--- OUTSIDE RECORDS SUMMARY | 2023-10-07 12:03 | XMS RPT_ITS | CCD ---
Author Name Unknown Address [address] [place] [address] Organization [facility] Care Team Providers Care Cellar Packer Name Role Phone Del Crowder Primary Care Provider Medications Completed/Discontinued Medications Medication Drug Class(es) Dates Sig (Normalized) Sig (Original) [id number] 200 actuat albuterol 0.09 mg/actuat metered dose [...] Author Start: 05-26-2022 Influenza vaccination INFLUENZA (#1) [facility] Start: 09-25-2021 ADVANCE DIRECTIVE DISCUSSION ADVANCE DIRECTIVE DISCUSSION [facility] Start: 09-25-2021 DEPRESSION ASSESSMENT DEPRESSION ASS ESSMENT [facility] Start: 10-30-2020 PNEUMOCOCCAL: 65+ (2 - PPSV23 if available, else PCV20) PNEUMOCOCCAL: 65+ (2 - PPSV23 if available, else PCV20) [facility] Start: 01-16-2019 ANNUAL PCP TEAM RAPID EXTRACTOR OPERATOR LIANG DISEASE VISIT ANNUAL PCP TEAM CHRONIC DISEASE VISIT [facility] Start: 06-27-2018 COLORECTAL CANCER SCREENING COLORECTAL CANCER SCREENING [facility] Start: 06-27-2018 FECAL OCCULT BLOOD FECAL OCCULT BLOO D [facility] Start: 02-25-2011 PROSTATE CANCER SCRE ENING DISCUSSION PROSTATE CANCER SCREENING DISCUSSION [facility] Start: 02-25-2006 SHINGRIX VACCINE (1 of 2) SHINGRIX V ACCINE (1 of 2) [facility] Start: 02-25-2001 COLOGUARD (FIT-DNA) COLOGUARD (FIT-D NA) [facility] Start: 02-25-2001 Colonoscopy COLONOSCOPY [facility] Start: 02-25-[address] COLONOGRAPHY [facility] Start: 02-25-2001 DIABETES SCREEN DIABETES SCREEN [facility] Start: 02-25-2001 SIGMOIDOSCOPY SIGMOIDOSCOPY [facility] Start: 02-25-1991 LIPID SCREEN LIPID SCREEN [facility] Start: 02-25-1975 Urine microalbumin profile DTAP,TDAP ,TD (1 - Tdap) [facility] Start: 02-25-1974 HEPATITIS C SCREENING HEPATITIS C SC REEKYLIE [facility] Start: 1955 COVID-19 VACCINE (#1) COVID-19 VACCI NE (#1) [facility] Start: 1955 ABDOMINAL AORTIC ANE URYSM SCREENING ABDOMINAL AORTIC ANEURYSM SCREENING [facility] Immunizations Immunization Date Immunization Notes Care Provider Saeed jacob 10-30-2019 pneumococcal conjuga te vaccine, 13 valent Sadia Alvarez PA-C Work Phone: [facility] Work Phone: 06-25-2019 influenza, seasonal, injectable Sadia Alvarez PA-C Work Phone: [facility] Work Phone: 06-05-2017 influenza, injectabl e, quadrivalent, contains preservative Sadia Alvarez PA-C Work Phone: [facility] 12-22-2016 pneumococcal conjuga te vaccine, 13 valent Sadia Alvarez PA-C Work Phone: [facility] Payers Date Payer Category Payer Medicare MEDICARE MEDICAR E A AND B [id number] 2014-Present [phone] [place] [place] [address] Medicare [id number] Social History Date Type Detail Facility Start: 07-01-2014 Tobacco smoking stat us MTIS Ex-smoker [facility] Work Phone: Start: 07-01-1978 End: 06-25-2013 History of tobacco use Current smoker [facility] Work Phone: Start: 07-01-1978 End: 06-25-2013 History of tobacco use Cigarette Smoker [facility] Work Phone: Start: 07-01-2014 Cigarettes smoked current (pack per day) - Reported 1.5 [facility] Start: 07-01-2014 Tobacco use and exposure Smokeless tobacco non-user [facility] Work Phone: Start: 11-26-2019 Alcohol intake Current non-dr director safety council of alcohol (finding) [facility] Start: 1955 Sex Assigned At Not [...] Shoemaker MD Pulmonary / CC Staff PAGER: [phone] DATE of SERVICE:07/27/2022 TIME of SERVICE: 3:35 PM Refill declined, has not seen seen in more than a year. Can we pleas offer patient a follow-up appointment for refill. documented in this encounter [facility] Summary Purpose Family History No Family History Records Found Advance Directives No Advanced Directives Records Found Reason for Referral Specialty Diagnoses / Procedures Referred By Contac t Referred To Contact Eugenio Shoemaker MD [address] [phone] Referral ID Status Reason Start Date Expiration Date V isits Requested Visits Authorized [id number] Pending Review 1 1 Additional Source Comments [...] or prosecute any alcohol or drug abuse patient.[facility] Reason for Visit (unrecogniz ed section [...] BE BASED ON THE PRIMARY CLINICAL RECORDS. [facility] [employer] [facility]. provides no warranty or guarantee of the accuracy or completeness of information in this document.
--- NOTE | 2023-10-07 15:45 | CASEMGMT ---
RN?CM?CASH APPLICATIONS ASSOCIATE?CM?to room to meet with patient for initial transition planning/care coordination?assessment.?RN?CM?introduced self and role at [facility].? Pt voices understanding and consents to?assessment?at this time.? Pt resting in bed in no distress at this time.? Cousin, Kade, @ bedside and pt agreeable to him being present during assessment. Pt is A/O at this time and answers all questions appropriately.?? Care providers, pharmacy, and demographics verified/updated at this time. PCP: Dr Crowder Specialists:Pt states he used to go to Dr Lyman, but states he has not seen him for about 5 yrs or more. Preferred Pharmacy: [facility] Insurance: [facility] A/B Prescription Benefit:?yes, [employer]. Living Will/HPOA:?Pt does not currently have LW/HCPOA and states he would like to complete HCPOA, stating he would want his cousins, Ene, to be his POA's. Luana LABOY, made aware. Pt made aware SW unavailable to complete these w/him today, and that SW will try and complete them w/him while @ [facility]. He was made aware, if SW unable to complete while @ [facility], these can be done as an OP w/SW. He voices appreciation. LNOK: Cousins Isauro listed on pt's contact list and he requested RN CM add Kade on as well. Same done at this time. Pt states he has a biological son, but states his son does not even know who he (patient) is. He stated, If he ever looks me up and reaches out to me, I'd help him out . He states his parents are and that he has 3 half-siblings, but states they have not been in contact for years. He states he would not want them contacted to make medical decisions for him, that he would want his cousins, Ene, to do this (as stated above). Living Arrangements: Pt lives alone in a 3-story home. He states from the front entrance there are 3 very big steps to enter and there is a lot of walking to do to get to that entrance. He states he usually goes through the back entrance, but there are 12 steps to get to the main level of the home from there. Pt states, When I'm functional, I'm independent, but when I'm sick, not so much . He reports the last 1-2 weeks he has been declining and it has been difficult bathing and preparing meals. Transportation:?cousins DME: ? has the following DME:?shower chair, BP machine, nebulizer, O2 through [employer] that he wears @ 4 l/m continuously. He states he has a concentrator and portable O2 tanks @ home. He does not have a pulse ox, but states he was just thinking about getting one and states he can afford to purchase one. Pt states no need for further DME at this time.? HHC/SNF: No hx of either. Palliative: Discussed palliative care and questions answered. Pt interested in referral. Dr Dia made aware and order received. Referral sent to [facility] via e-mail. Discussed discharge plan and questions answered. Pt states he would like to go to a SNF @ discharge. A list of SNF providers including quality and resource use data and consistent with the patient?s preferred geographic region, medical needs, and insurance network were provided from the [facility] Guide. Pt made aware to review and pick top 3 choices and SW would f/u with him on Monday. He voices appreciation. BENOIT, Luana, made aware. PLAN:??SNF Salena BSN?RN?CM
[2023-10-07] MEDS: Ceftriaxone 1 GM/50 ML BAG IV (21:25)
[2023-10-07] MEDS: Azithromycin 500 MG in Dextrose 5%-Water (250mL Bag) 250 ML 250 MG IV (22:46)
[2023-10-08] VITALS (8 sets, daily range): BP systolic 138–151; BP diastolic 76–83; PULSE 72–89; RESP 13–20; TEMP 36.6–36.8; O2SAT 92–100
--- NOTE | 2023-10-08 05:17 | PCM.PN.INT ---
Assessment & Plan Assessment/Plan (1) Acute and chronic respiratory failure: PLAN: Plan RECOMMENDATIONS: 1. Wean supplemental oxygen to maintain saturations 90 to 93%. 2. Okay to transition from heated high flow cannula back to conventional nasal cannula supplemental O2. 3. Continue scheduled bronchodilators and steroids. 4. Continue antimicrobials. 5. Continue appropriate DVT prophylaxis. 6. Encourage incentive spirometer use and mobilize patient as tolerated. 7. Empiric PAP therapy can be utilized with naps and nightly. IMPRESSIONS: 1. Acute on chronic combined respiratory failure Most likely secondary to COPD exacerbation in the setting of left upper lobe pneumonia. The patient has a baseline oxygen requirement of 3 L/min. He has presumptive advanced stage COPD and is maintained on a triple therapy inhaler regimen on an outpatient basis. For now, I agree with continuing antibiotics, steroids and bronchodilators. Recommend weaning supplemental oxygen to maintain saturations at 90 to 93%. Encourage incentive spirometer use and mobilize patient as tolerated. BiPAP therapy can be utilized with naps and nightly. 2. Generalized weakness/tobacco dependency in remission Complicates care, management, recovery and prognosis. Recommend physical therapy to work with the patient. This note was generated with [employer] dictation software. It may contain incorrect words, spelling, and punctuation that were not noted in checking the note before signing. Subjective Subjective The patient was seen and examined at the bedside this morning. Events from the last 24 hours have been reviewed. The patient is currently afebrile, hemodynamically stable and maintaining appropriate oxygen saturations on heated high flow oxygen with an FiO2 requirement of 45% and flow rate of 40 L/min. The patient is currently documented to be overall net +1.3 L for the hospitalization. The patient remains on antibiotics, bronchodilators and steroids. The patient feels well this morning and has no specific complaints. Objective Data Objective Data The patient's most recent lab work, culture data and imaging studies have all been personally reviewed. Vital Signs: Vital Signs Temp Pulse Resp BP Pulse Ox O2 Del Method O2 Flow Rate 98.1 F 75 18 151/83 H 98 Airvo 40 10/08/23 05:00 10/08/23 05:00 10/08/23 05:00 10/08/23 05:00 10/08/23 05:00 10/08/23 05:10 10/08/23 05:10 FiO2 45 10/08/23 05:10 Oxygen Flow Rate (L/min) 40 Oxygen Delivery Method Airvo Weight: 107 lb 9.369 oz Body Mass Index (BMI) 16.8 Intake & Output: Intake and Output for Last 24 Hours 10/06/23 10/07/23 10/08/23 23:59 23:59 23:59 Intake Total 50 / 50 2160 / 2160 240 / 240 Output Total 900 / 900 250 / 250 Balance 50 / 50 1260 / 1260 -10 / -10 Medical Nutrition Assessment Dietitian: Malnutrition Criteria Met Start: 10/07/23 13:36 Freq: Status: Active Protocol: Document 10/07/23 13:37 RMA (Rec: 10/07/23 13:37 RMA [id number]) Nutrition Malnutrition Evidence of Malnutrition Exists Yes Malnutrition (severe): Acute Illness/Injury,Chronic Evidenced By Suboptimal Energy Intake ( Severe),Weight Loss (Severe), Physical Changes (Moderate) Clinical Problem Acute Disease or Injury Related Malnutrition Etiology Severe protein-calorie malnutrition in the context of acute on chronic disease related to inadequate oral/ energy intake Signs/Symptoms as evidenced by ~10% unintentional weight loss x less than 2 weeks, BMI 16.9, PO meeting less than 50% estimated nutrition needs x 2 weeks and muscle wasting/fat depletion noted, visibly protruding clavicle and moderate muscle wasting in arms/legs Status Active Problem Recommendation Dietitian Recommendations/Changes Will liberalize diet to regular to optimize PO and replete energy/protein. Will add 240mL chocolate ensure plus HP BID w/ breakfast and dinner meals. Additional ONS as needed to prevent further weight loss. Lab / Micro Data Attestation: I reviewed the patient's lab results. 10/07/23 06:15 10/07/23 06:15 Labs: Laboratory Results - last 24 hr 10/07/23 06:15: WBC 11.9 H, RBC 3.53 L, Hgb 9.8 L, Hct 31.9 L, MCV 90.4, MCH 27.8, MCHC 30.7 L, RDW Std Deviation 47.5 H, RDW Coeff of Anurag 14.4, Plt Count 338, MPV 9.0, Immature Gran % (Auto) 0.500, Neut % (Auto) 94.1 H, Lymph % (Auto) 3.9 L, [place] % (Auto) 1.3, Eos % (Auto) 0.0, Baso % (Auto) 0.2, Absolute Neuts (auto) 11.2 H, Absolute Lymphs (auto) 0.46 L, Nucleated RBC % 0, Differential Comment SCANNED, Sodium 137, Potassium 5.6 H, Chloride 94 L, Carbon Dioxide 40.0 H, Anion Gap 3 L, BUN 15, Creatinine 0.39 L, Estim Creat Clear Calc 61.85, Est GFR (MDRD) Af Amer 284, Est GFR (MDRD) Non-Af 234, BUN/Creatinine Ratio 38.5 H, Glucose 150 H, Calcium 9.7 Micro: Microbiology 10/07/23 03:15 Sputum, Expectorated/Coughed Gram Stain - Final 10/07/23 03:15 Urine, Clean Catch Legionella Antigen - Final 10/07/23 03:15 Urine, Clean Catch Streptococcus pneumoniae Antigen (M - Final 10/06/23 20:53 Mucosa - Nose SARS-CoV-2, Influenza & RSV (PCR) - Final Physical Exam Const alert and no apparent distress General Appearance: cooperative and frail HEENT normocephalic, head/scalp atraumatic and moist oral mucous membranes Teeth and Gingiva: poor dentition Eyes PERRL, EOMs intact bilaterally and conjunctivae normal Neck supple General: trachea midline Chest Chest Narrative: Increased AP diameter Resp normal respiratory effort Effort and Inspection: prolonged expiratory phase Auscultation: diminished lung sounds Cardio regular rate and regular rhythm GI normal to inspection, nondistended, normoactive bowel sounds Extremity no clubbing, cyanosis or edema Skin no rashes or lesions noted Neuro oriented x3, CN's II-XII intact bilaterally and moves all extremities Psych cooperative and affect normal Charges/Coding Visit Charges Inpatient E&M: 83926 Subs Hosp L2
--- NOTE | 2023-10-08 05:18 | ECHOD_ITS ---
Reason For Study: SOB Left Ventricle Normal LV size. The estimated ejection fraction is 50 %. Left ventricular systolic function is lower limits of normal. Normal diastology for age. Right Ventricle Normal RV size. Normal systolic function. Atria The left and right atria are normal. Prominent eustachian valve. Mitral Valve The mitral valve is structurally normal. No prolapse or stenosis seen. Mild (1+) mitral valve insufficiency. Tricuspid Valve Normal tricuspid valve. Trivial tricuspid valve insufficiency. Right ventricular systolic pressure estimated to be 48 mmHg. Aortic Valve Trisinus/trileaflet aortic valve. Trivial aortic valve insufficiency. Pulmonic Valve Normal pulmonic valve. Great Vessels Normal aortic root. Pericardium/Pleural No pericardial effusion. MMode/2D Measurements & Calculations LVIDd: 5.0 cm IVSd: 0.81 cm Ao root diam: 2.9 cm LVIDs: 3.5 cm LVPWd: 0.93 cm RVDd: 3.7 cm FS: 30.5 % LAV(MOD-bp): 43.5 ml LVAd ap4: 29.2 cm2 LVAd ap2: 27.2 cm2 LAV(MOD-bp) Indexed: 28.1 ml/m2 LVLd ap4: 7.8 cm LVLd ap2: 7.9 cm LAV(MOD-sp2): 44.7 ml EDV(MOD-sp4): 93.3 ml EDV(MOD-sp2): 81.7 ml LAV(MOD-sp4): 38.1 ml EDV(sp4-el): 92.8 ml EDV(sp2-el): 80.2 ml LVAs ap4: 18.1 cm2 LVAs ap2: 18.6 cm2 LVLs ap4: 6.9 cm LVLs ap2: 6.7 cm ESV(MOD-sp4): 40.7 ml ESV(MOD-sp2): 46.4 ml ESV(sp4-el): 40.2 ml ESV(sp2-el): 44.2 ml EF(MOD-sp4): 56.4 % EF(MOD-sp2): 43.2 % EF(sp4-el): 56.7 % SV(MOD-sp4): 52.6 ml SV(MOD-sp2): 35.3 ml SV(sp4-el): 52.6 ml LA dimension(2D): 3.3 cm LA A4 area: 14.8 cm2 RA A4 area: 15.6 cm2 TAPSE: 2.6 cm Time Measurements MV dec time: 0.14 sec Doppler Measurements & Calculations MV E max bobo: 83.6 cm/sec Lat Peak E' Bobo: 12.3 cm/sec Med Peak E' Bobo: 10.1 cm/sec MV A max bobo: 79.9 cm/sec E/E' lat: 6.8 E/E' med: 8.2 MV E/A: 1.0 Ao V2 max: 120.7 cm/sec LV V1 max: 92.9 cm/sec PA V2 max: 105.5 cm/sec Ao max P.8 mmHg LV V1 max P.5 mmHg TR max bobo: 315.8 cm/sec TR max P.9 mmHg ECHO/Echo Complete Interpretation Summary The estimated ejection fraction is 50 %. Mild (1+) mitral valve insufficiency. Ordering Physician: John Ayon Referring Physician: Del Crowder Performed By: Lori Hurt RDCS
--- NOTE | 2023-10-08 08:20 | PN.HOSP_ITS ---
Reason for Visit Reason for Visit: Diagnoses Elevated white blood cell count, unspecified (10/07/23) Pneumonia, unspecified organism (10/07/23) Chronic obstructive pulmonary disease with (acute) exacerbation (10/07/23) Acute and chronic respiratory failure, unspecified whether with hypoxia or hypercapnia (10/07/23) Objective Data Objective Data Vital Signs: Vital Signs Temp Pulse Resp BP Pulse Ox O2 Del Method O2 Flow Rate 98.1 F 88 17 151/83 H 97 Airvo 40 10/08/23 05:00 10/08/23 08:05 10/08/23 08:05 10/08/23 05:00 10/08/23 08:05 10/08/23 05:10 10/08/23 05:10 FiO2 45 10/08/23 08:05 Oxygen Flow Rate (L/min) 40 Oxygen Delivery Method Airvo Weight: 107 lb 9.369 oz Body Mass Index (BMI) 16.8 Intake & Output: Intake and Output for Last 24 Hours 10/06/23 10/07/23 10/08/23 23:59 23:59 23:59 Intake Total 50 / 50 2160 / 2160 240 / 240 Output Total 900 / 900 250 / 250 Balance 50 / 50 1260 / 1260 -10 / -10 Medical Nutrition Assessment Dietitian: Malnutrition Criteria Met Start: 10/07/23 13:36 Freq: Status: Active Protocol: Document 10/07/23 13:37 RMA (Rec: 10/07/23 13:37 RMA [id number]) Nutrition Malnutrition Evidence of Malnutrition Exists Yes Malnutrition (severe): Acute Illness/Injury,Chronic Evidenced By Suboptimal Energy Intake ( Severe),Weight Loss (Severe), Physical Changes (Moderate) Clinical Problem Acute Disease or Injury Related Malnutrition Etiology Severe protein-calorie malnutrition in the context of acute on chronic disease related to inadequate oral/ energy intake Signs/Symptoms as evidenced by ~10% unintentional weight loss x less than 2 weeks, BMI 16.9, PO meeting less than 50% estimated nutrition needs x 2 weeks and muscle wasting/fat depletion noted, visibly protruding clavicle and moderate muscle wasting in arms/legs Status Active Problem Recommendation Dietitian Recommendations/Changes Will liberalize diet to regular to optimize PO and replete energy/protein. Will add 240mL chocolate ensure plus HP BID w/ breakfast and dinner meals. Additional ONS as needed to prevent further weight loss. Lab / Micro Data 10/08/23 11:12 10/08/23 11:12 Labs: Laboratory Results - last 24 hr 10/07/23 06:15: Sodium 137, Potassium 5.6 H, Chloride 94 L, Carbon Dioxide 40.0 H, Anion Gap 3 L, BUN 15, Creatinine 0.39 L, Estim Creat Clear Calc 61.85, Est GFR (MDRD) Af Amer 284, Est GFR (MDRD) Non-Af 234, BUN/Creatinine Ratio 38.5 H, Glucose 150 H, Calcium 9.7 Micro: Microbiology 10/07/23 03:15 Sputum, Expectorated/Coughed Gram Stain - Final 10/07/23 03:15 Urine, Clean Catch Legionella Antigen - Final 10/07/23 03:15 Urine, Clean Catch Streptococcus pneumoniae Antigen (M - Final 10/06/23 20:53 Mucosa - Nose SARS-CoV-2, Influenza & RSV (PCR) - Final Physical Exam Narrative Seen and examined. Patient is short of breath and has history of COPD. Has cough and chest conges tion. Subjectively feels better. Physical exam General: Alert, Oriented x3, Cooperative HEENT: Atraumatic, PERRLA, EOMI, Normocephalic Oral: Oral mucosa dry. No Gingival or Mucosal Lesions/ Ulcerations Neck: Supple, No JVD, Negative Carotid Bruits Lungs: Air entry diminished in bilateral lung bases. Bilateral coarse crepitation and wheezing. On Airvo and high flow oxygen. Tachypnea has impr jayy. Cardiovascular: Regular rate, Regular Rhythm, Normal S1, Normal S2, No murmurs Abdomen: Bowel Sounds Present, Soft, Non Tender, Non-Distended : No renal angle tenderness. No suprapubic tenderness. Extremities: No edema, Capillary Refill Less than 3 Seconds Skin: No rashes, No breakdown Musculoskeletal: No Tenderness to Palpation of Joints or Extremities Neurological: Cranial nerves II-XII grossly intact, DTR 2+/4. No acute focal neurological deficit. Psych/Mental Status: Normal Affect, Appropriate. Assessment & Plan Assessment/Plan (1) Leukocytosis: (2) Pneumonia: (3) COPD exacerbation: PLAN: Plan 68-year-old gentleman who was admitted for gradual worsening of shortness of keyon ath and chest pain, symptoms started a week prior to admission. Associated symptoms are cough productive in nature and wheezing. On 2 to 3 L of home oxygen but patient was gradually increasing it. Denies fever chills or muscle aches. #Acute on chronic hypoxic and hypercapnic respiratory failure due to COPD exacerbation and community acquired pneumonia * admit to PCU * Was on 10 L of oxygen on admission but currently improving. usually wears 2- 3L at home * also has wheezing and pleuritic chest pain with coughing * ABG showed pH of 7.1. * CTA chest was negative for PE but showed severe emphysema with left upper lobe pneumonia and a small left pleural effusion * start on IV solumedrol 40mg every 8 hourly. * IV ceftriaxone and azithromycin * urine for strep and legionella; sputum cultures are negative * Patient was eval by parachute packer and advised to continue antimicrobial bronchodilator and steroid. Empiric PAP during naps at night. * titrate oxygen to maintain sats>90% 10/08: Patient subjectively feels improvement in shortness of breath. Tachypnea better but is still on Airvo on 8 L of high flow oxygen. Patient wants to go to rehab at this time. Recurrent admission for COPD exacerbation. # COPD exacerbation: as above #COmmunity acquired pneumonia multifocal left-sided: as above Severe chronic protein malnutrition, COPD cachexia: Patient BMI 16.9 kg/m?. Loss of subcutaneous fat. Mild to moderate chronic decreased muscle bulk/atrophy of extremities, intervertebral intercostal muscles. #DVT prophylaxis: lovenox Code status: full code * Patient counseled extensively about different types of CODE STATUS including full code, DNR CCA and DNR CCA. Patient elects to be full code. Microbiology Past 72 Hours 10/07/23 03:15 Urine, Clean Catch Legionella Antigen - Final 10/07/23 03:15 Urine, Clean Catch Streptococcus pneumoniae Antigen (M - Final 10/06/23 20:53 Mucosa - Nose SARS-CoV-2, Influenza & RSV (PCR) - Final Laboratory Results 10/06/23 20:39: Specimen Type ART, Sample Site L Radial, pH 7.39, Bicarbonate Actual 42.9 H, Total CO2 45, Base Excess 18 H, O2 Saturation 96, O2 % 12.0, ABG pCO2 71.1 H*, ABG pO2 86, Pranav Test Positive, O2 Delivery Device HFNC, Vent Mode Not entered, Crit Call To/Read Back Yes, Blood Gas Notified Whom Kevin Blood Gas Notified Time 20:40:56 10/06/23 20:43: WBC 14.1 H, RBC 3.75 L, Hgb 10.2 L, Hct 33.7 L, MCV 89.9, MCH 27.2, MCHC 30.3 L, RDW Std Deviation 46.9 H, RDW Coeff of Anurag 14.2, Plt Count 324, MPV 9.0, Immature Gran % (Auto) 0.700, Neut % (Auto) 88.8 H, Lymph % (Auto) 4.0 L, [place] % (Auto) 6.0, Eos % (Auto) 0.2, Baso % (Auto) 0.3, Absolute Neuts (auto) 12.5 H, Absolute Lymphs (auto) 0.56 L, Nucleated RBC % 0, Differential Comment SCANNED, D-Dimer Quant (PE/DVT) 2.84 H*, Sodium 137, Potassium 4.4, Chloride 92 L, Carbon Dioxide 43.0 H, Anion Gap 2 L, BUN 16, Creatinine 0.44 L, Estim Creat Clear Calc 68.31, Est GFR (MDRD) Af Amer 247, Est GFR (MDRD) Non-Af 205, BUN/Creatinine Ratio 36.4 H, Glucose 147 H, Lactic Acid 1.2, Calcium 9.8, Troponin I High Sens 21 10/07/23 06:15: WBC 11.9 H, RBC 3.53 L, Hgb 9.8 L, Hct 31.9 L, MCV 90.4, MCH 27.8, MCHC 30.7 L, RDW Std Deviation 47.5 H, RDW Coeff of Anurag 14.4, Plt Count 338, MPV 9.0, Immature Gran % (Auto) 0.500, Neut % (Auto) 94.1 H, Lymph % (Auto) 3.9 L, [place] % (Auto) 1.3, Eos % (Auto) 0.0, Baso % (Auto) 0.2, Absolute Neuts (auto) 11.2 H, Absolute Lymphs (auto) 0.46 L, Nucleated RBC % 0, Differential Comment SCANNED, Sodium Pending, Potassium Pending, Chloride Pending, Carbon Dioxide Pending, Anion Gap Pending, BUN Pending, Creatinine Pending, Est GFR (MDRD) Af Amer Pending, Est GFR (MDRD) Non-Af Pending, BUN/Creatinine Ratio Pending, Glucose Pending, Calcium Pending Charges/Coding Visit Charges Inpatient E&M: 39268 Subs Hosp L2
[2023-10-08 11:24] LABS: Absolute Lymphocyte Count 0.65 X10^3/uL (0.83-4.51); Absolute Neutrophil Count 13.9 X10^3/uL (2.0-7.7); Basophil# 0.01 X10^3/uL; Basophil% 0.1 % (0-1); Hematocrit 29.4 % (40-54); Hemoglobin 9.2 g/dL (13.0-16.5); Lymphocyte # 0.65 X10^3/ul (0.83-4.51); Lymphocyte % 4.3 % (19-41); Mean Corp Hgb Conc 31.3 g/dL (32-36); Mean Corpuscular Hgb 28.2 pg (27.0-32.0); Mean Corpuscular Volume 90.2 fL (80-94); Mean Platelet Vol. 9.1 fl (6.2-12.0); Monocyte# 0.33 X10^3/uL; Monocyte% 2.2 % (0-10); NRBC Flagged by Analyzer 0 % (0-5); Neutrophil # 13.92 X10^3/uL (2.7-7.7); Neutrophil % 92.9 % (47-70); Platelet Count 348 K/mm3 (150-450); RBC Distribution Width CV 14.2 % (11.6-14.6); RBC Distribution Width SD 46.2 fl (35.1-43.9); Red Blood Count 3.26 M/mm3 (4.6-6.2)
[2023-10-08 11:41] LABS: Anion Gap 6 (5-15); BUN 15 mg/dL (7-18); BUN/Creat Ratio 26.5 RATIO (10-20); Calcium,Total 8.9 mg/dL (8.5-10.1); Chloride 90 mmol/L (98-107); Creatinine, Serum 0.57 mg/dL (0.70-1.30); EST Glomerular Filtration Rate 152 mL/min (>60); Est Glom Filt Rate - Afr Amer 184 mL/min (>60); Estimated Creatinine Clearance 61.85 ml/min; Glucose 252 mg/dL (74-106); Potassium 4.1 mmol/L (3.5-5.1); Sodium Level 134 mmol/L (136-145)
[2023-10-08] MEDS: Ipratropium/Albuterol Sulfate 3 ML AMPUL.NEB INHALATION ×2 (12:49→19:15)
[2023-10-08] MEDS: Ceftriaxone 1 GM/50 ML BAG IV (20:55)
[2023-10-08] MEDS: 0.9% Saline Lock 10 ML Syringe IV (20:56)
[2023-10-08] MEDS: Azithromycin 500 MG in Dextrose 5%-Water (250mL Bag) 250 ML 250 MG IV (21:40)
[2023-10-09] VITALS (12 sets, daily range): BP systolic 145–159; BP diastolic 70–113; PULSE 72–87; RESP 12–19; TEMP 36.4–37.2; O2SAT 68–99
[2023-10-09] MEDS: 0.9% Saline Lock 10 ML Syringe IV ×3 (05:37→21:41)
[2023-10-09 05:54] LABS: Absolute Neutrophil Count 12.2 X10^3/uL (2.0-7.7); Basophil# 0.01 X10^3/uL; Basophil% 0.1 % (0-1); Hematocrit 28.5 % (40-54); Hemoglobin 9.1 g/dL (13.0-16.5); Lymphocyte % 5.9 % (19-41); Mean Corp Hgb Conc 31.9 g/dL (32-36); Mean Corpuscular Hgb 28.8 pg (27.0-32.0); Mean Corpuscular Volume 90.2 fL (80-94); Mean Platelet Vol. 8.5 fl (6.2-12.0); Monocyte# 0.64 X10^3/uL; Monocyte% 4.7 % (0-10); NRBC Flagged by Analyzer 0 % (0-5); Neutrophil # 12.16 X10^3/uL (2.7-7.7); Neutrophil % 88.9 % (47-70); Platelet Count 359 K/mm3 (150-450); RBC Distribution Width SD 46.1 fl (35.1-43.9); Red Blood Count 3.16 M/mm3 (4.6-6.2); White Blood Count 13.7 K/mm3 (4.4-11.0)
[2023-10-09 06:30] LABS: Anion Gap 5 (5-15); BUN 15 mg/dL (7-18); BUN/Creat Ratio 36.8 RATIO (10-20); Calcium,Total 8.6 mg/dL (8.5-10.1); Chloride 87 mmol/L (98-107); Creatinine, Serum 0.41 mg/dL (0.70-1.30); EST Glomerular Filtration Rate 223 mL/min (>60); Est Glom Filt Rate - Afr Amer 269 mL/min (>60); Estimated Creatinine Clearance 61.85 ml/min; Glucose 141 mg/dL (74-106); Sodium Level 132 mmol/L (136-145)
[2023-10-09] MEDS: Ipratropium/Albuterol Sulfate 3 ML AMPUL.NEB INHALATION ×3 (07:44→19:01)
--- NOTE | 2023-10-09 11:15 | PCM.PN.INT ---
Assessment & Plan Assessment/Plan (1) Acute and chronic respiratory failure: PLAN: Plan RECOMMENDATIONS: 1. Wean supplemental oxygen to maintain saturations 90 to 93%. 2. Continue scheduled bronchodilators and steroids. 3. Continue antimicrobials. 4. Continue appropriate DVT prophylaxis. 5. Encourage incentive spirometer use and mobilize patient as tolerated. 6. Empiric PAP therapy can be utilized with naps and nightly. IMPRESSIONS: 1. Acute on chronic combined respiratory failure Most likely secondary to COPD exacerbation in the setting of left upper lobe pneumonia. The patient has a baseline oxygen requirement of 3 L/min. He has presumptive advanced stage COPD and is maintained on a triple therapy inhaler regimen on an outpatient basis. For now, I agree with continuing antibiotics, steroids and bronchodilators. Recommend weaning supplemental oxygen to maintain saturations at 90 to 93%. Encourage incentive spirometer use and mobilize patient as tolerated. BiPAP therapy can be utilized with naps and nightly. 2. Generalized weakness/tobacco dependency in remission Complicates care, management, recovery and prognosis. Recommend physical therapy to work with the patient. This note was generated with [employer] dictation software. It may contain incorrect words, spelling, and punctuation that were not noted in checking the note before signing. Subjective Subjective The patient was seen and examined at the bedside this morning. Events from the last 24 hours have been reviewed. The patient is currently afebrile, hemodynamically stable and maintaining appropriate oxygen saturations on 4 L/min via nasal cannula. When I entered the room this morning, the patient was on 10 L/min of oxygen. He reported that shortly after receiving his aerosol treatment he experienced an episode of coughing which led to a drop in his oxygen saturations. He has since recovered. I was unable to wean his oxygen while in the room to 4 L/min, with saturations in the high 90s noted. Objective Data Objective Data The patient's most recent lab work, culture data and imaging studies have all been personally reviewed. Vital Signs: Vital Signs Temp Pulse Resp BP Pulse Ox O2 Del Method O2 Flow Rate 97.6 F L 81 17 145/70 H 92 High Flow 12 10/09/23 08:10 10/09/23 08:10 10/09/23 08:10 10/09/23 08:10 10/09/23 08:10 10/09/23 08:10 10/09/23 08:10 FiO2 45 10/08/23 09:23 Oxygen Flow Rate (L/min) 12 Oxygen Delivery Method High Flow Weight: 107 lb 9.369 oz Body Mass Index (BMI) 16.8 Intake & Output: Intake and Output for Last 24 Hours 10/07/23 10/08/23 10/09/23 23:59 23:59 23:59 Intake Total 2160 / 2160 1025 / 1025 Output Total 900 / 900 800 / 1000 600 / 600 Balance 1260 / 1260 225 / 25 -600 / -600 Medical Nutrition Assessment Dietitian: Malnutrition Criteria Met Start: 10/07/23 13:36 Freq: Status: Active Protocol: Document 10/07/23 13:37 RMA (Rec: 10/07/23 13:37 RMA [id number]) Nutrition Malnutrition Evidence of Malnutrition Exists Yes Malnutrition (severe): Acute Illness/Injury,Chronic Evidenced By Suboptimal Energy Intake ( Severe),Weight Loss (Severe), Physical Changes (Moderate) Clinical Problem Acute Disease or Injury Related Malnutrition Etiology Severe protein-calorie malnutrition in the context of acute on chronic disease related to inadequate oral/ energy intake Signs/Symptoms as evidenced by ~10% unintentional weight loss x less than 2 weeks, BMI 16.9, PO meeting less than 50% estimated nutrition needs x 2 weeks and muscle wasting/fat depletion noted, visibly protruding clavicle and moderate muscle wasting in arms/legs Status Active Problem Recommendation Dietitian Recommendations/Changes Will liberalize diet to regular to optimize PO and replete energy/protein. Will add 240mL chocolate ensure plus HP BID w/ breakfast and dinner meals. Additional ONS as needed to prevent further weight loss. Lab / Micro Data Attestation: I reviewed the patient's lab results. 10/09/23 05:45 10/09/23 05:45 Labs: Laboratory Results - last 24 hr 10/08/23 11:12: WBC 15.0 H, RBC 3.26 L, Hgb 9.2 L, Hct 29.4 L, MCV 90.2, MCH 28.2, MCHC 31.3 L, RDW Std Deviation 46.2 H, RDW Coeff of Anurag 14.2, Plt Count 348, MPV 9.1, Immature Gran % (Auto) 0.500, Neut % (Auto) 92.9 H, Lymph % (Auto) 4.3 L, [place] % (Auto) 2.2, Eos % (Auto) 0.0, Baso % (Auto) 0.1, Absolute Neuts (auto) 13.9 H, Absolute Lymphs (auto) 0.65 L, Nucleated RBC % 0, Sodium 134 L, Potassium 4.1, Chloride 90 L, Carbon Dioxide 38.0 H, Anion Gap 6, BUN 15, Creatinine 0.57 L, Estim Creat Clear Calc 61.85, Est GFR (MDRD) Af Amer 184, Est GFR (MDRD) Non-Af 152, BUN/Creatinine Ratio 26.5 H, Glucose 252 H, Calcium 8.9 10/09/23 05:45: WBC 13.7 H, RBC 3.16 L, Hgb 9.1 L, Hct 28.5 L, MCV 90.2, MCH 28.8, MCHC 31.9 L, RDW Std Deviation 46.1 H, RDW Coeff of Anurag 14.0, Plt Count 359, MPV 8.5, Immature Gran % (Auto) 0.400, Neut % (Auto) 88.9 H, Lymph % (Auto) 5.9 L, [place] % (Auto) 4.7, Eos % (Auto) 0.0, Baso % (Auto) 0.1, Absolute Neuts (auto) 12.2 H, Absolute Lymphs (auto) 0.80 L, Nucleated RBC % 0, Sodium 132 L, Potassium 4.0, Chloride 87 L, Carbon Dioxide 40.0 H, Anion Gap 5, BUN 15, Creatinine 0.41 L, Estim Creat Clear Calc 61.85, Est GFR (MDRD) Af Amer 269, Est GFR (MDRD) Non-Af 223, BUN/Creatinine Ratio 36.8 H, Glucose 141 H, Calcium 8.6 Micro: Microbiology 10/07/23 03:15 Sputum, Expectorated/Coughed Gram Stain - Final 10/07/23 03:15 Sputum, Expectorated/Coughed Respiratory Culture - Final 10/06/23 20:54 Blood Culture (Wb) #2 - Right Forearm Blood Culture - Preliminary No growth in 48 hours. 10/06/23 20:43 Blood Culture (Wb) - Anticubital Left Blood Culture - Preliminary No growth in 48 hours. 10/07/23 03:15 Urine, Clean Catch Legionella Antigen - Final 10/07/23 03:15 Urine, Clean Catch Streptococcus pneumoniae Antigen (M - Final 10/06/23 20:53 Mucosa - Nose SARS-CoV-2, Influenza & RSV (PCR) - Final Physical Exam Const alert and no apparent distress General Appearance: cooperative and frail HEENT normocephalic, head/scalp atraumatic and moist oral mucous membranes Teeth and Gingiva: poor dentition Eyes PERRL, EOMs intact bilaterally and conjunctivae normal Neck supple General: trachea midline Chest Chest Narrative: Increased AP diameter Resp normal respiratory effort Effort and Inspection: prolonged expiratory phase Auscultation: diminished lung sounds Cardio regular rate and regular rhythm GI normal to inspection, nondistended, normoactive bowel sounds Extremity no clubbing, cyanosis or edema Skin no rashes or lesions noted Neuro oriented x3, CN's II-XII intact bilaterally and moves all extremities Psych cooperative and affect normal Charges/Coding Visit Charges Inpatient E&M: 28934 Subs Hosp L2
--- NOTE | 2023-10-09 16:19 | CASEMGMT ---
RN CM in to discuss SNF preferences with patient. Patient states he reviewed list and first choice is [facility] and 2nd choice is [facility]. Patient had no further questions or concerns at this time. RN YURI updated SW regarding preferences. CM will continue to follow this patient and plan for a safe discharge.
--- NOTE | 2023-10-09 17:13 | PCM.PN.HOSP ---
Subjective Subjective Doing well, no issues overnight. He requires a baseline of 4 L nasal cannula at home currently at 6 L nasal cannula. Whenever he has a coughing fit he desaturates and takes a while to recover Objective Data Objective Data Vital Signs: Vital Signs Temp Pulse Resp BP Pulse Ox O2 Del Method O2 Flow Rate 98.9 F 79 19 H 159/73 H 96 High Flow 6 10/09/23 15:00 10/09/23 15:00 10/09/23 15:00 10/09/23 15:00 10/09/23 15:00 10/09/23 15:00 10/09/23 15:00 FiO2 45 10/08/23 09:23 Oxygen Flow Rate (L/min) 6 Oxygen Delivery Method High Flow Weight: 107 lb 9.369 oz Body Mass Index (BMI) 16.8 Intake & Output: Intake and Output for Last 24 Hours 10/08/23 10/09/23 10/10/23 03:59 03:59 03:59 Intake Total 1905 / 1905 1025 / 1025 Output Total 900 / 900 1000 / 1000 400 / 400 Balance 1005 / 1005 25 / 25 -400 / -400 Medical Nutrition Assessment Dietitian: Malnutrition Criteria Met Start: 10/07/23 13:36 Freq: Status: Active Protocol: Document 10/07/23 13:37 RMA (Rec: 10/07/23 13:37 RMA [id number]) Nutrition Malnutrition Evidence of Malnutrition Exists Yes Malnutrition (severe): Acute Illness/Injury,Chronic Evidenced By Suboptimal Energy Intake ( Severe),Weight Loss (Severe), Physical Changes (Moderate) Clinical Problem Acute Disease or Injury Related Malnutrition Etiology Severe protein-calorie malnutrition in the context of acute on chronic disease related to inadequate oral/ energy intake Signs/Symptoms as evidenced by ~10% unintentional weight loss x less than 2 weeks, BMI 16.9, PO meeting less than 50% estimated nutrition needs x 2 weeks and muscle wasting/fat depletion noted, visibly protruding clavicle and moderate muscle wasting in arms/legs Status Active Problem Recommendation Dietitian Recommendations/Changes Will liberalize diet to regular to optimize PO and replete energy/protein. Will add 240mL chocolate ensure plus HP BID w/ breakfast and dinner meals. Additional ONS as needed to prevent further weight loss. Lab / Micro Data 10/09/23 05:45 10/09/23 05:45 Labs: Laboratory Results - last 24 hr 10/09/23 05:45: WBC 13.7 H, RBC 3.16 L, Hgb 9.1 L, Hct 28.5 L, MCV 90.2, MCH 28.8, MCHC 31.9 L, RDW Std Deviation 46.1 H, RDW Coeff of Anurag 14.0, Plt Count 359, MPV 8.5, Immature Gran % (Auto) 0.400, Neut % (Auto) 88.9 H, Lymph % (Auto) 5.9 L, [place] % (Auto) 4.7, Eos % (Auto) 0.0, Baso % (Auto) 0.1, Absolute Neuts (auto) 12.2 H, Absolute Lymphs (auto) 0.80 L, Nucleated RBC % 0, Sodium 132 L, Potassium 4.0, Chloride 87 L, Carbon Dioxide 40.0 H, Anion Gap 5, BUN 15, Creatinine 0.41 L, Estim Creat Clear Calc 61.85, Est GFR (MDRD) Af Amer 269, Est GFR (MDRD) Non-Af 223, BUN/Creatinine Ratio 36.8 H, Glucose 141 H, Calcium 8.6 Micro: Microbiology 10/07/23 03:15 Sputum, Expectorated/Coughed Gram Stain - Final 10/07/23 03:15 Sputum, Expectorated/Coughed Respiratory Culture - Final 10/06/23 20:54 Blood Culture (Wb) #2 - Right Forearm Blood Culture - Preliminary No growth in 48 hours. 10/06/23 20:43 Blood Culture (Wb) - Anticubital Left Blood Culture - Preliminary No growth in 48 hours. 10/07/23 03:15 Urine, Clean Catch Legionella Antigen - Final 10/07/23 03:15 Urine, Clean Catch Streptococcus pneumoniae Antigen (M - Final 10/06/23 20:53 Mucosa - Nose SARS-CoV-2, Influenza & RSV (PCR) - Final Radiography Diagnostic Testing: Radiology Impression Echocardiogram 10/08/23 05:18 Interpretation Summary The estimated ejection fraction is 50 %. Mild (1+) mitral valve insufficiency. Ordering Physician: John Ayon Referring Physician: Del Crowder Performed By: Lori Hurt RDCS Physical Exam Narrative General: Alert, Oriented x3, Cooperative, No apparent distress HEENT: Atraumatic, PERRLA, EOMI, Normocephalic Oral: Moist Mucosa Neck: Supple, No JVD Lungs: Diminished, Normal air movement, No rhonchi, No wheeze, No rales Cardiovascular: Regular rate, Regular Rhythm, Normal S1, Normal S2, No murmurs Abdomen: Soft, Non Tender, Non-Distended, No Hepato-splenomegaly Extremities: No edema, Capillary Refill Less than 3 Seconds Skin: No rashes, No breakdown Musculoskeletal: No Tenderness to Palpation of Joints or Extremities Neurological: Cranial nerves II-XII grossly intact, Motor Exam 5/5 strength throughout, Sensory exam intact to light touch and pain Psych/Mental Status: Normal Affect, Appropriate Assessment & Plan Assessment/Plan (1) Leukocytosis: (2) Pneumonia: (3) COPD exacerbation: PLAN: Plan #Acute on chronic hypoxic and hypercapnic respiratory failure due to COPD exacerbation and community acquired pneumonia admit to PCU Was on 10 L of oxygen on admission but currently improving. usually wears 2-3L at home also has wheezing and pleuritic chest pain with coughing ABG showed pH of 7.1. CTA chest was negative for PE but showed severe emphysema with left upper lobe pneumonia and a small left pleural effusion start on IV solumedrol 40mg every 8 hourly. IV ceftriaxone and azithromycin urine for strep and legionella; sputum cultures are negative Patient was eval by auto radiator mechanic and advised to continue antimicrobial bronchodilator and steroid. Empiric PAP during naps at night. titrate oxygen to maintain sats>90% 10/08: Patient subjectively feels improvement in shortness of breath. Tachypnea better but is still on Airvo on 8 L of high flow oxygen. Patient wants to go to rehab at this time. Recurrent admission for COPD exacerbation. 10/09/2023: Slowly coming down on his oxygen requirements baseline is around 3 to 4 L nasal cannula appreciate pulmonology's assistance Severe chronic protein malnutrition, COPD cachexia: Patient BMI 16.9 kg/m?. Loss of subcutaneous fat. Mild to moderate chronic decreased muscle bulk/atrophy of extremities, intervertebral intercostal muscles. DVT: Lovenox Capacity Legal Fire Lieutenant Marine Reflex Medical hold order details:: IF a medical hold is selected below, a suggested order for a MEDICAL HOLD will reflex upon signing the document. Next of kin: [place] law dictates a PRIORITY LIST for identifying legal decision-maker/legal next of kin in the following order (LNOK): 1st: The patient?s legal guardian, if any 2nd: The patient's spouse (if status is questionable, consult Risk Management) 3rd: The patient?s adult child(linda) (majority, if multiple children) 4th: The patient?s parents 5th: The patient?s adult siblings (majority, if multiple children siblings) Charges/Coding Visit Charges Inpatient E&M: 17319 Subs Hosp L2
[2023-10-09] MEDS: Ceftriaxone 1 GM/50 ML BAG IV (21:41)
[2023-10-09] MEDS: Azithromycin 500 MG in Dextrose 5%-Water (250mL Bag) 250 ML 250 MG IV (22:30)
[2023-10-09] MEDS: Acetaminophen 325 MG Tablet 650 MG PO (23:36)
[2023-10-10] VITALS (9 sets, daily range): BP systolic 145–160; BP diastolic 81–84; PULSE 70–93; RESP 17–20; TEMP 36.2–36.6; O2SAT 90–100
[2023-10-10] MEDS: 0.9% Saline Lock 10 ML Syringe IV ×2 (05:23→20:28)
[2023-10-10 06:06] LABS: Absolute Lymphocyte Count 1.02 X10^3/uL (0.83-4.51); Absolute Neutrophil Count 12.4 X10^3/uL (2.0-7.7); Basophil# 0.02 X10^3/uL; Basophil% 0.1 % (0-1); Hematocrit 30.6 % (40-54); Hemoglobin 9.5 g/dL (13.0-16.5); Lymphocyte # 1.02 X10^3/ul (0.83-4.51); Lymphocyte % 7.2 % (19-41); Mean Corpuscular Hgb 27.5 pg (27.0-32.0); Mean Corpuscular Volume 88.4 fL (80-94); Mean Platelet Vol. 8.8 fl (6.2-12.0); Monocyte# 0.62 X10^3/uL; Monocyte% 4.4 % (0-10); NRBC Flagged by Analyzer 0 % (0-5); Neutrophil # 12.36 X10^3/uL (2.7-7.7); Neutrophil % 87.6 % (47-70); Platelet Count 446 K/mm3 (150-450); RBC Distribution Width CV 13.8 % (11.6-14.6); RBC Distribution Width SD 44.6 fl (35.1-43.9); Red Blood Count 3.46 M/mm3 (4.6-6.2); White Blood Count 14.1 K/mm3 (4.4-11.0)
[2023-10-10 06:30] LABS: Anion Gap 4 (5-15); BUN 11 mg/dL (7-18); BUN/Creat Ratio 27.3 RATIO (10-20); Calcium,Total 8.7 mg/dL (8.5-10.1); Chloride 86 mmol/L (98-107); EST Glomerular Filtration Rate 226 mL/min (>60); Est Glom Filt Rate - Afr Amer 273 mL/min (>60); Estimated Creatinine Clearance 61.85 ml/min; Glucose 125 mg/dL (74-106); Potassium 3.9 mmol/L (3.5-5.1); Sodium Level 132 mmol/L (136-145)
[2023-10-10] MEDS: Ipratropium/Albuterol Sulfate 3 ML AMPUL.NEB INHALATION ×4 (07:47→21:40)
--- NOTE | 2023-10-10 09:40 | CASEMGMT ---
BENOIT asked Collette to please send a referral to [facility] for patient. Plan: SNF pending accepting facility and patient being medically ready. Jelena VARELA
--- NOTE | 2023-10-10 09:45 | CASEMGMT ---
Discharge Planning Referral sent to [facility] via [facility]. Collette Breen, Discharge Planning Asst.
--- NOTE | 2023-10-10 11:01 | PN.HOSP_ITS ---
Subjective Subjective On BiPAP early this morning and he is now down to 5 L nasal cannula. He is slowly improving Objective Data Objective Data Vital Signs: Vital Signs Temp Pulse Resp BP Pulse Ox O2 Del Method O2 Flow Rate 97.3 F L 84 20 H 145/81 H 92 High Flow 5 10/10/23 08:25 10/10/23 08:25 10/10/23 08:25 10/10/23 08:25 10/10/23 08:25 10/10/23 08:25 10/10/23 08:25 FiO2 45 10/09/23 19:45 Oxygen Flow Rate (L/min) 5 Oxygen Delivery Method High Flow Weight: 107 lb 9.369 oz Body Mass Index (BMI) 16.8 Intake & Output: Intake and Output for Last 24 Hours 10/09/23 10/10/23 10/11/23 03:59 03:59 03:59 Intake Total 1025 / 1025 745 / 745 220 / 220 Output Total 1000 / 1000 1050 / 1050 900 / 900 Balance -305 / -305 -680 / -680 Medical Nutrition Assessment Dietitian: Malnutrition Criteria Met Start: 10/07/23 13:36 Freq: Status: Active Protocol: Document 10/07/23 13:37 RMA (Rec: 10/07/23 13:37 RMA [id number]) Nutrition Malnutrition Evidence of Malnutrition Exists Yes Malnutrition (severe): Acute Illness/Injury,Chronic Evidenced By Suboptimal Energy Intake ( Severe),Weight Loss (Severe), Physical Changes (Moderate) Clinical Problem Acute Disease or Injury Related Malnutrition Etiology Severe protein-calorie malnutrition in the context of acute on chronic disease related to inadequate oral/ energy intake Signs/Symptoms as evidenced by ~10% unintentional weight loss x less than 2 weeks, BMI 16.9, PO meeting less than 50% estimated nutrition needs x 2 weeks and muscle wasting/fat depletion noted, visibly protruding clavicle and moderate muscle wasting in arms/legs Status Active Problem Recommendation Dietitian Recommendations/Changes Will liberalize diet to regular to optimize PO and replete energy/protein. Will add 240mL chocolate ensure plus HP BID w/ breakfast and dinner meals. Additional ONS as needed to prevent further weight loss. Lab / Micro Data 10/10/23 05:44 10/10/23 05:44 Labs: Laboratory Results - last 24 hr 10/10/23 05:44: WBC 14.1 H, RBC 3.46 L, Hgb 9.5 L, Hct 30.6 L, MCV 88.4, MCH 27.5, MCHC 31.0 L, RDW Std Deviation 44.6 H, RDW Coeff of Anurag 13.8, Plt Count 446, MPV 8.8, Immature Gran % (Auto) 0.700, Neut % (Auto) 87.6 H, Lymph % (Auto) 7.2 L, [place] % (Auto) 4.4, Eos % (Auto) 0.0, Baso % (Auto) 0.1, Absolute Neuts (auto) 12.4 H, Absolute Lymphs (auto) 1.02, Nucleated RBC % 0, Sodium 132 L, Potassium 3.9, Chloride 86 L, Carbon Dioxide 42.0 H, Anion Gap 4 L, BUN 11, Creatinine 0.40 L, Estim Creat Clear Calc 61.85, Est GFR (MDRD) Af Amer 273, Est GFR (MDRD) Non-Af 226, BUN/Creatinine Ratio 27.3 H, Glucose 125 H, Calcium 8.7 Micro: Microbiology 10/07/23 03:15 Sputum, Expectorated/Coughed Gram Stain - Final 10/07/23 03:15 Sputum, Expectorated/Coughed Respiratory Culture - Final 10/06/23 20:54 Blood Culture (Wb) #2 - Right Forearm Blood Culture - Preliminary No growth in 48 hours. 10/06/23 20:43 Blood Culture (Wb) - Anticubital Left Blood Culture - Preliminary No growth in 48 hours. 10/07/23 03:15 Urine, Clean Catch Legionella Antigen - Final 10/07/23 03:15 Urine, Clean Catch Streptococcus pneumoniae Antigen (M - Final 10/06/23 20:53 Mucosa - Nose SARS-CoV-2, Influenza & RSV (PCR) - Final Radiography Diagnostic Testing: Radiology Impression Echocardiogram 10/08/23 05:18 Interpretation Summary The estimated ejection fraction is 50 %. Mild (1+) mitral valve insufficiency. Ordering Physician: John Ayon Referring Physician: Del Crowder Performed By: Lori Hurt RDCS Physical Exam Narrative General: Alert, Oriented x3, Cooperative, No apparent distress HEENT: Atraumatic, PERRLA, EOMI, Normocephalic Oral: Moist Mucosa Neck: Supple, No JVD Lungs: Diminished, Normal air movement, No rhonchi, No wheeze, No rales Cardiovascular: Regular rate, Regular Rhythm, Normal S1, Normal S2, No murmurs Abdomen: Soft, Non Tender, Non-Distended, No Hepato-splenomegaly Extremities: No edema, Capillary Refill Less than 3 Seconds Skin: No rashes, No breakdown Musculoskeletal: No Tenderness to Palpation of Joints or Extremities Neurological: Cranial nerves II-XII grossly intact, Motor Exam 5/5 strength throughout, Sensory exam intact to light touch and pain Psych/Mental Status: Normal Affect, Appropriate Assessment & Plan Assessment/Plan (1) Leukocytosis: (2) Pneumonia: (3) COPD exacerbation: PLAN: Plan #Acute on chronic hypoxic and hypercapnic respiratory failure due to COPD ex acerbation and community acquired pneumonia * admit to PCU * Was on 10 L of oxygen on admission but currently improving. usually wears 2- 3L at home * also has wheezing and pleuritic chest pain with coughing * ABG showed pH of 7.1. * CTA chest was negative for PE but showed severe emphysema with left upper lobe pneumonia and a small left pleural effusion * start on IV solumedrol 40mg every 8 hourly. * IV ceftriaxone and azithromycin * urine for strep and legionella; sputum cultures are negative * Patient was eval by dedicated regional driver and advised to continue antimicrobial bronchodilator and steroid. Empiric PAP during naps at night. * titrate oxygen to maintain sats>90% 10/08: Patient subjectively feels improvement in shortness of breath. Tachypnea better but is still on Airvo on 8 L of high flow oxygen. Patient wants to go to rehab at this time. Recurrent admission for COPD exacerbation. 10/09/2023: Slowly coming down on his oxygen requirements baseline is around 3 to 4 L nasal cannula appreciate pulmonology's assistance 10/10/2023: He has completed azithromycin continue with Rocephin. Continue to actively try to wean down his oxygen back to his baseline of 3 to 4 L Severe chronic protein malnutrition, COPD cachexia: Patient BMI 16.9 kg/m?. Loss of subcutaneous fat. Mild to moderate chronic decreased muscle bulk/atrophy of extremities, intervertebral intercostal muscles. DVT: Lovenox Capacity Legal Religious Education Director Reflex Medical hold order details:: IF a medical hold is selected below, a suggested order for a MEDICAL HOLD will reflex upon signing the document. Next of kin: [place] law dictates a PRIORITY LIST for identifying legal decision-maker/legal next of kin in the following order (LNOK): 1st: The patient?s legal guardian, if any 2nd: The patient's spouse (if status is questionable, consult Risk Management) 3rd: The patient?s adult child(linda) (majority, if multiple children) 4th: The patient?s parents 5th: The patient?s adult siblings (majority, if multiple children siblings) Charges/Coding Visit Charges Inpatient E&M: 19665 Subs Hosp L2
--- NOTE | 2023-10-10 13:17 | CASEMGMT ---
Social work - ADVANCED DIRECTIVE VALIDATION This literary writer apprised by PRUDENCIO Fonseca, that patient is interested in completing advanced directives. Met with patient in room, introducing to self and social work role. Patient alert and oriented, and talkative. Patient reports would like cousins listed on advanced directives, and even went into discussion about burial, and cousins accessing patient's finances to take care of things when patient dies. Educated patient that will need to complete a power of deckhand oyster dredge for finances and even a will to identify wishes about patient's estate and finances when patient dies. Encouraged patient to prepay for to avoid any monies being tied up in probate, as well as to help cousins as the cousins navigate patient's personal matters after . Patient expressed thanks for encouragement and education. Patient decided to proceed with the health care power of deckhand oyster dredge and living will. Forms completed. Cousin Peter Armenta ([phone]) is primary POAHC and Kdae Johnson ([phone]) is the second. Forms copied for patient and a copy placed on patient's chart, to be scanned into the EMR after discharge. -SIGRID Diaz
[2023-10-10] MEDS: Ceftriaxone 1 GM/50 ML BAG IV (20:28)
[2023-10-11] VITALS (12 sets, daily range): BP systolic 132–147; BP diastolic 70–89; PULSE 74–91; RESP 15–22; TEMP 36.3–36.7; O2SAT 85–100
[2023-10-11] MEDS: Ipratropium/Albuterol Sulfate 3 ML AMPUL.NEB INHALATION ×2 (07:33→20:20)
[2023-10-11] MEDS: predniSONE 20 MG Tablet 40 MG PO (11:01)
--- NOTE | 2023-10-11 11:51 | PN.HOSP_ITS ---
Subjective Subjective Doing well, no issues overnight. Breathing little bit better down to 3 L nasal cannula Objective Data Objective Data Vital Signs: Vital Signs Temp Pulse Resp BP Pulse Ox O2 Del Method O2 Flow Rate 97.3 F L 89 16 132/70 H 94 Nasal Cannula 3 10/11/23 10:45 10/11/23 10:45 10/11/23 10:45 10/11/23 10:45 10/11/23 10:45 10/11/23 10:45 10/11/23 10:45 FiO2 45 10/09/23 19:45 Oxygen Flow Rate (L/min) 3 Oxygen Delivery Method Nasal Cannula Weight: 107 lb 9.369 oz Body Mass Index (BMI) 16.8 Intake & Output: Intake and Output for Last 24 Hours 10/10/23 10/11/23 10/12/23 03:59 03:59 03:59 Intake Total 745 / 745 920 / 920 580 / 580 Output Total 1050 / 1050 2860 / 2860 1060 / 1060 Balance -305 / -305 -1940 / -1940 -480 / -480 Medical Nutrition Assessment Dietitian: Malnutrition Criteria Met Start: 10/07/23 13:36 Freq: Status: Active Protocol: Document 10/07/23 13:37 RMA (Rec: 10/07/23 13:37 RMA [id number]) Nutrition Malnutrition Evidence of Malnutrition Exists Yes Malnutrition (severe): Acute Illness/Injury,Chronic Evidenced By Suboptimal Energy Intake ( Severe),Weight Loss (Severe), Physical Changes (Moderate) Clinical Problem Acute Disease or Injury Related Malnutrition Etiology Severe protein-calorie malnutrition in the context of acute on chronic disease related to inadequate oral/ energy intake Signs/Symptoms as evidenced by ~10% unintentional weight loss x less than 2 weeks, BMI 16.9, PO meeting less than 50% estimated nutrition needs x 2 weeks and muscle wasting/fat depletion noted, visibly protruding clavicle and moderate muscle wasting in arms/legs Status Active Problem Recommendation Dietitian Recommendations/Changes Will liberalize diet to regular to optimize PO and replete energy/protein. Will add 240mL chocolate ensure plus HP BID w/ breakfast and dinner meals. Additional ONS as needed to prevent further weight loss. Lab / Micro Data 10/10/23 05:44 10/10/23 05:44 Micro: Microbiology 10/07/23 03:15 Sputum, Expectorated/Coughed Gram Stain - Final 10/07/23 03:15 Sputum, Expectorated/Coughed Respiratory Culture - Final 10/06/23 20:54 Blood Culture (Wb) #2 - Right Forearm Blood Culture - Prelim inary No growth in 48 hours. 10/06/23 20:43 Blood Culture (Wb) - Anticubital Left Blood Culture - Preliminary No growth in 48 hours. 10/07/23 03:15 Urine, Clean Catch Legionella Antigen - Final 10/07/23 03:15 Urine, Clean Catch Streptococcus pneumoniae Antigen (M - Final 10/06/23 20:53 Mucosa - Nose SARS-CoV-2, Influenza & RSV (PCR) - Final Physical Exam Narrative General: Alert, Oriented x3, Cooperative, No apparent distress HEENT: Atraumatic, PERRLA, EOMI, Normocephalic Oral: Moist Mucosa Neck: Supple, No JVD Lungs: Diminished, Normal air movement, No rhonchi, No wheeze, No rales Cardiovascular: Regular rate, Regular Rhythm, Normal S1, Normal S2, No murmurs Abdomen: Soft, Non Tender, Non-Distended, No Hepato-splenomegaly Extremities: No edema, Capillary Refill Less than 3 Seconds Skin: No rashes, No breakdown Musculoskeletal: No Tenderness to Palpation of Joints or Extremities Neurological: No focal neurologic deficits, Motor Exam 5/5 strength throughout, Sensory exam intact to light touch and pain Psych/Mental Status: Normal Affect, Appropriate Assessment & Plan Assessment/Plan (1) Leukocytosis: (2) Pneumonia: (3) COPD exacerbation: PLAN: Plan #Acute on chronic hypoxic and hypercapnic respiratory failure due to COPD exacerbation and community acquired pneumonia * admit to PCU * Was on 10 L of oxygen on admission but currently improving. usually wears 2- 3L at home * also has wheezing and pleuritic chest pain with coughing * ABG showed pH of 7.1. * CTA chest was negative for PE but showed severe emphysema with left upper lobe pneumonia and a small left pleural effusion * start on IV solumedrol 40mg every 8 hourly. * IV ceftriaxone and azithromycin * urine for strep and legionella; sputum cultures are negative * Patient was eval by farebox repairer and advised to continue antimicrobial bronchodilator and steroid. Empiric PAP during naps at night. * titrate oxygen to maintain sats>90% 10/08: Patient subjectively feels improvement in shortness of breath. Tachypnea better but is still on Airvo on 8 L of high flow oxygen. Patient wants to go to rehab at this time. Recurrent admission for COPD exacerbation. 10/09/2023: Slowly coming down on his oxygen requirements baseline is around 3 to 4 L nasal cannula appreciate pulmonology's assistance 10/10/2023: He has completed azithromycin continue with Rocephin. Continue to ac tively try to wean down his oxygen back to his baseline of 3 to 4 L 10/11/2023: He is down to 3 L nasal cannula however he required 7 L with ambulation today so we are making progress. Severe chronic protein malnutrition, COPD cachexia: Patient BMI 16.9 kg/m?. Loss of subcutaneous fat. Mild to moderate chronic decreased muscle bulk/atrophy of extremities, intervertebral intercostal muscles. DVT: Lovenox Capacity Legal Real Estate Valuer Reflex Medical hold order details:: IF a medical hold is selected below, a suggested order for a MEDICAL HOLD will reflex upon signing the document. Next of kin: [place] law dictates a PRIORITY LIST for identifying legal decision-maker/legal next of kin in the following order (LNOK): 1st: The patient?s legal guardian, if any 2nd: The patient's spouse (if status is questionable, consult Risk Management) 3rd: The patient?s adult child(linda) (majority, if multiple children) 4th: The patient?s parents 5th: The patient?s adult siblings (majority, if multiple children siblings) Charges/Coding Visit Charges Inpatient E&M: 37634 Subs Hosp L2
[2023-10-11] MEDS: Ceftriaxone 1 GM/50 ML BAG IV (20:46)
[2023-10-11] MEDS: 0.9% Saline Lock 10 ML Syringe IV (20:46)
[2023-10-12 02:57] VITALS: BP 149/80; PULSE 78; RESP 15; TEMP 36.4; O2SAT 100
[2023-10-12 06:50] VITALS: PULSE 17; RESP 17; O2SAT 97
[2023-10-12] MEDS: Ipratropium/Albuterol Sulfate 3 ML AMPUL.NEB INHALATION ×2 (06:53→14:34)
[2023-10-12 07:48] LABS: Absolute Neutrophil Count 11.3 X10^3/uL (2.0-7.7); Basophil# 0.02 X10^3/uL; Basophil% 0.1 % (0-1); Eosinophil# 0.17 X10^3/uL; Eosinophils% 1.1 % (0-5); Hematocrit 35.6 % (40-54); Hemoglobin 10.8 g/dL (13.0-16.5); Lymphocyte % 17.8 % (19-41); Mean Corp Hgb Conc 30.3 g/dL (32-36); Mean Corpuscular Hgb 26.9 pg (27.0-32.0); Mean Corpuscular Volume 88.6 fL (80-94); Mean Platelet Vol. 8.3 fl (6.2-12.0); Monocyte# 1.19 X10^3/uL; Monocyte% 7.6 % (0-10); NRBC Flagged by Analyzer 0 % (0-5); Neutrophil # 11.31 X10^3/uL (2.7-7.7); Neutrophil % 71.9 % (47-70); Platelet Count 529 K/mm3 (150-450); RBC Distribution Width SD 45.2 fl (35.1-43.9); Red Blood Count 4.02 M/mm3 (4.6-6.2); White Blood Count 15.7 K/mm3 (4.4-11.0)
--- NOTE | 2023-10-12 07:55 | CASEMGMT ---
PRUDENCIO WELCH NOTE: Per e-mail from Fausto @ [facility] palliative, pt has appt scheduled to meet w/liaison today 10/12 @ 2 PM. Salena KIRK RN CM
[2023-10-12 08:21] LABS: Anion Gap 4 (5-15); BUN 15 mg/dL (7-18); BUN/Creat Ratio 36.9 RATIO (10-20); Calcium,Total 8.7 mg/dL (8.5-10.1); Chloride 87 mmol/L (98-107); Creatinine, Serum 0.41 mg/dL (0.70-1.30); EST Glomerular Filtration Rate 224 mL/min (>60); Est Glom Filt Rate - Afr Amer 271 mL/min (>60); Estimated Creatinine Clearance 61.85 ml/min; Glucose 90 mg/dL (74-106); Magnesium 2.2 mg/dL (1.6-2.6); Phosphorus 2.9 mg/dL (2.5-4.9); Potassium 3.4 mmol/L (3.5-5.1); Sodium Level 134 mmol/L (136-145)
--- NOTE | 2023-10-12 08:54 | CASEMGMT ---
SW did check back with TCU and they are unable to take patient. Continue with plan for [facility] at discharge. [facility] can accept patient when he is on 5L or less with exertion. Jelena VARELA
[2023-10-12 09:00] VITALS: BP 155/81; PULSE 88; RESP 19; TEMP 36.4; O2SAT 94
[2023-10-12] MEDS: predniSONE 20 MG Tablet 40 MG PO (09:24)
--- NOTE | 2023-10-12 10:03 | CASEMGMT ---
SW sent updates to [facility] and let them know patient may be ready today. Jelena Barnes VERTICAL ROLL OPERATOR NICHOLE
--- NOTE | 2023-10-12 11:22 | PN.HOSP_ITS ---
Subjective Subjective Doing well, back down to his baseline oxygen requirements Objective Data Objective Data Vital Signs: Vital Signs Temp Pulse Resp BP Pulse Ox O2 Del Method O2 Flow Rate 97.5 F L 88 19 H 155/81 H 94 Nasal Cannula 3 10/12/23 09:00 10/12/23 09:00 10/12/23 09:00 10/12/23 09:00 10/12/23 09:00 10/12/23 09:10 10/12/23 09:10 FiO2 45 10/09/23 19:45 Oxygen Flow Rate (L/min) [ 7 AMBULATING with Oxygen #3] Oxygen Flow Rate (L/min) [ 6 AMBULATING with Oxygen #2] Oxygen Flow Rate (L/min) [ 5 AMBULATING with Oxygen #1] Oxygen Flow Rate (L/min) [At 5 REST with Oxygen] Oxygen Flow Rate (L/min) [At 4 REST on Room Air] Oxygen Flow Rate (L/min) 3 Oxygen Delivery Method Nasal Cannula Weight: 107 lb 9.369 oz Body Mass Index (BMI) 16.8 Intake & Output: Intake and Output for Last 24 Hours 10/11/23 10/12/23 10/13/23 03:59 03:59 03:59 Intake Total 920 / 920 2430 / 2430 120 / 120 Output Total 2860 / 2860 1360 / 1360 300 / 300 Balance -1940 / -1940 1070 / 1070 -180 / -180 Medical Nutrition Assessment Dietitian: Malnutrition Criteria Met Start: 10/07/23 13:36 Freq: Status: Active Protocol: Document 10/07/23 13:37 RMA (Rec: 10/07/23 13:37 RMA [id number]) Nutrition Malnutrition Evidence of Malnutrition Exists Yes Malnutrition (severe): Acute Illness/Injury,Chronic Evidenced By Suboptimal Energy Intake ( Severe),Weight Loss (Severe), Physical Changes (Moderate) Clinical Problem Acute Disease or Injury Related Malnutrition Etiology Severe protein-calorie malnutrition in the context of acute on chronic disease related to inadequate oral/ energy intake Signs/Symptoms as evidenced by ~10% unintentional weight loss x less than 2 weeks, BMI 16.9, PO meeting less than 50% estimated nutrition needs x 2 weeks and muscle wasting/fat depletion noted, visibly protruding clavicle and moderate muscle wasting in arms/legs Status Active Problem Recommendation Dietitian Recommendations/Changes Will liberalize diet to regular to optimize PO and replete energy/protein. Will add 240mL chocolate ensure plus HP BID w/ breakfast and dinner meals. Additional ONS as needed to prevent further weight loss. Lab / Micro Data 10/12/23 07:40 10/12/23 07:40 Labs: Laboratory Results - last 24 hr 10/12/23 07:40: WBC 15.7 H, RBC 4.02 L, Hgb 10.8 L, Hct 35.6 L, MCV 88.6, MCH 26.9 L, MCHC 30.3 L, RDW Std Deviation 45.2 H, RDW Coeff of Anurag 14.0, Plt Count 529 H, MPV 8.3, Immature Gran % (Auto) 1.500 H, Neut % (Auto) 71.9 H, Lymph % (Auto) 17.8 L, [place] % (Auto) 7.6, Eos % (Auto) 1.1, Baso % (Auto) 0.1, Absolute Neuts (auto) 11.3 H, Absolute Lymphs (auto) 2.80, Nucleated RBC % 0, Sodium 134 L, Potassium 3.4 L, Chloride 87 L, Carbon Dioxide 43.0 H, Anion Gap 4 L, BUN 15, Creatinine 0.41 L, Estim Creat Clear Calc 61.85, Est GFR (MDRD) Af Amer 271, Est GFR (MDRD) Non-Af 224, BUN/Creatinine Ratio 36.9 H, Glucose 90, Calcium 8.7, Phosphorus 2.9, Magnesium 2.2 Micro: Microbiology 10/06/23 20:43 Blood Culture (Wb) - Anticubital Left Blood Culture - Final No growth in 5 days. 10/06/23 20:54 Blood Culture (Wb) #2 - Right Forearm Blood Culture - Final No growth in 5 days. 10/07/23 03:15 Sputum, Expectorated/Coughed Gram Stain - Final 10/07/23 03:15 Sputum, Expectorated/Coughed Respiratory Culture - Final 10/07/23 03:15 Urine, Clean Catch Legionella Antigen - Final 10/07/23 03:15 Urine, Clean Catch Streptococcus pneumoniae Antigen (M - Final 10/06/23 20:53 Mucosa - Nose SARS-CoV-2, Influenza & RSV (PCR) - Final Physical Exam Narrative General: Alert, Oriented x3, Cooperative, No apparent distress HEENT: Atraumatic, PERRLA, EOMI, Normocephalic Oral: Moist Mucosa Neck: Supple, No JVD Lungs: Diminished, Normal air movement, No rhonchi, No wheeze, No rales Cardiovascular: Regular rate, Regular Rhythm, Normal S1, Normal S2, No murmurs Abdomen: Soft, Non Tender, Non-Distended, No Hepato-splenomegaly Extremities: No edema, Capillary Refill Less than 3 Seconds Skin: No rashes, No breakdown Musculoskeletal: No Tenderness to Palpation of Joints or Extremities Neurological: No focal neurologic deficits, Motor Exam 5/5 strength throughout, Sensory exam intact to light touch and pain Psych/Mental Status: Normal Affect, Appropriate Assessment & Plan Assessment/Plan (1) Leukocytosis: (2) Pneumonia: (3) COPD exacerbation: PLAN: Plan #Acute on chronic hypoxic and hypercapnic respiratory failure due to COPD exacerbation and community acquired pneumonia * admit to PCU * Was on 10 L of oxygen on admission but currently improving. usually wears 2- 3L at home * also has wheezing and pleuritic chest pain with coughing * ABG showed pH of 7.1. * CTA chest was negative for PE but showed severe emphysema with left upper lobe pneumonia and a small left pleural effusion * start on IV solumedrol 40mg every 8 hourly. * IV ceftriaxone and azithromycin * urine for strep and legionella; sputum cultures are negative * Patient was eval by laboratory assistant and advised to continue antimicrobial bronchodilator and steroid. Empiric PAP during naps at night. * titrate oxygen to maintain sats>90% 10/08: Patient subjectively feels improvement in shortness of breath. Tachypnea better but is still on Airvo on 8 L of high flow oxygen. Patient wants to go to rehab at this time. Recurrent admission for COPD exacerbation. 10/09/2023: Slowly coming down on his oxygen requirements baseline is around 3 to 4 L nasal cannula appreciate pulmonology's assistance 10/10/2023: He has completed azithromycin continue with Rocephin. Continue to actively try to wean down his oxygen back to his baseline of 3 to 4 L 10/11/2023: He is down to 3 L nasal cannula however he required 7 L with ambulation today so we are making progress. 10/12/2023: Maintaining his oxygen saturations on 3 L nasal cannula at rest. Currently awaiting pre-CERT. He has received 5 doses of Rocephin and can be discharged on 2 more days of p.o. cefdinir, he has completed azithromycin. When able to be discharged would recommend a slow prolonged taper of prednisone Severe chronic protein malnutrition, COPD cachexia: Patient BMI 16.9 kg/m?. Loss of subcutaneous fat. Mild to moderate chronic decreased muscle bulk/atrophy of extremities, intervertebral intercostal muscles. DVT: Lovenox Capacity Legal Conditioner Tumbler Operator Reflex Medical hold order details:: IF a medical hold is selected below, a suggested order for a MEDICAL HOLD will reflex upon signing the document. Next of kin: [place] law dictates a PRIORITY LIST for identifying legal decision-maker/legal next of kin in the following order (LNOK): 1st: The patient?s legal guardian, if any 2nd: The patient's spouse (if status is questionable, consult Risk Management) 3rd: The patient?s adult child(linda) (majority, if multiple children) 4th: The patient?s parents 5th: The patient?s adult siblings (majority, if multiple children siblings) Charges/Coding Visit Charges Inpatient E&M: 15388 Subs Hosp L2
--- NOTE | 2023-10-12 13:53 | TREXTCAR_ITS ---
Diet Diet Order/Speech Therapy: 10/07/23 13:18 Diet: Regular - General Food consistency:: Regular Liquid Consistency:: Regular/Thin Type of Dietary Supplement:: 8oz Yung Ensure+ w/ B & D Is pt able to select menu?: Yes Diet Comments: pt wants cola (pepsi or coke) with meals Routine Orders/Code Status Routine Lab Work: CBC and BMP Code Status: Full Code Therapies Physical Therapy: Eval and Treat Occupational Therapy: Eval and Treat Problem/Diagnosis (1) Leukocytosis: Status: Acute Code(s): D72.829 - Elevated white blood cell count, unspecified (2) Pneumonia: Status: Acute Code(s): J18.9 - Pneumonia, unspecified organism (3) COPD exacerbation: Status: Acute Code(s): J44.1 - Chronic obstructive pulmonary disease with (acute) exacerbation Plan #Acute on chronic hypoxic and hypercapnic respiratory failure due to COPD exacerbation and community acquired pneumonia * admit to PCU * Was on 10 L of oxygen on admission but currently improving. usually wears 2- 3L at home * also has wheezing and pleuritic chest pain with coughing * ABG showed pH of 7.1. * CTA chest was negative for PE but showed severe emphysema with left upper lobe pneumonia and a small left pleural effusion * start on IV solumedrol 40mg every 8 hourly. * IV ceftriaxone and azithromycin * urine for strep and legionella; sputum cultures are negative * Patient was eval by potato chip fryer and advised to continue antimicrobial bronchodilator and steroid. Empiric PAP during naps at night. * titrate oxygen to maintain sats>90% 10/08: Patient subjectively feels improvement in shortness of breath. Tachypnea better but is still on Airvo on 8 L of high flow oxygen. Patient wants to go to rehab at this time. Recurrent admission for COPD exacerbation. 10/09/2023: Slowly coming down on his oxygen requirements baseline is around 3 to 4 L nasal cannula appreciate pulmonology's assistance 10/10/2023: He has completed azithromycin continue with Rocephin. Continue to actively try to wean down his oxygen back to his baseline of 3 to 4 L 10/11/2023: He is down to 3 L nasal cannula however he required 7 L with ambulation today so we are making progress. 10/12/2023: Maintaining his oxygen saturations on 3 L nasal cannula at rest. Currently awaiting pre-CERT. He has received 5 doses of Rocephin and can be discharged on 2 more days of p.o. cefdinir, he has completed azithromycin. When able to be discharged would recommend a slow prolonged taper of prednisone Severe chronic protein malnutrition, COPD cachexia: Patient BMI 16.9 kg/m?. Loss of subcutaneous fat. Mild to moderate chronic decreased muscle bulk/atrophy of extremities, intervertebral intercostal muscles. DVT: Lovenox Allergies/Procedures Done in Hospital Allergies No Known Allergies Allergy (Verified 09/22/22 14:34) Procedures: 2-D Echocardiogram Type of Care/Length of Stay Estimated LOS: Convalescent Care Less Than 30 days Type of Care Needed: Skilled Rehab Potential: Good Prognosis: Good Additional Orders/Day of Discharge Day of Discharge: 10/12/23 Dietary and Speech Recommendations Dietitian Recommendations/Changes: Will liberalize diet to regular to optimize PO and replete energy/protein. Will add 240mL chocolate ensure plus HP BID w/ breakfast and dinner meals. Additional ONS as needed to prevent further weight loss. Discharge Plan Admission Admit Date/Time: 10/07/23 11:15 Attending Provider: Freddy Ascencio Primary Care Provider: Del Crowder Consulting Providers: Edd Arguelles; Mitch Villalba; John Ayon; Fidel Cassidy; Alejandra Odell; Livia Mccloud; Vamsi Hernandez; Glenn Duarte; Franki Montoya; Chang Brown; Fozia Sam; Bridger Yun Discharge Orders/Prescriptions Prescriptions: New prednisone 20 mg Tablet 40 mg PO BREAKFAST Qty: 0 0RF Rx Instructions: 40 mg p.o. daily for 3 more days then 30 mg p.o. daily for 4 days then 20 mg p.o. daily for 4 days then 10 mg p.o. daily for 4 days then 5 mg p.o. daily for 4 days cefdinir 300 mg capsule 300 mg PO BID Qty: 1 0RF Continued albuterol sulfate 2.5 MG/3 ML solution for nebulization 2.5 mg INHALATION Q4H PRN PRN (Reason: Sob &/Or Wheezing) Qty: 30 0RF nebivolol 2.5 mg tablet 2.5 mg PO DAILY Trelegy Ellipta 200-62.5-25 mcg blister with device 1 inh inhalation DAILY Qty: 60 0RF albuterol sulfate 90 mcg/actuation HFA aerosol inhaler 2 puff INHALATION Q4H PRN (Reason: shortness of breath or wheezing) Patient Comments: INHALE 2 PUFFS BY MOUTH EVERY 4 HOURS NEEDED Referrals / Follow Up: Del Crowder MD [Primary Care Provider] - Disposition Disposition (needs filled in before D/C Order can be placed): [facility]
--- NOTE | 2023-10-12 13:56 | PCM.DC.SUM ---
Providers Date of Admission: 10/07/23 Primary Care Physician: Dr. Del Crowder MD Consultations 10/07/23 01:13 Consult: Operations Intelligence Superintendent / Pulmonary Medicine Routine Consulting Provider: Intensivists/Pulmonary Med Reason for Consult: acute on chronic hypoxic and hypercapnic resp failure EMERGENT Consult: No MD Notified: Yes Date Notified: 10/07/23 Time Notified: 06:50 Method of Notification: Text Reason For Visit: COPD Diagnosis Discharge Diagnosis (1) Leukocytosis: Status: Acute Code(s): D72.829 - Elevated white blood cell count, unspecified (2) Pneumonia: Status: Acute Code(s): J18.9 - Pneumonia, unspecified organism (3) COPD exacerbation: Status: Acute Code(s): J44.1 - Chronic obstructive pulmonary disease with (acute) exacerbation Medications at Discharge Home Medications albuterol sulfate 2.5 mg/3 mL (0.083 %) solution for nebulization 2.5 mg (3 mL) inhalation Q4H PRN PRN Sob &/Or Wheezing #30 vials 11/03/17 fluticasone fur. 200 mcg-umeclid 62.5 mcg-vilant 25 mcg inhalat.powder (Trelegy Ellipta) 1 inh inhalation DAILY #60 ea 09/22/22 nebivolol 2.5 mg tablet 2.5 mg PO DAILY Blood pressure 09/22/22 albuterol sulfate 90 mcg/actuation aerosol inhaler 2 puff inhalation Q4H PRN shortness of breath or wheezing 10/06/23 cefdinir 300 mg capsule 300 mg PO BID #1 cap 10/12/23 prednisone 20 mg tablet 40 mg (2 x 20 mg) PO BREAKFAST #0 tabs 10/12/23 Hospital Course Operations None Procedures 2-D Echocardiogram Summary of Care Provided Minutes Spent on Discharge: 36 Hospital Course: Per HPI: SHLOMO GUIDO, is a 68 M with a PMH as outlined who presents via the ED On 10/06/2023 with a complaint of shortness of breath and chest pain. Symptoms started about a week prior to admission, with shortness of breath gradually worsening. He had associated cough productive of sputum. He denied any fever, chills or muscle aches. He admitted to wheezing He usually wears 2-3L of oxygen at home but had been gradually increasing it. He denies any nausea, vomiting or any other symptoms. Vitals at time of review were BP of 139/121, [place] of 107, RR of 22 and he was saturating at 96% on 10L of oxygen. CBC showed wbc of 14.1, hb of 10.2, platelets of 324 and D dimer ws 2.84. Chemistry showed sodium of 137, bicarb of 43, Cr of 0.44. Initial troponin was 21 and lactic acid was 1.2. ABG showed pCO2 of 71.1. Respiratory panel was negative for covid, influenza and RSV. CTA chest was negative for PE and showed severe emphysema with left upper lobe pneumonia and small left pleural effusion. He is being admitted to be managed for acute on chronic exacerbation of COPD with left upper lobe pneumonia. Hospital Course: #Acute on chronic hypoxic and hypercapnic respiratory failure due to COPD exacerbation and community acquired pneumonia admit to PCU Was on 10 L of oxygen on admission but currently improving. usually wears 2-3L at home also has wheezing and pleuritic chest pain with coughing ABG showed pH of 7.1. CTA chest was negative for PE but showed severe emphysema with left upper lobe pneumonia and a small left pleural effusion start on IV solumedrol 40mg every 8 hourly. IV ceftriaxone and azithromycin urine for strep and legionella; sputum cultures are negative Patient was eval by police officer crime prevention and advised to continue antimicrobial bronchodilator and steroid. Empiric PAP during naps at night. titrate oxygen to maintain sats>90% 10/08: Patient subjectively feels improvement in shortness of breath. Tachypnea better but is still on Airvo on 8 L of high flow oxygen. Patient wants to go to rehab at this time. Recurrent admission for COPD exacerbation. 10/09/2023: Slowly coming down on his oxygen requirements baseline is around 3 to 4 L nasal cannula appreciate pulmonology's assistance 10/10/2023: He has completed azithromycin continue with Rocephin. Continue to actively try to wean down his oxygen back to his baseline of 3 to 4 L 10/11/2023: He is down to 3 L nasal cannula however he required 7 L with ambulation today so we are making progress. 10/12/2023: Discussed with him the plan for discharge today he expressed understanding of the [facility] and like to go today. Will continue with cefdinir 300 mg p.o. twice daily for 2 more days to complete a 7-day course of Rocephin, he already completed azithromycin. Will provide with a long taper of prednisone on discharge. Recommend that he follow-up with pulmonology as an outpatient once discharged from SNF. Severe chronic protein malnutrition, COPD cachexia: Patient BMI 16.9 kg/m?. Loss of subcutaneous fat. Mild to moderate chronic decreased muscle bulk/atrophy of extremities, intervertebral intercostal muscles. Medical Records Data Medical Nutrition Assessment Dietitian: Malnutrition Criteria Met Start: 10/07/23 13:36 Freq: Status: Active Protocol: Document 10/07/23 13:37 RMA (Rec: 10/07/23 13:37 RMA [id number]) Nutrition Malnutrition Evidence of Malnutrition Exists Yes Malnutrition (severe): Acute Illness/Injury,Chronic Evidenced By Suboptimal Energy Intake ( Severe),Weight Loss (Severe), Physical Changes (Moderate) Clinical Problem Acute Disease or Injury Related Malnutrition Etiology Severe protein-calorie malnutrition in the context of acute on chronic disease related to inadequate oral/ energy intake Signs/Symptoms as evidenced by ~10% unintentional weight loss x less than 2 weeks, BMI 16.9, PO meeting less than 50% estimated nutrition needs x 2 weeks and muscle wasting/fat depletion noted, visibly protruding clavicle and moderate muscle wasting in arms/legs Status Active Problem Recommendation Dietitian Recommendations/Changes Will liberalize diet to regular to optimize PO and replete energy/protein. Will add 240mL chocolate ensure plus HP BID w/ breakfast and dinner meals. Additional ONS as needed to prevent further weight loss. Weight / BMI Weight Weight: 107 lb 9.369 oz Body Mass Index (BMI) 16.8 ABG / Lab / Microbiology Data 10/12/23 07:40 10/12/23 07:40 Laboratory: Laboratory Results - last 24 hr 10/12/23 07:40: WBC 15.7 H, RBC 4.02 L, Hgb 10.8 L, Hct 35.6 L, MCV 88.6, MCH 26.9 L, MCHC 30.3 L, RDW Std Deviation 45.2 H, RDW Coeff of Anurag 14.0, Plt Count 529 H, MPV 8.3, Immature Gran % (Auto) 1.500 H, Neut % (Auto) 71.9 H, Lymph % (Auto) 17.8 L, [place] % (Auto) 7.6, Eos % (Auto) 1.1, Baso % (Auto) 0.1, Absolute Neuts (auto) 11.3 H, Absolute Lymphs (auto) 2.80, Nucleated RBC % 0, Sodium 134 L, Potassium 3.4 L, Chloride 87 L, Carbon Dioxide 43.0 H, Anion Gap 4 L, BUN 15, Creatinine 0.41 L, Estim Creat Clear Calc 61.85, Est GFR (MDRD) Af Amer 271, Est GFR (MDRD) Non-Af 224, BUN/Creatinine Ratio 36.9 H, Glucose 90, Calcium 8.7, Phosphorus 2.9, Magnesium 2.2 Microbiology: Microbiology 10/12/23 13:00 Nasal Secretion SARS-CoV-2 Antigen (Rapid) - Final 10/06/23 20:43 Blood Culture (Wb) - Anticubital Left Blood Culture - Final No growth in 5 days. 10/06/23 20:54 Blood Culture (Wb) #2 - Right Forearm Blood Culture - Final No growth in 5 days. 10/07/23 03:15 Sputum, Expectorated/Coughed Gram Stain - Final 10/07/23 03:15 Sputum, Expectorated/Coughed Respiratory Culture - Final 10/07/23 03:15 Urine, Clean Catch Legionella Antigen - Final 10/07/23 03:15 Urine, Clean Catch Streptococcus pneumoniae Antigen (M - Final 10/06/23 20:53 Mucosa - Nose SARS-CoV-2, Influenza & RSV (PCR) - Final Meaningful Use Info Meaningful Use Diagnoses (Choose all that apply): None applicable Discharge Plan Admission Admit Date/Time: 10/07/23 11:15 Attending Provider: Freddy Ascencio Primary Care Provider: Del Crowder Consulting Providers: Edd Arguelles; Mitch Villalba; John Ayon; Fidel Cassidy; Alejandra Odell; Livia Mccloud; Vamsi Hernandez; Glenn Duarte; Franki Montoya; Chang Brown; Fozia Sam; Bridger Yun Discharge Orders/Prescriptions Prescriptions: New prednisone 20 mg Tablet 40 mg PO BREAKFAST Qty: 0 0RF Rx Instructions: 40 mg p.o. daily for 3 more days then 30 mg p.o. daily for 4 days then 20 mg p.o. daily for 4 days then 10 mg p.o. daily for 4 days then 5 mg p.o. daily for 4 days cefdinir 300 mg capsule 300 mg PO BID Qty: 1 0RF Continued albuterol sulfate 2.5 MG/3 ML solution for nebulization 2.5 mg INHALATION Q4H PRN PRN (Reason: Sob &/Or Wheezing) Qty: 30 0RF nebivolol 2.5 mg tablet 2.5 mg PO DAILY Trelegy Ellipta 200-62.5-25 mcg blister with device 1 inh inhalation DAILY Qty: 60 0RF albuterol sulfate 90 mcg/actuation HFA aerosol inhaler 2 puff INHALATION Q4H PRN (Reason: shortness of breath or wheezing) Patient Comments: INHALE 2 PUFFS BY MOUTH EVERY 4 HOURS NEEDED Referrals / Follow Up: Del Crowder MD [Primary Care Provider] - Disposition Disposition (needs filled in before D/C Order can be placed): [facility]mediate Facility Charges/Coding Visit Charges Inpatient E&M: 19930 Disch Hosp >30min
--- NOTE | 2023-10-12 14:24 | PHA.DC.MR.R ---
Pharmacy MD Med Reconciliation Pharmacy Service has performed discharge medication reconciliation for this patient. The patient's discharge medication list was reviewed for discrepancies and discrepancies were resolved. Medications at Discharge Home Medications albuterol sulfate 2.5 mg/3 mL (0.083 %) solution for nebulization 2.5 mg (3 mL) inhalation Q4H PRN PRN Sob &/Or Wheezing #30 vials 11/03/17 fluticasone fur. 200 mcg-umeclid 62.5 mcg-vilant 25 mcg inhalat.powder (Trelegy Ellipta) 1 inh inhalation DAILY breathing #60 ea 09/22/22 nebivolol 2.5 mg tablet 2.5 mg PO DAILY Blood pressure 09/22/22 albuterol sulfate 90 mcg/actuation aerosol inhaler 2 puff inhalation Q4H PRN shortness of breath or wheezing 10/06/23 cefdinir 300 mg capsule 300 mg PO BID #1 cap 10/12/23 prednisone 20 mg tablet 40 mg (2 x 20 mg) PO BREAKFAST #0 tabs 10/12/23
[2023-10-12 15:00] VITALS: PULSE 78; RESP 17; O2SAT 95
[2023-10-12 16:00] VITALS: BP 141/72; PULSE 91; RESP 17; TEMP 36.7; O2SAT 95
--- NOTE | 2023-10-12 16:44 | CASEMGMT ---
Discharge Planning Discharge orders, signed med list, covid results, and transport time sent to [facility] via [facility]. Physicians will transport patient by wheelchair at 7p. Nursing, SW, patient, and his friend, Isauro craven. Collette Breen, Discharge Planning Asst.
--- NOTE | 2023-10-12 16:53 | CASEMGMT ---
Patient was upset as he was not aware he was leaving today. SW met with patient. SW let patient know SW did try TCU again however they continue to be full. Patient expressed his frustrations with the situation. Patient said no one told him he was going today and the aides came in and just started packing up his clothes like he was being kicked out on the street. Patient said he has processed everything now and is okay. Patient said he just would have preferred better communication. SW apologized and provided emotional support. Patient was appreciative that SW came and spoke with him. SW completed a 7000 in [employer] system. Plan: d/c to [facility] under skilled level of care on a convalescent stay. Physicians will transport patient. Jelena VAREAL
== END 2023-10-12 17:59 | disposition skilled nursing facility (03) | DRG 193 ==
LOC: ED 22:32 → PCU 23:58
PROVIDERS: Internal Medicine; Admitting Provider Student in an Organized Health Care Education/Training Program; Emergency Provider Emergency Medicine; PCP Family Medicine; Visit Provider Family Medicine
DX: J18.9 Pneumonia, unspecified organism (principal); J96.21 Acute and chronic respiratory failure with hypoxia; E43 Unspecified severe protein-calorie malnutrition; J96.22 Acute and chronic respiratory failure with hypercapnia; J44.1 Chronic obstructive pulmonary disease with (acute) exacerbation; J44.0 Chronic obstructive pulmonary disease with (acute) lower respiratory infection; J90 Pleural effusion, not elsewhere classified; Z68.1 Body mass index [BMI] 19.9 or less, adult; D64.9 Anemia, unspecified; Z99.81 Dependence on supplemental oxygen; Z79.899 Other long term (current) drug therapy; Z87.891 Personal history of nicotine dependence
CPT/HCPCS: 36415; 36600; 71045; 71275; 80048; 82803; 83605; 83735; 84100; 84484; 85025; 85379; 87040; 87070; 87205; 87449; 87631; 87811; 93005; 93306; 94002; 94640; 94660; 94668; 94762; 97116; 97162; 97166; 97530; 97535; 99252; 99285; J7030; J7050; Q9967; A4216; G0463

== ENCOUNTER 2024-05-05 21:41 | Emergency (ER) | payer MEDICARE, SELFPAY ==
[2024-05-05 21:42] VITALS: BP 112/51; PULSE 65; RESP 25; TEMP 36.3; O2SAT 93
[2024-05-05 21:45] VITALS: BP 112/51; PULSE 65; RESP 25; TEMP 36.3; O2SAT 93
[2024-05-05 21:51] VITALS: BMI 17.3
--- NOTE | 2024-05-05 22:25 | EDS_ITS ---
HPI History of Present Illness Chief Complaint: Weakness [facility] Medical History COPD (chronic obstructive pulmonary disease) Home Medications ?Medication ?Instructions ?Recorded ?Last Taken ?Type albuterol sulfate 2.5 mg/3 mL 2.5 mg (3 mL) inhalation Q4H PRN 11/03/17 01/05/18 Rx (0.083 %) solution for nebulization PRN Sob &/Or Wheezing #30 vials fluticasone fur. 200 mcg-umeclid 1 inh inhalation DAILY breathing 09/22/22 Unknown Rx 62.5 mcg-vilant 25 mcg #60 ea inhalat.powder (Trelegy Ellipta) nebivolol 2.5 mg tablet 2.5 mg PO DAILY Blood pressure 09/22/22 Unknown History albuterol sulfate 90 mcg/actuation 2 puff inhalation Q4H PRN 10/06/23 Unknown History aerosol inhaler shortness of breath or wheezing cefdinir 300 mg capsule 300 mg PO BID #1 cap 10/12/23 Unknown Rx prednisone 20 mg tablet 40 mg (2 x 20 mg) PO BREAKFAST #0 10/12/23 Unknown Rx tabs Allergy/AdvReac Type Severity Reaction Status Date / Time No Known Allergies Allergy Verified 05/05/24 21:41 Social History Smoking Status: Former smoker EXAM Physical Exam Const Vital Signs: 05/05/24 21:42 05/05/24 21:45 05/05/24 21:53 Temperature 97.4 F L 97.4 F L Temperature Source Temporal Temporal Pulse Rate 65 65 Respiratory Rate 25 H 25 H Respiratory Pattern Normal Blood Pressure 112/51 L 112/51 L Blood Pressure Mean 71 71 Pulse Ox 93 93 Oxygen Delivery Method Nasal Cannula Nasal Cannula Oxygen Flow Rate (L/min) 6 6 MDM MDM MDM Narrative Medical decision making narrative: HISTORY OF PRESENT ILLNESS: 69-year-old male here with concern for weakness. He states he passed out Monday night resulting in a fall. Complains of right knee pain. States entire leg is numb. He has not been amatory since. On home O2 4 L. He is on hospice for COPD. He request to speak to hospice nurse. He notes he was remain on hospice. He relates he is DNR CC. He is alert and oriented x 3. REVIEW OF SYSTEMS: Pertinent positives: Knee pain, syncope, weakness Pertinent negatives: Chest pain, shortness of breath PHYSICAL EXAM: Nursing triage notes reviewed, Vital signs reviewed Constitutional: please see mdm HENT: MMM, no obvious cephalhematoma Eyes: Pupils equal round and reactive to light, Extraocular muscles intact Neck: No stridor, no JVD, full neck ROM Lungs: Clear to auscultation, No wheezing or rales. No increased work of breathing, no conversational dyspnea, no accessory muscle use, no nasal flaring. No respiratory distress noted Heart: Regular rate and rhythm, No murmurs, No rubs and No gallops, 2+ distal pulses (radial, femoral, posterior tibial) in all extremities Abdomen: Soft, there is no tenderness, rigidity, rebound or guarding, no obvious peritoneal signs, no palpable pulsatile abdominal masses, no auscultated abdominal bruit : No CVAT Extremities: No edema, TTP over right knee. Compartments are soft. 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 [facility] Narrative: Patient was initially tachypneic otherwise afebrile nontoxic-appearing saturating well on 6 L nasal cannula. No obvious significant deformity or traumatic injury noted. Given the patient was DNR CC was not placed on the monitor. Given Tylenol for symptomatic relief. Patient was essentially requesting inpatient hospice. Hospice nurse was called for evaluation for appropriateness for inpatient hospice. Given the patient was hospice patient, DNR CCA with no labs or images were obtained these to be counterproductive and not be in line with the goals of hospice. Hospice nurse was consulted. Hospice nurse noted they have beds. Patient will be transferred to inpatient hospice The patient and/or family, caregivers express understanding. The patient and/or family, caregivers agrees with the plan. Shared decision making: I will have a discussion with the patient and or visitors regarding risk/benefits of further testing or admission. They will be made aware of of the risk/benefits inherent in this decision they will be given the opportunity to voice understanding. Total critical care time today provided was at least 0 minutes. This excludes separately billable procedures. Critical care time (if documented) is secondary to the patient having high probability of clinically significant/life threatening deterioration in the patient's condition which required my urgent intervention. Impression: 1. Fall 2. Right leg pain 3. Evaluation for inpatient hospice Dispo: Discharge to inpatient hospice This note was generated with [employer] dictation software. It may contain incorrect words, spelling, and punctuation that were not noted in review of the chart prior to signing. Discharge Plan Triage Chief Complaint: Weakness ED Provider: Will Alfaro Dx/Rx/DC Orders Prescriptions: No Action albuterol sulfate 2.5 MG/3 ML solution for nebulization 2.5 mg INHALATION Q4H PRN PRN (Reason: Sob &/Or Wheezing) Qty: 30 0RF nebivolol 2.5 mg tablet 2.5 mg PO DAILY Trelegy Ellipta 200-62.5-25 mcg blister with device 1 inh inhalation DAILY Qty: 60 0RF albuterol sulfate 90 mcg/actuation HFA aerosol inhaler 2 puff INHALATION Q4H PRN (Reason: shortness of breath or wheezing) Patient Comments: INHALE 2 PUFFS BY MOUTH EVERY 4 HOURS NEEDED prednisone 20 mg Tablet 40 mg PO BREAKFAST Qty: 0 0RF Rx Instructions: 40 mg p.o. daily for 3 more days then 30 mg p.o. daily for 4 days then 20 mg p.o. daily for 4 days then 10 mg p.o. daily for 4 days then 5 mg p.o. daily for 4 days cefdinir 300 mg capsule 300 mg PO BID Qty: 1 0RF Primary Care Provider: Care Physician,No Primary Referrals: Del Crowder MD [Med Staff - Director Of Curriculum And Instruction] - Print Language: Georgian
--- NOTE | 2024-05-05 23:04 | NURSING ---
emergency medical services coordinator called. Will be coming in to evaluate if pt qualifies for the In Patient Care Unit with Hospice.
[2024-05-05] MEDS: Acetaminophen 325 MG Tablet 650 MG PO (23:10)
== END 2024-05-06 02:52 | disposition home or self-care (01) ==
PROVIDERS: Emergency Provider Emergency Medicine; Visit Provider Emergency Medicine
DX: M79.604 Pain in right leg (principal); J44.9 Chronic obstructive pulmonary disease, unspecified; M25.561 Pain in right knee; Z51.5 Encounter for palliative care; Z87.891 Personal history of nicotine dependence; I10 Essential (primary) hypertension; R53.1 Weakness; R55 Syncope and collapse; R20.0 Anesthesia of skin; Z99.81 Dependence on supplemental oxygen; Z66 Do not resuscitate; W19.XXXA Unspecified fall, initial encounter
CPT/HCPCS: 99282